=== PATIENT | female | born 1975 | race Caucasian/White ===

== ENCOUNTER → 2022-09-08 | Outpatient (CLI) | payer OTHER, SELFPAY ==
--- NOTE | 2022-09-08 12:37 | US_ITS ---
STUDY: ULTRASOUND BREAST - LEFT REASON FOR EXAM: Female, 47 years old. Abnormal screening mammogram. TECHNIQUE: Axial and longitudinal images of the LEFT breast were performed with a high resolution ultrasound transducer. # OF IMAGES: 41 COMPARISON: None. FINDINGS: LEFT Breast: There is a 9 mm x 6 mm x 8 mm hypoechoic irregular solid nodule at the 3 o''clock position of the breast at 3 cm from the nipple. Biopsy is recommended. There is a 1.9 cm x 0.5 cm benign appearing lymph node in the left axilla. US/Breast Limited Unilateral IMPRESSION: 9 mm x 6 mm x 8 mm hypoechoic irregular solid nodule at the 2 o''clock position of the breast at 3 cm from nipple. Biopsy recommended. ASSESSMENT CATEGORY: BIRADS Category 4: Suspicious - Biopsy Should Be Considered. A letter regarding these results will be sent to the patient by the facility within 30 days. Electronically Signed: Frank Black MD at 13:26 EDT ,
== END | disposition home or self-care (01) ==
LOC: OPUS 12:35
PROVIDERS: PCP Student in an Organized Health Care Education/Training Program; Referring Provider Nurse Practitioner Family; Visit Provider Nurse Practitioner Family
DX: R92.8 Other abnormal and inconclusive findings on diagnostic imaging of breast (principal)
CPT/HCPCS: 76642

== ENCOUNTER → 2022-09-15 | Outpatient (CLI) | payer OTHER, SELFPAY ==
--- NOTE | 2022-09-15 | IMM_PTH ---
PATIENT: NANCY BARNEY LOC: [facility] U#:[id number] AGE/SX: 47/F ROOM: RE09/15/[address]: Dr. Yves Grant MD : 1975 BED: DIS: 09/15/2022 SPEC #: [id number] RECD: 09/19/22 13:07 STATUS: MATTHEW REQ #: [id number] PARKER: 09/15/22 00:[address]: Yves Grant DEPT: IMMUNOHISTOCHEMISTRY RECD BY: Katarina De Leon ENTERED: 09/19/22 13:12 SP TYPE: IMMUNO OTHR DR: Dr. Jake Spangler, DO Tissues: A - Left breast, NOS B - Axillary lymph node, NOS Procedures: BCL-2 (add) CALPONIN-1 (add) CD20 (add) CD3 (add) CD45 (add) CD5 (add) CD79A (add) CK5-6 (add) CK7 (add) CK8 (add) E-CAD (add) ER (add) HER2 VIOLET (add) P53 (add) KS (add) Pankeratin (add) P40 (add) KI-67 (initial) PHYSICIAN & [place] [id number] SPECIMEN INFORMATION: Tissue Source: A - Left breast at 3 o?clock, B - Lymph node tissue Clinical Info: Left breast mass 3 o?clock x3, left lymph nodule Specimen Number: [id number] A & B CPT code: 30874 x2, 85338 x14, 76055 x3 METHODOLOGY: Deparaffinized sections of prefer/formalin-fixed tissue or PAP/DQ stained slides are incubated with monoclonal/polyclonal antibodies/oligonucleotide probes. Localization is made via biotin free immunoperoxidase method. Appropriate controls are performed and reacted as expected. Results on target cell population are indicated in the following table: RESULTS: ANTIBODY / CLONE RESULT Block A P53 (DO-7) positive, 10% Ki-67 (30-9) positive, 5% CK8 (83kdbsH21) positive CK5-6 (D5 & 1684) negative Calponin-1 (EQ522H) negative P40 (BC28) negative E-Cad (ECH-6) negative MORPHOMETRIC ANALYSIS ER (clone 6F11) 78%, moderate intensity KS (clone 16/1E2) 85%, moderate intensity Her-2Neu (clone CB11) 0 Block B AE1-3 (AE1/AE3/PCK26) negative CK7 (OV-TL12/30) negative CD3 (PS1) positive CD5 (SP10) positive CD20 (L26) positive CD45 (RP2/18) positive CD79a (11E3) positive BCL-2 (bcl-2/100/D5) negative Ki-67 (30-9) negative The prognostic test for HER2 is performed on formalin-fixed paraffin embedded tissue. A 3+ (positive) staining pattern is defined as intense, homogeneous, complete, circumferential membranous staining in >10% of contiguous tumor cells. A similar weak (2+) staining pattern is interpreted as equivocal. HONEY follow-up testing is recommended for all equivocal cases. Positivity/negativity for ER/KS is reported if > or < 1% of the tumor cells are immuno- reactive, respectively. The ASCO/CAP criteria is used for scoring. Reference: Journal of Clinical Oncology, 2013; 31:1952-7966 & 2010; 16:9862-9306. Duration of fixation: 57.5 Hrs; Sample Adequate: Yes. These assays have not been validated on decalcified tissues. Results should be interpreted with caution given the likelihood of false negativity on decalcified specimens. These tests were developed and their performance characteristics determined by [facility]. They may not have been cleared or approved by the U.S. Food and Drug Administration. The FDA has determined that such clearance or approval is not necessary. The above immunohistochemical/dualISH markers are ordered and reviewed by the Pathologist. INTERPRETATION: A. Left breast at 3 o?clock, core biopsy: Invasive lobular carcinoma, nuclear grade 2/3. Positive for estrogen receptors (favorable prognostic indicator). Positive for progesterone receptors (favorable prognostic indicator). Negative for overexpression of QIL3ggx. B. Lymph node tissue, biopsy: No evidence of malignancy. AM:marin 09/20/2022
--- NOTE | 2022-09-15 10:00 | BRBX_PTH ---
PATIENT: NANCY BARNEY LOC: [facility] U#:[id number] AGE/SX: 47/F ROOM: RE09/15/[address]: Dr. Yves Grant MD : 1975 BED: DIS: 09/15/2022 SPEC #: [id number] RECD: 09/15/22 13:12 STATUS: MATTHEW MONIK #: [id number] PARKER: 09/15/22 10:[address]: Yves Grant DEPT: SURGICAL PATHOLOGY RECD BY: Genny Negro ENTERED: 09/18/22 08:36 SP TYPE: BREAST BX OTHR DR: Dr. Jake Spangler, DO Tissues: A - Left breast, NOS B - LYMPH NODE BIOPSY Procedures: Surgery Specimen Level IV HEADER OPERATION: Left breast biopsy / Left lymph node PRE-OP DIAGNOSIS: Left breast mass 3 o?clock x3 / Left lymph nodule TISSUE SUBMITTED: A ? Left breast tissue 3 o?clock x3, B ? Left lymph tissue FIXATION TIME: 57.5 hours MICROSCOPIC DIAGNOSIS A. Left breast at 3 o?clock, core biopsy: Invasive lobular carcinoma with the follow characteristics: Nuclear grade ? 2/3 Maximal length ? 8.5 mm See comment. B. Lymph node tissue, biopsy: Benign polytypic lymphoid tissue. No evidence of carcinoma. See comment. AM:marin 09/19/2022 COMMENT A & B. Immunohistochemistry ([id number]) supports the above diagnosis. Case has been reviewed in consultation with Dr. Hill who concurs with the above diagnosis. IDC:SJ MICROSCOPIC DESCRIPTION Slides are reviewed. GROSS DESCRIPTION A - Received in fixative is one container labeled with the patient's name and designated left breast. The specimen consists of multiple elongated fragments of carrillo tissue that in aggregate measure 2 x 0.5 x 0.1 cm. The specimen is totally submitted in one cassette. B - Received in fixative is one container labeled with the patient's name and designated left lymph node. The specimen consists of two irregular fragments of carrillo-yellow tissue that in aggregate measure 1 x 0.2 x 0.1 cm. The specimen is totally submitted in one cassette. / AM:marin 09/18/2022 TC:0 CPT: 40206 x2 ADDENDUM ADDENDUM ADDENDUM ADDENDUM ADDENDUM ADDENDUM ADDENDUM ADDENDUM 11/29/2022 10:25 ADDENDUM 11/29/2022 10:25 ADDENDUM 11/29/2022 10:25 ADDENDUM 11/29/2022 10:25 ADDENDUM 11/29/2022 10:25 An order for Oncotype testing was received from Dr. Leung. This necessitated case review, block and slide selection by pathologist at [facility]. Breast Cancer Recurrence Score = 25 Results of the complete Oncotype testing ([employer] report) are viewable in EMR under: Reports - Pathology - Lab Pathology Report, Scanned.
== END | disposition home or self-care (01) ==
LOC: LABSPEC 13:22
PROVIDERS: PCP Student in an Organized Health Care Education/Training Program; Visit Provider Surgery
DX: N63.20 Unspecified lump in the left breast, unspecified quadrant (principal)
CPT/HCPCS: 88305; 88341; 88342

== ENCOUNTER → 2022-10-02 | Outpatient (CLI) | payer OTHER, SELFPAY ==
--- NOTE | 2022-10-02 14:25 | MRI_ITS ---
STUDY: BILATERAL BREAST MR WITHOUT AND WITH CONTRAST REASON FOR EXAM: Female, 47 years old. Left breast cancer after biopsy 03/01/2022. TECHNIQUE: Multi-sequence multi-echo imaging of both breasts was performed with a dedicated breast coil. T1-weighted and T2-weighted images were performed before the administration of contrast. T1-weighted images were also performed after the intravenous administration of 14ML of CLARISCAN contrast. COMPARISON: Left breast ultrasound dated 09/15/2022, 09/08/2022 and mammograms dated August 18, 2022 and February 16, 2021. FINDINGS: RIGHT BREAST: There are scattered areas of fibroglandular density with mild background enhancement. Multiple small cysts. 2 focal areas of contrast enhancement in the lower outer aspect of the right breast, one measuring 4 mm in diameter and the other 9 mm in diameter. These are located at approximately the 8:00 to 9:00 position of the left breast (axial postcontrast images 163-175). While this may just represent benign enhancement, a second look ultrasound of the right breast is recommended with particular attention to this area. LEFT BREAST: There are scattered areas of fibroglandular density with mild background enhancement. In the upper outer quadrant of the left breast there is an irregular enhancing mass measuring 1 cm x 5 mm x 7 mm corresponding to the mammographic and ultrasonographic findings. This represents the index lesion. Tissue clip artifact within the mass. Multiple small cysts randomly distributed. No enlarged or abnormal lymph nodes. No abnormality in the visualized regions of the chest or liver. MRI/Breast Bilateral W/O and W IMPRESSION: Index lesion in the upper outer quadrant of the left breast measuring 1 cm x 5 mm x 7 mm with tissue clip artifact within it. 2 focal areas of contrast enhancement in the lower outer quadrant of the right breast for which a second look ultrasound is recommended. See discussion above. Multiple cysts in both breasts. CATEGORY: BIRADS Category 0: Incomplete. Need additional imaging evaluation. A letter regarding these results will be sent to the patient by the facility within 30 days. Electronically Signed: Maciel Patton, at 13:13 EST ,
== END | disposition home or self-care (01) ==
PROVIDERS: PCP Student in an Organized Health Care Education/Training Program; Visit Provider Physician Assistant
DX: C50.919 Malignant neoplasm of unspecified site of unspecified female breast (principal)
CPT/HCPCS: 77049; A9575; A4216; C8908

== ENCOUNTER → 2022-10-06 | Outpatient (CLI) | payer OTHER, SELFPAY ==
--- NOTE | 2022-10-06 09:26 | US_ITS ---
STUDY: ULTRASOUND BREAST - RIGHT REASON FOR EXAM: Female, 47 years old. Second look ultrasound from MRI study dated October 02, 2022. TECHNIQUE: Axial and longitudinal images of the RIGHT breast were performed with a high resolution ultrasound transducer. # OF IMAGES: 35 COMPARISON: MRI dated October 02, 2022. Bilateral mammogram dated August 18, 2022. FINDINGS: RIGHT Breast: Targeted examination of the right lower outer breast showed 3 hypoechoic lesions: 8:00 position 4 cm from the nipple measuring 5 mm x 5 mm x 4 mm. This lesion has increased blood flow and is suspicious. Ultrasound-guided biopsy of this lesion would be appropriate. 9:00 position 3 cm from the nipple 4 mm x 5 mm x 4 mm hypoechoic lesion. This has no significant increased blood flow. 9:00 4 cm from the nipple 5 mm x 4 mm x 3 mm lesion which has slightly irregular borders and shows increased blood flow. Ultrasound-guided biopsy of the 8:00 lesion 4 cm from the nipple and at 9:00 lesion 4 cm from the nipple, because of the increased vascularity and the enhancement on MRI, is recommended. US/Breast Limited Unilateral IMPRESSION: Ultrasound-guided biopsy of 2 lesions which correlate with the MRI study, as outlined above. ASSESSMENT CATEGORY: BIRADS Category 4: Suspicious - Biopsy Should Be Considered. A letter regarding these results will be sent to the patient by the facility within 30 days. Electronically Signed: Maciel Patton, at 10:34 EST ,
== END | disposition home or self-care (01) ==
LOC: OPUS 09:25
PROVIDERS: PCP Student in an Organized Health Care Education/Training Program; Referring Provider Surgery; Visit Provider Surgery
DX: R92.8 Other abnormal and inconclusive findings on diagnostic imaging of breast (principal)
CPT/HCPCS: 76642

== ENCOUNTER → 2022-10-09 | Outpatient (CLI) | payer OTHER, SELFPAY ==
--- NOTE | 2022-10-09 | IMM_PTH ---
PATIENT: NANCY BARNEY LOC: [facility] U#:[id number] AGE/SX: 47/F ROOM: RE10/09/[address]: Dr. Yves Grant MD : 1975 BED: DIS: 10/09/2022 SPEC #: [id number] RECD: 10/11/22 12:36 STATUS: MATTHEW REZev #: [id number] PARKER: 10/09/22 00:[address]: Yves Grant DEPT: IMMUNOHISTOCHEMISTRY RECD BY: Katarina De Leon ENTERED: 10/11/22 12:37 SP TYPE: IMMUNO OTHR DR: Dr. Jake Spangler DO Tissues: A - Right breast, NOS B - Right breast, NOS Procedures: SMA (add) CALPONIN-1 (add) CK5-6 (add) CK8 (add) Vimentin (add) Pankeratin (initial) PHYSICIAN & INSTITUTION [place] [id number] SPECIMEN INFORMATION: Tissue Source: A ? Right breast mass 8 o?clock, B - Right breast mass 9 o?clock Clinical Info: Multiple right breast masses Specimen Number: [id number] A & B CPT code: 96636 x2, 83085 x10 METHODOLOGY: Deparaffinized sections of prefer/formalin-fixed tissue or PAP/DQ stained slides are incubated with monoclonal/polyclonal antibodies/oligonucleotide probes. Localization is made via biotin free immunoperoxidase method. Appropriate controls are performed and reacted as expected. Results on target cell population are indicated in the following table: RESULTS: ANTIBODY / CLONE RESULT Block A AE1-3 (AE1/AE3/PCK26) positive CK8 (84zavgM88) positive Vimentin (V9) negative Calponin-1 (SK931N) positive Actin (1A4) positive CK5-6 (D5 & 1684) positive Block B AE1-3 (AE1/AE3/PCK26) positive CK8 (47euuoK67) positive Vimentin (V9) negative Calponin-1 (ND409C) positive Actin (1A4) positive CK5-6 (D5 & 1684) positive These tests were developed and their performance characteristics determined by [facility]. They may not have been cleared or approved by the U.S. Food and Drug Administration. The FDA has determined that such clearance or approval is not necessary. The above immunohistochemical/dualISH markers are ordered and reviewed by the Pathologist. INTERPRETATION: A. Right breast mass at 8 o?clock, biopsy: Consistent with fragments of intraductal papilloma. B. Right breast mass at 9 o?clock, biopsy: Consistent with fragments of intraductal papilloma. AM:marin 10/12/2022
--- NOTE | 2022-10-09 13:00 | BRBX_PTH ---
PATIENT: NANCY BARNEY LOC: [facility] U#:[id number] AGE/SX: 47/F ROOM: RE10/09/[address]: Dr. Yves Grant MD : 1975 BED: DIS: 10/09/2022 SPEC #: [id number] RECD: 10/09/22 15:22 STATUS: MATTHEW MONIK #: [id number] PARKER: 10/09/22 13:[address]: Yves Grant DEPT: SURGICAL PATHOLOGY RECD BY: Genny Negro ENTERED: 10/10/22 07:26 SP TYPE: BREAST BX OT DR: Dr. Jake Spangler DO Tissues: A - Right breast, NOS B - Right breast, NOS Procedures: Surgery Specimen Level IV HEADER OPERATION: Right breast biopsy (x2) PRE-OP DIAGNOSIS: Multiple right breast masses TISSUE SUBMITTED: A ? Right breast mass 8 o?clock +4, B - Right breast mass 9 o?clock +4 MICROSCOPIC DIAGNOSIS A. Right breast at 8 o?clock, needle core biopsy: Fragments of detached intraductal papilloma. Focal intraductal hyperplasia without atypia. See comment. B. Right breast at 9 o?clock, needle core biopsy: Fragments of detached intraductal papilloma. Focal intraductal hyperplasia without atypia. Focal fibrocystic change. See comment. AM:marin 10/11/2022 COMMENT A & B. Immunohistochemistry ([id number]) supports the above diagnosis. Reference is made to the patient's previous left breast, core biopsy from 09/19/22 ([id number]), in which invasive lobular carcinoma was identified. MICROSCOPIC DESCRIPTION Slides are reviewed. GROSS DESCRIPTION A - Received in fixative is one container labeled with the patient's name and designated right breast mass 8 o'clock +4. The specimen consists of multiple irregular fragments of carrillo soft tissue that in aggregate measure 2 x 0.5 x 0.1 cm. The specimen is totally submitted in one cassette. B - Received in fixative is one container labeled with the patient's name and designated right breast mass 9 o?clock +4. The specimen consists of multiple elongated fragments of carrillo-yellow fibroadipose tissue that in aggregate measure 2 x 0.5 x 0.1 cm. The entire specimen is submitted in one cassette. / ANGEL:marin 10/10/2022 TC:1 CPT: 95366 x2
== END | disposition home or self-care (01) ==
LOC: LABSPEC 15:40
PROVIDERS: PCP Student in an Organized Health Care Education/Training Program; Visit Provider Surgery
DX: D24.1 Benign neoplasm of right breast (principal)
CPT/HCPCS: 88305; 88341; 88342

== ENCOUNTER → 2022-10-10 | Outpatient (CLI) | payer OTHER, SELFPAY ==
--- NOTE | 2022-10-10 12:58 | US_ITS ---
STUDY: ULTRASOUND BREAST - RIGHT REASON FOR EXAM: Female, 47 years old. Recent breast biopsy. TECHNIQUE: Axial and longitudinal images of the RIGHT breast were performed with a high resolution ultrasound transducer. # OF IMAGES: 23 COMPARISON: Comparison is made with prior ultrasound of the right breast dated 10/06/2022. FINDINGS: RIGHT Breast: The patient is status post ultrasound-guided biopsy of a 5 mm x 5 mm x 4 mm hypoechoic nodule at the 8 o''clock position of the breast for sometime and some nipple. The patient is also status post biopsy of a 4 mm x 5 mm x 4 mm hypoechoic nodule at the 9 o''clock position breast at 3 cm from the nipple. No other nodule is seen. No suspicious nodule is seen at the 9 o''clock position of the breast at 4 cm from nipple. US/Breast Limited Unilateral IMPRESSION: No suspicious nodule is seen at the 9 o''clock position of the breast at 4 cm from nipple. ASSESSMENT CATEGORY: BIRADS Category 2: Benign. A letter regarding these results will be sent to the patient by the facility within 30 days. Electronically Signed: Frank Black MD at 14:51 EST ,
== END | disposition home or self-care (01) ==
LOC: US 12:57
PROVIDERS: PCP Student in an Organized Health Care Education/Training Program; Visit Provider Surgery
DX: C50.919 Malignant neoplasm of unspecified site of unspecified female breast (principal); N63.10 Unspecified lump in the right breast, unspecified quadrant
CPT/HCPCS: 76642

== ENCOUNTER → 2022-10-23 | Outpatient (CLI) | payer OTHER, SELFPAY ==
--- NOTE | 2022-10-23 09:05 | BI_ITS ---
MAMMOGRAPHY - UNILATERAL DIAGNOSTIC: RIGHT BREAST REASON FOR EXAM: Female, 47 years old. History of prior right ultrasound-guided breast biopsies. PERTINENT HISTORY: Personal history of breast cancer. Mother with breast cancer. Aunt with breast cancer. TECHNIQUE: Digital unilateral breast kay (3D mammographic acquisition) in the CC and MLO projections. 2-D mediolateral oblique (MLO) and craniocaudad (CC) views of both breasts were obtained. CAD: Full Field Digital Mammography with Computer Added Detection was performed. COMPARISON: Comparison is made with prior outside examination of 08/18/2022. FINDINGS: Breast Composition: The breasts are heterogeneously dense, which may obscure small masses. There are no dominant masses or suspicious calcifications. There are 2 adjacent tissue clip marker is in the lateral retroareolar region of the right breast. No other significant abnormalities are identified. BI/DIAG MAMM W/CAD, UNILAT IMPRESSION: There are 2 adjacent tissue markers in the lateral retroareolar region on the right breast. ASSESSMENT CATEGORY: BIRADS Category 2: Benign. A letter regarding these results will be sent to the patient by the facility within 30 days. Approximately 10% of breast cancers are not detected by mammography. A normal mammogram should not delay biopsy of a clinically suspicious abnormality. Electronically Signed: Frank Black MD at 10:20 EST ,
== END | disposition home or self-care (01) ==
LOC: OPBI 09:04
PROVIDERS: PCP Student in an Organized Health Care Education/Training Program; Visit Provider Surgery
DX: Z98.890 Other specified postprocedural states (principal); Z85.3 Personal history of malignant neoplasm of breast; Z80.3 Family history of malignant neoplasm of breast
CPT/HCPCS: 77061; 77065; G0279

== ENCOUNTER 2022-10-25 08:04 | Day surgery (SDC) | payer OTHER, SELFPAY ==
--- NOTE | 2022-10-24 13:14 | EKG12_ITS ---
Test Reason : PRE OP Blood Pressure : / mmHG Vent. Rate : 071 BPM Atrial Rate : 071 BPM P-R Int : 142 ms QRS Dur : 076 ms QT Int : 370 ms P-R-T Axes : 077 083 072 degrees QTc Int : 402 ms Normal sinus rhythm Normal ECG Confirmed by VINCENZO CLINE, MARIANO ([id number]), editor city GEORGE TRUJILLO ([id number]) on 10/25/2022 8:59:51 AM Referred By: Yves Grant Confirmed By:MARIANO LOYA MD
--- NOTE | 2022-10-24 13:14 | RAD_ITS ---
STUDY: X-RAY CHEST REASON FOR EXAM: Female, 47 years old. LEFT BREAST CA TECHNIQUE: Frontal and lateral views of the chest. COMPARISON: None. FINDINGS: Lungs are hyperaerated. Right lower lobe infiltrate. There is no demonstrated pleural abnormality. Normal size heart. Normal mediastinum and alberto. Normal visualized pulmonary arteries. Normal visualized aortic arch and descending thoracic aorta. Mild scoliosis. Normal visualized ribs, clavicles, and shoulders. There is no demonstrated abnormality of the visualized soft tissue structures of the upper abdomen. RAD/Chest PA and Lateral IMPRESSION: Right lower lobe infiltrate. COPD. Electronically Signed: Aston Heredia MD at 19:52 EST ,
[2022-10-24 14:30] LABS: Hematocrit 43.4 % (37-47); Hemoglobin 14.2 g/dL (12.0-15.0); Mean Corp Hgb Conc 32.7 g/dL (32-36); Mean Corpuscular Hgb 32.5 pg (27.0-32.0); Mean Corpuscular Volume 99.3 fL (81-99); Mean Platelet Vol. 12.8 fl (6.2-12.0); Platelet Count 200 K/mm3 (150-450); RBC Distribution Width CV 13.8 % (11.6-14.6); RBC Distribution Width SD 50.5 fl (35.1-43.9); Red Blood Count 4.37 M/mm3 (4.2-5.4); White Blood Count 7.6 K/mm3 (4.4-11.0)
[2022-10-24 15:29] LABS: AST(SGOT) 11 U/L (15-37); Alanine Aminotransfer ALT/SGPT 21 U/L (13-56); Albumin, Serum 3.5 g/dL (3.2-5.0); Alkaline Phosphatase 62 U/L (45-117); Anion Gap 7 (5-15); BUN 16 mg/dL (7-18); BUN/Creat Ratio 16.5 RATIO (10-20); Calcium,Total 9.6 mg/dL (8.5-10.1); Chloride 107 mmol/L (98-107); Creatinine, Serum 0.97 mg/dL (0.55-1.02); EST Glomerular Filtration Rate 65 mL/min (>60); Est Glom Filt Rate - Afr Amer 78 mL/min (>60); Estimated Creatinine Clearance 63.13 ml/min; Globulin 3.5 g/dL (2.2-4.2); Glucose 95 mg/dL (74-106); Potassium 3.7 mmol/L (3.5-5.1); Sodium Level 140 mmol/L (136-145)
[2022-10-25] VITALS (12 sets, daily range): BP systolic 103–125; BP diastolic 63–82; PULSE 74–103; RESP 16–63; TEMP 36.8–37.5; O2SAT 96–100; BMI 24.9
--- NOTE | 2022-10-25 | AXNB_PTH ---
PATIENT: NANCY BARNEY [place] [facility] [id number] AGE/SX: 47/F ROOM: RE10/25/[address]: Dr. Yves Grant MD : 1975 BED: DIS: 10/25/2022 SPEC #: [id number] RECD: 10/25/22 11:05 STATUS: MATTHEW MONIK #: [id number] PARKER: 10/25/22 00:[address]: Yves Grant DEPT: SURGICAL PATHOLOGY RECD BY: Katarina De Leon ENTERED: 10/25/22 11:42 SP TYPE: AX NODE BX OTHR DR: MD Dr. Jake Rodriguez, Tissues: A - Axillary lymph node, NOS B - Left breast, NOS Procedures: Frozen Section (charge) Frozen Section Add'l ([facility]) Surgery Specimen Level V HEADER OPERATION: Left breast stereotactic wire localization, nuclear tracer plus blue dye, sentinel lymph node biopsy PRE-OP DIAGNOSIS: Abnormal breast MRI, breast cancer TISSUE SUBMITTED: A - Left axillary sentinel lymph node, FS, B - Left breast lump, wire - lateral, short stitch - superior, long stitch - anterior FROZEN SECTION DIAGNOSIS A. Left axillary sentinel lymph nodes, biopsy: Five out of five lymph nodes negative for carcinoma. AM:marin 10/25/2022 MICROSCOPIC DIAGNOSIS A. Left axillary sentinel lymph nodes, biopsy: Five out of five lymph nodes negative for carcinoma. B. Left breast, lumpectomy: Invasive lobular carcinoma. See cancer synoptic report below. AM: 10/31/2022 COMMENT B. INVASIVE BREAST CANCER SUMMARY: Procedure - excision with wire guidance Specimen: Type - partial breast Size ? 6 x 6 x 2 cm Laterality ? left breast Tumor: Site ? not specified Size ? 1.3 x 1 x 0.8 cm Histologic type - invasive lobular carcinoma. Focality - single focus of carcinoma. Histologic Grade (Bhargav grade): Glandular/tubular differentiation - score 3 Nuclear pleomorphism - score 3 Mitotic count ? score 2 Overall grade - 3 (score of 8) Ductal carcinoma in situ - not present Lobular carcinoma in situ (LCIS) ? not present Tumor extension: Skin ? not applicable Nipple - not applicable Skeletal muscle - not present Margins: Distance of invasive carcinoma from closest margin ? 0.7 cm from superior margin. Lymph nodes: Number of sentinel lymph nodes examined - 5 Total number of lymph nodes examined (sentinel and nonsentinel) - 5 No evidence of macrometastases, micrometastases or isolated tumor cells. Please see immunohistochemistry [id number]. Treatment effect - Unknown Lymphvascular invasion - unknown Additional pathologic findings ? focal intraductal hyperplasia without atypia. Focal atypical lobular hyperplasia. Fibrocystic change and adenosis. Ancillary studies - previously performed on section of tumor ([id number] / [id number]). ER ? positive (78%, moderate intensity) MS ? positive (85%, moderate intensity) Her2 peter ? negative (0) Microcalcifications ? present, focally in non-neoplastic tissue. Clinical history ? mass of left breast PATHOLOGIC STAGE: T1c N0(sn) Mx The above summary is in compliance with [employer] (CAP) Cancer Protocols Checklist and [place] Joint Committee on Cancer (AJCC), Staging Manual, 8th Ed. Case has been reviewed in consultation with Dr. Hill who concurs with the above diagnosis. IDC:SJ MICROSCOPIC DESCRIPTION Slides are reviewed. GROSS DESCRIPTION A - Received fresh for frozen section consultation labeled with the patient's name is a specimen designated left axillary sentinel lymph nodes. The specimen consists of an irregular fragment of carrillo-yellow fibrofatty tissue measuring 3.5 x 3 x 1 cm. Dissection reveals five nodules ranging in size from 0.6 to 1.5 cm. The nodules are submitted in their entirety for frozen section consultation as follows: 1 - three nodules, 2 - two nodules. / AM:mairn 10/26/2022 B - Received fresh for OR consultation labeled with the patient's name is a specimen designated left breast lump. The specimen consists of a lumpectomy measuring 6 x 6 x 2 cm and weighing 34 gm. The specimen contains a guidewire and has been oriented. Serial sections reveal an irregular, spiculated, carrillo-white lesion measuring 1.3 x 1 x 0.8 cm and located 0.7 cm from its closest (superior) margin of excision. The remainder of the breast parenchyma is grossly unremarkable. The gross impression of lesion and distance from margin is conveyed to the surgeon intraoperatively. [employer] sections are submitted in 12 cassettes as follows: 1 & 2 - perpendicular inked margins, 3-5 - mass, totally submitted, 6-8 - metals sales representative sections of uninvolved breast parenchyma adjacent to lesion, 9-12 - metals sales representative sections of breast parenchyma away from lesion. Note, the sections are submitted after additional fixation. / AM:marin 10/26/2022 TC:0 CPT: 34977 x2, 16563, 20402
--- NOTE | 2022-10-25 | IMM_PTH ---
PATIENT: NANCY BARNEY LOC: [facility] [place] U#:[id number] AGE/SX: 47/F ROOM: RE10/25/[address]: Dr. Yves Grant MD : 1975 BED: DIS: 10/25/2022 SPEC #: [id number] RECD: 10/30/22 13:15 STATUS: MATTHEW REZev #: [id number] PARKER: 10/25/22 00:[address]: Yves Grant DEPT: IMMUNOHISTOCHEMISTRY RECD BY: Katarina De Leon ENTERED: 10/30/22 13:17 SP TYPE: IMMUNO OTHR DR: MD Dr. Jake Rodriguez, Tissues: A - Axillary lymph node, NOS B - Left breast, NOS Procedures: SMA (add) Calponin-1(initial) CK5-6 (add) CK7 (add) E-CAD (add) HER2 VIOLET (add) Pankeratin (add) P40 (add) CK7 (initial) PHYSICIAN & [address] [address] SPECIMEN INFORMATION: Tissue Source: A ? Left axillary sentinel lymph node, B ? Left breast lump Clinical Info: Abnormal breast MRI, breast cancer Specimen Number: [id number] A1, A2, B3, B11 CPT code: 49908 x2, 47708 x8 METHODOLOGY: Deparaffinized sections of prefer/formalin-fixed tissue or PAP/DQ stained slides are incubated with monoclonal/polyclonal antibodies/oligonucleotide probes. Localization is made via biotin free immunoperoxidase method. Appropriate controls are performed and reacted as expected. Results on target cell population are indicated in the following table: RESULTS: ANTIBODY / CLONE RESULT Block A1 CK7 (OV-TL12/30) negative AE1-3 (AE1/AE3/PCK26) negative Block A2 CK7 (OV-TL12/30) negative AE1-3 (AE1/AE3/PCK26) negative Block B3 Her-2neu (CB11) negative (0) E-Cad (ECH-6) negative Block B11 Calponin-1 (AF314Q) positive CK5-6 (D5 & 1684) positive Actin (1A4) positive P40 (BC28) positive These tests were developed and their performance characteristics determined by [facility]. They may not have been cleared or approved by the [place]. Food and Drug Administration. The FDA has determined that such clearance or approval is not necessary. The above immunohistochemical/dualISH markers are ordered and reviewed by the Pathologist. INTERPRETATION: A. Left axillary sentinel lymph nodes, biopsy: Five out of five lymph nodes, negative for carcinoma. B. Left breast lump, stereotactic wire location: Invasive lobular carcinoma. Focal atypical lobular hyperplasia. Adenosis. AM:marin 10/31/2022
--- NOTE | 2022-10-25 08:15 | NM_ITS ---
PROCEDURE: NUCLEAR MEDICINE Injection [place] Node - LEFT breast(s). REASON FOR EXAM: Female, 47 years old. Left breast cancer. TECHNIQUE: [place] node localization using radionuclide methods of the LEFT breast(s) was performed following subcutaneous administration of 1.1 mCi of of sulfur colloid Tc-99m. COMPARISON STUDIES : NM - None. CR - Not available for review at this time. CT - Not available for review at this time. MR - Not available for review at this time. US - Not available for review at this time. FINDINGS: 1.1 mCi of technetium labeled sulfur colloid was injected subcutaneously in the periareolar region. NM/Lymph Node Injection Only IMPRESSION: 1.1 mCi of considerable sulfur colloid was injected subcutaneously in the periareolar region. Electronically Signed: Frank Black MD at 13:37 EST ,
[2022-10-25] MEDS: Lactated Ringers 1,000 ML 15 ML IV (08:56)
--- NOTE | 2022-10-25 09:00 | BI_ITS ---
SURGICAL BREAST SPECIMEN RADIOGRAPH CLINICAL: Document presence of tissue clip marker in biopsy specimen. FINDINGS: Specimen shows presence of tissue clip marker. Electronically Signed: Frank Black MD at 12:04 EST , BI/Breast Biopsy Specimen IMPRESSION: undefined
--- NOTE | 2022-10-25 09:15 | HP.PCM_ITS ---
History and Physical Date of Admission: 10/25/22 Allergies No Known Allergies Allergy (Verified 10/16/22 12:42) Medications ibuprofen 400 mg tablet 600 mg PO Q6H PRN PRN Pain #60 TABLETS 09/20/14 [Rx Confirmed 10/16/22] cholecalciferol (vitamin D3) 25 mcg (1,000 unit) tablet (Vitamin D3) 1,000 unit PO DAILY 06/12/16 [History Confirmed 10/16/22] fexofenadine-pseudoephedrine ER 180 mg-240 mg tablet,ext.release 24 hr (Vickie- D 24 Hour) 1 tab.sr PO DAILY SEASONAL ALLERGIES 06/12/16 [History Confirmed 10/16/22] hydrocodone-acetaminophen 5-325mg 5mg-325mg 1 - 2 tab PO Q4H PRN PRN Pain #30 TABLETS 06/17/16 [Rx Confirmed 10/16/22] citalopram 20 mg tablet 20 mg PO DAILY 09/21/22 [History Confirmed 10/16/22] latanoprost 0.005 % eye drops 1 drp ophthalmic (eye) QPM 09/21/22 [History Confirmed 10/16/22] PFSH Surgical History? Delivery by section History of ear surgery History of partial thyroidectomy Family History? Mother Breast cancer,? Onset Age: 47Grandmother Colon cancer ?? ? paternalUncle Colon cancer ?? ? paternalAunt Pancreatic cancer ?? ? maternalAunt Breast cancer ?? ? maternal >50y.o. at age of diagnosisGrandfather Heart disease ?? ? maternal Social History? household members:? family number of children:? 1 current occupational status:? 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 No Smoking Status:? Never smoker alcohol intake:? never substance use type:? does not use caffeine:? No what type of physical activity do you participate in:? walking frequency:? 3-4 times per week HPI HPI HPI: 47-year-old female returns to discuss ultrasound-guided needle core biopsy right breast..? This was performed for her October 11, 2022.? She had had a bilateral breast MRI.? This demonstrated 2 items lower outer right breast.? Ultrasound suggested possibly 2 items in this area.? Those 2 items were vague.? We did an ultrasound-guided core biopsy.? I then requested a follow-up ultrasound.? F ollow-up ultrasound suggested that one of the items could not be found the other item appeared to have a marking clip in. Chief Complaint: Right Breast Biopsy Allergies No Known Allergies Allergy (Verified 10/09/22 12:58) Medications ibuprofen 400 mg tablet 600 mg PO Q6H PRN PRN Pain #60 TABLETS 09/20/14 [Rx Confirmed 10/09/22] cholecalciferol (vitamin D3) 25 mcg (1,000 unit) tablet (Vitamin D3) 1,000 unit PO DAILY 06/12/16 [History Confirmed 10/09/22] fexofenadine-pseudoephedrine ER 180 mg-240 mg tablet,ext.release 24 hr (Vickie- D 24 Hour) 1 tab.sr PO DAILY SEASONAL ALLERGIES 06/12/16 [History Confirmed 10/09/22] hydrocodone-acetaminophen 5-325mg 5mg-325mg 1 - 2 tab PO Q4H PRN PRN Pain #30 TABLETS 06/17/16 [Rx Confirmed 10/09/22] citalopram 20 mg tablet 20 mg PO DAILY 09/21/22 [History Confirmed 10/09/22] latanoprost 0.005 % eye drops 1 drp ophthalmic (eye) QPM 09/21/22 [History Confirmed 10/09/22] Assessment and Plan Assessment and Plan (1) Abnormal MRI, breast: ?Status:?Acute (2) Breast cancer: ?Status:?Acute ?Plan: October 11, 2022 I now have genetic Chauncey reports from lab draw September 21, 2022.? No known pathogenic or likely pathogenic variants were detected evaluating for 30 genes. Yves Grant M.D., F.A.C.S. ? ? ? Orders: Orders Breast Limited Unilateral 10/10/22? C50.919 - Malignant neoplasm o f unspecified site of unspecified female breast, N63.10 - Unspecified lump in the right breast, unspecified quadrant ? Intake Intake Visit Reasons:?Right Breast Biopsy Chief Complaint: Right Breast Biopsy Procedure Manager Required: No Is patient in pain?: No Allergies No Known Allergies Allergy (Verified 10/09/22 12:58) Medications ibuprofen 400 mg tablet 600 mg PO Q6H PRN PRN Pain #60 TABLETS 09/20/14 [Rx Confirmed 10/09/22] cholecalciferol (vitamin D3) 25 mcg (1,000 unit) tablet (Vitamin D3) 1,000 unit PO DAILY 06/12/16 [History Confirmed 10/09/22] fexofenadine-pseudoephedrine ER 180 mg-240 mg tablet,ext.release 24 hr (Vickie- D 24 Hour) 1 tab.sr PO DAILY SEASONAL ALLERGIES 06/12/16 [History Confirmed 10/09/22] hydrocodone-acetaminophen 5-325mg 5mg-325mg 1 - 2 tab PO Q4H PRN PRN Pain #30 TABLETS 06/17/16 [Rx Confirmed 10/09/22] citalopram 20 mg tablet 20 mg PO DAILY 09/21/22 [History Confirmed 10/09/22] latanoprost 0.005 % eye drops 1 drp ophthalmic (eye) QPM 09/21/22 [History Confirmed 10/09/22] PFSH Surgical History? Delivery by section History of ear surgery History of partial thyroidectomy Family History? Mother Breast cancer,? Onset Age: 47Grandmother Colon cancer ?? ? paternalUncle Colon cancer ?? ? paternalAunt Pancreatic cancer ?? ? maternalAunt Breast cancer ?? ? maternal >50y.o. at age of diagnosisGrandfather Heart disease ?? ? maternal Social History? household members:? family number of children:? 1 current occupational status:? 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 No Smoking Status:? Never smoker alcohol intake:? never substance use type:? does not use caffeine:? No what type of physical activity do you participate in:? walking frequency:? 3-4 times per week HPI HPI HPI: The patient returns to evaluate her regarding her breast MRI of October 02, 2022 suggesting the index lesion upper outer quadrant left breast 10 x 5 x 7 mm.? There is a new finding of 2 focal areas contrast-enhancement lower outer right breast.? Second look ultrasound recommended.? The ultrasound was obtained on October 06, 2022 suggesting right breast 8 o'clock position +4 cm of 5 x 5 x 4 mm lesion felt to have blood flow and suspicious.? Right breast 9:00 +3 cm 4 x 5 x 4 mm hypoechoic lesion with no blood flow and not felt to be suspicious and then a right breast 9:00 +4 cm 5 x 4 x 3 mm lesion with slightly irregular borders with blood flow felt to be of concern.? Biopsy of the 9:00 +4 cm lesion and 8:00 +4 cm and recommended.? I have reviewed the images and these findings are small and somewhat vague. The patient states that she has received the results of her genetic testing which I have as yet not received.? She states that they are negative. ADDENDUM by Dr. Yves Grant MD on 09/20/22 at 1346 Intake Chief Complaint: biopsy results Allergies No Known Allergies Allergy (Verified 09/19/22 12:59) Medications ibuprofen 400 mg tablet 600 mg PO Q6H PRN PRN Pain #60 TABLETS 09/20/14 [Rx Confirmed 09/19/22] bimatoprost 0.01 % eye drops (Lumigan) 1 drp QHS 06/12/16 [History Confirmed 09/19/22] cholecalciferol (vitamin D3) 25 mcg (1,000 unit) tablet (Vitamin D3) 1,000 unit PO DAILY 06/12/16 [History Confirmed 09/19/22] fexofenadine-pseudoephedrine ER 180 mg-240 mg tablet,ext.release 24 hr (Vickie- D 24 Hour) 1 tab.sr PO DAILY SEASONAL ALLERGIES 06/12/16 [History Confirmed 09/19/22] hydrocodone-acetaminophen 5-325mg 5mg-325mg 1 - 2 tab PO Q4H PRN PRN Pain #30 TABLETS 06/17/16 [Rx Confirmed 09/19/22] Assessment and Plan Assessment and Plan (1) Breast cancer: ?Status:?Acute ?Plan: Addendum: September 20, 2022 A.? Left breast at 3 o?clock, core biopsy: ?Invasive lobular carcinoma with the follow characteristics: ? ? ? Nuclear grade ? 2/3 ? ? ? Maximal length ? 8.5 mm ?See comment. B.? Lymph node tissue, biopsy: ?Benign polytypic lymphoid tissue. ?No evidence of carcinoma. ?See comment. Hematology oncology appointment pending Yves Grant M.D., F.A.C.S. ? ? ? Orders: Referrals Oncology? C50.919 - Malignant neoplasm of unspecified site of unspecified female breast ? Intake Intake Visit Reasons:?BIOPSY RESULTS Chief Complaint: biopsy results Accompanied by: Is patient in pain?: No Allergies No Known Allergies Allergy (Verified 09/19/22 12:59) Medications ibuprofen 400 mg tablet 600 mg PO Q6H PRN PRN Pain #60 TABLETS 09/20/14 [Rx Confirmed 09/19/22] bimatoprost 0.01 % eye drops (Lumigan) 1 drp QHS 06/12/16 [History Confirmed 09/19/22] cholecalciferol (vitamin D3) 25 mcg (1,000 unit) tablet (Vitamin D3) 1,000 unit PO DAILY 06/12/16 [History Confirmed 09/19/22] fexofenadine-pseudoephedrine ER 180 mg-240 mg tablet,ext.release 24 hr (Vickie- D 24 Hour) 1 tab.sr PO DAILY SEASONAL ALLERGIES 06/12/16 [History Confirmed 09/19/22] hydrocodone-acetaminophen 5-325mg 5mg-325mg 1 - 2 tab PO Q4H PRN PRN Pain #30 TABLETS 06/17/16 [Rx Confirmed 09/19/22] PFSH Family History? Mother Breast cancer Social History? Smoking Status:? Never smoker HPI HPI HPI: 47-year-old female returns today in follow-up of her ultrasound-guided needle core left breast biopsy 3:00 +3 cm biopsy and left axillary lymph node biopsy.? Final pathology is pending.? The breast finding however is noted to be positive for malignancy.? Further staining still pending on the lymph node. Recent notes reflect the following Visit Reasons:?L BREAST BIRADS 4 Chief Complaint: left breast and axillarymass Accompanied by: Is patient in pain?: No Allergies No Known Allergies Allergy (Verified 09/15/22 10:28) Medications ibuprofen 400 mg tablet 600 mg PO Q6H PRN PRN Pain #60 TABLETS 09/20/14 [Rx Confirmed 09/15/22] bimatoprost 0.01 % eye drops (Lumigan) 1 drp QHS 06/12/16 [History Confirmed 09/15/22] cholecalciferol (vitamin D3) 25 mcg (1,000 unit) tablet (Vitamin D3) 1,000 unit PO DAILY 06/12/16 [History Confirmed 09/15/22] fexofenadine-pseudoephedrine ER 180 mg-240 mg tablet,ext.release 24 hr (Vickie- D 24 Hour) 1 tab.sr PO DAILY SEASONAL ALLERGIES 06/12/16 [History Confirmed 09/15/22] hydrocodone-acetaminophen 5-325mg 5mg-325mg 1 - 2 tab PO Q4H PRN PRN Pain #30 TABLETS 06/17/16 [Rx Confirmed 09/15/22] PFSH Family History?(Updated 09/15/22 @ 10:25 by Sonam Aranda) Mother Breast cancer Social History Smoking Status:? Never smoker HPI HPI HPI: 47-year-old female.She is referred by Dr. Jake Spangler for surgical consultation regarding an abnormal mammogram and a written copy of my surgical consult recommendations will return to her.? On August 18, 2022 at [facility] the patient had screening mammography.? There is a mass in the left breast upper outer aspect middle depth.? BI-RADS Category 0.? The patient subsequently had a left breast ultrasound at the [facility] on September 08, 2022.? This demonstrates a 9 x 6 x 8 mm hypoechoic irregular solid nodule left breast 3 o'clock position +3 cm.? BI-RADS Category 4.? Biopsy recommended. 47-year-old female.? G1, .? First child born when she was 39.? Menarche age age 10.? She did breast-feed.? No previous breast biopsies.? Mother developed breast cancer at age 47 and from it.? The patient's not been on any estrogen medication.? She has not noticed any change in her self breast exam.? No focal tenderness no palpable masses no nipple discharge or bleeding. She otherwise enjoys good health.? She does not use tobacco.? She is physically active. She will only intermittently noted some slight tugging sensation in the left axilla but it is intermittent.? She does do an exercise routine which involves her arms. September 08, 2022 STUDY: ? ULTRASOUND BREAST - LEFT REASON FOR EXAM: ? Female, 47 years old.? Abnormal screening mammogram. TECHNIQUE: ? Axial and longitudinal images of the LEFT breast were performed with a high resolution ultrasound transducer. # OF IMAGES:? 41 COMPARISON: ? None. FINDINGS: LEFT Breast: There is a 9 mm x 6 mm x 8 mm hypoechoic irregular solid nodule at the 3 o''clock position of the breast at 3 cm from the nipple.? Biopsy is recommended. There is a 1.9 cm x 0.5 cm benign appearing lymph node in the left axilla. US/Breast Limited Unilateral IMPRESSION: 9 mm x 6 mm x 8 mm hypoechoic irregular solid nodule at the 2 o''clock position of the breast at 3 cm from nipple.? Biopsy recommended. ? ASSESSMENT CATEGORY: BIRADS Category 4:? Suspicious - Biopsy Should Be Considered.? A letter regarding these results will be sent to the patient by the facility within 30 days. ? Electronically Signed: Frank Black MD at 13:26 EDT , ROS General General: No weight change, appetite, fatigue, colon cancer, breast cancer or weakness HEENT HEENT: No difficulty swallowing, eye injury, eye surgery, swollen glands or hoarseness Endo Endocrine: Yes thyroid disease; No diabetes mellitus, thyroid cancer, Hair loss, heat intolerance or cold intolerance Skin Skin: No rash or changing moles Breast Breast: Yes abnormal mammogram and abnormal US; No left breast lump, right breast lump, nipple discharge, breast pain or breast enlargement Musc Musculoskeletal: No back problems, arthritis, rheumatoid arthritis, gout or joint pain Cardio Cardiovascular: No murmur, pacemaker, heart disease, atrial fibrillation, high blood pressure, heart attack, heart stent, palpitations, shortness of breat with exertion or chest pain Psych Psychiatric: Yes anxiety; No depression or hearing voices Resp Respiratory: No shortness of breath, No sleep apnea, No cough, No COPD, No asthma, No emphysema and No wheezing Gastro Gastrointestinal: No abdominal pain, No nausea or vomiting, No diarrhea, No constipation, No blood in stool, No acid reflux, No hemorrhoids, No ulcers, No gallbladder problem and No black,tarry stools Jaime Hematologic: No blood thinners, No blood disorders, No bleeding, No anemia and No blood clots Neuro Neurologic: No system reviewed and no additional complaints, except as documented, No as per HPI, No abnormal gait, No abnormal hearing, No abnormal movements, No abnormal speech, No behavioral changes, No burning sensations, No confusion, No convulsions, No disequilibrium, No dizziness, No localized weakness, No frequent falls, No headache(s), No lack of coordination, No loss of vision, No memory loss, No numbness, No other visual disturbances, No radicular pain, No restless legs, No sensory deficit, No syncope, No tingling, No tremor(s), No weakness and No other Exam Const General: cooperative and healthy appearing [facility] Head: normal to inspection Eyes General: appearance normal, both eyes and all related structures Neck Neck: normal visual inspection Chest Chest palpation & inspection: normal inspection of the chest Other: Bilateral breasts: No focal mass, no nipple discharge, no axillary clavicular adenopathy Resp Effort & Inspection: normal respiratory effort Auscultation: clear to auscultation bilaterally Cardio Rate: regular rate Rhythm: regular rhythm GI Inspection: normal to inspection Palpation: soft and no hepatosplenomegaly Musc Cervical Spine: normal cervical lordosis Skin General: no rashes or lesions noted Neuro General: patient alert, patient awake and patient oriented x3 Extrem General: normal to inspection and no calf tenderness Psych Appearance: grossly normal Office Procedures Biopsy Provider Documentation Ultrasound-guided needle core biopsy left breast 3 o'clock position +3 cm Ultrasound-guided needle core biopsy left axillary lymph node Timeout informed consent was obtained.? The patient was taken the procedure room placed in a supine position a left shoulder roll was placed the left breast and axilla sterilely prepped and draped ultrasound was performed of the left breast 3 o'clock position +3 cm.? The item in question was rapidly identified.? Under ultrasound guidance 1% lidocaine mixed 50-50 with 0.5% Marcaine was used as a local anesthetic.? A total of 8 cc was used.? A small stab incision was created.? A 14-gauge Monopty needle was advanced to prefire depth.? Pre and post fire films obtained.? 3 cores obtained.? A marking clip was left in position.? Pressure was held for hemostasis.? The cores were immediately transferred to formalin for analysis. I then used a Ad Dynamo probe inspected the left axilla.? Fairly deeply placed there appeared to be a slightly enlarged lymph node that I measured out to be about 1.5 cm.? Because of the suspicion regarding the breast mass I attempted a biopsy of this area.? Again it had been prepped.? Local was instilled under ultrasound guidance tried to raise the lymph node.? Made a small stab incision again a 14-gauge Monopty needle was advanced to prefire depth it then almost appeared that there might of been 2 lymph nodes close proximity I took 2 separate cores and at that point I felt that I would await pathology.? Placed a marking clip but the clip seem to retract several millimeters after its positioning.? I elected not to place and he had an additional clip. Pressure was held for hemostasis.? Steri-Strip Telfa OpSite dressings applied.? The lymph node tissue was immediately submitted in a separate canister for analysis. She has been given activity and wound care instructions My signature Biopsy Breast Biopsy: [id number] US Guidance (Breast and LN) Procedure Time Out Time Out Informed consent given: Yes Consent signed: Yes Time out checklist: patient, procedure, site marked/identified, positioning of patient, supplies available, allergies confirmed and team agrees on procedure Time out staff in room: Yes Time out verified: Yes Time out date: 09/15/22 Time out time: 10:00 Assessment and Plan Assessment and Plan (1) Abnormal mammogram of left breast: ?Status:?Acute (2) Abnormal ultrasound of breast: ?Status:?Acute Plan Successful ultrasound-guided needle core biopsy left breast 3 o'clock position +3 cm.? Technically more challenging left axillary lymph node core biopsy.? Pathology is pending.? The patient is aware that the breast diam is suspicious.? We did discuss medical oncology and radiation oncology involvement. Because of the patient's family history with a mother who from breast cancer the patient appropriately has concerns regarding potential genetic testing.? We will therefore be requesting hematology oncology preoperative consultation.? She is aware of that and would like to stay locally here at the hospital. She has had an opportunity to ask and have questions answered.? Appreciate the opportunity assisting with her surgical care.? She is due back to the office in 4 days hopefully with pathology available. Copy: Dr. Jake Grant M.D., F.A.C.S. ROS General General: No weight change, appetite, fatigue, colon cancer, breast cancer or weakness HEENT HEENT: No difficulty swallowing, eye injury, eye surgery, swollen glands or hoarseness Endo Endocrine: Yes thyroid disease; No diabetes mellitus, thyroid cancer, Hair loss, heat intolerance or cold intolerance Skin Skin: No rash or changing moles Breast Breast: Yes abnormal mammogram and abnormal US; No left breast lump, right breast lump, nipple discharge, breast pain or breast enlargement Musc Musculoskeletal: No back problems, arthritis, rheumatoid arthritis, gout or joint pain Cardio Cardiovascular: No murmur, pacemaker, heart disease, atrial fibrillation, high blood pressure, heart attack, heart stent, palpitations, shortness of breat with exertion or chest pain Psych Psychiatric: Yes anxiety; No depression or hearing voices Resp Respiratory: No shortness of breath, No sleep apnea, No cough, No COPD, No asthma, No emphysema and No wheezing Gastro Gastrointestinal: No abdominal pain, No nausea or vomiting, No diarrhea, No constipation, No blood in stool, No acid reflux, No hemorrhoids, No ulcers, No gallbladder problem and No black,tarry stools Jaime Hematologic: No blood thinners, No blood disorders, No bleeding, No anemia and No blood clots Neuro Neurologic: No system reviewed and no additional complaints, except as documented, No as per HPI, No abnormal gait, No abnormal hearing, No abnormal movements, No abnormal speech, No behavioral changes, No burning sensations, No confusion, No convulsions, No disequilibrium, No dizziness, No localized weakness, No frequent falls, No headache(s), No lack of coordination, No loss of vision, No memory loss, No numbness, No other visual disturbances, No radicular pain, No restless legs, No sensory deficit, No syncope, No tingling, No tremor(s), No weakness and No other Assessment and Plan Assessment and Plan (1) Breast cancer: ?Status:?Acute ?Plan: Biopsy-proven left breast cancer with pathology on left axillary lymph node pending. Because of the patient's family history with her mother having breast cancer at a younger age 47 and succumbing to this process I recommend hematology oncology consultation.? Question of genetic investigation prior to considering breast conservation surgery.? I have described to her technique, benefit, risk, alternatives of a wire localized left breast lumpectomy with nuclear tracer and blue dye sentinel lymph node biopsy followed by radiation treatment.? She would otherwise be a good candidate for this. She and her have had an opportunity ask and have questions answered.? We will expedite her hematology oncology appointment and then make further surgical plans based upon her final pathology and their recommendations. Copy: Dr. Jake Grant M.D., F.A.C.S. ROS General General: No weight change, appetite, fatigue, colon cancer, breast cancer or weakness HEENT HEENT: No difficulty swallowing, eye injury, eye surgery, swollen glands or hoarseness Endo Endocrine: Yes thyroid disease; No diabetes mellitus, thyroid cancer, Hair loss, heat intolerance or cold intolerance Skin Skin: No rash or changing moles Breast Breast: Yes abnormal mammogram and abnormal US; No left breast lump, right breast lump, nipple discharge, breast pain or breast enlargement Musc Musculoskeletal: No back problems, arthritis, rheumatoid arthritis, gout or joint pain Cardio Cardiovascular: No murmur, pacemaker, heart disease, atrial fibrillation, high blood pressure, heart attack, heart stent, palpitations, shortness of breat with exertion or chest pain Psych Psychiatric: Yes anxiety; No depression or hearing voices Resp Respiratory: No shortness of breath, No sleep apnea, No cough, No COPD, No asthma, No emphysema and No wheezing Gastro Gastrointestinal: No abdominal pain, No nausea or vomiting, No diarrhea, No constipation, No blood in stool, No acid reflux, No hemorrhoids, No ulcers, No gallbladder problem and No black,tarry stools Jaime Hematologic: No blood thinners, No blood disorders, No bleeding, No anemia and No blood clots Neuro Neurologic: No system reviewed and no additional complaints, except as docum ented, No as per HPI, No abnormal gait, No abnormal hearing, No abnormal movements, No abnormal speech, No behavioral changes, No burning sensations, No confusion, No convulsions, No disequilibrium, No dizziness, No localized weakness, No frequent falls, No headache(s), No lack of coordination, No loss of vision, No memory loss, No numbness, No other visual disturbances, No radicular pain, No restless legs, No sensory deficit, No syncope, No tingling, No tremor(s), No weakness and No other Office Procedures Biopsy Provider Documentation Ultrasound-guided needle core biopsy right breast 8 o'clock position +4 cm and attempted 9 o'clock position +4 cm Timeout informed consent was obtained the patient was taken the procedure room right shoulder roll was placed the right breast was prepped with Betadine ultrasound was performed and I felt that I identified the right breast 8:00 lesion +4 cm.? 1% lidocaine mixed 50-50 with 0.5% Marcaine was instilled as a local anesthetic.? 5 cc was used.? A small stab incision was created.? A 14- gauge Monopty needle was advanced to depth.? 3 cores were obtained.? The lesion seem to decrease some so I placed a coil clip. Then inspected the right breast 9:00 +4 cm.? This area was more vague and difficult to appreciate but I felt that I found the item that was consistent with the preoperative image.? Again in a similar fashion local was instilled stab incisions created 14-gauge Monopty needle advanced to depth but after the very first core the item in question seem to resolve.? Very difficult to repeat imaging.? Just slightly more medially there was a another area which I also biopsied and placed the specimens in the same container.? A ribbon clip was left in position.? I continue to perform ultrasound not demonstrating any residual areas that I could clearly identify a suspicious. Pressure was held for hemostasis.? Steri-Strip Telfa OpSite dressings applied.? Each of the cores had been placed into formalin for analysis and both the container for 8:00 +4 cm and then they separate container of 9:00 +4 cm. Yves Grant M.D., F.A.C.S. Biopsy Breast Biopsy: [id number] US Guidance Assessment and Plan Assessment and Plan (1) Abnormal MRI, breast: ?Status:?Acute (2) Breast cancer: ?Status:?Acute ?Plan: Challenging ultrasound-guided core biopsy of 2 lesions right breast 8:00 and 9:00 positions.? Pathology pending.? I will request a repeat ultrasound be performed in the department to see if the lesions of concern are still present and whether there are marking clips present.? If the items of concern are still present and do not have marking clips then we will pursue yet an additional attempt in the ultrasound department at core biopsy.? The patient is aware of the technique.? It is very pertinent to pursue investigation of the lower outer right breast area prior to recommending definitive surgery for the known left breast cancer. The patient will have the of repeat ultrasound performed and further office follow-up to discuss additional imaging and pathology Yves Grant M.D., F.A.C.S. ROS General General: No weight change, appetite, fatigue, colon cancer, breast cancer or weakness HEENT HEENT: No difficulty swallowing, eye injury, eye surgery, swollen glands or hoarseness Endo Endocrine: Yes thyroid disease; No diabetes mellitus, thyroid cancer, Hair loss, heat intolerance or cold intolerance Skin Skin: No rash or changing moles Breast Breast: Yes abnormal mammogram and abnormal US; No left breast lump, right breast lump, nipple discharge, breast pain or breast enlargement Musc Musculoskeletal: No back problems, arthritis, rheumatoid arthritis, gout or joint pain Cardio Cardiovascular: No murmur, pacemaker, heart disease, atrial fibrillation, high blood pressure, heart attack, heart stent, palpitations, shortness of breat with exertion or chest pain Psych Psychiatric: Yes anxiety; No depression or hearing voices Resp Respiratory: No shortness of breath, No sleep apnea, No cough, No COPD, No asthma, No emphysema and No wheezing Gastro Gastrointestinal: No abdominal pain, No nausea or vomiting, No diarrhea, No constipation, No blood in stool, No acid reflux, No hemorrhoids, No ulcers, No gallbladder problem and No black,tarry stools Jaime Hematologic: No blood thinners, No blood disorders, No bleeding, No anemia and N o blood clots Neuro Neurologic: No system reviewed and no additional complaints, except as documented, No as per HPI, No abnormal gait, No abnormal hearing, No abnormal movements, No abnormal speech, No behavioral changes, No burning sensations, No confusion, No convulsions, No disequilibrium, No dizziness, No localized weakness, No frequent falls, No headache(s), No lack of coordination, No loss of vision, No memory loss, No numbness, No other visual disturbances, No radicular pain, No restless legs, No sensory deficit, No syncope, No tingling, No tremor(s), No weakness and No other Assessment and Plan Assessment and Plan (1) Abnormal MRI, breast: ?Status:?Acute ?Plan: The patient has biopsy-proven invasive lobular carcinoma upper outer quadrant left breast.? She had an abnormal MRI with 2 lesions lower outer right breast with ultrasound identifying 2 questionable lesions which were sampled and that tissue right breast 8:00 +4 cm a detached intraductal papilloma focal intraductal hyperplasia without atypia.? And at 9:00 +4 cm fragments of detached intraductal papilloma and focal intraductal hyperplasia without atypia.? It may very well be that the papilloma caused the abnormality on MRI. I anticipate likely obtaining follow-up right unilateral mammogram.? Will offer the patient surgical treatment options.? I would anticipate a short-term follow- up breast MRI at 6 months if the patient selects unilateral surgery on the left. To be very clear the issues at hand include the following.? The patient has biopsy-proven invasive lobular carcinoma upper outer quadrant left breast.? The patient had an MRI suggesting trauma questionable areas lower outer right breast.? A diagnostic right breast ultrasound suggested 2 areas of interest in the lower outer right breast and an ultrasound biopsy was performed.? This demonstrates fragments of intraductal papilloma.? There would still be a slight?? As to whether the ultrasound findings and the MRI findings directly correlate.? At this point as there is postbiopsy tissue trauma and immediate follow-up right breast inspection with MRI would likely be nonconclusive.? I have discussed this with Dr. Alesia Leung.? I am proposing breast conservation surgery upper outer quadrant left breast with stereotactic wire localization and nuclear tracer plus blue dye left axillary sentinel lymph node biopsy with wire localized left breast lumpectomy.? Regarding the right breast anticipate follow-up MRI at no greater than 6 months.? I do recommend a diagnostic right mammogram at this time.? The patient is aware that a future right breast MRI guided biopsy could potentially be in the offering however we only have malignancy identified upper outer quadrant left and the biopsies on the right did demonstrate a breast abnormality i.e. intraductal papilloma although be it benign.? In addition the patient's genetic testing is negative.? The patient is aware that she will see radiation oncology in addition to medical oncology subsequent to her breast conservation surgery left breast and that the surgery will assist with her staging on the left.? She and her are in concurrence. Copy: Dr. Alesia Leung and Dr. Jake Grant M.D., F.A.C.S. (2) Breast cancer: ?Status:?Acute The postbiopsy right The mammogram did not demonstrate any acute findings other than the marking clips. As noted anticipate follow-up MRI at 6 months. Yves Grant M.D., F.A.C.S.
--- NOTE | 2022-10-25 09:17 | DCINST_ITS ---
Discharge Instructions Procedure Breast Surgery Diet Discharge Diet: No restrictions Activity Discharge Activity: May Not Drive (for 2-3 days or while taking narcotic pain meds.) May shower in (days): 1 Lifting Restrictions: 10 pounds for 1 week. Dressing / Incision Call your doctor if your incision/area has: Continuous Slow Oozing and Sudden Increased Bleeding Call your doctor if you observe: Fever of 101 or Higher Suture Line Care: Avoid Pulling/Pushing and Avoid Pinching/Bending Remove Dressing in: 1 day Additional Dressing/Incision Instructions:: Remove bulky dressing tomorrow. May leave any opsite dressing for 3-4 days. Keep dressing in place until your follow-up appointment. Follow Up Care Test Results: Test results from this visit will be discussed in further detail at your follow- up appointment, if applicable. Discharge Plan Admission Attending Provider: Yves Grant Primary Care Provider: Jake Spangler Consulting Providers: Jorge Luis Curiel Discharge Orders/Prescriptions Prescriptions: No Action citalopram 20 mg tablet 20 mg PO DAILY latanoprost 0.005 % drops 1 drp ophthalmic (eye) QPM Label Comments: each eye fexofenadine-pseudoephedrine [Vickie-D 24 Hour] 1 TAB.SR tablet extended release 24 hr 1 tab.sr PO DAILY Label Comments: allergies cholecalciferol (vitamin D3) [Vitamin D3] 1,000 UNIT tablet 1,000 unit PO DAILY Label Comments: supplement multivitamin Capsule 1 cap PO DAILY vitamin B complex Capsule 1 cap PO DAILY Referrals / Follow Up: Jake Spangler DO [Primary Care Provider] - Disposition Disposition (needs filled in before D/C Order can be placed): Home, Self Care
[2022-10-25 09:26] LABS: Internal QC Validated? YES +Cl - CLEAR BKGD; Pregnancy, Urine Negative Negative
--- NOTE | 2022-10-25 09:46 | OP.PCM_ITS ---
Report of Operation Date of Procedure: 10/25/22 Pre-Operative Diagnosis: Upper outer quadrant left breast invasive lobular carc inoma Post-Operative Diagnosis: Same Surgery/Procedure Performed:: Stereotactic wire localization upper outer quadrant left breast Description of Surgical Findings:: Timeout and informed consent was obtained. The patient was taken to the stereotactic mammography unit. She was placed prone on the table. The left wrist was placed in a lateral medial view. The marking clip in question was rapidly identified. Stereotactic images were obtained. Target on scalp was selected replacing image 1. The breast was prepped with Betadine. 1/2 cc of 1% lidocaine was used as a local anesthetic. A 20-gauge Kopan's needle was advanced to depth +15 mm. On fast view and mediolateral views demonstrated excellent localization's. Tape and dressings were reapplied. The patient was subsequently taken to the operating for definitive surgical resection. Synoptic Portion: Element Response Options Operation performed with curative intent. Yes Tracer(s) used to identify sentinel nodes in the upfront surgery (non- neoadjuvant) setting (select all that apply). Dye and radioactive tracer Tracer(s) used to identify sentinel nodes in the neoadjuvant setting (select all that apply). Not applicable All nodes (colored or non-colored) present at the end of a dye-filled lymphatic channel were removed. Yes All significantly radioactive nodes were removed. Yes All palpably suspicious nodes were removed. Yes Biopsy-proven positive nodes marked with clips prior to chemotherapy were identified and removed. Not applicable The patient was taken to the operating placed upon the table underwent general anesthesia the left arm was carefully wrapped with soft roll and placed the right angles to the table the left breast was treated with alcohol and then 2- 1/2 cc cc of Isovue so family dye was injected retroareolar deep massage was performed for 4 minutes. The left breast was sterilely prepped and draped and oblique incision was made in the left axilla sharp and blunt dissection performed down through the subcutaneous tissue to lymphatic tracking blue dye channels were identified tissue was rather firm and so this dissection was tedious circumferential was performed around blue lymph nodes hemostasis obtained with 3-0 Vicryl suture and hemoclips lymph node packet was removed a 10-second count was obtained and was quite high. Then visually I inspected the axilla look for any further blue dye I used the neoprobe performed palpation but not see any suspicious remaining nodes. Specimens were sent for analysis. I temporarily placed Surgicel in the axilla with 4 x 4 gauze to assure hemostasis. A curvilinear incision was made in the outer mid left breast electrocautery dissection performed guided by the previous wire localization circumferential dissection was carefully performed trying to keep a wider margin because of the lobular carcinoma felt that had completely around the lesion never got close to the wire localized area a short wire exited laterally short suture was placed superiorly and long suture anteriorly specimen was sent for mammography and it appeared that the marking clip and wire were correctly positioned pathology suggested that the tumor had been removed with the closest margin 0.7cm. Hemostasis obtained both the axilla and the lumpectomy site. At the lumpectomy site 4 hemoclips were placed to tasia the excision site. Tissues at both sites were deeply closed with interrupted 3-0 Vicryl and then skin edges proximal and running subicular 4 Monocryl both wounds were anesthetized with 0.25% Marcaine 30 cc total. Steri-Strips Telfa OpSite bulky dry dressings were applied. Sponge and instrument and needle counts were reported to the surgeon to be correct Specimen left axillary sentinel lymph nodes and left breast lumpectomy. Drains none. Blood loss minimal. The patient was taken to the recovery room in satisfactory addition without a pparent complication Yves Grant M.D., F.A.C.S. Surgeon: Yves Grant Type of Anesthesia: General and Local Anesthesiologist: Cathie Baldwin
[2022-10-25] MEDS: Cefazolin 2 GM in 0.9% Normal Saline 100 ML IV (10:01)
[2022-10-25] MEDS: Isosulfan Blue 1% 5 ML Vial (10:10)
[2022-10-25] MEDS: Bupivacaine 0.25% 30 ML Vial (11:32)
== END 2022-10-25 16:04 | disposition home or self-care (01) ==
LOC: SDC 08:04 → AC 08:06
PROVIDERS: Anesthesiology; PCP Student in an Organized Health Care Education/Training Program; Referring Provider Surgery; Visit Provider Surgery
PROC: (CPT 19301; principal; 2022-10-25 09:45)
DX: C50.412 Malignant neoplasm of upper-outer quadrant of left female breast (principal); Z80.3 Family history of malignant neoplasm of breast
CPT/HCPCS: 19301; 19283; 38500; 38900; 00400; 19281; 36415; 38792; 71046; 76098; 80053; 81025; 85027; 88305; 88307; 88331; 88332; 88341; 88342; 93005; A9541; J7120; J2405; Q9968

== ENCOUNTER 2022-12-14 11:55 | Day surgery (SDC) | payer OTHER, SELFPAY ==
[2022-12-14] MEDS: Lactated Ringers 1,000 ML 15 ML IV (12:05)
--- NOTE | 2022-12-14 12:15 | HP.PCM_ITS ---
History and Physical Date of Admission: 12/14/22 No Known Allergies Allergy (Verified 12/06/22 10:11) Medications cholecalciferol (vitamin D3) 25 mcg (1,000 unit) tablet (Vitamin D3) 1,000 unit PO DAILY 06/12/16 [History Confirmed 12/06/22] fexofenadine-pseudoephedrine ER 180 mg-240 mg tablet,ext.release 24 hr (Vickie- D 24 Hour) 1 tab.sr PO DAILY SEASONAL ALLERGIES 06/12/16 [History Confirmed 12/06/22] citalopram 20 mg tablet 20 mg PO DAILY 09/21/22 [History Confirmed 12/06/22] latanoprost 0.005 % eye drops 1 drp ophthalmic (eye) QPM 09/21/22 [History Confirmed 12/06/22] multivitamin 1 cap PO DAILY 10/24/22 [History Confirmed 12/06/22] vitamin B complex 1 cap PO DAILY 10/24/22 [History Confirmed 12/06/22] PFSH Medical History? Anxiety Cancer History of pain when walking Leg cramps Loss of hearing Non-smoker Wears glasses Surgical History? Delivery by section History of ear surgery History of partial thyroidectomy Hx of colonoscopy Hx of dilation and curettage Family History? Mother Breast cancer,? Onset Age: 47Grandmother Colon cancer ?? ? paternalUncle Colon cancer ?? ? paternalAunt Pancreatic cancer ?? ? maternalAunt Breast cancer ?? ? maternal >50y.o. at age of diagnosisGrandfather Heart disease ?? ? maternal Social History? household members:? family number of children:? 1 current occupational status:? 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 No Smoking Status:? Never smoker alcohol intake:? never substance use type:? does not use caffeine:? No what type of physical activity do you participate in:? walking frequency:? 3-4 times per week HPI HPI Surgical H&P: Yes HPI: Patient is a 47 y/o F s/p left stereotactic wire localization upper outer quadrant lumpectomy with nuclear tracer and left axillary sentinel lymph node biopsy by Dr. Grant on 10/25/22. Patient presents for a port-a-cath placement for chemotherapy treatment. Patient is right hand dominant. She denies any previous central lines or catheters. She was having left axillary discomfort at her last visit with our office. She notes this has completely resolved. Patient denies nausea, vomiting, fever. ROS General General: No weight change, appetite, fatigue, colon cancer, breast cancer or weakness HEENT HEENT: No difficulty swallowing, eye injury, eye surgery, swollen glands or hoarseness Endo Endocrine: Yes thyroid disease; No diabetes mellitus, thyroid cancer, Hair loss, heat intolerance or cold intolerance Skin Skin: No rash or changing moles Breast Breast: Yes abnormal mammogram and abnormal US; No left breast lump, right breast lump, nipple discharge, breast pain or breast enlargement Musc Musculoskeletal: No back problems, arthritis, rheumatoid arthritis, gout or joint pain Cardio Cardiovascular: No murmur, pacemaker, heart disease, atrial fibrillation, high blood pressure, heart attack, heart stent, palpitations, shortness of breat with exertion or chest pain Psych Psychiatric: Yes anxiety; No depression or hearing voices Resp Respiratory: No shortness of breath, No sleep apnea, No cough, No COPD, No asthma, No emphysema and No wheezing Gastro Gastrointestinal: No abdominal pain, No nausea or vomiting, No diarrhea, No constipation, No blood in stool, No acid reflux, No hemorrhoids, No ulcers, No gallbladder problem and No black,tarry stools Jaime Hematologic: No blood thinners, No blood disorders, No bleeding, No anemia and No blood clots Neuro Neurologic: No system reviewed and no additional complaints, except as documented, No as per HPI, No abnormal gait, No abnormal hearing, No abnormal movements, No abnormal speech, No behavioral changes, No burning sensations, No confusion, No convulsions, No disequilibrium, No dizziness, No localized weakness, No frequent falls, No headache(s), No lack of coordination, No loss of vision, No memory loss, No numbness, No other visual disturbances, No radicular pain, No restless legs, No sensory deficit, No syncope, No tingling, No tremor(s), No weakness and No other Exam Const General: cooperative, healthy appearing, comfortable and no acute distress [facility] Head: normal to inspection Eyes General: appearance normal, both eyes and all related structures Neck Neck: normal visual inspection Neck mass: No Chest Other: Left breast- breast and axillary incisions are completely healed. No erythema or infection noted. No tenderness noted. Resp Effort & Inspection: normal respiratory effort Auscultation: clear to auscultation bilaterally Cardio Rate: regular rate Rhythm: regular rhythm GI Inspection: normal to inspection Palpation: soft Auscultation: normal bowel sounds Musc Cervical Spine: normal cervical lordosis Skin General: no rashes or lesions noted Neuro General: no focal motor deficits and CN's II-XI intact bilaterally Extrem General: normal to inspection Psych Appearance: grossly normal Affect: normal affect Assessment and Plan Assessment and Plan (1) Breast cancer: ?Status:?Acute ?Plan: Dr. Grant will plan to perform a right possible left chest port-a-cath placement for chemotherapy. Procedure details, risks and benefits have been explained. Patient and her have had the opportunity to ask and have questions answered. Patient verbally understands and agrees with the plan. Patient is not on any anticoagulants. I have examined the patient and the H&P has been reviewed. There are no clinical changes since date of exam. Yves Grant M.D., F.A.C.S.
[2022-12-14 12:29] LABS: Hematocrit 44.2 % (37-47); Hemoglobin 14.6 g/dL (12.0-15.0); Mean Corpuscular Hgb 32.3 pg (27.0-32.0); Mean Corpuscular Volume 97.8 fL (81-99); Mean Platelet Vol. 12.1 fl (6.2-12.0); Platelet Count 217 K/mm3 (150-450); RBC Distribution Width CV 13.7 % (11.6-14.6); RBC Distribution Width SD 49.7 fl (35.1-43.9); Red Blood Count 4.52 M/mm3 (4.2-5.4); White Blood Count 8.3 K/mm3 (4.4-11.0)
[2022-12-14 12:30] VITALS: BP 126/67; PULSE 80; RESP 16; TEMP 36.3; O2SAT 100; BMI 24.9
[2022-12-14 12:31] LABS: Internal QC Validated? YES +Cl - CLEAR BKGD; Pregnancy, Urine Negative Negative
[2022-12-14 12:45] LABS: Anion Gap 7 (5-15); BUN 18 mg/dL (7-18); Calcium,Total 9.8 mg/dL (8.5-10.1); Chloride 108 mmol/L (98-107); Creatinine, Serum 0.82 mg/dL (0.55-1.02); EST Glomerular Filtration Rate 79 mL/min (>60); Est Glom Filt Rate - Afr Amer 95 mL/min (>60); Estimated Creatinine Clearance 74.68 ml/min; Glucose 97 mg/dL (74-106); Potassium 3.8 mmol/L (3.5-5.1); Sodium Level 141 mmol/L (136-145)
--- NOTE | 2022-12-14 13:14 | EX.PCM.DISCH ---
Discharge Instructions Procedure Port-A-Cath Diet Discharge Diet: No restrictions (Pain medication may cause nausea. You should typically eat light foods as you take your pain medication.) Activity Discharge Activity: Return to Normal Activity and May Shower (Leave the bandage on for 2-3 days. When you remove the bandage, leave the steri-strips intact until they fall off.) Additional Activity Instructions:: May not drive, work with heavy equipment, or sign legal documents for [address]. [address] if you are no longer taking narcotic pain medications. You may drive when you are no longer taking pain medications. Dressing / Incision Additional Dressing/Incision Instructions:: Leave the bandage on for 2-3 days. When you remove the bandage, leave the steri-strips intact for one week Follow Up Care When: Please call [phone] for any concerns Discharge Plan Admission Primary Reason for Your Visit: Left breast cancer Attending Provider: Yves Grant Primary Care Provider: Jake Spangler Discharge Orders/Prescriptions Prescriptions: Continued citalopram 20 mg tablet 20 mg PO DAILY latanoprost 0.005 % drops 1 drp ophthalmic (eye) QPM Label Comments: each eye ondansetron 8 mg tablet,disintegrating 8 mg PO Q8H PRN (Reason: nausea and vomiting) Qty: 30 2RF prochlorperazine maleate 10 mg tablet 10 mg PO Q6H PRN (Reason: nausea and vomiting) Qty: 30 2RF dexamethasone 4 mg tablet 8 mg PO .COMPLEX Qty: 12 3RF Rx Instructions: 8 mg orally Take twice daily ONLY the day before, day of and day after chemotherapy; lidocaine-prilocaine 2.5-2.5 % cream 1 applic topical ONCE PRN (Reason: port access) 30 Days Qty: 30 2RF fexofenadine-pseudoephedrine [Vickie-D 24 Hour] 1 TAB.SR tablet extended release 24 hr 1 tab.sr PO PRN PRN (Reason: Allergy Symptoms) Label Comments: allergies cholecalciferol (vitamin D3) [Vitamin D3] 1,000 UNIT tablet 1,000 unit PO DAILY Label Comments: supplement multivitamin Capsule 1 cap PO DAILY vitamin B complex Capsule 1 cap PO DAILY emvkoupktiyps-mekakkfykpyfl-QA 5-325-200 mg Tablet 2 tab PO Q6H PRN (Reason: SINUS DRAINAGE) Referrals / Follow Up: Jake Spangler DO [Primary Care Provider] - Disposition Disposition (needs filled in before D/C Order can be placed): Home, Self Care
--- NOTE | 2022-12-14 14:08 | PCM.OPRPT ---
Report of Operation Date of Procedure: 12/14/22 Pre-Operative Diagnosis: Left breast cancer Post-Operative Diagnosis: Same Surgery/Procedure Performed:: Right internal jugular 6 [place] PowerPort placement Reference [id number], lot [id number], expiry date 06/11/2023 Description of Surgical Findings:: Timeout informed consent was obtained. 47-year-old female was taken to the operating room placed on the table underwent monitored anesthesia care. Ancef 2 g were given intravenously. The right neck and chest were sterilely prepped and draped. 1% lidocaine mixed 50-50 with 0.5% Marcaine was used as a local anesthetic. A total of 12 cc was used. Under ultrasound guidance the right internal jugular vein was identified local was instilled and a micropuncture needle was inserted micropuncture wire inserted micropuncture sheath inserted 035 J-wire inserted local was instilled down upon the chest wall midclavicular line second intercostal space transverse incision was created electrocautery dissection was performed to create a subcutaneous pocket the tubing was tunneled from the neck to the chest. The fluoroscopy was used to confirm positioning of the wire sheath dilator was placed over the wire the wire and dilator were removed the catheter was Nance through the sheath the sheath was split the catheter was positioned utilizing a small amount 1 cc of contrast to place the catheter tip at the SVC atrial junction the catheter was amputated the length connected to the port secured with a port attachment device port was placed in the pocket secured there with 2-0 silk the port site was closed interrupted 3-0 Vicryl subdermal stitches neck was closed interrupted 5-0 Vicryl Steri-Strips Telfa OpSite dressings applied the port was accessed it aspirated easily it was flushed with saline and then 2 cc of heparinized saline. Sponge and instrument and needle counts were reported to the surgeon to be correct Specimens none. Drains none. Blood loss minimal. The patient was taken to the recovery room in satisfied condition without apparent complication Yves Grant M.D., F.A.C.S. Surgeon: Yves Grant Type of Anesthesia: Local MAC Anesthesiologist: Gracie Arango
--- NOTE | 2022-12-14 14:12 | RAD_ITS ---
STUDY: X-RAY CHEST REASON FOR EXAM: Female, 47 years old. Line placement TECHNIQUE: Single AP portable view of the chest. COMPARISON: Comparison is made with prior study dated 10/24/2022. FINDINGS: A right-sided carson catheter has been placed. The tip is at the junction of the superior vena cava and right atrium. EKG electrodes are seen. Surgical clips are seen in the left axillary region. Azygos lobe. This is a normal finding. The lungs are clear. There is no demonstrated pleural abnormality. Normal size heart. Normal mediastinum and alberto. Normal visualized pulmonary arteries. Normal visualized aortic arch and descending thoracic aorta. Normal visualized thoracic spine. Normal visualized ribs, clavicles, and shoulders. There is no demonstrated abnormality of the visualized soft tissue structures of the upper abdomen. RAD/CXR for Line Placement IMPRESSION: The tip of the right-sided carson catheter is at the junction of the superior vena cava and right atrium. Surgical clips are seen in the left axillary region. Electronically Signed: Frank Black MD at 14:42 EST ,
[2022-12-14 14:13] VITALS: BP 119/73; BP 126/67; PULSE 95; RESP 18; TEMP 36.7; O2SAT 100
[2022-12-14 14:15] VITALS: BP 122/76; BP 126/67; PULSE 78; RESP 16; O2SAT 100
[2022-12-14 14:26] VITALS: BP 126/67; BP 130/86; PULSE 77; RESP 16; O2SAT 100
[2022-12-14 14:31] VITALS: BP 126/67; BP 135/92; PULSE 77; RESP 16; TEMP 36.6; O2SAT 100
[2022-12-14 15:10] VITALS: BP 126/67; BP 132/89; PULSE 78; RESP 18; TEMP 36.2; O2SAT 100
== END 2022-12-14 15:50 | disposition home or self-care (01) ==
LOC: SDC 11:56 → AC 11:57
PROVIDERS: Anesthesiology; PCP Student in an Organized Health Care Education/Training Program; Visit Provider Surgery
PROC: (CPT 36561; principal; 2022-12-14 13:05)
DX: Z45.2 Encounter for adjustment and management of vascular access device (principal); C50.412 Malignant neoplasm of upper-outer quadrant of left female breast
CPT/HCPCS: 36561; 00532; 71045; 77001; 80048; 81025; 85027; J7120; J2405

== ENCOUNTER → 2023-04-24 | Outpatient (CLI) | payer OTHER, SELFPAY ==
--- NOTE | 2023-04-24 10:32 | MRI_ITS ---
STUDY: BILATERAL BREAST MR WITHOUT AND WITH CONTRAST REASON FOR EXAM: Female, 48 years old. History of left breast cancer with prior left Lumpectomy. TECHNIQUE: Multi-sequence multi-echo imaging of both breasts was performed with a dedicated breast coil. T1-weighted and T2-weighted images were performed before the administration of contrast. T1-weighted images were also performed after the intravenous administration of I14ml of Clariscan. COMPARISON: Bilateral mammogram dated January 31, 2021 and August 18, 2022. Prior right mammogram dated October 23, 2022. Prior breast ultrasounds dated October 10, 2022, October 07, 2022 and September 08, 2022. FINDINGS: RIGHT BREAST: Stable heterogeneously dense fibroglandular tissue with minimal background enhancement. No abnormal enhancing masses or areas of non-mass enhancement in the right breast. LEFT BREAST: Stable heterogeneously dense fibroglandular tissue. Multiple small less than 4 mm in diameter areas of background enhancement. Postsurgical changes. No abnormal enhancing masses or areas of non-mass enhancement in the left breast. No enlarged or abnormal lymph nodes. No abnormality in the visualized regions of the chest or liver. MRI/Breast Bilateral W/O and W IMPRESSION: Heterogeneously dense fibroglandular tissue with background enhancement, left slightly greater than right. No abnormally enhancing masses or areas of non-mass enhancement in either breast. Follow-up bilateral mammogram in October 2023 or November 2023. CATEGORY: BIRADS Category 2: Benign. A letter regarding these results will be sent to the patient by the facility within 30 days. Electronically Signed: Maciel Patton MD at 9:49 EDT ,
== END | disposition home or self-care (01) ==
LOC: MRI 10:24
PROVIDERS: PCP Student in an Organized Health Care Education/Training Program; Referring Provider Surgery; Visit Provider Surgery
DX: C50.912 Malignant neoplasm of unspecified site of left female breast (principal)
CPT/HCPCS: 77049; A9575; A4216; C8908

== ENCOUNTER → 2023-05-31 | Outpatient (CLI) | payer OTHER, SELFPAY ==
--- NOTE | 2023-05-31 08:33 | BD_ITS ---
STUDY: DUAL ENERGY X-RAY ABSORPTIOMETRY / DXA REASON FOR EXAM: Female, 48 years old. BREAST CA TECHNIQUE: Bone Mineral Density (BMD) measurements of lumbar spine and bilateral hips were obtained. COMPARISON: None. FINDINGS: Lumbar Spine (L1-L4): g/cm2 (1.074) / T-score (0.2) / Z-score (1.0) Findings are suggestive of normal bone density with a low fracture risk. Left Femur Total: g/cm2 (0.929) / T-score (-0.1) / Z-score (0.4) Left Femoral Neck: g/cm2 (0.803) / T-score (-0.4) / Z-score (0.3) Right Femur Total: g/cm2 (0.953) / T-score (0.1) / Z-score (0.6) Right Femoral Neck: g/cm2 (0.897) / T-score (0.4) / Z-score (1.2) BD/Dexa Bone Density Study IMPRESSION: The patient is considered normal as outlined below according to World [employer]xt[place] Organization (WHO) criteria with a low fracture risk. Reference Information: The T-score is the number of standard deviations above or below the standard which is normal for young adults at their peak bone mineral density. The World Health Organization (WHO) interprets the T-scores as follows: Above -1 Normal bone density Between -1 and -2.5 Osteopenia Equal to / or below -2.5 Osteoporosis As a practical clinical guideline, osteopenia may be graded as follows: Mild -1 through -1.5 Moderate -1.6 through -2.0 Severe -2.1 through -2.4 The Z-score is the number of standard deviations above or below age-matched controls. A Z-score of less than -1.5 would be considered abnormal. References: 1. NIH Osteoporosis and Related Bone Diseases www osteo.org 2. International Society for Clinical Densitometry www iscd.org 3. National Osteoporosis Foundation www nof.org Electronically Signed: Frank Black MD at 10:29 EDT ,
== END | disposition home or self-care (01) ==
LOC: OPBD 08:26
PROVIDERS: PCP Student in an Organized Health Care Education/Training Program; Referring Provider Internal Medicine Hematology & Oncology; Visit Provider Internal Medicine Hematology & Oncology
DX: C50.912 Malignant neoplasm of unspecified site of left female breast (principal); Z13.820 Encounter for screening for osteoporosis; Z79.899 Other long term (current) drug therapy
CPT/HCPCS: 77080

== ENCOUNTER 2023-09-27 07:09 | Day surgery (SDC) | payer OTHER, SELFPAY ==
--- NOTE | 2023-09-25 17:24 | HP.PCM_ITS ---
History and Physical Date of Admission: 09/27/23 HPI: The patient is a 48 year old female presenting for pre-operative visit. She is scheduled for laparoscopic bilateral salpingoophorectomy, for need for surgical menopause, estrogen positive breast cancer on 09/27/23. Procedure discussed along with risks, benefits and complications. Other alternatives discussed for management. Consent form signed? Yes. PAST MEDICAL HISTORY Diagnosis Date ? Bilateral knee pain ? Breast cancer (HCC) 09/2022 ? Cancer (HCC) ? Cyst of right kidney 08/12/2016 ? Dysthymic disorder 11/12/1996 SITUATIONAL Depression (non-psychotic) ? Environmental allergies ? Glaucoma [facility] ? Infertility, female ? Left thyroid nodule ? Multinodular goiter (nontoxic) 05/24/2016 ? Urinary tract infection, site not specified [id number] Recurrent UTI's ? Vitamin D deficiency PAST SURGICAL HISTORY Procedure Laterality Date ? BREAST LUMPECTOMY HX Left 09/2022 ? BREAST SURGERY HX ? DELIVERY ONLY 2013 , low transverse ? COLONOSCOPY N/A 11/09/2016 ? CURETTAGE 07/2015 ? HSG ? INNER EAR SURGERY PROC UNLISTED Right ? SKIN BIOPSY HX ? TOTAL THYROID LOBECTOMY UNI W/WO ISTHMUSECTOMY Left 06/16/2016 Current Outpatient Medications Medication Sig Dispense Refill ? MULTIVITAMIN ORAL 1 capsule. ? cholecalciferol (VITAMIN D3) 50 mcg (2,000 unit) tablet Take 1 tablet by mouth once daily. 90 tablet 3 ? anastrozole (ARIMIDEX) 1 mg tablet Take 1 mg by mouth once daily. ? citalopram (CELEXA) 20 mg tablet Take 1 tablet by mouth once daily. 90 tablet 1 ? latanoprost (XALATAN) 0.005 % ophthalmic solution Use 1 Drop in both eyes daily at bedtime. ? montelukast (SINGULAIR) 10 mg tablet Take 10 mg by mouth daily at bedtime. No current facility-administered medications for this visit. ALLERGIES: Seasonal Allergies PERSONAL HISTORY: Social History Tobacco Use ? Smoking status: Never ? Smokeless tobacco: Never Vaping Use ? Vaping Use: Never used Substance Use Topics ? Alcohol use: Yes Comment: OCCASIONALLY BUT NOT WHILE ? Drug use: No FAMILY HISTORY: FAMILY HISTORY Problem Relation Age of Onset ? Breast Cancer Mother 46 ? Alcohol/Drug Father ETOH ? Hypertension Father ? Stroke Father ? Psychiatry Brother OCD ? Prostate Cancer Brother ? Heart Maternal Grandfather ? Stroke Maternal Grandfather ? Colon Cancer Paternal Grandmother ? Colon Cancer Maternal Aunt ? Anesthesia Maternal Aunt ? Colon Cancer Paternal Uncle REVIEW OF SYMPTOMS: GENERAL: denies fevers or chills ENDOCRINOLOGY: has not been on steroids Cardiology : denies palpitations or chest pain Respiratory: denies SOB or cough Hematology: denies history of prolonged bleeding or easy bruising or VTE Allergy: Denies history of personal or family history of allergy to anesthesia PHYSICAL EXAMINATION: VITALS: Blood pressure 108/62, pulse 71, resp. rate 16, height 5' 5.5 (1.664 m) , weight 152 lb (68.9 kg), last menstrual period 01/02/2022, SpO2 99 %. GENERAL: The patient is well nourished, well hydrated in no acute distress. , The patient is oriented to time, place, and person. NECK: Supple. No lynphadenopathy, normal thyroid, no thyromegaly. LUNGS: Clear to auscultation bilaterally. no wheezes, rhonchi or rales HEART: Regular rate and rhythm, Normal heart sounds, and No murmurs or gallops IMPRESSION: need for surgical menopause, estrogen + breast ca PLAN: The risks/benefits/alternatives and personal involved for the planned laparoscopic bilateral salpingoohorectomy were reviewed with the patient. Her questions were answered to her satisfaction and she desires to proceed. Consent was signed. I reviewed with her postop instructions and expectations. I have reviewed and updated past medical and surgical history, medications and allergies
[2023-09-27] VITALS (9 sets, daily range): BP systolic 114–145; BP diastolic 67–81; PULSE 59–71; RESP 16–18; TEMP 36.2–37.1; O2SAT 97–100; BMI 25.0
[2023-09-27] MEDS: Lactated Ringers 1,000 ML 15 ML IV (07:46)
[2023-09-27] MEDS: Acetaminophen 500 MG Tablet 1000 MG PO (07:47)
[2023-09-27] MEDS: Ketorolac 30 MG/ML Syringe IV (07:48)
[2023-09-27 07:53] LABS: Absolute Lymphocyte Count 1.15 X10^3/uL (0.83-4.51); Absolute Neutrophil Count 2.7 X10^3/uL (2.0-7.7); Basophil# 0.06 X10^3/uL; Basophil% 1.3 % (0-1); Eosinophil# 0.32 X10^3/uL; Eosinophils% 6.9 % (0-5); Hematocrit 42.4 % (37-47); Hemoglobin 13.8 g/dL (12.0-15.0); Lymphocyte # 1.15 X10^3/ul (0.83-4.51); Lymphocyte % 24.7 % (19-41); Mean Corp Hgb Conc 32.5 g/dL (32-36); Mean Corpuscular Hgb 32.6 pg (27.0-32.0); Mean Corpuscular Volume 100.2 fL (81-99); Mean Platelet Vol. 11.5 fl (6.2-12.0); Monocyte# 0.37 X10^3/uL; NRBC Flagged by Analyzer 0 % (0-5); Neutrophil # 2.74 X10^3/uL (2.7-7.7); Neutrophil % 58.9 % (47-70); Platelet Count 176 K/mm3 (150-450); RBC Distribution Width CV 13.3 % (11.6-14.6); RBC Distribution Width SD 49.7 fl (35.1-43.9); Red Blood Count 4.23 M/mm3 (4.2-5.4); White Blood Count 4.7 K/mm3 (4.4-11.0)
[2023-09-27 08:08] LABS: Internal QC Validated? YES +Cl - CLEAR BKGD; Pregnancy, Urine Negative Negative
[2023-09-27 08:10] LABS: ALB/GLOB Ratio 1.1 RATIO (0.9-2.4); AST(SGOT) 15 U/L (15-37); Alanine Aminotransfer ALT/SGPT 23 U/L (13-56); Albumin, Serum 3.6 g/dL (3.2-5.0); Alkaline Phosphatase 95 U/L (45-117); Anion Gap 4 (5-15); BUN 20 mg/dL (7-18); BUN/Creat Ratio 24.8 RATIO (10-20); Chloride 110 mmol/L (98-107); Creatinine, Serum 0.81 mg/dL (0.55-1.02); EST Glomerular Filtration Rate 80 mL/min (>60); Est Glom Filt Rate - Afr Amer 96 mL/min (>60); Estimated Creatinine Clearance 74.77 ml/min; Globulin 3.3 g/dL (2.2-4.2); Glucose 95 mg/dL (74-106); Potassium 3.7 mmol/L (3.5-5.1); Protein, Total 6.9 g/dL (6.4-8.2); Sodium Level 143 mmol/L (136-145)
--- NOTE | 2023-09-27 08:30 | OV_PTH ---
PATIENT: NANCY BARNEY LOC: [facility] [place][id number] AGE/SX: 48/F ROOM: RE09/27/[address]: Dr. Leila Colunga MD : 1975 BED: DIS: 09/27/2023 SPEC #: [id number] RECD: 09/27/23 13:45 STATUS: MATTHEW MONIK #: [id number] PARKER: 09/27/23 08:[address]: Leila Colunga DEPT: SURGICAL PATHOLOGY RECD BY: Genny Negro ENTERED: 09/28/23 09:27 SP TYPE: OVARY OTHR DR: Dr. Jake Spangler, Tissues: Ovary, NOS Procedures: Surgery Specimen Level IV HEADER OPERATION: Laparoscopic salpingo-oophorectomy PRE-OP DIAGNOSIS: Need for surgical menopause, ER positive breast cancer TISSUE SUBMITTED: Bilateral fallopian tubes, bilateral ovaries, suture barajas right tube and ovary MICROSCOPIC DIAGNOSIS Bilateral fallopian tubes and ovaries, salpingo-oophorectomy: Right ovary - corpora albicantia. Right fallopian tube - benign paratubal cysts. Left ovary - corpora albicantia. Left fallopian tube - benign paratubal cyst and hemosalpinx. AM:marin 10/01/2023 MICROSCOPIC DESCRIPTION Slides are reviewed. GROSS DESCRIPTION Received in fixative is one container labeled with the patient's name and designated bilateral fallopian tubes and ovaries. The specimen consists of bilateral fallopian tubes and ovaries. The crinkled right ovary measures 3.5 x 1.5 x 1.0 cm and has a yellow-white appearance. Serial sections do not reveal mass lesions. The adjacent right fallopian tube measures 5.0 cm in length and 0.6 cm in average diameter. No tubo-ovarian adhesions are identified. The left ovary is similar in appearance to the right and measures 3.0 x 2.0 x 1.2 cm. Serial sections do not reveal mass lesions. The left fallopian tube measures 6.0 cm in length and 0.7 cm in average diameter. The fimbrial end contains a smooth, glistening cyst measuring 2.0 cm and containing clear fluid. Manager [employer] sections are submitted in four cassettes as follows: 1 - right ovary, 2 - right fallopian, 3 - left ovary, 4 - left fallopian tube and paratubal cyst. / AM:marin 09/28/2023 TC:5 CPT: 64340 x2
[2023-09-27] MEDS: Bupivacaine Mpf 0.5% 30 ML VIAL (10:37)
--- NOTE | 2023-09-27 11:18 | PCM.DC ---
Discharge Instructions Diet Discharge Diet: No restrictions Activity Return to work on:: 10/02/23 May shower in (days): 1 May resume sexual activity in: 1 week Dressing / Incision Call your doctor if your incision/area has: Sudden Increased Bleeding and Foul Smelling Discharge Call your doctor if you observe: Fever of 101 or Higher Cleanse incision/area with: Soap & Water (Your incisions have skin glue and it can get wet. Leave on until it falls off) Follow Up Care Please Follow Up With: Leila Colunga MD When: In my office or virtual visit in 1-2 weeks or as needed or send a DialMyApp message for nonurgent inquiries Test Results: Test results from this visit will be discussed in further detail at your follow-up appointment, if applicable. Discharge Plan Admission Primary Reason for Your Visit: Laparoscopic bilateral salpingoophorectomy Attending Provider: Leila Colunga Primary Care Provider: Jake Spangler Discharge Orders/Prescriptions Prescriptions: New naproxen 375 mg tablet 375 mg PO TID PRN (Reason: pain) 20 Days Qty: 30 0RF No Action citalopram 20 mg tablet 20 mg PO DAILY latanoprost 0.005 % drops 1 drp ophthalmic (eye) QPM Patient Comments: each eye cholecalciferol (vitamin D3) [Vitamin D3] 1,000 UNIT tablet 2,000 unit PO DAILY Patient Comments: supplement montelukast [Singulair] 10 mg tablet 10 mg PO PRN anastrozole 1 mg tablet See Rx Instructions .ROUTE .COMPLEX Qty: 30 2RF Dose Instruction: TAKE 1 TABLET BY MOUTH EVERY DAY Rx Instructions: TAKE 1 TABLET BY MOUTH EVERY DAY Referrals / Follow Up: Jake Spangler DO [Primary Care Provider] - Disposition Disposition (needs filled in before D/C Order can be placed): Home, Self Care
--- NOTE | 2023-09-27 11:19 | PCM.OPRPT ---
Problems Associated Problem List Diagnoses (1) Carcinoma of breast, estrogen receptor positive: Report of Operation Date of Procedure: 09/27/23 Pre-Operative Diagnosis: estrogen+ breast cancer, need for surgical menopause Post-Operative Diagnosis: same Surgery/Procedure Performed:: laparoscopic bilateral salpingoophorectomy Description of Surgical Findings:: normal uterus, tubes and ovaries. Normal appendix. Otherwise normal peritoneal cavity Surgeon: Leila Colunga supervisor dental laboratory: [facility] Type of Anesthesia: General Anesthesiologist: Blair Wong Special Medications: none Specimen's removed: bilateral tubes and ovaries Drains: none Estimated Blood Loss (mL): 10 Fluids Replaced: 1000 Description of Procedure: The patient was taken to the operating room where she was prepped and draped in the dorsolithotomy position. A weighted speculum was placed in the vagina and the anterior lip of the cervix was grasped with a tenaculum. The [employer] uterine manipulator was placed and the remainder of the instruments were removed from the vagina. Attention was turned to the abdomen. All port sites were infiltrated with 0.5% Marcaine before skin incisions were made. A 5 mm Midline incision was made approximately 3 cm above the umbilicus. The anterior abdominal wall was tented up with 2 towel clamps while a 5 mm blade less trocar and sleeve were directly inserted. Intraperitoneal placement was confirmed with the laparoscope. The pneumoperitoneum was created and the underlying abdominal contents were intact. The patient was placed in Trendelenburg. Right and left lower quadrant ports were placed under direct visualization lateral to the inferior epigastric vessels. The bowel was swept away and the above findings were noted. Both ureters were identified and found peristalsing. The infundibulopelvic ligaments were then clamped, sealed and transected with the LigaSure device. The antimesenteric portion of the broad ligament was clamped, sealed and transected with the LigaSure device. The utero-ovarian ligaments were clamped, sealed and transected with the LigaSure device. The same procedure was performed on the contralateral side. Excellent hemostasis was noted. The umbilical and incision was then extended to 10 mm and a 10 mm bag placed through the site. The ovaries were placed in the bag and brought out through the umbilical incision. The right ovary was and tube were tagged. The pedicles were again found to be hemostatic. The peritoneal cavity was unremarkable. The appendix was noted and was normal. The uterus tubes and ovaries were grossly normal. The fascia in the umbilical site was closed with an 0 Vicryl running suture. The lateral port wrist sites were removed after the pneumoperitoneum was released. The skin incisions were closed with Monocryl suture in a subcuticular fashion and skin glue by me. The vaginal instruments were removed and the vaginal sweep was completed by me. The entire procedure was performed by me with assistance. All sponge and needle counts were correct and the patient was taken to the recovery room in stable condition. Grafts/Implants Used: none Procedure Start Time: 10:33 Procedure Stop Time: 11:14 Complications none Admit VTE Documentation VTE Present on Admission: No VTE Mechan Device Prophylaxis: SCD's VTE Pharm Prophylaxis ordered?: No Reason prophylaxis not ordered:: Procedure Not Indicated
== END 2023-09-27 14:33 | disposition home or self-care (01) ==
LOC: SDC 07:10 → AC 07:11
PROVIDERS: Anesthesiology; Nurse Practitioner Family; PCP Student in an Organized Health Care Education/Training Program; Referring Provider Obstetrics & Gynecology; Visit Provider Obstetrics & Gynecology
PROC: (CPT 58661; principal; 2023-09-27 08:15)
DX: C50.919 Malignant neoplasm of unspecified site of unspecified female breast (principal); N83.8 Other noninflammatory disorders of ovary, fallopian tube and broad ligament; N83.6 Hematosalpinx; N83.291 Other ovarian cyst, right side; N83.292 Other ovarian cyst, left side; Z17.0 Estrogen receptor positive status [ER+]; Z80.3 Family history of malignant neoplasm of breast; Z79.899 Other long term (current) drug therapy; F41.9 Anxiety disorder, unspecified
CPT/HCPCS: 58661; 00840; 80053; 81025; 85025; 88305; J7120; J2405

== ENCOUNTER → 2023-10-17 | Outpatient (CLI) | payer OTHER, SELFPAY ==
--- NOTE | 2023-10-17 09:10 | BI_ITS ---
MAMMOGRAPHY - BILATERAL DIAGNOSTIC REASON FOR EXAM: Female, 48 years old. Prior right lumpectomy. PERTINENT HISTORY: Personal history of breast cancer. Mother with breast cancer. Aunt with breast cancer. TECHNIQUE: Digital bilateral breast kay (3D mammographic acquisition) in the CC and MLO projections. 2-D mediolateral oblique (MLO) and craniocaudad (CC) views of both breasts were obtained. CAD: Full Field Digital Mammography with Computer Added Detection was performed. COMPARISON: Comparison is made with prior study October 23, 2022 and October 25, 2022. FINDINGS: Breast Composition: The breasts are heterogeneously dense, which may obscure small masses. The patient is status post lumpectomy in the deep slightly upper lateral aspect of the left breast. Surgical clips are seen in the left axilla. Once again, 2 tissue markers are seen in the lateral retroareolar region of the right breast. No other significant abnormalities are identified. BI/DIAG MAMM W/CAD, BILAT IMPRESSION: Status post left lumpectomy left axillary node dissection. One year follow-up recommended. (A) ASSESSMENT CATEGORY: BIRADS Category 2: Benign. A letter regarding these results will be sent to the patient by the facility within 30 days. Approximately 10% of breast cancers are not detected by mammography. A normal mammogram should not delay biopsy of a clinically suspicious abnormality. Electronically Signed: Frank Black MD at 10:42 EST ,
== END | disposition home or self-care (01) ==
PROVIDERS: PCP Student in an Organized Health Care Education/Training Program; Referring Provider Nurse Practitioner Family; Visit Provider Nurse Practitioner Family
DX: R92.30 Dense breasts, unspecified (principal); Z85.3 Personal history of malignant neoplasm of breast
CPT/HCPCS: 77062; 77066; G0279

== ENCOUNTER → 2024-12-18 | Outpatient (CLI) | payer OTHER, SELFPAY ==
--- NOTE | 2024-12-18 15:51 | BI_ITS ---
PROCEDURE: SCRN MAMM (CAD)W/JAIRO BILAT REASON FOR EXAM: F, Age 49 y/o, history of left breast cancer. Mother with breast cancer. Aunt with breast cancer. TECHNIQUE: Bilateral screening digital breast tomosynthesis with 2D and 3D images. Computer aided detection. COMPARISON: Prior exam(s) dating back to October 17, 2023.. FINDINGS: There are scattered areas of fibroglandular density. The patient is status post lumpectomy in the deep upper lateral aspect of the left breast. Surgical clips are seen in the left axilla. Stable examination. No suspicious masses, areas of developing architectural distortion, or suspicious calcifications. BI/SCRN MAMM (CAD)W/JAIRO BILAT IMPRESSION: BI-RADS 2: BENIGN. RECOMMEND ANNUAL MAMMOGRAPHIC SCREENING. Follow-up code: Routine Follow-up The patient will be notified of the results by letter. Reading Location: [place] [address]
== END | disposition home or self-care (01) ==
PROVIDERS: PCP Student in an Organized Health Care Education/Training Program; Referring Provider Student in an Organized Health Care Education/Training Program; Visit Provider Student in an Organized Health Care Education/Training Program
DX: Z12.31 Encounter for screening mammogram for malignant neoplasm of breast (principal)
CPT/HCPCS: 77063; 77067

== ENCOUNTER → 2025-05-21 | Outpatient (CLI) | payer OTHER, SELFPAY ==
--- NOTE | 2025-05-21 07:07 | CT_ITS ---
PROCEDURE: LIMITED CHEST CT CARDIAC ONLY 05/21/2025 REASON FOR EXAM: CAD SCREENING, LOW CAD RISK TECHNIQUE: LIMITED CHEST CT CARDIAC ONLY CONTRAST: None One or more dose reduction techniques were used (e.g., Automated exposure control, adjustment of the mA and/or kV according to patient size, use of iterative reconstruction technique). RADIATION DOSE SUMMARY: CTDlvol: 12.19 mGy DLP: 195.04 mGycm COMPARISON: None FINDINGS: The heart is not enlarged. No significant coronary artery calcification is seen. Minimal anterior pericardial thickening. The lungs are clear. CT/Limited Chest CT Cardiac Only IMPRESSION: No coronary artery calcification is seen. Reading Location: [place] [address]
--- OUTSIDE RECORDS SUMMARY | 2025-05-21 07:12 | XMS RPT_ITS | CCD ---
Author Organization [facility] Care Team Providers Care Visual Display Manager Name Role Phone Ila CLINE, Lupillo Anderson Unavailable Heidi Acosta DO Primary Care Provider [phone] Tramaine Dixon MD Unavailable JAKE SPANGLER Primary Care Unavailable TRAMAINE DIXON Referring UnavailTRAMAINE Mathews Admitting Unavailjanny e DESTINY, TRAMAINE Purcellitting Unavailable TRAMAINE DIXON Attending Unavailable JAKE SPANGLER Primary Care Unavailable Jake Spangler DO Primary Care Provider Jake Spangler DO Primary Care Provider Jake Spangler DO Primary Care Provider Jake Spangler DO Primary Care Provider Dr. Jake Spangler Primary Care Provider Dr. Jake Spangler Referring Provider Dr. Yves Grant Attending Provider Dr. Alesia Leung Attending Provider Dr. Yves Grant Referring Provider Dr. Yves Grant Other Provider Dr. Jorge Luis Curiel Other Provider Dr. Wesley Lopez Attending Provider Dr. Yves Grant Referring Provider [phone] Gita AGUDELO, PAAna Luisa Moralez Attending Provider Elizabet INSIDE UPHOLSTERER, INSIDE UPHOLSTERER-C Mary Attending Provider Dr. Jake Spangler Primary Care Provider Dr. Jake Spangler Referring Provider Elizabet INSIDE UPHOLSTERER, INSIDE UPHOLSTERER-C Mary Attending Provider Dr. Alesia Leung Attending Provider Dr. Perez Leonardo Attending Provider Dr. Perez Leonardo Referring Provider Dr. Yves Grant Attending Provider [phone] Peng See Attending Provider Dr. Jake Spangler Primary Care Provider Dr. Jake Spangler Referring Provider Dr. Perez Leonardo Attending Provider Elizabet INSIDE UPHOLSTERER, INSIDE UPHOLSTERER-C Mary Attending Provider Dr. Jake Spangler Primary Care Provider Dr. Jake Spangler Referring Provider Dr. Perez Leonardo Attending Provider Jake Spangler DO Primary Care Provider Len SOD FARMER.Sulma SENIOR Unavailable Blanca SOD FARMER.Silvana SENIOR Unavailable Jake Spangler Primary Care Unavailable Jake Spangler Referring Unavailable Elizabet INSIDE UPHOLSTERER, Mary Attending Unavailable Jake Spangler Primary Care Unavailable Jake Spangler Attending Unavailable Jake Spangler Referring Unavailable Jake Spangler Primary Care Unavailable Alesia Leung Attending Unavailable Alesia Leung Referring Unavailable Kathi SOD FARMER.Charmaine SENIOR Unavailable SULMA HARRINGTON Attending UnavailJAKE Haskins L Primary Care Unavailable SULMA HARRINGTON Referring Unavailjanny e JAKE SPANGLER L Primary Care Unavailable Allergies Allergy Classification Reported Allergen(s) Allergy Type Date of Onset Reaction(s) Facility (20 sources) Seasonal allergy Allergy to substance 1 Other: See Comments [facility] Work Phone: Medications Current Medications Medication Drug Class(es) Dates Sig (Normalized) Sig (Original) acetaminophen 325 mg / HYDROcodone bitartrate 5 mg oral tablet (3 sources) Opioid Agonist Start: 06-17-2016 take 1 tablet by mouth every four hours as needed Hydrocodone-Acetamin ophen Active 1 - 2 TABLET PO EVERY 4 HOURS NEEDED June 16, 2016 11:00pm anastrozole 1 mg oral tablet (20 sources) Aromatase Inhibitor Start: 05-31-2023 End: 10-23-2023 take 1 tablet by mouth once daily Anastrozole Active 0 .ROUTE .COMPLEX 90 October 23, 2023 10:26am TAKE 1 TABLET BY MOUTH EVERY DAY Comment on above: Take 1 mg by mouth o nce daily. cholecalciferol 0.05 mg oral tablet (20 sources) Vitamin D Start: 01-25-2021 End: 08-25-2024 take 1 tablet by mouth once daily cholecalciferol (VITAMIN D3) 50 mcg (2,000 unit) tablet Take 1 tablet by mouth once daily. 90 tablet 3 08/25/2024 Active Start: 10-12-2017 EQL VITAMIN D3 CAPS 2000u daily CHOLECALCIFEROL CAPS [id number] Lupillo Thorpe MD Start: 06-12-2016 take 2 tablets by mo [facility] once daily Cholecalciferol (Vitamin D3) (Vitamin D3) 1,000 UNIT tablet Active 2000 UNIT PO DAILY June 11, 2016 11:00pm Start: 06-12-2016 take 1 tablet by mitch once daily Cholecalciferol (Vitamin D3) (Vitamin D3) 1,000 UNIT tablet Active 1000 UNIT PO DAILY June 12, 2016 12:00am Comment on above: Take 1 tablet by mitch th once daily. citalopram 20 mg oral tablet (20 sources) Serotonin Reuptake Inhibitor Start: 022 End: 025 take 1 tablet by mouth once daily citalopram (CELEXA) 20 mg tablet Indications: FAY (generalized anxiety disorder) Take 1 tablet by mouth once daily. 90 tablet 1 01/02/2025 Active Comment on above: Take 1 tablet by mitch th once daily. TAKE 1 TABLET BY MITCH TH EVERY DAY cyclobenzaprine hydrochloride 10 mg oral tablet (4 sources) Muscle Relaxant Start: 025 End: 025 take 1 tablet by mouth three times daily as needed cyclobenzaprine (FLEXERIL) 10 mg tablet Indications: Upper back pain , Acute bilateral low back pain without sciatica Take 1 tablet by mouth three times a day as needed. 30 tablet 04/23/2025 05/23/2025 Active 24 hr fexofenadine hydrochloride 180 mg / pseudoephedrine hydrochloride 240 mg extended release oral tablet (3 sources) alpha-Adrenergic Agonist, Histamine-1 Receptor Antagonist Start: take 1 tablet by mouth once daily, then take 1 tablet by mouth every twenty-four hours Fexofenadine-Pseudoeph edrine (Vickie-D 24 Hour Tablet) 1 TAB.SR tablet extended release 24 hr Active 1 TAB.SR PO DAILY June 11, 2016 11:00pm ibuprofen 400 mg oral tablet (3 sources) Nonsteroidal Anti-inflammatory Drug Start: 014 take 600 mg by mouth every six hours as needed Ibuprofen Active 600 MG PO EVERY 6 HOURS NEEDED 60 September 20, 2014 8:45am latanoprost 0.05 mg/ml ophthalmic solution (20 sources) Prostaglandin Analog Start: 022 Latanoprost Active 1 DRP OPHTHALMIC EVERY EVENING September 21, 2022 12:00am take 1 drop(s) into the eye(s) once daily at bedtime latanoprost (XALATAN) 0.005 % ophthalmic solution 1 Drop daily at bedtime. 0 Active Comment on above: 1 Drop daily at bedt edson. Use 1 Drop in both e yes daily at bedtime. montelukast 10 mg oral tablet (20 sources) Leukotriene Receptor Antagonist Start: 10-12-2017 Montelukast (Singulair) 10 mg tablet Active 10 MG PO NEEDED July 30, 2023 11:00pm Comment on above: Take 10 mg by mouth daily at bedtime. MULTIVITAMIN ORAL (20 sources) Start: 10-24-2022 MULTIVITAMIN ORAL 1 capsule. 10/24/2022 Active Start: 10-24-2022 MULTIVITAMIN O RAL 1 capsule. 0 10/24/2022 Active Comment on above: 1 capsule. Multivitamin preparation (4 sources) Start: 10-24-2022 take 1 capsule by mouth once daily Multivitamin Active 1 CAP PO DAILY October 24, 2022 1:00am Start: 10-24-2022 take 1 capsule by mo uth once daily Multivitamin Active 1 CAP PO DAILY October 24, 2022 12:00am naproxen 375 mg oral tablet (2 sources) Nonsteroidal Anti-inflammatory Drug Start: 09-27-2023 take 375 mg by mouth three times daily Naproxen Active 375 MG PO THREE TIMES A DAY September 27, 2023 11:17am predniSONE 10 mg oral tablet (1 source) Start: 04-03-2024 End: 04-15-2024 predniSONE (DELTASONE) 10 mg tablet Indications: Poison mic dermatitis Take 4 tabs daily x 3 days, then 3 tabs x 3 days, 2 tabs x 3 days, then 1 tab x3 days with food. 30 tablet 0 04/03/2024 04/15/2024 Active 72 hr scopolamine 0.0139 mg/hr transdermal system (1 source) Anticholinergic Start: 05-14-2023 End: 05-19-2023 scopolamine (TRANSDERM-SCOP) patch 1.5 mg/72 hr (delivers 1 mg over 3 days) Indications: Motion sickness, initial encounter Apply 1 Patch as directed every 72 hours for 5 days. Apply patch to skin behind ear 4hrs prior to travel. 10 Patch 0 05/14/2023 05/19/2023 Active Comment on above: Apply 1 Patch as dir ected every 72 hours for 5 days. Apply patch to skin behind ear 4hrs prior to travel. Vitamin B Complex (4 sources) Start: 10-24-2022 take 1 capsule by mouth once daily Vitamin B Complex Active 1 CAP PO DAILY October 24, 2022 1:00am Start: 10-24-2022 take 1 capsule by mo uth once daily Vitamin B Complex Active 1 CAP PO DAILY October 24, 2022 12:00am Completed/Discontinued Medications Medication Drug Class(es) Dates Sig (Normalized) Sig (Original) acetaminophen 325 mg / guaiFENesin 200 mg / phenylephrine hydrochloride 5 mg oral tablet (4 sources) alpha-1 Adrenergic Agonist Start: 12-07-2022 End: 03-19-2023 take 2 tablets by mouth every six hours Phenylephrine-Acet aminophen-Gg Discontinued 2 TABLET PO EVERY 6 HOURS December 07, 2022 12:00am March 19, 2023 10:43am bimatoprost 0.1 mg/ml ophthalmic solution (9 sources) Prostaglandin Analog Start: 06-12-2016 End: 09-21-2022 take 0.01 drop(s) into the eye(s) at bedtime Bimatoprost (Lumigan) 0.01% drops Discontinued 1 DRP Each Eye AT BEDTIME June 11, 2016 11:00pm September 21, 2022 2:57pm Calcium Carbonate / vitamin D3 (20 sources) End: 08-22-2023 CALCIUM CARBONATE/VITAMIN D3 (VITAMIN D-3 ORAL) Take by mouth once daily. 0 08/22/2023 Discontinued (Other) CALCIUM CARBONAT E/VITAMIN D3 (VITAMIN D-3 ORAL) Take by mouth once daily. 0 Active Comment on above: Take by mouth once d aily. clobetasol propionate 0.0005 mg/mg topical ointment (20 sources) Corticosteroid Start: 03-04-20 End: 08-22-20 clobetasol (TEMOVATE) 0.05 % ointment Apply 1 application to affected area as directed. apply a pea-sized amount to vulvar area tid x 3 weeks, bid x 3 weeks, every other day x 3 weeks, then twice weekly 45 g 0 03/04/2021 08/22/2023 Discontinued (Other) Comment on above: Apply 1 application to affected area as directed. apply a pea-sized amount to vulvar area tid x 3 weeks, bid x 3 weeks, every other day x 3 weeks, then twice weekly dexamethasone 4 mg oral tablet (4 sources) Corticosteroid Start: 12-06-19 End: 03-19-20 take 8 mg by mouth twice daily Dexamethasone Discontinued 8 MG PO .COMPLEX December 06, 2022 12:00am March 19, 2023 10:42am 8 mg orally Take twice daily ONLY the day before, day of and day after chemotherapy; estradiol 0.1 mg/ml vaginal cream (15 sources) Estrogen Start: 09-02-20 End: 08-22-20 estradiol (ESTRACE) 0.01 % (0.1 mg/gram) vaginal cream Indications: Vaginal dryness Apply pea-sized amount to perineum and 1 applicator vaginally Mon, Wed, Sun for atrophic vaginitis. 30 g 3 09/02/2019 08/22/2023 Discontinued (Other) Comment on above: Apply pea-sized amou nt to perineum and 1 applicator vaginally Sun, Sun, Sun for atrophic vaginitis. Fexofenadine-Pseudoep hedrine (Vickie-D 24 Hour) 1 TAB.SR tablet extended release 24 hr (6 sources) Start: 06-12-20 End: 01-01-20 take 1 tablet by mouth once as needed, then take 1 tablet by mouth every twenty-four hours as needed Fexofenadine-Pseudoe phedrine (Vickie-D 24 Hour) 1 TAB.SR tablet extended release 24 hr Discontinued 1 TAB.SR PO NEEDED June 11, 2016 11:00pm January 01, 2023 10:54am Start: 06-12-2016 End: 01-01-2023 take 1 tablet by mouth once as needed, then take 1 tablet by mouth every twenty-four hours as needed Fexofenadine-Pseudoephedrine (Vickie-D 24 Hour) 1 TAB.SR tablet extended release 24 hr Discontinued 1 TAB.SR PO NEEDED June 12, 2016 12:00am January 01, 2023 11:54am Start: 06-12-2016 take 1 tablet by mitch th once as needed, then take 1 tablet by mouth every twenty-four hours as needed Fexofenadine-Pseudoephedrine (Vickie-D 24 Hour) 1 TAB.SR tablet extended release 24 hr Active 1 TAB.SR PO NEEDED June 11, 2016 11:00pm Start: 06-12-2016 take 1 tablet by mitch th once daily, then take 1 tablet by mouth every twenty-four hours Fexofenadine-Pseudoephedrine (Vickie-D 24 Hour) 1 TAB.SR tablet extended release 24 hr Active 1 TAB.SR PO DAILY June 11, 2016 11:00pm FLUoxetine 10 mg oral capsule (2 sources) Serotonin Reuptake Inhibitor Start: 10-12-2017 PROZAC 10 MG CAPS once daily FLUOXETINE HCL [id number] Lupillo Thorpe MD folic acid 1 mg oral tablet (9 sources) Start: 09-18-2014 End: 09-20-2014 take 1 mg by mouth once daily Folic Acid Discontinued 1 MG PO DAILY@0800 September 18, 2014 12:00am September 20, 2014 8:45am lidocaine 25 mg/ml / prilocaine 25 mg/ml topical cream (4 sources) Antiarrhythmic, Amide Local Anesthetic Start: 12-06-2022 End: 07-31-2023 Lidocaine-Prilocaine Discontinued 1 APPLIC TOPICAL ONCE 30 December 06, 2022 12:00am July 31, 2023 12:57pm ondansetron 8 mg disintegrating oral tablet (4 sources) Serotonin-3 Receptor Antagonist Start: 12-06-2022 End: 03-19-2023 take 8 mg by mouth every eight hours Ondansetron Discontinued 8 MG PO Q8H December 06, 2022 12:00am March 19, 2023 10:43am prochlorperazine 10 mg oral tablet (4 sources) Phenothiazine Start: 12-06-2022 End: 03-19-2023 take 10 mg by mouth every six hours Prochlorperazine Maleate Discontinued 10 MG PO EVERY 6 HOURS December 06, 2022 12:00am March 19, 2023 10:43am Problems Active Problems Problem Classification Problem Date Documented Da te Episodic/Chronic Administrative/social admission (1 source) Counseling, unspecified; Translations: [Counseling NOS] 12-06-2022 Episodic Allergic reactions (1 source) Contact dermatitis due to poison mic; Translations: [Allergic contact dermatitis due to plants, except food] 04-03-2024 Episodic Anxiety disorders (20 sources) Generalized anxiety disorder; Translations: [Generalized anxiety disorder] Onset: 1 01-26-2021 Chronic Cancer of breast (20 sources) Malignant tumor of breast ; Translations: [Malignant neoplasm of unspecified site of unspecified female breast] Onset: 3 Chronic Disorders of lipid metabolism (20 sources) Dyslipidemia; Translations: [Hyperlipidemia, unspecified] Onset: 3 08-23-2023 Chronic Esophageal disorders (4 sources) Gastroesophageal reflux disease; Translations: [Gastro-esophageal reflux disease without esophagitis] 01-29-2023 Chronic Maintenance chemotherapy; radiotherapy (4 sources) Patient encounter status; Translations: [Encounter for antineoplastic chemotherapy] 01-29-2023 Chronic Menopausal disorders (20 sources) Perimenopausal state; Translations: [Menopausal and female climacteric states] Onset: 1 Chronic Nonmalignant breast conditions (8 sources) Breast lump; Translations: [Unspecified lump in the right breast, unspecified quadrant] 10-09-2022 Episodic Nonspecific chest pain (4 sources) Chest pain; Translations: [Chest pain, unspecified] Onset: 5 04-23-2025 Episodic Nutritional deficiencies (20 sources) Vitamin D deficiency; Translations: [Vitamin D deficiency, unspecified] Onset: 7 09-28-2017 Chronic Other aftercare (1 source) Surgical follow-up; Translations: [Encounter for follow-up examination after completed treatment for conditions other than malignant neoplasm] 10-11-2023 Episodic Other aftercare (1 source) skilled nursing (current) use of aromatase inhibitors; Translations: [skilled nursing (current) use of aromatase inhibitors] Onset: 5 Episodic Other gastrointestinal disorders (1 source) Acute constipation; Translations: [Constipation, unspecified] Episodic Other gastrointestinal disorders (1 source) Abdominal bloating; Translations: [Abdominal distension (gaseous)] Episodic Other injuries and conditions due to external causes (1 source) Motion sickness; Translations: [Motion sickness, initial encounter] Episodic Other screening for suspected conditions (not mental disorders or infectious disease) (20 sources) Patient encounter status; Translations: [Encounter for screening for osteoporosis] Onset: 1 Episodic Other skin disorders (20 sources) Lichen sclerosus et atrophicus; Translations: [Circumscribed scleroderma] Onset: 3 08-22-2023 Chronic Other skin disorders (2 sources) Eruption; Translations: [Rash and other nonspecific skin eruption] 01-29-2023 Episodic Other skin disorders (1 source) Rash and other nonspecific skin eruption; Translations: [Rash and other nonspecific skin eruption] 01-29-2023 Episodic Residual codes; unclassified (7 sources) Past history of procedure; Translations: [Other specified postprocedural states] 10-16-2022 Episodic Residual codes; unclassified (1 source) Asymptomatic menopausal state; Translations: [Asymptomatic menopausal state] Onset: 5 Episodic Spondylosis; intervertebral disc disorders; other back problems (9 sources) Backache; Translations: [Acute low back pain] Onset: 5 04-23-2025 Episodic Thyroid disorders (20 sources) Non-toxic uninodular goiter; Translations: [Multinodular goiter] Onset: 6 10-12-2017 Chronic Unclassified (1 source) Acute bilateral low back pain without sciatica; Translations: [Acute bilateral low back pain without sciatica] Onset: Past or Other Problems Problem Classification Problem Date Documented Date Episodic/Chronic Cancer of breast (20 sources) History of malignant neoplasm of breast; Translations: [Personal history of malignant neoplasm of breast] Onset: 08-23-2023 08-22-2023 Episodic Cardiac dysrhythmias (20 sources) Palpitations; Translations: [Palpitations] Onset: 08-23-2023 08-23-2023 Episodic Female infertility (12 sources) Female infertility; Translations: [Female infertility, unspecified] Onset: 08-07-2013 Resolved: 10-26-2014 10-26-2014 Chronic Genitourinary symptoms and ill-defined conditions (12 sources) History of recurrent urinary tract infection; Translations: [Personal history of urinary (tract) infections] Onset: 02-17-2014 Resolved: 10-26-2014 11-07-2021 Episodic Immunizations and screening for infectious disease (14 sources) Needs influenza immunization; Translations: [Encounter for immunization] Onset: 02-17-2014 Resolved: 04-17-2014 08-23-2023 Episodic Malaise and fatigue (20 sources) Fatigue; Translations: [Other fatigue] Onset: 08-23-2023 08-23-2023 Episodic Other complications of ; puerperium affecting management of mother (20 sources) Advanced maternal age ; Translations: [Advanced maternal age (AMA), 40 years or greater] Onset: 02-17-2014 Resolved: 09-07-2015 11-07-2021 Episodic Other complications of (12 sources) Elderly primigravida; Translations: [Supervision of elderly primigravida, unspecified trimester] Onset: 01-27-2011 Resolved: 10-26-2014 10-26-2014 Episodic Other complications of (12 sources) H/O: miscarriage; Translations: [ care for patient with recurrent loss, unspecified trimester] Onset: 02-17-2014 Resolved: 04-17-2014 11-07-2021 Episodic Other complications of (12 sources) High risk ; Translations: [Supervision of other high risk pregnancies, unspecified trimester] Onset: 07-21-2015 Resolved: 09-07-2015 09-07-2015 Episodic Other lower respiratory disease (20 sources) Dyspnea on exertion; Translations: [Other forms of dyspnea] Onset: 08-23-2023 08-23-2023 Episodic Other non-traumatic joint disorders (20 sources) Pain in right knee; Translations: [Pain in joint, lower leg] Onset: 07-18-2016 07-18-2016 Episodic Other and delivery including normal (12 sources) Normal ; Translations: [Encounter for supervision of other normal , unspecified trimester] Onset: 04-17-2014 Resolved: 10-26-2014 10-26-2014 Episodic Residual codes; unclassified (20 sources) Family history of cancer of colon; Translations: [Family history of malignant neoplasm of digestive organs] Onset: 11-09-2016 11-09-2016 Episodic Residual codes; unclassified (20 sources) History of antineoplastic chemotherapy; Translations: [Personal history of antineoplastic chemotherapy] Onset: 08-23-2023 08-23-2023 Episodic Residual codes; unclassified (1 source) Personal history of antineoplastic chemotherapy; Translations: [History of chemotherapy] Onset: 08-23-2023 Episodic Screening and history of mental health and substance abuse codes (12 sources) H/O: depression; Translations: [Personal history of other mental and behavioral disorders] Onset: 02-17-2014 Resolved: 09-07-2015 11-07-2021 Episodic Unclassified (1 source) Patient encounter status 04-23-2025 Results Test Name Value Interpretation Reference Range Facility [facility] REGINA BARNEY ([id number]) 1975 F Date Time Provider Department 05/11/25 JAKE SPANGLER [facility] During your visit today, we recorded the following information about you: Artemio Jimenez MA 05/11/2025 10:56 AM Signed Type of letter/form/fax request - bloosd panel Form received from [employer] on 05/05/25 floor and placed on MD desk (Sulma Harrington) for completion. Completed form needs to be faxed to [phone]. Route to [place] when form completed for processing Allergies As of Date: 05/11/2025 (No Known Allergies) Date Reviewed: 04/23/2025 Reviewed by: Sulma Harrington APRN.RN FAMILY PRACTICE - Fully Assessed Prescriptions as of 05/11/2025 - cyclobenzaprine (FLEXERIL) 10 mg tablet Take 1 tablet by mouth three times a day as needed. - citalopram (CELEXA) 20 mg tablet Take 1 tablet by mouth once daily. - cholecalciferol (VITAMIN D3) 50 mcg (2,000 unit) tablet Take 1 tablet by mouth once daily. - MULTIVITAMIN ORAL 1 capsule. - anastrozole (ARIMIDEX) 1 mg tablet Take 1 mg by mouth once daily. - latanoprost (XALATAN) 0.005 % ophthalmic solution Use 1 Drop in both eyes daily at bedtime. - montelukast (SINGULAIR) 10 mg tablet Take 10 mg by mouth daily at bedtime. Problem List As Of Date 05/11/2025 Noted Resolved Advanced maternal age, primigravida [O09.519] 01/27/2011 10/26/2014 Female infertility of unspecified origin [N97.9]08/07/2013 10/26/2014 complicated by previous recurrent mis*02/17/2014 04/17/2014 Advanced maternal age (AMA), 40 years or greate*02/17/2014 10/26/2014 History of recurrent UTI (urinary tract infecti*02/17/2014 10/26/2014 History of depression [Z86.59] 02/17/2014 09/07/2015 Possible exposure to STD [Z20.2] 02/17/2014 04/17/2014 Patient requested diagnostic testing [Z01.89] 02/17/2014 04/17/2014 Supervision of other normal [Z34.80] 04/17/2014 10/26/2014 Previous delivery affecting ,*07/21/2015 09/07/2015 Supervision of other high risk , antep*07/21/2015 09/07/2015 Advanced maternal age (AMA), 40 years or greate*07/21/2015 09/07/2015 Multinodular goiter (nontoxic) [E04.2] 05/24/2016 Chronic pain of both knees [M25.561, M25.562, G*07/18/2016 FHx: colon cancer [Z80.0] 11/09/2016 Vitamin D insufficiency [E55.9] 09/28/2017 Perimenopausal disorder [N95.9] 01/26/2021 FAY (generalized anxiety disorder) [F41.1] 01/26/2021 Screening for colon cancer [Z12.11] 01/26/2021 Lichen sclerosus et atrophicus [L90.0] 08/22/2023 Vitamin D deficiency [E55.9] 08/23/2023 Fatigue [R53.83] 08/23/2023 BOO (dyspnea on exertion) [R06.09] 08/23/2023 Palpitations [R00.2] 08/23/2023 Dyslipidemia [E78.5] 08/23/2023 History of breast cancer in female [Z85.3] 08/23/2023 History of chemotherapy [Z92.21] 08/23/2023 Encounter Status:Closed by ARTEMIO JIMENEZ on 05/11/25 [facility]23[facility]2025 [facility] ([id number]) 1975 F Date Time Provider Department 04/23/25 2:40 PM SULMA HARRINGTON During your visit today, we recorded the following information about you: Pulse Blood pressure Weight 68/minute 104/68 75.3 kg Sulma Harrington, FERNANDO.RN FAMILY PRACTICE 04/23/2025 3:29 PM Signed 04/23/2025 Recording using [employer] software for draft documentation of the visit was discussed with the patient/authorized internet sales representative; all questions welcomed and answered. Patient/authorized internet sales representative agreed to proceed HPI: Regina Barney is a 50-year-old female with a history of breast cancer, hyperlipidemia, and anxiety, presenting for evaluation of upper and lower back pain, with associated nausea and chest pressure. Per triage from today: Patient call in for back pain for about a month in a half. Patient states that she does have tightness in chest but denies other symptoms. Patient thinks this could be related to back pain she is having. Nurse Triage assessment completed with protocol recommending for disposition of see PCP in 3 days. Patient is scheduled to see Sulma today 04/23/2025. Care advice reviewed with patient, patient stated understanding. Patient advised to contact office or seek evaluation in urgent care or ER if symptoms persist or gets worse. Reason for Disposition [1] MODERATE back pain (e.g., interferes with normal activities) AND [2] present > 3 days Answer Assessment - Initial Assessment Questions 1. ONSET: Patient states that it started out lower back, and now it is entire back. Started a month in a half ago 2. LOCATION: Patient feels that entire back is a mess. 3. SEVERITY: Patient rates the pain more moderate pain. Patient is functioning but it is not comfortable doing so. 4. PATTERN: Constant 5. RADIATION: Denies 6. CAUSE: What do you think is causing the back pain? Unsure 7. BACK OVERUSE: Trying to do more weight bearing exercises, push ups. 8. MEDICINES: Patient states that she has taken tylenol. 9. NEUROLOGIC SYMPTOMS: Denies 10. OTHER SYMPTOMS: Denies other symptoms. In office today... Upper and Lower Back Pain: - Onset approximately one month ago. - Initially began as lower back pain, now predominantly in the upper back. - Described as a constant, knotted sensation, rated 3-4/10 in severity. - Aggravated by movement; unable to perform usual workouts or weightlifting. - Denies known trauma or injury. - No radiation of pain down the legs. - Denies urinary symptoms or bowel/bladder incontinence. Nausea: - Intermittent episodes of nausea, unsure if associated with back pain. Chest Pressure: - Occasional mild chest pressure, described as little twitches. - Noticed primarily when lying down at night. Anxiety: - History of anxiety, currently managed with Celexa 20 mg daily. - Reports increased stress due to current symptoms. Breast Cancer: - History of breast cancer, currently on anastrozole (Arimidex). - Experiences joint pain, primarily in knees and ankles, since starting anastrozole. Hyperlipidemia: - Family history of hyperlipidemia; brother has similar condition. - Concerned about hard cholesterol and potential plaque buildup. - Last lipid panel approximately one year ago; brother recommended a more detailed analysis. - Recent blood work in February showed normal kidney function. Weight Gain: - Reports gradual weight gain, attempting to exercise more but limited by back pain and joint discomfort. - Desires to lose weight but feels discouraged by lack of energy and physical limitations. No other concerns or complaints today. Previous Medical History PAST MEDICAL HISTORY Diagnosis Date Bilateral knee pain Breast cancer (HCC) 09/2022 Cancer (HCC) Cyst of right kidney 08/12/2016 Dysthymic disorder 11/12/1996 SITUATIONAL Depression (non-psychotic) Environmental allergies Glaucoma [facility] Infertility, female Left thyroid nodule Multinodular goiter (nontoxic) 05/24/2016 Urinary tract infection, site not specified [id number] Recurrent UTI's Vitamin D deficiency Previous Surgical History PAST SURGICAL HISTORY Procedure Laterality Date BREAST LUMPECTOMY HX Left 09/2022 BREAST SURGERY HX DELIVERY ONLY 2013 , low transverse COLONOSCOPY N/A 11/09/2016 CURETTAGE 07/2015 [facility] INNER EAR SURGERY PROC UNLISTED Right LAPAROSCOPY W/RMVL ADNEXAL STRUCTURES Bilateral 09/27/2023 BSO for surgical menopause due to breast ca SKIN BIOPSY HX TOTAL THYROID LOBECTOMY UNI W/WO ISTHMUSECTOMY Left 06/16/2016 Family History FAMILY HISTORY Problem Relation Age of Onset Breast Cancer Mother 46 Alcohol/Drug Father ETOH Hypertension Father Stroke Father Psychiatry Brother OCD Prostate Cancer Brother Heart Materna (more content not included)... Normal [facility] [id number] 04-23-2025 ECG01 Ventricular Rate : 5 8 BPM Atrial Rate : 58 BPM P-R Interval : 170 ms QRS Duration : 88 ms Q-T Interval : 384 ms QTC Calculation(Bazett) : 376 ms Calculated P Charlotte : 43 degrees Calculated R Charlotte : 58 degrees Calculated T Charlotte : 66 degrees SINUS BRADYCARDIA OTHERWISE NORMAL ECG Confirmed by MD VILLAGOMEZ QARAB ([id number]) on 05/06/2025 1:30:51 PM NAME : REGINA BARNEY PID : [id number] : 1975 Gender : Female Race : ORD : Procedure Date : Apr 23 2025 15:17:23 Edit Date : May 06 2025 13:30:56 Diagnosis: SINUS BRADYCARDIA OTHERWISE NORMAL ECG Confirmed by MD VILLAGOMEZ QARAB ([id number]) on 05/06/2025 1:30:51 PM Test Reason : Location : 185 : [facility] Overread By : MD VILLAGOMEZ QARAB Edited By : MD VILLAGOMEZ QARAB Referred By : SULMA HARRINGTON Acquired by : Chris kraus [facility] XR LUMBAR 3V AP/LAT/L5-S1on 04-23-2025 XR LUMBAR 3V AP/LAT/L5-S1 * * *Final Report* * * DATE OF EXAM: Apr 23 2025 3:41PM WOX [id number] - XR LUMBAR 3V AP/LAT/L5-S1 / PROCEDURE REASON: multiple diagnoses * * * * Physician Interpretation * * * * EXAM TITLE: XR LUMBAR 3V AP/LAT/L5-S1 EXAM DATE/TIME: 04/23/2025 3:41 PM COMPARISON: None. CLINICAL INDICATION/HISTORY: Low back pain TECHNIQUE: AP, lateral and cone down lateral views of the lumbar spine are presented. FINDINGS: There are five qen-pdq-linpckt lumbar vertebrae. No fracture or subluxations are noted. The disc spaces are well preserved. There is no significant osteophyte formation. Kissing spine seen on lateral view. IMPRESSION: Lumbar spine mild degenerative changes. Intermediate Teacher: PSCB Transcribe Date/Time: Apr 29 2025 5:48P Dictated by : DONNA WILLIAM MD This examination was interpreted and the report reviewed and electronically signed by: DONNA WILLIAM MD on Apr 29 2025 5:50PM EST [id number] Normal [facility] XR THORACIC 3V AP/LAT/SWIMME RSon 04-23-2025 XR THORACIC 3V AP/LAT/SWIMMERS * * *Final Report* * * DATE OF EXAM: Apr 23 2025 3:41PM WOX [id number] - XR THORACIC 3V AP/LAT/SWIMMERS / PROCEDURE REASON: multiple diagnoses * * * * Physician Interpretation * * * * EXAM TITLE: XR THORACIC 3V AP/LAT/SWIMMERS EXAM DATE/TIME: 04/23/2025 3:41 PM COMPARISON: None. CLINICAL INDICATION/HISTORY: Back pain. TECHNIQUE: AP, swimmer's and lateral views of the thoracic spine are presented FINDINGS: The thoracic spine shows S shaped deformity. No fractures or subluxations are noted. The disc spaces are grossly preserved. Minimal osteophyte formation is present. There is no paraspinal mass or bony destructive process. IMPRESSION: Findings as described above. Intermediate Teacher: PSCB Transcribe Date/Time: Apr 28 2025 3:00P Dictated by : DONNA WILLIAM MD This examination was interpreted and the report reviewed and electronically signed by: DONNA WILLIAM MD on Apr 28 2025 3:04PM EST [id number] Normal [facility] CBC-Complete Blood Cnt No Di ffon 02-11-2025 Erythrocyte distribution width (RBC) [Ratio] 13.2 % Normal 11.6-14.6 [facility] Comment on above: Performed By: #### L 100.0500, L500.4050 #### [facility] [address] [place], [address] Hematocrit (Bld) [Volume fraction] 42.0 % Normal 37-47 [facility] Comment on above: Performed By: #### L 100.0500, L500.4050 #### [facility] [address] [place], [address] Hemoglobin (Bld) [Mass/Vol] 14.0 g/dL Normal 12.0-15.0 [facility] Comment on above: Performed By: #### L 100.0500, L500.4050 #### [facility] [address] [place], [address] MCH (RBC) [Entitic mass] 32.3 pg High 27.0-32.0 [facility] Comment on above: Performed By: #### L 100.0500, L500.4050 #### [facility] [address] [place], [address] MCHC (RBC) [Mass/Vol] 33.3 g/dL Normal 32-[address] [facility] Comment on above: Performed By: #### L 100.0500, L500.4050 #### [facility] [address] [place], [address] MCV (RBC) [Entitic vol] 97.0 fL Normal 81-99 [facility] Comment on above: Performed By: #### L 100.0500, L500.4050 #### [facility] [address] [place], [address] Platelet mean volume (Bld) [Entitic vol] 11.7 fL Normal 6.2-12.0 [facility] Comment on above: Performed By: #### L 100.0500, L500.4050 #### [facility] [address] [place], [address] Platelets (Bld) [#/Vol] 182 10*3/uL Normal 150-450 [facility] Comment on above: Performed By: #### L 100.0500, L500.4050 #### [facility] [address] [place], [address] RBC (Bld) [#/Vol] 4.33 10*6/uL Normal 4.2-5.4 [facility] Comment on above: Performed By: #### L 100.0500, L500.4050 #### [facility] [address] [place], [address] RDW SD 47.2 fl High 35.1-43.9 [facility] Comment on above: Performed By: #### L 100.0500, L500.4050 #### [facility] [address] [place], [address] WBC (Bld) [#/Vol] 5.5 10*3/uL Normal 4.4-11.0 [facility] Comment on above: Performed By: #### L 100.0500, L500.4050 #### [facility] [address] [place], [address] Comprehensive Metabolic Prof ilon 02-11-2025 Albumin [Mass/Vol] 4.1 g/dL Normal 3.5-5.0 [facility] Comment on above: Performed By: #### L 100.0500, L500.4050 #### [facility] [address] [place], [address] Albumin/Globulin [Mass ratio] 1.5 {ratio} Normal 0.9-2.4 [facility] Comment on above: Performed By: #### L 100.0500, L500.4050 #### [facility] [address] [place], [address] ALK PHOS 101 U/L Normal 35-104 [facility] Comment on above: Performed By: #### L 100.0500, L500.4050 #### [facility] [address] [place], [address] ALT [Catalytic activity/Vol] 19 U/L Normal <=34 [facility] Comment on above: Performed By: #### L 100.0500, L500.4050 #### [facility] [address] [place], [address] AST [Catalytic activity/Vol] 23 U/L Normal <=31 [facility] Comment on above: Performed By: #### L 100.0500, L500.4050 #### [facility] [address] [place], [address] Bilirubin [Mass/Vol] 0.46 mg/dL Normal 0.00-1.30 [facility] Comment on above: Performed By: #### L 100.0500, L500.4050 #### [facility] [address] [place], [address] BUN/CRE 19.8 RATIO Normal 10-20 [facility] Comment on above: Performed By: #### L 100.0500, L500.4050 #### [facility] [address] [place], [address] Calcium [Mass/Vol] 10.2 mg/dL Normal 7.6-11.0 [facility] Comment on above: Performed By: #### L 100.0500, L500.4050 #### [facility] [address] [place], [address] Chloride [Moles/Vol] 107 mmol/L Normal 98-108 [facility] Comment on above: Performed By: #### L 100.0500, L500.4050 #### [facility] [address] [place], [address] CO2 [Moles/Vol] 24.3 mmol/L Normal 21.0-32.0 [facility] Comment on above: Performed By: #### L 100.0500, L500.4050 #### [facility] [address] [place], [address] Creatinine [Mass/Vol] 0.81 mg/dL Normal 0.70-1.[address] [facility] Comment on above: Performed By: #### L 100.0500, L500.4050 #### [facility] [address] [place], [address] ECRCL 79.09 ml/min Normal 50-250 [facility] Comment on above: Performed By: #### L 100.0500, L500.4050 #### [facility] [address] [place], [address] GAP 9 Normal 5-15 [facility] Comment on above: Performed By: #### L 100.0500, L500.4050 #### [facility] [address] [place], [address] GFR/1.73 sq M.predicted among non-blacks MDRD (S/P/Bld) [Vol rate/Area] 88 mL/min/{1.73_m2} Normal >60 [facility] Comment on above: Result Comment: mL/m in/1.73m2 CKD-EPI Creatinine Equation (2020) Performed By: #### L 100.0500, L500.4050 #### [facility] [address] [place], [address] Globulin (S) [Mass/Vol] 2.7 g/dL Normal 2.2-4.2 [facility] Comment on above: Performed By: #### L 100.0500, L500.4050 #### [facility] [address] [place], [address] Glucose [Mass/Vol] 93 mg/dL Normal 70-99 [facility] Comment on above: Performed By: #### L 100.0500, L500.4050 #### [facility] [address] [place], [address] Potassium [Moles/Vol] 4.4 mmol/L Normal 3.3-5.[address] [facility] Comment on above: Performed By: #### L 100.0500, L500.4050 #### [facility] [address] [place], [address] Sodium [Moles/Vol] 140 mmol/L Normal 133-145 [facility] Comment on above: Performed By: #### L 100.0500, L500.4050 #### [facility] [address] [place], [address] T PROT 6.9 g/dL Normal 5.9-8.4 [facility] Comment on above: Performed By: #### L 100.0500, L500.4050 #### [facility] [address] [place], [address] Urea nitrogen [Mass/Vol] 16 mg/dL Normal 4-19 [facility] Comment on above: Performed By: #### L 100.0500, L500.4050 #### [facility] [address] [place], [address] Oncology Visit Reporton Oncology Visit Report [facility] [address] [place], [place] [address] OFFICE VISIT Date of Service: 02/11/25 1104 MR#: [id number] Acct: [id number] Name: REGINA BARNEY Rep #: [id number] : 1975 From: Mary Mcneal NP INSIDE UPHOLSTERER -C Age/Sex: 50/F Location: [facility] [place] Status: Signed HPI Subjective Date of Service 02/11/25 Chief Complaint Breast cancer on treatment History of Present Illness 50-year-old premenopausal at presentation with a family history of breast cancer (mother diagnosed at age 47, of metastatic breast cancer 10 years later, and probably a maternal aunt) who has been compliant with annual screening mammographies. August 18, 2022 screening mammogram ([facility]) a mass in the left breast upper outer. September 08, 2022 breast ultrasound: IMPRESSION: 9 mm x 6 mm x 8 mm hypoechoic irregular solid nodule at the 2 o''clock position of the breast at 3 cm from nipple.??? Biopsy recommended. BIRADS Category 4:??? Suspicious - September 15, 2022 MICROSCOPIC DIAGNOSIS A. Left breast at 3 o???clock, core biopsy: Invasive lobular carcinoma with the follow characteristics: Nuclear grade ??? 2/3 Maximal length ??? 8.5 mm See comment. B. Lymph node tissue, biopsy: Benign polytypic lymphoid tissue. No evidence of carcinoma. ANTIBODY / CLONE RESULT Block A P53 (DO-7) positive, 10% Ki-67 (30-9) positive, 5% CK8 ([id number]) positive CK5-6 (D5 1684) negative Calponin-1 (LQ741H) negative P40 (BC28) negative E-Cad (ECH-6) negative MORPHOMETRIC ANALYSIS ER (clone 6F11) 78%, moderate intensity MA (clone 16/1E2) 85%, moderate intensity Her-2Neu (clone CB11) 0 October 09, 2022: A. Right breast at 8 o???clock, needle core biopsy: Fragments of detached intraductal papilloma. Focal intraductal hyperplasia without atypia. See comment. B. Right breast at 9 o???clock, needle core biopsy: Fragments of detached intraductal papilloma. Focal intraductal hyperplasia without atypia. Focal fibrocystic change Genetic testing September 2022 ([facility], 14 genes panel) was negative Oncotype Dx score of 25 with distant recurrence risk at 9 years with hormonal therapy alone and 6.5% chemotherapy benefit. October 25, 2022 Left breast lumpectomy stereotactic wire localization, nuclear tracer plus blue dye, sentinel lymph node biopsy FROZEN SECTION DIAGNOSIS A. Left axillary sentinel lymph nodes, biopsy: Five out of five lymph nodes negative for carcinoma. MICROSCOPIC DIAGNOSIS A. Left axillary sentinel lymph nodes, biopsy: Five out of five lymph nodes negative for carcinoma. B. Left breast, lumpectomy: Invasive lobular carcinoma. See cancer synoptic report below. COMMENT B. INVASIVE BREAST CANCER SUMMARY: Procedure - excision with wire guidance Specimen: Type - partial breast Size ??? 6 x 6 x 2 cm Laterality ??? left breast Tumor: Site ??? not specified Size ??? 1.3 x 1 x 0.8 cm Histologic type - invasive lobular carcinoma. Focality - single focus of carcinoma. Histologic Grade (Wellton grade): Glandular/tubular differentiation - score 3 Nuclear pleomorphism - score 3 Mitotic count ??? score 2 Overall grade - 3 (score of 8) Ductal carcinoma in situ - not present Lobular carcinoma in situ (LCIS) ??? not present Tumor extension: Skin ??? not applicable Nipple - not applicable Skeletal muscle - not present Margins: Distance of invasive carcinoma from closest margin ??? 0.7 cm from superior margin. Lymph nodes: Number of sentinel lymph nodes examined - 5 Total number of lymph nodes examined (sentinel and nonsentinel) - 5 No evidence of macrometastases, micrometastases or isolated tumor cells. Please see immunohistochemistry [id number]. Treatment effect - Unknown Lymphvascular invasion - unknown Additional pathologic findings ??? focal intraductal hyperplasia without atypia. Focal atypical lobular hyperplasia. Fibrocystic change and adenosis. Ancillary studies - previously performed on section of tumor ([id number] / [id number]). ER ??? positive (78%, moderate intensity) MA ??? positive (85%, moderate intensity) Her2 peter ??? negative (0) Microcalcifications ??? present, focally in non-neoplastic tissue. Clinical history ??? mass of left breast PATHOLOGIC STAGE: T1c N0(sn) Mx Treatment summary and response: * October 25, 2022 Left breast stereotactic wire localization lumpectomy, nuclear tracer plus blue dye, sentinel lymph node biopsy * Adjuvant TC December 18-February (4 cycles) * Anastrozole plus ovarian function suppression with LHRH April 2023-August 28, 2023. * Bilateral salpingoopherectomy September 27, 2023 * Adjuvant radiation therapy to the left breast consisting of 4005 cGy delivered to the whole breast with a simultaneous boost of 4800 cGy delivered to the lumpectomy PTV eval all in 15 fractions. She w (more content not included)... Normal [facility] SCRN MAMM (CAD)W/JAIRO BILATo n 12-18-2024 SCRN MAMM (CAD)W/JAIRO BILAT [facility] Imaging Services [address] [place], [place] [address] SCRN MAMM (CAD)W/JAIRO BILAT MR#: [id number] Acct: [id number] Name: REGINA BARNEY Rep #: [id number] : 1975 F 49 From: Frank rocha MD PCP: Dr. Jake Spangler, Status: [facility] Study: SCRN MAMM (CAD)W/JAIRO BILAT Date of Exam: 05/06 Exam# [id number] Ordering Dr: Jake Spangler DO PROCEDURE: SCRN MAMM (CAD)W/JAIRO BILAT REASON FOR EXAM: F, Age 49 y/o, history of left breast cancer. Mother with breast cancer. Aunt with breast cancer. TECHNIQUE: Bilateral screening digital breast tomosynthesis with 2D and 3D images. Computer aided detection. COMPARISON: Prior exam(s) dating back to October 17, 2023.. FINDINGS: There are scattered areas of fibroglandular density. The patient is status post lumpectomy in the deep upper lateral aspect of the left breast. Surgical clips are seen in the left axilla. Stable examination. No suspicious masses, areas of developing architectural distortion, or suspicious calcifications. BI/SCRN MAMM (CAD)W/JAIRO BILAT IMPRESSION: BI-RADS 2: BENIGN. RECOMMEND ANNUAL MAMMOGRAPHIC SCREENING. Follow-up code: Routine Follow-up The patient will be notified of the results by letter. Reading Location: [place] [address] CC: Dr. Jake Spangler DO Intermediate Teacher: Signed [facility]GIN[facility] ([id number]) 1975 F Date Time Provider Department 12/16/24 JAKE SPANGLER [facility] During your visit today, we recorded the following information about you: Mark Leiva LPN 12/16/2024 10:18 AM Signed Pt called to have mammogram orders faxed to [facility]. Faxed orders to [phone]. Done. Mark Leiva LPN Allergies As of Date: 12/16/2024 (No Known Allergies) Date Reviewed: 04/03/2024 Reviewed by: Yenni Martinez MA - Fully Assessed Reason for Visit: fax mammo gram orders to [facility] [Other] Prescriptions as of 12/16/2024 - cholecalciferol (VITAMIN D3) 50 mcg (2,000 unit) tablet Take 1 tablet by mouth once daily. - citalopram (CELEXA) 20 mg tablet Take 1 tablet by mouth once daily. - MULTIVITAMIN ORAL 1 capsule. - anastrozole (ARIMIDEX) 1 mg tablet Take 1 mg by mouth once daily. - latanoprost (XALATAN) 0.005 % ophthalmic solution Use 1 Drop in both eyes daily at bedtime. - montelukast (SINGULAIR) 10 mg tablet Take 10 mg by mouth daily at bedtime. Problem List As Of Date 12/16/2024 Noted Resolved Advanced maternal age, primigravida [O09.519] 01/27/2011 10/26/2014 Female infertility of unspecified origin [N97.9]08/07/2013 10/26/2014 complicated by previous recurrent mis*02/17/2014 04/17/2014 Advanced maternal age (AMA), 40 years or greate*02/17/2014 10/26/2014 History of recurrent UTI (urinary tract infecti*02/17/2014 10/26/2014 History of depression [Z86.59] 02/17/2014 09/07/2015 Possible exposure to STD [Z20.2] 02/17/2014 04/17/2014 Patient requested diagnostic testing [Z01.89] 02/17/2014 04/17/2014 Supervision of other normal [Z34.80] 04/17/2014 10/26/2014 Previous delivery affecting ,*07/21/2015 09/07/2015 Supervision of other high risk , antep*07/21/2015 09/07/2015 Advanced maternal age (AMA), 40 years or greate*07/21/2015 09/07/2015 Multinodular goiter (nontoxic) [E04.2] 05/24/2016 Chronic pain of both knees [M25.561, M25.562, G*07/18/2016 FHx: colon cancer [Z80.0] 11/09/2016 Vitamin D insufficiency [E55.9] 09/28/2017 Perimenopausal disorder [N95.9] 01/26/2021 FAY (generalized anxiety disorder) [F41.1] 01/26/2021 Screening for colon cancer [Z12.11] 01/26/2021 Lichen sclerosus et atrophicus [L90.0] 08/22/2023 Vitamin D deficiency [E55.9] 08/23/2023 Fatigue [R53.83] 08/23/2023 BOO (dyspnea on exertion) [R06.09] 08/23/2023 Palpitations [R00.2] 08/23/2023 Dyslipidemia [E78.5] 08/23/2023 History of breast cancer in female [Z85.3] 08/23/2023 History of chemotherapy [Z92.21] 08/23/2023 Encounter Status:Closed by MARK LEIVA on 12/16/24 Normal [facility] Absolute lymphocyte countOrd ered By: Mary Mcneal on 09-27-2023 Lymphocytes Auto (Unsp spec) [#/Vol] 1.15 10*3/uL 0.83-4.51 [facility] Basophil percentageOrdered B y: Mary Mcneal on 09-27-2023 Basophils/100 WBC (Bld) 1.3 % 0-1 [facility] Bilirubin [Mass/Vol] 0.40 mg/dL 0.20-1.00 [facility] Comment on above: For patients on eltr ombopag therapy, use of Dimension Wilcox TBIL is not recommended. Chloride [Moles/Vol] 110 mmol/L 98-107 [facility] Eosinophils/100 WBC (Bld) 6.9 % 0-5 [facility] Glucose [Mass/Vol] 95 mg/dL 74-106 [facility] Neutrophils (Bld) [#/Vol] 2.7 10*3/uL 2.0-7.7 [facility] Neutrophils/100 WBC (Bld) 58.9 % 47-70 [facility] Potassium [Moles/Vol] 3.7 mmol/L 3.5-5.[address] [facility] Protein [Mass/Vol] 6.9 g/dL 6.4-8.2 [facility] Sodium [Moles/Vol] 143 mmol/L 136-145 [facility] WBC (Bld) [#/Vol] 4.7 10*3/uL 4.4-11.0 [facility] Blood erythrocytes count (nu mber/volume)Ordered By: Mary Mcneal on 09-27-2023 RBC (Bld) [#/Vol] 4.23 10*6/uL 4.2-5.4 [facility] Blood hemoglobin measurement (mass/volume)Ordered By: Mary Mcneal on 09-27-2023 Hemoglobin (Bld) [Mass/Vol] 13.8 g/dL 12.0-15.0 [facility] Blood lymphocytes/100 leukoc ytesOrdered By: [facility] on 09-27-2023 Lymphocytes/100 WBC (Bld) 24.7 % 19-41 [facility] Blood monocytes/100 leukocyt esOrdered By: [facility] on 09-27-2023 Monocytes/100 WBC (Bld) 8.0 % 0-10 [facility] Blood platelet mean volumeOr dered By: [facility] on 09-27-2023 Platelet mean volume (Bld) [Entitic vol] 11.5 fL 6.2-12.0 [facility] Determination of erythrocyte mean corpuscular volume (MCV)Ordered By: [facility] on 09-27-2023 MCV (RBC) [Entitic vol] 100.2 fL 81-99 [facility] Hematocrit Auto (Bld) [Volum e fraction]Ordered By: [facility] on 09-27-2023 Hematocrit (Bld) [Volume fraction] 42.4 % 37-47 [facility] - Chemistry and C hemistry - challengeOrdered By: [facility] on 09-27-2023 ALP [Catalytic activity/Vol] 95 U/L 45-117 [facility] [facility] ALT [Catalytic activity/Vol] 23 U/L 13-56 [facility] CO2 [Moles/Vol] 29.0 mmol/L 21.0-32.0 [facility] Globulin (S) [Mass/Vol] 3.3 g/dL 2.2-4.2 [facility] Urea nitrogen/Creatinine [Mass ratio] 24.8 mg/mg 10-20 [facility] Laboratory - Chemistry and C hemistry - challengeOrdered By: Jorge Luis Curiel on 09-27-2023 HCG ( test) Ql (U) Negative [facility] Comment on above: Very dilute urine sp ecimens, as indicated by a low specificgravity, may not contain internet sales representative levels of hCG. If is still suspected, a first morning urinespecimen should be collected 48 hours later and tested. Laboratory - Hematology and Cell countsOrdered By: Mary Mcneal on 09-27-2023 Erythrocyte distribution width (RBC) [Entitic vol] 49.7 fL 35.1-43.9 [facility] Erythrocyte distribution width (RBC) [Ratio] 13.3 % 11.6-14.6 [facility] Immature granulocytes/100 WBC (Bld) 0.200 % 0.0-0.9 [facility] Comment on above: IG% - Immature Granu locytes (promyelocytes, myelocytes and metamyelocytes) > 1% indicates that a LEFT SHIFT is Present. MCH (RBC) [Entitic mass] 32.6 pg 27.0-32.0 [facility] Nucleated RBC/100 WBC (Bld) [Ratio] 0 % 0-5 [facility] MCHC Auto (RBC) [Mass/Vol]Or dered By: Mary Mcneal on 09-27-2023 MCHC (RBC) [Mass/Vol] 32.5 g/dL 32-[address] [facility] No Panel InformationOrdered By: Mary Mcneal on 09-27-2023 Estimated Creatinine Clearance Calc 74.77 ml/min [facility] Estimated GFR (MDRD) Amer 96 mL/min >60 [facility] Comment on above: GFR Calc Estimated GFR (MDRD) Non-Af Amer 80 mL/min >60 [facility] Comment on above: Non- GFR Calc Platelets bldOrdered By: Abby Mcneal on 09-27-2023 Platelets (Bld) [#/Vol] 176 10*3/uL 150-450 [facility] Serum or plasma albumin chadd urement (mass/volume)Ordered By: Mary Mcneal on 09-27-2023 Albumin [Mass/Vol] 3.6 g/dL 3.2-5.0 [facility] Serum or plasma albumin/glob ulin mass ratioOrdered By: Mary Mcneal on 09-27-2023 Albumin/Globulin [Mass ratio] 1.1 {ratio} 0.9-2.4 [facility] Serum or plasma calcium chadd urement (mass/volume)Ordered By: Mary Mcneal on 09-27-2023 Calcium [Mass/Vol] 10.0 mg/dL 8.5-10.1 [facility] Serum or plasma creatinine m easurement (mass/volume)Ordered By: Mary Mcneal on 09-27-2023 Creatinine [Mass/Vol] 0.81 mg/dL 0.55-1.[address] [facility] Comment on above: The validity of the calculated GFR & GFRAA in patients over 70 years has not been determined. Clinical correlation is essential. Serum or plasma urea nitroge n measurement (mass/volume)Ordered By: Mary Mcneal on 09-27-2023 Urea nitrogen [Mass/Vol] 20 mg/dL 7-18 [facility] Thin prep Papanicolaou smear with manual screeningOrdered By: Mary Mcneal on 09-27-2023 Thin prep Papanicolaou smear with manual screening 15 U/L 15-37 [facility] Thin prep Papanicolaou smear with manual screening 4 5-15 [facility] CBC W Auto Differential pane l (Bld)on 08-23-2023 Basophils (Bld) [#/Vol] 0.03 10*3/uL <0.11 k/uL [facility] Basophils/100 WBC (Bld) 0.8 % [facility] Differential cell count method Nom (Bld) Auto [facility] Eosinophils (Bld) [#/Vol] 0.22 10*3/uL <0.46 k/uL [facility] Eosinophils/100 WBC (Bld) 5.6 % [facility] Erythrocyte distribution width (RBC) [Ratio] 14.0 % 11.5 - 15.0 % [facility] Hematocrit (Bld) [Volume fraction] 41.6 % 36.0 - 46.0 % [facility] Hemoglobin (Bld) [Mass/Vol] 14.0 g/dL 11.5 - 15.5 g/dL [facility] Immature granulocytes (Bld) [#/Vol] <0.10 k/uL [facility] Immature granulocytes/100 WBC (Bld) 0.3 % [facility] Lymphocytes (Bld) [#/Vol] 1.14 10*3/uL 1.00 - 4.00 k/uL [facility] Lymphocytes/100 WBC (Bld) 28.9 % [facility] MCH (RBC) [Entitic mass] 32.7 pg 26.0 - 34.0 pg [facility] MCHC (RBC) [Mass/Vol] 33.7 g/dL 30.5 - 36.0 g/dL [facility] MCV (RBC) [Entitic vol] 97.2 fL 80.0 - 100.0 fL [facility] Monocytes (Bld) [#/Vol] 0.25 10*3/uL <0.87 k/uL [facility] Monocytes/100 WBC (Bld) 6.3 % [facility] Neutrophils (Bld) [#/Vol] 2.30 10*3/uL 1.45 - 7.50 k/uL [facility] Neutrophils/100 WBC (Bld) 58.1 % [facility] Nucleated RBC (Bld) [#/Vol] <0.01 k/uL [facility] Nucleated RBC/100 WBC (Bld) [Ratio] 0.0 /100 WBC [facility] Platelet mean volume (Bld) [Entitic vol] 11.5 fL 9.0 - 12.7 fL [facility] Platelets (Bld) [#/Vol] 187 10*3/uL 150 - 400 k/uL [facility] RBC (Bld) [#/Vol] 4.28 10*6/uL 3.90 - 5.2 0 m/uL [facility] WBC (Bld) [#/Vol] 3.95 10*3/uL 3.70 - 11. 00 k/uL [facility] HBV surface Ab Ql (S)on 08-12 HBV surface Ab Qn (S) [facility] HEP B SURF ABon 08-23-2023 HBV surface Ab Ql (S) Negative [facility] HbA1c (Bld)on 08-23-2023 Average glucose Estimated from glycated hemoglobin (Bld) [Mass/Vol] 103 mg/dL [facility] HbA1c (Bld) [Mass fraction] 5.2 % 4.3 - 5.6 % [facility] No Panel Informationon 08-23 LLE42-50% POST (L/S) 2.71 L/S [facility] KAC71-39% PRE (L/S) 2.36 L/S [facility] FEV1 PRE (L) 2.95 L [facility] FEV1/FVC POST (%) 83 % [facility] FEV1/FVC PRE (%) 76 % [facility] FEV1_POST (L) 3.01 L [facility] FVC POST (L) 3.63 L [facility] FVC PRE (L) 3.88 L [facility] PEF POST (L/S) 9.42 L/S [facility] PEF PRE (L/S) 9.14 L/S [facility] VITAMIN D 25 HYDROXYon 08-23 25-hydroxyvitamin D3 [Mass/Vol] 30.7 ng/mL Low 31.0 - 80.0 ng/mL [facility] ECG COMPLETEon 08-20-2023 Atrial Rate 59 BPM [facility] Calculated P [place] 53 degrees [facility] Calculated R [place] 56 degrees [facility] Calculated T [place] 63 degrees [facility] P-R Interval 156 ms [facility] QRS Duration 90 ms [facility] QT Interval 392 ms [facility] QTC Calculation (Bazett) 388 ms [facility] Ventricular Rate 59 BPM [facility] Absolute lymphocyte countOrd ered By: Alesia Leung on 06-11-2023 Lymphocytes Auto (Unsp spec) [#/Vol] 1.02 10*3/uL 0.83-4.51 [facility] Basophil percentageOrdered B y: Alesia Leung on 06-11-2023 Basophils/100 WBC (Bld) 1.3 % 0-1 [facility] Bilirubin [Mass/Vol] 0.40 mg/dL 0.20-1.00 [facility] Comment on above: For patients on eltr ombopag therapy, use of Dimension Wilcox TBIL is not recommended. Chloride [Moles/Vol] 111 mmol/L 98-107 [facility] Eosinophils/100 WBC (Bld) 6.4 % 0-5 [facility] Glucose [Mass/Vol] 77 mg/dL 74-106 [facility] Neutrophils (Bld) [#/Vol] 2.3 10*3/uL 2.0-7.7 [facility] Neutrophils/100 WBC (Bld) 58.1 % 47-70 [facility] Potassium [Moles/Vol] 3.9 mmol/L 3.5-5.[address] [facility] Protein [Mass/Vol] 6.7 g/dL 6.4-8.2 [facility] Sodium [Moles/Vol] 144 mmol/L 136-145 [facility] WBC (Bld) [#/Vol] 3.9 10*3/uL 4.4-11.0 [facility] Blood erythrocytes count (nu mber/volume)Ordered By: Alesia Leung on 06-11-2023 RBC (Bld) [#/Vol] 4.39 10*6/uL 4.2-5.4 [facility] Blood hemoglobin measurement (mass/volume)Ordered By: Alesia Leung on 06-11-2023 Hemoglobin (Bld) [Mass/Vol] 14.1 g/dL 12.0-15.0 [facility] Blood lymphocytes/100 leukoc ytesOrdered By: [facility] 06-11-[facility]23 Lymphocytes/100 WBC (Bld) 26.0 % 19-41 [facility] Blood monocytes/100 leukocyt esOrdered By: [facility] on 06-11-2023 Monocytes/100 WBC (Bld) 7.9 % 0-10 [facility] Blood platelet mean volumeOr dered By: [facility] on 06-11-2023 Platelet mean volume (Bld) [Entitic vol] 11.5 fL 6.2-12.0 [facility] Determination of erythrocyte mean corpuscular volume (MCV)Ordered By: [facility] 06-11-2023 MCV (RBC) [Entitic vol] 98.9 fL 81-99 [facility] Hematocrit Auto (Bld) [Volum e fraction]Ordered By: Alesia Leung on 06-11-2023 Hematocrit (Bld) [Volume fraction] 43.4 % 37-47 [facility] Laboratory - Chemistry and C hemistry - challengeOrdered By: [facility] on 06-11-2023 ALP [Catalytic activity/Vol] 94 U/L 45-117 [facility] ALT [Catalytic activity/Vol] 30 U/L 13-56 [facility] CO2 [Moles/Vol] 32.0 mmol/L 21.0-32.0 [facility] Globulin (S) [Mass/Vol] 3.4 g/dL 2.2-4.2 [facility] Urea nitrogen/Creatinine [Mass ratio] 23.6 mg/mg 10-20 [facility] Laboratory - Hematology and Cell countsOrdered By: Alesia Leung on 06-11-2023 Erythrocyte distribution width (RBC) [Entitic vol] 46.6 fL 35.1-43.9 [facility] Erythrocyte distribution width (RBC) [Ratio] 12.8 % 11.6-14.6 [facility] Immature granulocytes/100 WBC (Bld) 0.300 % 0.0-0.9 [facility] Comment on above: IG% - Immature Granu locytes (promyelocytes, myelocytes and metamyelocytes) > 1% indicates that a LEFT SHIFT is Present. MCH (RBC) [Entitic mass] 32.1 pg 27.0-32.0 [facility] Nucleated RBC/100 WBC (Bld) [Ratio] 0 % 0-5 [facility] MCHC Auto (RBC) [Mass/Vol]Or dered By: Alesia Leung on 06-11-2023 MCHC (RBC) [Mass/Vol] 32.5 g/dL 32-[address] [facility] No Panel InformationOrdered By: Alesia Leung on 06-11-2023 Estimated Creatinine Clearance Calc 84.11 ml/min [facility] Estimated GFR (MDRD) Amer 110 mL/min >60 [facility] Comment on above: GFR Calc Estimated GFR (MDRD) Non-Af Amer 91 mL/min >60 [facility] Comment on above: Non- GFR Calc Platelets bldOrdered By: Ashwin Leung on 06-11-2023 Platelets (Bld) [#/Vol] 160 10*3/uL 150-450 [facility] Serum or plasma albumin chadd urement (mass/volume)Ordered By: Alesia Leung on 06-11-2023 Albumin [Mass/Vol] 3.3 g/dL 3.2-5.0 [facility] Serum or plasma albumin/glob ulin mass ratioOrdered By: Alesia Leung on 06-11-2023 Albumin/Globulin [Mass ratio] 1.0 {ratio} 0.9-2.4 [facility] Serum or plasma calcium chadd urement (mass/volume)Ordered By: Alesia Leung on 06-11-2023 Calcium [Mass/Vol] 9.8 mg/dL 8.5-10.1 [facility] Serum or plasma creatinine m easurement (mass/volume)Ordered By: Alesia Leung on 06-11-2023 Creatinine [Mass/Vol] 0.72 mg/dL 0.55-1.[address] [facility] Comment on above: The validity of the calculated GFR & GFRAA in patients over 70 years has not been determined. Clinical correlation is essential. Serum or plasma urea nitroge n measurement (mass/volume)Ordered By: Alesia Leung on 06-11-2023 Urea nitrogen [Mass/Vol] 17 mg/dL 7-18 [facility] Thin prep Papanicolaou smear with manual screeningOrdered By: Alesia Leung on 06-11-2023 Thin prep Papanicolaou smear with manual screening 19 U/L 15-37 [facility] Thin prep Papanicolaou smear with manual screening 1 5-15 [facility] COLONOSCOPY SCREENINGon 05-13 [facility] Absolute lymphocyte countOrd ered By: Dr. Leung on 03-19-2023 Lymphocytes Auto (Unsp spec) [#/Vol] 0.84 10*3/uL 0.83-4.51 [facility] Basophil percentageOrdered B y: Dr. Leung on 03-19-2023 Basophils/100 WBC (Bld) 1.6 % 0-1 [facility] Bilirubin [Mass/Vol] 0.30 mg/dL 0.20-1.00 [facility] Comment on above: For patients on eltr ombopag therapy, use of Dimension [place] TBIL is not recommended. Chloride [Moles/Vol] 111 mmol/L 98-107 [facility] Eosinophils/100 WBC (Bld) 3.1 % 0-5 [facility] Glucose [Mass/Vol] 100 mg/dL 74-106 [facility] Comment on above: Fasting Glucose resu lt from 100 to 125 mg/dL suggests IMPAIRED HOMEOSTASIS per A.D.A. criteria. Neutrophils (Bld) [#/Vol] 2.9 10*3/uL 2.0-7.7 [facility] Neutrophils/100 WBC (Bld) 64.2 % 47-70 [facility] Potassium [Moles/Vol] 4.1 mmol/L 3.5-5.[address] [facility] Protein [Mass/Vol] 5.9 g/dL 6.4-8.2 [facility] Sodium [Moles/Vol] 142 mmol/L 136-145 [facility] WBC (Bld) [#/Vol] 4.5 10*3/uL 4.4-11.0 [facility] Blood erythrocytes count (nu mber/volume)Ordered By: Dr. Leung on 03-19-2023 RBC (Bld) [#/Vol] 3.49 10*6/uL 4.2-5.4 [facility] Blood hemoglobin measurement (mass/volume)Ordered By: Dr. Leung on 03-19-2023 Hemoglobin (Bld) [Mass/Vol] 11.7 g/dL 12.0-15.0 [facility] Blood lymphocytes/100 leukoc ytesOrdered By: Dr. Leung on 03-19-2023 Lymphocytes/100 WBC (Bld) 18.7 % 19-41 [facility] Blood monocytes/100 leukocyt esOrdered By: Dr. Leung on 03-19-2023 Monocytes/100 WBC (Bld) 12.2 % 0-10 [facility] Blood platelet mean volumeOr dered By: Dr. Leung on 03-19-2023 Platelet mean volume (Bld) [Entitic vol] 11.0 fL 6.2-12.0 [facility] Determination of erythrocyte mean corpuscular volume (MCV)Ordered By: Dr. Leung on 03-19-2023 MCV (RBC) [Entitic vol] 100.9 fL 81-99 [facility] Hematocrit Auto (Bld) [Volum e fraction]Ordered By: Dr. Leung on 03-19-2023 Hematocrit (Bld) [Volume fraction] 35.2 % 37-47 [facility] Laboratory - Chemistry and C hemistry - challengeOrdered By: Dr. Leung on 03-19-2023 ALP [Catalytic activity/Vol] 68 U/L 45-117 [facility] ALT [Catalytic activity/Vol] 32 U/L 13-56 [facility] CO2 [Moles/Vol] 26.0 mmol/L 21.0-32.0 [facility] Globulin (S) [Mass/Vol] 3.0 g/dL 2.2-4.2 [facility] Urea nitrogen/Creatinine [Mass ratio] 26.8 mg/mg 10-20 [facility] Laboratory - Hematology and Cell countsOrdered By: Dr. Leung on 03-19-2023 Erythrocyte distribution width (RBC) [Entitic vol] 59.3 fL 35.1-43.9 [facility] Erythrocyte distribution width (RBC) [Ratio] 15.9 % 11.6-14.6 [facility] Immature granulocytes/100 WBC (Bld) 0.200 % 0.0-0.9 [facility] Comment on above: IG% - Immature Granu locytes (promyelocytes, myelocytes and metamyelocytes) > 1% indicates that a LEFT SHIFT is Present. MCH (RBC) [Entitic mass] 33.5 pg 27.0-32.0 [facility] Nucleated RBC/100 WBC (Bld) [Ratio] 0 % 0-5 [facility] MCHC Auto (RBC) [Mass/Vol]Or dered By: Dr. Leung on 03-19-2023 MCHC (RBC) [Mass/Vol] 33.2 g/dL 32-[address] [facility] No Panel InformationOrdered By: Dr. Leung on 03-19-2023 Estimated Creatinine Clearance Calc 96.13 ml/min [facility] Estimated GFR (MDRD) Amer 128 mL/min >60 [facility] Comment on above: GFR Calc Estimated GFR (MDRD) Non-Af Amer 106 mL/min >60 [facility] Comment on above: Non- GFR Calc Follicle Stimulating Hormone 106.1 mIU/mL [facility] Comment on above: NORMAL REFERENCE RAN GES FEMALE FOLLICULAR 2.3 - 12.6 mIU/mL MID-CYCLE PEAK 5.2 - 17.5 mIU/mL LUTEAL 1.7 - 12.9 mIU/mL POST-MENOPAUSAL ON MHT 5.9 - 72.8 mIU/mL NOT ON MHT 12.7 - 132.2 mlU/mL MALE 0.7 - 10.8 mIU/mL Luteinizing Hormone 50.4 mIU/mL [facility] Comment on above: NORMAL REFERENCE RAN GES FEMALE FOLLICULAR 1.9 - 26.2 mIU/mL MID-CYCLE PEAK 22.8 - 76.1 mIU/mL LUTEAL 0.6 - 16.6 mIU/mL POST-MENOPAUSAL ON MHT 1.1 - 52.4 mIU/mL NOT ON MHT 8.6 - 61.8 mIU/mL MALE 1.2 - 10.6 mIU/mL Platelets bldOrdered By: Dr. Leung on 03-19-2023 Platelets (Bld) [#/Vol] 228 10*3/uL 150-450 [facility] Serum or plasma albumin chadd urement (mass/volume)Ordered By: Dr. Leung on 03-19-2023 Albumin [Mass/Vol] 2.9 g/dL 3.2-5.0 [facility] Serum or plasma albumin/glob ulin mass ratioOrdered By: Dr. Leung on 03-19-2023 Albumin/Globulin [Mass ratio] 1.0 {ratio} 0.9-2.4 [facility] Serum or plasma calcium chadd urement (mass/volume)Ordered By: Dr. Leung on 03-19-2023 Calcium [Mass/Vol] 9.5 mg/dL 8.5-10.1 [facility] Serum or plasma creatinine m easurement (mass/volume)Ordered By: Dr. Leung on 03-19-2023 Creatinine [Mass/Vol] 0.63 mg/dL 0.55-1.[address] [facility] Comment on above: The validity of the calculated GFR & GFRAA in patients over 70 years has not been determined. Clinical correlation is essential. Serum or plasma urea nitroge n measurement (mass/volume)Ordered By: Dr. Leung on 03-19-2023 Urea nitrogen [Mass/Vol] 17 mg/dL 7-18 [facility] Thin prep Papanicolaou smear with manual screeningOrdered By: Dr. Leung on 03-19-2023 Thin prep Papanicolaou smear with manual screening 28 U/L 15-37 [facility] Thin prep Papanicolaou smear with manual screening 5 5-15 [facility] Blood manual differential co mment interpretation (narrative result)Ordered By: Dr. Leung on 02-19-2023 Manual differential comment Oneil (Bld) [Interp] SCANNED [facility] Basophil percentageOrdered B y: Dr. Grant on 12-14-2022 Chloride [Moles/Vol] 108 mmol/L 98-107 [facility] Glucose [Mass/Vol] 97 mg/dL 74-106 [facility] Potassium [Moles/Vol] 3.8 mmol/L 3.5-5.[address] [facility] Sodium [Moles/Vol] 141 mmol/L 136-145 [facility] WBC (Bld) [#/Vol] 8.3 10*3/uL 4.4-11.0 [facility] Blood erythrocytes count (nu mber/volume)Ordered By: Dr. Grant on 12-14-2022 RBC (Bld) [#/Vol] 4.52 10*6/uL 4.2-5.4 [facility] Blood hemoglobin measurement (mass/volume)Ordered By: Dr. Grant on 12-14-2022 Hemoglobin (Bld) [Mass/Vol] 14.6 g/dL 12.0-15.0 [facility] Blood platelet mean volumeOr dered By: Dr. Grant on 12-14-2022 Platelet mean volume (Bld) [Entitic vol] 12.1 fL 6.2-12.0 [facility] Determination of erythrocyte mean corpuscular volume (MCV)Ordered By: Dr. Grant on 12-14-2022 MCV (RBC) [Entitic vol] 97.8 fL 81-99 [facility] Hematocrit Auto (Bld) [Volum e fraction]Ordered By: Dr. Grant on 12-14-2022 Hematocrit (Bld) [Volume fraction] 44.2 % 37-47 [facility] Laboratory - Chemistry and C hemistry - challengeOrdered By: Dr. Grant on 12-14-2022 CO2 [Moles/Vol] 26.0 mmol/L 21.0-32.0 [facility] Urea nitrogen/Creatinine [Mass ratio] 22.0 mg/mg 10-20 [facility] Laboratory - Chemistry and C hemistry - challengeOrdered By: Dr. Hernandez on 12-14-2022 HCG ( test) Ql (U) Negative [facility] Comment on above: Very dilute urine sp ecimens, as indicated by a low specificgravity, may not contain internet sales representative levels of hCG. If is still suspected, a first morning urinespecimen should be collected 48 hours later and tested. Laboratory - Hematology and Cell countsOrdered By: Dr. Grant on 12-14-2022 Erythrocyte distribution width (RBC) [Entitic vol] 49.7 fL 35.1-43.9 [facility] Erythrocyte distribution width (RBC) [Ratio] 13.7 % 11.6-14.6 [facility] MCH (RBC) [Entitic mass] 32.3 pg 27.0-32.0 [facility] MCHC Auto (RBC) [Mass/Vol]Or dered By: Dr. Grant on 12-14-2022 MCHC (RBC) [Mass/Vol] 33.0 g/dL 32-[address] [facility] No Panel InformationOrdered By: Dr. Grant on 12-14-2022 Estimated Creatinine Clearance Calc 74.68 ml/min [facility] Estimated GFR (MDRD) Amer 95 mL/min >60 [facility] Comment on above: GFR Calc Estimated GFR (MDRD) Non-Af Amer 79 mL/min >60 [facility] Comment on above: Non- GFR Calc Platelets bldOrdered By: Dr. Grant on 12-14-2022 Platelets (Bld) [#/Vol] 217 10*3/uL 150-450 [facility] Serum or plasma calcium chadd urement (mass/volume)Ordered By: Dr. Grant on 12-14-2022 Calcium [Mass/Vol] 9.8 mg/dL 8.5-10.1 [facility] Serum or plasma creatinine m easurement (mass/volume)Ordered By: Dr. Grant on 12-14-2022 Creatinine [Mass/Vol] 0.82 mg/dL 0.55-1.[address] [facility] Comment on above: The validity of the calculated GFR & GFRAA in patients over 70 years has not been determined. Clinical correlation is essential. Serum or plasma urea nitroge n measurement (mass/volume)Ordered By: Dr. Grant on 12-14-2022 Urea nitrogen [Mass/Vol] 18 mg/dL 7-18 [facility] Thin prep Papanicolaou smear with manual screeningOrdered By: Dr. Grant on 12-14-2022 Thin prep Papanicolaou smear with manual screening 7 5-15 [facility] Laboratory - Chemistry and C hemistry - challengeOrdered By: Dr. Curiel on 10-25-2022 HCG ( test) Ql (U) Negative [facility] Comment on above: Very dilute urine sp ecimens, as indicated by a low specificgravity, may not contain internet sales representative levels of hCG. If is still suspected, a first morning urinespecimen should be collected 48 hours later and tested. Basophil percentageOrdered B y: Dr. Grant on 10-24-2022 Bilirubin [Mass/Vol] 0.30 mg/dL 0.20-1.00 [facility] Comment on above: For patients on eltr ombopag therapy, use of Dimension [employer] TBIL is not recommended. Chloride [Moles/Vol] 107 mmol/L 98-107 [facility] Glucose [Mass/Vol] 95 mg/dL 74-106 [facility] Potassium [Moles/Vol] 3.7 mmol/L 3.5-5.[address] [facility] Protein [Mass/Vol] 7.0 g/dL 6.4-8.2 [facility] Sodium [Moles/Vol] 140 mmol/L 136-145 [facility] WBC (Bld) [#/Vol] 7.6 10*3/uL 4.4-11.0 [facility] Blood erythrocytes count (nu mber/volume)Ordered By: Dr. Grant on 10-24-2022 RBC (Bld) [#/Vol] 4.37 10*6/uL 4.2-5.4 [facility] Blood hemoglobin measurement (mass/volume)Ordered By: Dr. Grant on 10-24-2022 Hemoglobin (Bld) [Mass/Vol] 14.2 g/dL 12.0-15.0 [facility] Blood platelet mean volumeOr dered By: Dr. Grant on 10-24-2022 Platelet mean volume (Bld) [Entitic vol] 12.8 fL 6.2-12.0 [facility] Determination of erythrocyte mean corpuscular volume (MCV)Ordered By: Dr. Grant on 10-24-2022 MCV (RBC) [Entitic vol] 99.3 fL 81-99 [facility] Hematocrit Auto (Bld) [Volum e fraction]Ordered By: Dr. Grant on 10-24-2022 Hematocrit (Bld) [Volume fraction] 43.4 % 37-47 [facility] Laboratory - Chemistry and C hemistry - challengeOrdered By: Dr. Grant on 10-24-2022 ALP [Catalytic activity/Vol] 62 U/L 45-117 [facility] ALT [Catalytic activity/Vol] 21 U/L 13-56 [facility] CO2 [Moles/Vol] 26.0 mmol/L 21.0-32.0 [facility] Globulin (S) [Mass/Vol] 3.5 g/dL 2.2-4.2 [facility] Urea nitrogen/Creatinine [Mass ratio] 16.5 mg/mg 10-20 [facility] Laboratory - Hematology and Cell countsOrdered By: Dr. Grant on 10-24-2022 Erythrocyte distribution width (RBC) [Entitic vol] 50.5 fL 35.1-43.9 [facility] Erythrocyte distribution width (RBC) [Ratio] 13.8 % 11.6-14.6 [facility] MCH (RBC) [Entitic mass] 32.5 pg 27.0-32.0 [facility] MCHC Auto (RBC) [Mass/Vol]Or dered By: Dr. Grant on 10-24-2022 MCHC (RBC) [Mass/Vol] 32.7 g/dL 32-[address] [facility] No Panel InformationOrdered By: Dr. Grant on 10-24-2022 Estimated Creatinine Clearance Calc 63.13 ml/min [facility] Estimated GFR (MDRD) Amer 78 mL/min >60 [facility] Comment on above: GFR Calc Estimated GFR (MDRD) Non-Af Amer 65 mL/min >60 [facility] Comment on above: Non- GFR Calc Platelets bldOrdered By: Dr. Grant on 10-24-2022 Platelets (Bld) [#/Vol] 200 10*3/uL 150-450 [facility] Serum or plasma albumin chadd urement (mass/volume)Ordered By: Dr. Grant on 10-24-2022 Albumin [Mass/Vol] 3.5 g/dL 3.2-5.0 [facility] Serum or plasma albumin/glob ulin mass ratioOrdered By: Dr. Grant on 10-24-2022 Albumin/Globulin [Mass ratio] 1.0 {ratio} 0.9-2.4 [facility] Serum or plasma calcium chadd urement (mass/volume)Ordered By: Dr. Grant on 10-24-2022 Calcium [Mass/Vol] 9.6 mg/dL 8.5-10.1 [facility] Serum or plasma creatinine m easurement (mass/volume)Ordered By: Dr. Grant on 10-24-2022 Creatinine [Mass/Vol] 0.97 mg/dL 0.55-1.[address] [facility] Comment on above: The validity of the calculated GFR & GFRAA in patients over 70 years has not been determined. Clinical correlation is essential. Serum or plasma urea nitroge n measurement (mass/volume)Ordered By: Dr. Grant on 10-24-2022 Urea nitrogen [Mass/Vol] 16 mg/dL 7-18 [facility] Thin prep Papanicolaou smear with manual screeningOrdered By: Dr. Grant on 10-24-2022 Thin prep Papanicolaou smear with manual screening 11 U/L 15-37 [facility] Thin prep Papanicolaou smear with manual screening 7 5-15 [facility] No Panel InformationOrdered By: Dr. Leung on 09-21-2022 Miscellaneous Test Comment MAILED SPECIMEN [facility] CONG SCREENING W TOMOon 08-18 [facility] TESTOST,FREE AND TOTALon TESTOSTERONE TOT.LC/MS/MS 19 ng/dL Normal 2-45 [facility] Comment on above: Result Comment: For additional information, please refer to [email or web address].Word[employer].com/faq/ [email or web address] (This link is being provided for informational/ educational purposes only.) This test was developed and its analytical performance characteristics have been determined by [facility] [place], [place]. It has not been cleared or approved by the U.S. Food and Drug Administration. This assay has been validated pursuant to the CLIA regulations and is used for clinical purposes. Performed By: #### T ESFT #### [facility] [address] [place], [place] TESTOSTERONE,FREE 2.1 pg/mL Normal 0.1-6.4 [facility] Comment on above: Result Comment: This test was developed and its analytical performance characteristics have been determined by [facility] [place], [place]. It has not been cleared or approved by the U.S. Food and Drug Administration. This assay has been validated pursuant to the CLIA regulations and is used for clinical purposes. Performed By: #### T ESFT #### [facility] [address] [place], [place] CBC AND DIFFERENTIALon 02-01 Basophils (Bld) [#/Vol] 0.10 10*3/uL Normal 0.00 - 0.10 [facility] Comment on above: Performed By: #### C BCDF #### [address] [address] Basophils/100 WBC (Bld) 1.1 % Normal 0.0 - 2.0 [facility] Comment on above: Performed By: #### C BCDF #### [address] [address] Eosinophils (Bld) [#/Vol] 0.10 10*3/uL Normal 0.00 - 0.70 [facility] Comment on above: Performed By: #### C BCDF #### [address] [address] Eosinophils/100 WBC (Bld) 1.9 % Normal 0.0 - 6.0 [facility] Comment on above: Performed By: #### C BCDF #### [address] [address] Erythrocyte distribution width (RBC) [Ratio] 13.5 % Normal 11.5 - 14.5 [facility] Comment on above: Performed By: #### C BCDF #### [address] [address] Hematocrit (Bld) [Volume fraction] 41.6 % Normal 36.0 - 46.0 [facility] Comment on above: Performed By: #### C BCDF #### [address] [address] Hemoglobin (Bld) [Mass/Vol] 13.8 g/dL Normal 12.0 - 16.0 [facility] Comment on above: Performed By: #### C BCDF #### [address] [address] Lymphocytes (Bld) [#/Vol] 1.70 10*3/uL Normal 1.20 - 4.80 [facility] Comment on above: Performed By: #### C BCDF #### [address] [address] Lymphocytes/100 WBC (Bld) 29.5 % Normal 13.0 - 44.0 [facility] Comment on above: Performed By: #### C BCDF #### [address] [address] MCHC (RBC) [Mass/Vol] 33.0 g/dL Normal 32.0 - 36.0 [facility] Comment on above: Performed By: #### C BCDF #### [address] [address] MCV (RBC) [Entitic vol] 97 fL Normal 80 - 100 [facility] Comment on above: Performed By: #### C BCDF #### [address] [address] Monocytes (Bld) [#/Vol] 0.30 10*3/uL Normal 0.10 - 1.00 [facility] Comment on above: Performed By: #### C BCDF #### [address] [address] Monocytes/100 WBC (Bld) 6.1 % Normal 2.0 - 10.0 [facility] Comment on above: Performed By: #### C BCDF #### [address] [address] Neutrophils (Bld) [#/Vol] 3.50 10*3/uL Normal 1.20 - 7.70 [facility] Comment on above: Result Comment: Perc ent differential counts (%) should be interpreted in the context of the absolute cell counts (cells/L). Performed By: #### C BCDF #### [address] [address] Neutrophils/100 WBC (Bld) 61.4 % Normal 40.0 - 80.0 [facility] Comment on above: Performed By: #### C BCDF #### [address] [address] Nucleated RBC/100 WBC (Bld) [Ratio] 0.1 /100 WBC Normal [facility] Comment on above: Performed By: #### C BCDF #### [address] [address] Platelets (Bld) [#/Vol] 182 10*3/uL Normal 150 - 450 [facility] Comment on above: Performed By: #### C BCDF #### [address] [address] RBC (Bld) [#/Vol] 4.28 x10E12/L Normal 4.00 - 5.20 [facility] Comment on above: Performed By: #### C BCDF #### [address] [address] WBC (Bld) [#/Vol] 5.6 10*3/uL Normal 4.4 - 11.3 [facility] Comment on above: Performed By: #### C BCDF #### [address] [address] COMPREHENSIVE PANELon 2020 Albumin [Mass/Vol] 4.0 g/dL Normal 3.4 - 5.0 [facility] Comment on above: Performed By: #### C MP #### [address] [address] ALP [Catalytic activity/Vol] 60 U/L Normal 33 - 110 [facility] Comment on above: Performed By: #### C MP #### [address] [address] ALT [Catalytic activity/Vol] 12 U/L Normal 7 - 45 [facility] Comment on above: Result Comment: Marlyn ents treated with Sulfasalazine may generate falsely decreased results for ALT. Performed By: #### C MP #### [place] [id number] Anion gap [Moles/Vol] 9 mmol/L Low 10 - 20 [facility] Comment on above: Performed By: #### C MP #### [place] [id number] AST [Catalytic activity/Vol] 16 U/L Normal 9 - 39 [facility] Comment on above: Performed By: #### C MP #### [place] [address] Bilirubin [Mass/Vol] 0.5 mg/dL Normal 0.0 - 1.2 [facility] Comment on above: Performed By: #### C MP #### [place] [address] Calcium [Mass/Vol] 9.8 mg/dL Normal 8.6 - 10.3 [facility] Comment on above: Performed By: #### C MP #### [place] [id number] Chloride [Moles/Vol] 108 mmol/L High 98 - 107 [facility] Comment on above: Performed By: #### C MP #### [address] [address] Creatinine [Mass/Vol] 0.63 mg/dL Normal 0.50 - 1.05 [facility] Comment on above: Performed By: #### C MP #### [place] [id number] GFR- AM. >60 Normal >60 [facility] Comment on above: Result Comment: CALC ULATIONS OF ESTIMATED GFR ARE PERFORMED USING THE MDRD STUDY EQUATION FOR THE IDMS-TRACEABLE CREATININE METHODS. CLIN CHEM 2007;53:766-72 Performed By: #### C MP #### [address] [address] GFR-NON AM. >60 Normal >[address] [facility] Comment on above: Performed By: #### C MP #### [address] [address] Glucose [Mass/Vol] 85 mg/dL Normal 74 - 99 [facility] Comment on above: Performed By: #### C MP #### [address] [address] HCO3 (Bld) [Moles/Vol] 27 mmol/L Normal 21 - 32 [facility] Comment on above: Performed By: #### C MP #### [address] [address] Potassium [Moles/Vol] 4.1 mmol/L Normal 3.5 - 5.3 [facility] Comment on above: Performed By: #### C MP #### [address] [address] Protein [Mass/Vol] 6.7 g/dL Normal 6.4 - 8.2 [facility] Comment on above: Performed By: #### C MP #### [address] [address] Sodium [Moles/Vol] 140 mmol/L Normal 136 - 145 [facility] Comment on above: Performed By: #### C MP #### [address] [address] Urea nitrogen [Mass/Vol] 17 mg/dL Normal 6 - 23 [facility] Comment on above: Performed By: #### C MP #### [address] [address] FOLLICLE STIM. HORMONEon FOLLICLE STIM. HORMONE 14.2 IU/L Normal [facility] Comment on above: Result Comment: REF VALUES FOLLICULAR 2-12 MID-CYCLE 12-25 LUTEAL PHASE 2-12 MENOPAUSE 30-150 PREPUBERTY 50% ADULT ADULT MALE 2-10 INFANTS 0-1 Performed By: #### F #### [facility] [address] [place] [address] HEMOGLOBIN A1Con 02-01-2021 HbA1c (Bld) [Mass fraction] 5.5 % Normal [facility] Comment on above: Result Comment: Diag nosis of Diabetes-Adults Non-Diabetic: < or = 5.6% Increased risk for developing diabetes: 5.7-6.4% Diagnostic of diabetes: > or = 6.5% . Monitoring of Diabetes Age (y) Therapeutic Goal (%) Adults: >18 <7.0 Pediatrics: 13-18 <7.5 7-12 <8.0 0- 6 7.5-8.5 [employer] [employer]. Diabetes Care 33(S1), Nov 2009. Performed By: #### H BA1E #### [address] [address] HbA1c (Bld) [Mass fraction] 111 MG/DL Normal [facility] Comment on above: Performed By: #### H BA1E #### [address] [address] LIPID PANEL (CORONARY RISK 2 )on 02-01-2021 Cholesterol [Mass/Vol] 164 mg/dL Normal 0 - 199 [facility] Comment on above: Result Comment: . AGE DESIRABLE BORDERLINE HIGH HIGH 0-19 Y 0 - 169 170 - 199 >/= 200 20-24 Y 0 - 189 190 - 224 >/= 225 >24 Y 0 - 199 200 - 239 >/= 240 All ranges are based on fasting samples. Specific therapeutic targets will vary based on patient-specific cardiac risk. . Pediatric guidelines reference:Pediatrics 2011, 128(S5). Adult guidelines reference: NCEP ATPIII Guidelines, GEOVANNA 2001, 258:2486-97 . Venipuncture immediately after or during the administration of Metamizole may lead to falsely low results. Testing should be performed immediately prior to Metamizole dosing. Performed By: #### L IPID #### [address] [address] Cholesterol in HDL [Mass/Vol] 63.0 mg/dL Normal [facility] Comment on above: Result Comment: . AGE VERY LOW LOW NORMAL HIGH 0-19 Y < 35 < 40 40-45 ---- 20-24 Y ---- < 40 >45 ---- >24 Y ---- < 40 40-60 >60 . Performed By: #### L IPID #### [address] [address] Cholesterol in LDL [Mass/Vol] 83 mg/dL Normal 0 - 99 [facility] Comment on above: Result Comment: . NEAR BORD AGE DESIRABLE OPTIMAL HIGH HIGH VERY HIGH 0-19 Y 0 - 109 --- 110-129 >/= 130 ---- 20-24 Y 0 - 119 --- 120-159 >/= 160 ---- >24 Y 0 - 99 100-129 130-159 160-189 >/=190 . Performed By: #### L IPID #### [address] [address] Cholesterol in VLDL [Mass/Vol] 18 mg/dL Normal 0 - 40 [facility] Comment on above: Performed By: #### L IPID #### [address] [address] Cholesterol.total/Cho lesterol in HDL [Mass ratio] 2.6 {ratio} Normal [facility] Comment on above: Result Comment: REF VALUES DESIRABLE < 3.4 HIGH RISK > 5.0 Performed By: #### L IPID #### [address] [address] Triglyceride [Mass/Vol] 91 mg/dL Normal 0 - 149 [facility] Comment on above: Result Comment: . AGE DESIRABLE BORDERLINE HIGH HIGH VERY HIGH 0 D-90 D 19 - 174 ---- ---- ---- 91 D- 9 Y 0 - 74 75 - 99 >/= 100 ---- 10-19 Y 0 - 89 90 - 129 >/= 130 ---- 20-24 Y 0 - 114 115 - 149 >/= 150 ---- >24 Y 0 - 149 150 - 199 200- 499 >/= 500 . Venipuncture immediately after or during the administration of Metamizole may lead to falsely low results. Testing should be performed immediately prior to Metamizole dosing. Performed By: #### L IPID #### [address] [address] PROGESTERONEon 02-01-2021 PROGESTERONE 0.3 ng/mL Normal [facility] Comment on above: Result Comment: REF VALUES MALE <0.3- 1.2 FOLLICULAR PHASE <0.3- 1.4 LUTEAL PHASE 3.3-25.6 MID-LUTEAL PHASE 4.4-28.0 POSTMENOPAUSAL <0.3- 0.7 FEMALES: 1ST TRIMESTER 11.2- 90.0 2ND TRIMESTER 25.6- 89.4 3RD TRIMESTER 48.4-422.5 . Patients receiving DHEA-S supplements may show false elevation of progesterone for results near 1.0 ng/mL. Contact laboratory at [phone] if alternative testing is needed. Performed By: #### V TB12 #### [address] [address] THYROXINE,FREEon 02-01-2021 THYROXINE,FREE 0.75 ng/dL Normal 0.61 - 1.12 [facility] Comment on above: Result Comment: Thyr oxine Free testing is performed using different testing methodology at [facility] than at other [facility]. Direct result comparisons should only be made within the same method. . Biotin can cause falsely elevated free T4 results. Patients taking a Biotin dose of up to 10 mg/day should refrain from taking Biotin for 24 hours before sample collection. Patient taking a Biotin dose of >10 mg/day should consult with their physician or the laboratory before the blood draw. Performed By: #### T 4FRE #### [address] [address] TRIIODOTHYRONINE,FREEon 01-11 TRIIODOTHYRONINE,FREE 3.7 pg/mL Normal 2.3 - 4.2 [facility] Comment on above: Performed By: #### T 3FRE #### [facility] [address] [place] [address] TSHon 02-01-2021 TSH Qn 1.14 m[IU]/L Normal 0.44 - 3.98 [facility] Comment on above: Result Comment: TSH testing is performed using different testing methodology at [facility] than at other system hospitals. Direct result comparisons should only be made within the same method. Performed By: #### T SH2 #### [address] [address] VITAMIN B12on 02-01-2021 Cobalamin (Vitamin B12) [Mass/Vol] 488 pg/mL Normal 211 - 911 [facility] Comment on above: Performed By: #### V TB12 #### [address] [address] Office Visit: Thyroid nodule son 10-12-2017 Alcoholism counseling (procedure) no Invalid Interpretation Code [facility] [employer] Work Phone: Documentation of current medications (procedure) Done Invalid Interpretation Code [facility] [employer] Work Phone: Fall risk assessment No Invalid Interpretation Code [facility] [employer] Work Phone: Tobacco smoking status NHIS Never Invalid Interpretation Code [facility] [employer] Work Phone: Tobacco smoking status NHIS Tobacco smoking status NHIS Invalid Interpretation Code [facility] [employer] Work Phone: Office Visit: Thyroid nodule son 10-20-2016 Colonoscopy (procedure) Colonoscopy (procedure) Invalid Interpretation Code [facility] [employer] Work Phone: Office Visit: Thyroid nodule son 08-18-2016 Breast Mammogram screening Normal Bilateral Invalid Interpretation Code [facility] [employer] Work Phone: Vital Signs Date Time Vital Sign Value Performing Clinician Facility 04-23-2025 14:45-0400 Body mass index (BMI) [Ratio] 27.2 kg/m2 Sulma Harrington APRN.RN FAMILY PRACTICE Work Phone: [facility] 04-23-2025 14:45-0400 Body weight 75.3 kg Sulma Harrington SOD FARMER.RN FAMILY PRACTICE Work Phone: [facility] 04-23-2025 14:45-0400 Diastolic blood pressure 68 mm[Hg] Sulma Harrington SOD FARMER.RN FAMILY PRACTICE Work Phone: [facility] 04-23-2025 14:45-0400 Heart rate 68 /min Sulma Harrington APRN.RN FAMILY PRACTICE Work Phone: [facility] 04-23-2025 14:45-0400 SaO2% (BldA) [Mass fraction] 98 % Sulma Harringotn APRN.RN FAMILY PRACTICE Work Phone: [facility] 04-23-2025 14:45-0400 Systolic blood pressure 104 mm[Hg] Sulma Harrington SOD FARMER.RN FAMILY PRACTICE Work Phone: [facility] 04-03-2024 11:07-0400 Body mass index (BMI) [Ratio] 24.58 kg/m2 Danitza Petersen SOD FARMER.RN FAMILY PRACTICE Work Phone: [facility] 04-03-2024 11:07-0400 Body weight 68.04 kg Danitza Petersen APRN.RN FAMILY PRACTICE Work Phone: [facility] 04-03-2024 11:07-0400 Diastolic blood pressure 73 mm[Hg] Danitza Petersen APRN.RN FAMILY PRACTICE Work Phone: [facility] 04-03-2024 11:07-0400 Heart rate 101 /min Danitza Petersen APRN.RN FAMILY PRACTICE Work Phone: [facility] 04-03-2024 11:07-0400 Respiratory rate 14 /min Danitza Petersen APRN.RN FAMILY PRACTICE Work Phone: [facility] 04-03-2024 11:07-0400 Systolic blood pressure 138 mm[Hg] Danitza Petersen APRN.RN FAMILY PRACTICE Work Phone: [facility] 10-23-2023 09:42-0500 Body height 165.[address] Jake Spangler Work Phone: [facility] 10-23-2023 09:42-0500 Body mass index (BMI) [Ratio] 24.7 kg/m2 Dr. Jake Spangler Work Phone: [facility] 10-23-2023 09:42-0500 Body temperature 97 [degF] Dr. Jake Spangler Work Phone: [facility] 10-23-2023 09:42-0500 Body weight 67.[address] Jake Spangler Work Phone: [facility] 10-23-2023 09:42-0500 Diastolic blood pressure 75 mm[Hg] Dr. Jake Spangler Work Phone: [facility] 10-23-2023 09:42-0500 Heart rate 85 /min Dr. Jake Spangler Work Phone: [facility] 10-23-2023 09:42-0500 Respiratory rate 18 /min Dr. Jake Spangler Work Phone: [facility] 10-23-2023 09:42-0500 SaO2% (BldA) [Mass fraction] 97 % Dr. Jake Spangler Work Phone: [facility] 10-23-2023 09:42-0500 Systolic blood pressure 111 mm[Hg] Dr. Jake Spangler Work Phone: 5(311)183-420441 [place] [address] 10-11-2023 11:30-0500 Body weight 68.49 kg Leila Colunga MD Work Phone: [facility] 10-11-2023 11:30-0500 Diastolic blood pressure 66 mm[Hg] Leila Colunga MD Work Phone: [facility] 10-11-2023 11:30-0500 Systolic blood pressure 118 mm[Hg] Leila Colunga MD Work Phone: [facility] 09-27-2023 14:28-0500 Body temperature 98.2 [degF] Dr. Jake Spangler Work Phone: [facility] 09-27-2023 14:28-0500 Diastolic blood pressure 74 mm[Hg] Dr. Jake Spangler Work Phone: 8(921)634-837441 [place] [address] 09-27-2023 14:28-0500 Heart rate 64 /min Dr. Jake Spangler Work Phone: [facility] 09-27-2023 14:28-0500 Respiratory rate 16 /min Dr. Jake Spangler Work Phone: [facility] 09-27-2023 14:28-0500 SaO2% (BldA) [Mass fraction] 97 % Dr. Jake Spangler Work Phone: 7(137)209-696241 [place] [address] 09-27-2023 14:28-0500 Systolic blood pressure 117 mm[Hg] Dr. Jake Spangler Work Phone: 7(104)086-284592 [place] [address] 09-27-2023 11:31-0500 Inhaled oxygen flow rate 6 L/min Dr. Jake Spangler Work Phone: 8(340)250-437241 [place] [address] 09-27-2023 07:52-0500 Body height 165.[address] Jake Spangler Work Phone: 4(632)519-438892 [place] [address] 09-27-2023 07:52-0500 Body mass index (BMI) [Ratio] 25 kg/m2 Dr. Jake Spangler Work Phone: 3(724)214-081592 [place] [address] 09-27-2023 07:52-0500 Body weight 68.[address] Jake Spangler Work Phone: 1(321)507-989892 [place] [address] 09-25-2023 16:24-0500 Body height 166.4 cm Leila Colunga MD Work Phone: [facility] 09-25-2023 16:24-0500 Body weight 68.95 kg Leila Colunga MD Work Phone: [facility] 09-25-2023 16:24-0500 Diastolic blood pressure 62 mm[Hg] Leila Colunga MD Work Phone: [facility] 09-25-2023 16:24-0500 Heart rate 71 /min Leila Colunga MD Work Phone: [facility] 09-25-2023 16:24-0500 Respiratory rate 16 /min Leila Colunga MD Work Phone: [facility] 09-25-2023 16:24-0500 SaO2% (BldA) [Mass fraction] 99 % Leila Colunga MD Work Phone: [facility] 09-25-2023 16:24-0500 Systolic blood pressure 108 mm[Hg] Leila Colunga MD Work Phone: [facility] 09-25-2023 11:10-0500 Body mass index (BMI) [Ratio] 25 kg/m2 Dr. Jake Spangler Work Phone: [facility] 09-25-2023 11:10-0500 Body temperature 96.9 [degF] Dr. Jake Spangler Work Phone: [facility] 09-25-2023 11:10-0500 Body weight 69.[address] Jake Spangler Work Phone: [facility] 09-25-2023 11:10-0500 Diastolic blood pressure 79 mm[Hg] Dr. Jake Spangler Work Phone: [facility] 09-25-2023 11:10-0500 Heart rate 92 /min Dr. Jake Spangler Work Phone: 2(592)257-313941 [place] [address] 09-25-2023 11:10-0500 Respiratory rate 16 /min Dr. Jake Spangler Work Phone: [facility] 09-25-2023 11:10-0500 SaO2% (BldA) [Mass fraction] 98 % Dr. Jake Spangler Work Phone: [facility] 09-25-2023 11:10-0500 Systolic blood pressure 110 mm[Hg] Dr. Jake Spangler Work Phone: [facility] 08-28-2023 14:11-0400 Body temperature 96.6 [degF] Dr. Jake Spangler Work Phone: [facility] 08-28-2023 14:11-0400 Diastolic blood pressure 63 mm[Hg] Dr. Jake Spangler Work Phone: [facility] 08-28-2023 14:11-0400 Heart rate 63 /min Dr. Jake Spangler Work Phone: [facility] 08-28-2023 14:11-0400 Respiratory rate 16 /min Dr. Jake Spangler Work Phone: [facility] 08-28-2023 14:11-0400 SaO2% (BldA) [Mass fraction] 100 % Dr. Jake Spangler Work Phone: [facility] 08-28-2023 14:11-0400 Systolic blood pressure 100 mm[Hg] Dr. Jake Spangler Work Phone: [facility] 08-23-2023 08:35-0400 Body height 167 cm Pulm Wstr Work Phone: [facility] 08-23-2023 08:35-0400 Body weight 68.04 kg Pulm Wstr Work Phone: [facility] 08-23-2023 08:35-0400 Heart rate 84 /min Pulm Wstr Work Phone: [facility] 08-23-2023 08:35-0400 Respiratory rate 14 /min Pulm Wstr Work Phone: [facility] 08-23-2023 08:35-0400 SaO2% (BldA) [Mass fraction] 100 % Pulm Wstr Work Phone: [facility] 08-22-2023 08:47-0400 Body height 167.6 cm Leila Colunga MD Work Phone: [facility] 08-22-2023 08:47-0400 Body weight 68.95 kg Leila Colunga MD Work Phone: [facility] 08-22-2023 08:47-0400 Diastolic blood pressure 62 mm[Hg] Leila Colunga MD Work Phone: [facility] 08-22-2023 08:47-0400 Systolic blood pressure 106 mm[Hg] Leila Colunga MD Work Phone: [facility] 08-17-2023 12:09-0400 Body height 170.5 cm Jake Spangler DO Work Phone: [facility] 08-17-2023 12:09-0400 Body temperature 97.59 [degF] Jake Spangler DO Work Phone: [facility] 08-17-2023 12:09-0400 Body weight 69.45 kg Jake Spangler DO Work Phone: [facility] 08-17-2023 12:09-0400 Diastolic blood pressure 66 mm[Hg] Jake Spangler DO Work Phone: [facility] 08-17-2023 12:09-0400 Heart rate 75 /min Jake Spangler DO Work Phone: [facility] 08-17-2023 12:09-0400 Respiratory rate 16 /min Jake Spangler DO Work Phone: [facility] 08-17-2023 12:09-0400 SaO2% (BldA) [Mass fraction] 99 % Jake Arredondorison DO Work Phone: [facility] 08-17-2023 12:09-0400 Systolic blood pressure 120 mm[Hg] Jake Spangler DO Work Phone: [facility] 06-11-2023 11:30-0400 Body weight 67.[address] Jake Spangler Work Phone: 2(416)575-322441 [place] [address] 06-11-2023 11:29-0400 Body mass index (BMI) [Ratio] 24.7 kg/m2 Dr. Jake Spangler Work Phone: 2(554)794-829441 [place] [address] 06-11-2023 11:29-0400 Body temperature 98.3 [degF] Dr. Jake Spangler Work Phone: 5(022)118-884641 [place] [address] 06-11-2023 11:29-0400 Diastolic blood pressure 79 mm[Hg] Dr. Jake Spangler Work Phone: 8(974)070-004041 [place] [address] 06-11-2023 11:29-0400 Heart rate 69 /min Dr. Jake Spangler Work Phone: 7(523)802-982841 [place] [address] 06-11-2023 11:29-0400 Respiratory rate 16 /min Dr. Jake Spangler Work Phone: 8(837)448-188141 [place] [address] 06-11-2023 11:29-0400 SaO2% (BldA) [Mass fraction] 100 % Dr. Jake Spangler Work Phone: [facility] 06-11-2023 11:29-0400 Systolic blood pressure 114 mm[Hg] Dr. Jake Spangler Work Phone: [facility] 06-04-2023 12:33-0400 Diastolic blood pressure 60 mm[Hg] Lupillo Thorpe MD Work Phone: [facility] 06-04-2023 12:33-0400 Heart rate 66 /min Lupillo Thorpe MD Work Phone: [facility] 06-04-2023 12:33-0400 Respiratory rate 16 /min Lupillo Thorpe MD Work Phone: [facility] 06-04-2023 12:33-0400 SaO2% (BldA) [Mass fraction] 100 % Lupillo Thorpe MD Work Phone: [facility] 06-04-2023 12:33-0400 Systolic blood pressure 111 mm[Hg] Lupillo Thorpe MD Work Phone: [facility] 06-04-2023 11:03-0400 Body weight 67.6 kg Lupillo Thorpe MD Work Phone: [facility] 05-14-2023 08:27-0400 Body weight 67.59 kg Tashia Tannhof SOD FARMER.RN FAMILY PRACTICE Work Phone: [facility] 05-14-2023 08:27-0400 Diastolic blood pressure 70 mm[Hg] Tashia Tannhof SOD FARMER.RN FAMILY PRACTICE Work Phone: [facility] 05-14-2023 08:27-0400 Heart rate 71 /min Tashia Tannhof SOD FARMER.RN FAMILY PRACTICE Work Phone: [facility] 05-14-2023 08:27-0400 Respiratory rate 16 /min Tashia Tannhof SOD FARMER.RN FAMILY PRACTICE Work Phone: [facility] 05-14-2023 08:27-0400 SaO2% (BldA) [Mass fraction] 97 % Tashia Tannhof SOD FARMER.RN FAMILY PRACTICE Work Phone: [facility] 05-14-2023 08:27-0400 Systolic blood pressure 98 mm[Hg] Tashia Rosales APRN.CNP Work Phone: [facility] 04-25-2023 09:27-0400 Body height 165.[address] Jake Spangler Work Phone: [facility] 04-25-2023 09:27-0400 Body mass index (BMI) [Ratio] 25.7 kg/m2 Dr. Jake Spangler Work Phone: [facility] 04-25-2023 09:27-0400 Body temperature 97.2 [degF] Dr. Jake Spangler Work Phone: 8(956)344-331941 [place] [address] 04-25-2023 09:27-0400 Body weight 69.[address] Jake Spangler Work Phone: 7(553)618-798892 [place] [address] 04-25-2023 09:27-0400 Diastolic blood pressure 72 mm[Hg] Dr. Jake Spangler Work Phone: 8(995)372-937841 [place] [address] 04-25-2023 09:27-0400 Heart rate 64 /min Dr. Jake Spangler Work Phone: 7(731)173-206941 [place] [address] 04-25-2023 09:27-0400 Respiratory rate 16 /min Dr. Jake Spangler Work Phone: [facility] 04-25-2023 09:27-0400 SaO2% (BldA) [Mass fraction] 94 % Dr. Jake Spangler Work Phone: [facility] 04-25-2023 09:27-0400 Systolic blood pressure 104 mm[Hg] Dr. Jake Spangler Work Phone: [facility] 04-18-2023 09:28-0400 Body mass index (BMI) [Ratio] 25.1 kg/m2 Dr. Jake Spangler Work Phone: [facility] 04-18-2023 09:28-0400 Body temperature 97.7 [degF] Dr. Jake Spangler Work Phone: 8(015)386-563492 [place] [address] 04-18-2023 09:28-0400 Body weight 68.[address] Jake Spangler Work Phone: 7(087)478-037792 [place] [address] 04-18-2023 09:28-0400 Diastolic blood pressure 66 mm[Hg] Dr. Jake Spangler Work Phone: 6(655)453-348692 [place] [address] 04-18-2023 09:28-0400 Heart rate 84 /min Dr. Jake Spangler Work Phone: 7(997)940-820492 [place] [address] 04-18-2023 09:28-0400 Respiratory rate 16 /min Dr. Jake Spangler Work Phone: 5(988)906-626192 [place] [address] 04-18-2023 09:28-0400 SaO2% (BldA) [Mass fraction] 97 % Dr. Jake Spangler Work Phone: 5(483)741-957692 [place] [address] 04-18-2023 09:28-0400 Systolic blood pressure 100 mm[Hg] Dr. Jake Spangler Work Phone: 2(105)818-164092 [place] [address] 04-11-2023 10:18-0400 Body mass index (BMI) [Ratio] 25.7 kg/m2 Dr. Jake Spangler Work Phone: 5(263)648-442192 [place] [address] 04-11-2023 10:18-0400 Body temperature 96 [degF] Dr. Jake Spangler Work Phone: 5(056)887-865692 [place] [address] 04-11-2023 10:18-0400 Body weight 70.[address] Jake Spangler Work Phone: 8(787)722-013492 [place] [address] 04-11-2023 10:18-0400 Diastolic blood pressure 77 mm[Hg] Dr. Jake Spangler Work Phone: 2(995)515-906092 [place] [address] 04-11-2023 10:18-0400 Heart rate 69 /min Dr. Jake Spangler Work Phone: 5(094)560-767092 [place] [address] 04-11-2023 10:18-0400 Respiratory rate 16 /min Dr. Jake Spangler Work Phone: 5(312)585-707692 [place] [address] 04-11-2023 10:18-0400 SaO2% (BldA) [Mass fraction] 98 % Dr. Jake Spangler Work Phone: 9(230)642-997392 [place] [address] 04-11-2023 10:18-0400 Systolic blood pressure 113 mm[Hg] Dr. Jake Spangler Work Phone: 9(343)488-796492 [place] [address] 03-19-2023 11:45-0400 Body mass index (BMI) [Ratio] 26.1 kg/m2 Dr. Jake Spangler Work Phone: 0(950)021-139292 [place] [address] 03-19-2023 11:45-0400 Body temperature 97.2 [degF] Dr. Jake Spangler Work Phone: 3(931)324-152192 [place] [address] 03-19-2023 11:45-0400 Body weight 71.[address] Jake Spangler Work Phone: 3(991)132-342792 [place] [address] 03-19-2023 11:45-0400 Diastolic blood pressure 70 mm[Hg] Dr. Jake Spangler Work Phone: 1(367)500-535392 [place] [address] 03-19-2023 11:45-0400 Heart rate 66 /min Dr. Jake Spangler Work Phone: 5(063)798-699592 [place] [address] 03-19-2023 11:45-0400 Respiratory rate 15 /min Dr. Jake Spangler Work Phone: 7(002)738-037992 [place] [address] 03-19-2023 11:45-0400 SaO2% (BldA) [Mass fraction] 100 % Dr. Jake Spangler Work Phone: 1(559)532-997192 [place] [address] 03-19-2023 11:45-0400 Systolic blood pressure 100 mm[Hg] Dr. Jake Spangler Work Phone: 8(511)474-883392 [place] [address] 03-19-2023 10:38-0400 Body mass index (BMI) [Ratio] 26.2 kg/m2 Dr. Jake Spangler Work Phone: 0(013)731-186592 [place] [address] 03-19-2023 10:38-0400 Body temperature 97.8 [degF] Dr. Jake Spangler Work Phone: 7(073)155-778341 [place] [address] 03-19-2023 10:38-0400 Body weight 71.[address] Jake Spangler Work Phone: 4(076)027-318192 [place] [address] 03-19-2023 10:38-0400 Diastolic blood pressure 75 mm[Hg] Dr. Jake Spangler Work Phone: 9(202)973-214292 [place] [address] 03-19-2023 10:38-0400 Heart rate 73 /min Dr. Jake Spangler Work Phone: 9(887)072-378892 [place] [address] 03-19-2023 10:38-0400 Respiratory rate 16 /min Dr. Jake Spangler Work Phone: 8(821)580-899292 [place] [address] 03-19-2023 10:38-0400 SaO2% (BldA) [Mass fraction] 98 % Dr. Jake Spangler Work Phone: 7(696)516-210792 [place] [address] 03-19-2023 10:38-0400 Systolic blood pressure 112 mm[Hg] Dr. Jake Spangler Work Phone: 7(091)591-930892 [place] [address] 02-19-2023 10:08-0400 Body mass index (BMI) [Ratio] 26.2 kg/m2 Dr. Jake Spangler Work Phone: 2(268)745-539892 [place] [address] 02-19-2023 10:08-0400 Body weight 71.[address] Jake Spangler Work Phone: 8(444)852-163592 [place] [address] 02-19-2023 09:38-0400 Body mass index (BMI) [Ratio] 26.2 kg/m2 Dr. Jake Spangler Work Phone: 9(680)069-603792 [place] [address] 02-19-2023 09:38-0400 Body temperature 97.9 [degF] Dr. Jake Spangler Work Phone: 2(652)837-949592 [place] [address] 02-19-2023 09:38-0400 Body weight 71.[address] Jake Spangler Work Phone: 7(153)039-850392 [place] [address] 02-19-2023 09:38-0400 Diastolic blood pressure 73 mm[Hg] Dr. Jake Spangler Work Phone: 9(219)736-287592 [place] [address] 02-19-2023 09:38-0400 Heart rate 67 /min Dr. Jake Spangler Work Phone: 1(775)538-197792 [place] [address] 02-19-2023 09:38-0400 Respiratory rate 16 /min Dr. Jake Spangler Work Phone: 6(428)791-558192 [place] [address] 02-19-2023 09:38-0400 SaO2% (BldA) [Mass fraction] 100 % Dr. Jake Spangler Work Phone: 8(937)900-749092 [place] [address] 02-19-2023 09:38-0400 Systolic blood pressure 115 mm[Hg] Dr. Jake Spangler Work Phone: 2(639)883-822992 [place] [address] 01-29-2023 09:20-0400 Body mass index (BMI) [Ratio] 25.9 kg/m2 Dr. Jake Spangler Work Phone: 8(327)698-609692 [place] [address] 01-29-2023 09:20-0400 Body temperature 97.9 [degF] Dr. Jake Spangler Work Phone: 5(069)017-885492 [place] [address] 01-29-2023 09:20-0400 Body weight 70.[address] Jake Spangler Work Phone: 7(695)265-351492 [place] [address] 01-29-2023 09:20-0400 Diastolic blood pressure 68 mm[Hg] Dr. Jake Spangler Work Phone: 9(176)127-756592 [place] [address] 01-29-2023 09:20-0400 Heart rate 75 /min Dr. Jake Spangler Work Phone: 4(296)799-275792 [place] [address] 01-29-2023 09:20-0400 Respiratory rate 16 /min Dr. Jake Spangler Work Phone: 2(793)367-502792 [place] [address] 01-29-2023 09:20-0400 SaO2% (BldA) [Mass fraction] 99 % Dr. Jake Spangler Work Phone: 0(037)625-905592 [place] [address] 01-29-2023 09:20-0400 Systolic blood pressure 110 mm[Hg] Dr. Jake Spangler Work Phone: 9(723)079-353492 [place] [address] 2023 10:09-0500 Body mass index (BMI) [Ratio] 25.4 kg/m2 Dr. Jake Spangler Work Phone: 3(596)059-055992 [place] [address] 2023 10:09-0500 Body temperature 97.7 [degF] Dr. Jake Spangler Work Phone: 6(563)058-760092 [place] [address] 2023 10:09-0500 Body weight 69.[address] Jake Spangler Work Phone: 8(823)454-755892 [place] [address] 2023 10:09-0500 Diastolic blood pressure 82 mm[Hg] Dr. Jake Spangler Work Phone: 0(929)122-224592 [place] [address] 2023 10:09-0500 Heart rate 72 /min Dr. Jake Spangler Work Phone: 2(894)255-980292 [place] [address] 2023 10:09-0500 Respiratory rate 16 /min Dr. Jake Spangler Work Phone: 6(775)751-415992 [place] [address] 2023 10:09-0500 SaO2% (BldA) [Mass fraction] 100 % Dr. Jake Spangler Work Phone: 3(474)983-731192 [place] [address] 2023 10:09-0500 Systolic blood pressure 121 mm[Hg] Dr. Jake Spangler Work Phone: 5(822)129-717692 [place] [address] 01-01-2023 10:31-0500 Body mass index (BMI) [Ratio] 25.2 kg/m2 Dr. Jake Spangler Work Phone: 5(558)239-864492 [place] [address] 01-01-2023 10:31-0500 Body temperature 97.8 [degF] Dr. Jake Spangler Work Phone: 4(716)175-976392 [place] [address] 01-01-2023 10:31-0500 Body weight 68.[address] Jake Spangler Work Phone: 8(875)442-288292 [place] [address] 01-01-2023 10:31-0500 Diastolic blood pressure 69 mm[Hg] Dr. Jake Spangler Work Phone: 5(768)385-952841 [place] [address] 01-01-2023 10:31-0500 Heart rate 81 /min Dr. Jake Spangler Work Phone: 3(271)082-985192 [place] [address] 01-01-2023 10:31-0500 Respiratory rate 16 /min Dr. Jake Spangler Work Phone: 7(932)651-707492 [place] [address] 01-01-2023 10:31-0500 SaO2% (BldA) [Mass fraction] 100 % Dr. Jake Spangler Work Phone: 0(144)309-371892 [place] [address] 01-01-2023 10:31-0500 Systolic blood pressure 105 mm[Hg] Dr. Jake Spangler Work Phone: 5(775)429-529692 [place] [address] 12-14-2022 15:10-0500 Body temperature 97.2 [degF] Dr. Jake Spangler Work Phone: 2(077)348-384992 [place] [address] 12-14-2022 15:10-0500 Diastolic blood pressure 89 mm[Hg] Dr. Jake Spangler Work Phone: 9(776)515-506792 [place] [address] 12-14-2022 15:10-0500 Heart rate 78 /min Dr. Jake Spangler Work Phone: 7(401)317-737492 [place] [address] 12-14-2022 15:10-0500 Respiratory rate 18 /min Dr. Jake Spangler Work Phone: 1(967)862-791692 [place] [address] 12-14-2022 15:10-0500 SaO2% (BldA) [Mass fraction] 100 % Dr. Jake Spangler Work Phone: 0(469)119-115292 [place] [address] 12-14-2022 15:10-0500 Systolic blood pressure 132 mm[Hg] Dr. Jake Spangler Work Phone: 7(200)676-701092 [place] [address] 12-14-2022 12:30-0500 Body height 165.[address] Jake Spangler Work Phone: 6(147)332-590992 [place] [address] 12-14-2022 12:30-0500 Body mass index (BMI) [Ratio] 24.9 kg/m2 Dr. Jake Spangler Work Phone: 2(762)964-463992 [place] [address] 12-14-2022 12:30-0500 Body weight [address] Jake Spangler Work Phone: 9(502)542-602092 [place] [address] 12-06-2022 10:11-0500 Body mass index (BMI) [Ratio] 25.1 kg/m2 Dr. Jake Spangler Work Phone: 3(945)404-404392 [place] [address] 12-06-2022 10:11-0500 Body temperature 98.2 [degF] Dr. Jake Spangler Work Phone: 2(731)020-470192 [place] [address] 12-06-2022 10:11-0500 Body weight 68.[address] Jake Spangler Work Phone: 8(081)015-498392 [place] [address] 12-06-2022 10:11-0500 Diastolic blood pressure 74 mm[Hg] Dr. Jake Spangler Work Phone: 5(317)849-025992 [place] [address] 12-06-2022 10:11-0500 Heart rate 75 /min Dr. Jake Spangler Work Phone: 5(973)586-117592 [place] [address] 12-06-2022 10:11-0500 Respiratory rate 16 /min Dr. Jake Spangler Work Phone: 9(153)256-934592 [place] [address] 12-06-2022 10:11-0500 SaO2% (BldA) [Mass fraction] 100 % Dr. Jake Spangler Work Phone: 5(350)905-467692 [place] [address] 12-06-2022 10:11-0500 Systolic blood pressure 110 mm[Hg] Dr. Jake Spangler Work Phone: 2(199)862-511192 [place] [address] 12-04-2022 15:32-0500 Body mass index (BMI) [Ratio] 25.4 kg/m2 Dr. Jake Spangler Work Phone: 5(209)478-893492 [place] [address] 12-04-2022 15:32-0500 Body temperature 98.4 [degF] Dr. Jake Spangler Work Phone: 2(837)366-492792 [place] [address] 12-04-2022 15:32-0500 Body weight 69.[address] Jake Spangler Work Phone: 2(823)356-648792 [place] [address] 12-04-2022 15:32-0500 Diastolic blood pressure 81 mm[Hg] Dr. Jake Spangler Work Phone: 6(933)619-493792 [place] [address] 12-04-2022 15:32-0500 Heart rate 68 /min Dr. Jake Spangler Work Phone: 9(207)230-683992 [place] [address] 12-04-2022 15:32-0500 Respiratory rate 16 /min Dr. Jake Spangler Work Phone: 0(782)622-037692 [place] [address] 12-04-2022 15:32-0500 SaO2% (BldA) [Mass fraction] 95 % Dr. Jake Spangler Work Phone: 0(044)741-908492 [place] [address] 12-04-2022 15:32-0500 Systolic blood pressure 123 mm[Hg] Dr. Jake Spangler Work Phone: 7(001)947-848692 [place] [address] 11-15-2022 10:19-0500 Body mass index (BMI) [Ratio] 25.1 kg/m2 Dr. Jake Spangler Work Phone: 5(906)890-411192 [place] [address] 11-15-2022 10:19-0500 Body temperature 99.2 [degF] Dr. Jake Spangler Work Phone: 5(563)134-934092 [place] [address] 11-15-2022 10:19-0500 Body weight 68.[address] Jake Spangler Work Phone: 8(953)820-601192 [place] [address] 11-15-2022 10:19-0500 Diastolic blood pressure 64 mm[Hg] Dr. Jake Spangler Work Phone: 0(132)234-485492 [place] [address] 11-15-2022 10:19-0500 Heart rate 82 /min Dr. Jake Spangler Work Phone: 5(464)131-592892 [place] [address] 11-15-2022 10:19-0500 Respiratory rate 18 /min Dr. Jake Spangler Work Phone: 9(100)791-146592 [place] [address] 11-15-2022 10:19-0500 SaO2% (BldA) [Mass fraction] 100 % Dr. Jake Spangler Work Phone: 5(329)306-941492 [place] [address] 11-15-2022 10:19-0500 Systolic blood pressure 105 mm[Hg] Dr. Jake Spangler Work Phone: 4(581)022-996292 [place] [address] 10-25-2022 15:57-0500 Body temperature 98.2 [degF] Dr. Jake Spangler Work Phone: 3(849)217-677592 [place] [address] 10-25-2022 15:57-0500 Diastolic blood pressure 82 mm[Hg] Dr. Jake Spangler Work Phone: 1(038)293-876292 [place] [address] 10-25-2022 15:57-0500 Heart rate 103 /min Dr. Jake Spangler Work Phone: 8(763)961-777192 [place] [address] 10-25-2022 15:57-0500 Respiratory rate 63 /min Dr. Jake Spangler Work Phone: 5(291)090-885992 [place] [address] 10-25-2022 15:57-0500 SaO2% (BldA) [Mass fraction] 100 % Dr. Jake Spangler Work Phone: 5(253)488-987492 [place] [address] 10-25-2022 15:57-0500 Systolic blood pressure 118 mm[Hg] Dr. Jake Spangler Work Phone: 2(347)641-509992 [place] [address] 10-25-2022 08:49-0500 Body height 165.[address] Jake Spangler Work Phone: 5(517)220-684492 [place] [address] Work Phone: 10-25-2022 08:49-0500 Body mass index (BMI) [Ratio] 24.9 kg/m2 Dr. Jake Spangler Work Phone: 6(781)730-357192 [place] [address] 10-25-2022 08:49-0500 Body weight [address] Jake Spangler Work Phone: 6(108)355-880492 [place] [address] 09-21-2022 14:55-0500 Body height 166.[address] Jake Spangler Work Phone: 6(698)004-811741 [place] [address] Work Phone: 09-21-2022 14:55-0500 Body mass index (BMI) [Ratio] 24.9 kg/m2 Dr. Jake Spangler Work Phone: 7(258)499-036041 [place] [address] 09-21-2022 14:55-0500 Body temperature 99.1 [degF] Dr. Jake Spangler Work Phone: 5(001)215-467192 [place] [address] 09-21-2022 14:55-0500 Body weight 69.[address] Jake Spangler Work Phone: 2(013)332-513392 [place] [address] 09-21-2022 14:55-0500 Diastolic blood pressure 77 mm[Hg] Dr. Jake Spangler Work Phone: 7(595)914-684592 [place] [address] 09-21-2022 14:55-0500 Heart rate 81 /min Dr. Jake Spangler Work Phone: 2(015)013-999992 [place] [address] 09-21-2022 14:55-0500 Respiratory rate 16 /min Dr. Jake Spangler Work Phone: 1(769)867-993992 [place] [address] 09-21-2022 14:55-0500 SaO2% (BldA) [Mass fraction] 100 % Dr. Jake Spangler Work Phone: 8(021)814-674892 [place] [address] 09-21-2022 14:55-0500 Systolic blood pressure 124 mm[Hg] Dr. Jake Spangler Work Phone: 3(724)389-792492 [place] [address] 09-15-2022 10:25-0400 Body temperature 97.4 [degF] Dr. Jake Spangler Work Phone: 5(166)529-762292 [place] [address] 09-15-2022 10:25-0400 Body weight 70.[address] Jake Spangler Work Phone: 3(113)667-321292 [place] [address] 09-15-2022 10:25-0400 Diastolic blood pressure 79 mm[Hg] Dr. Jake Spangler Work Phone: 1(650)422-234192 [place] [address] 09-15-2022 10:25-0400 Heart rate 94 /min Dr. Jake Spangler Work Phone: 9(884)226-798192 [place] [address] 09-15-2022 10:25-0400 Respiratory rate 17 /min Dr. Jake Spangler Work Phone: 3(975)564-319692 [place] [address] 09-15-2022 10:25-0400 SaO2% (BldA) [Mass fraction] 100 % Dr. Jake Spangler Work Phone: [facility] 09-15-2022 10:25-0400 Systolic blood pressure 119 mm[Hg] Dr. Jake Spangler Work Phone: [facility] 01-30-2022 12:03-0400 Body height 168 cm Jake Spangler DO Work Phone: [facility] 01-30-2022 12:03-0400 Body temperature 97.2 [degF] Jake Spangler DO Work Phone: [facility] 01-30-2022 12:03-0400 Body weight 69.85 kg Jake Spangler DO Work Phone: [facility] 01-30-2022 12:03-0400 Diastolic blood pressure 60 mm[Hg] Jake Spangler DO Work Phone: [facility] 01-30-2022 12:03-0400 Heart rate 60 /min Jake Spangler DO Work Phone: [facility] 01-30-2022 12:03-0400 Respiratory rate 12 /min Jake Spangler DO Work Phone: [facility] 01-30-2022 12:03-0400 Systolic blood pressure 110 mm[Hg] Jake Spangler DO Work Phone: [facility] 10-12-2017 08:30-0500 BMI (Body Mass Index) 22.05 kg/m2 Lupillo Thorpe MD [facility] Work Phone: 10-12-2017 08:30-0500 Body Temperature 98.1 [degF] Lupillo Thorpe MD [facility] Work Phone: 10-12-2017 08:30-0500 BP Diastolic 74 mm[Hg] Lupillo Thorpe MD [facility] Work Phone: 10-12-2017 08:30-0500 BP Systolic 109 mm[Hg] Lupillo Thorpe MD [facility] Work Phone: 10-12-2017 08:30-0500 Height 167.64 cm Lupillo Thorpe MD [facility] Work Phone: 10-12-2017 08:30-0500 Pulse (Heart Rate) 67 /min Lupillo Thorpe MD [facility] Work Phone: 10-12-2017 08:30-0500 Respiratory Rate 20 /min Lupillo Thorpe MD [facility] Work Phone: 10-12-2017 08:30-0500 Weight 61.96 kg Lupillo Thorpe MD [facility] Work Phone: Encounters Encounter Date Encounter Type Care Provider Facility Start: 05-11-2025 End: 05-11-2025 Telephone encounter Jake Beckeron DO Work Phone: [facility] Start: 05-06-2025 End: 05-06-2025 Follow-up encounter Sulma Harrington APRN.RN FAMILY PRACTICE Work Phone: [facility] Comment on above: Results Start: 04-23-2025 End: 04-23-2025 Subsequent hospital visit by physician Timoteo [facility] Work Phone: Radiology Comment on above: Upper back pain [M54 .9] Start: 04-23-2025 End: 04-23-2025 Office outpatient visit 25 minutes Sulma Harrington APRN.RN FAMILY PRACTICE Work Phone: [facility] Comment on above: Encounter for screen ing for cardiovascular disorders (Primary Dx); Upper back pain; Acute bilateral low back pain without sciatica; Chest pain, unspecified type; Fatigue, unspecified type; FAY (generalized anxiety disorder); History of breast cancer in female; History of chemotherapy Start: 04-23-2025 End: 04-23-2025 ambulatory Jake Beckeron DO Work Phone: [facility] Comment on above: Back Pain Start: 02-11-2025 End: 02-11-2025 ambulatory Jake Spangler Facility:[facility] Start: 01-01-2025 End: 01-02-2025 Refill Jake Spangler DO Work Phone: [facility] Comment on above: Refill Request Start: 12-18-2024 End: 12-18-2024 ambulatory Jake Beckeron Facility:[facility] Start: 12-16-2024 End: 12-16-2024 Telephone encounter Jake Spangler DO Work Phone: [facility] Comment on above: fax mammo gram order s to [facility] Start: 08-27-2024 End: 09-01-2024 ambulatory Jake Spangler DO Work Phone: Internal Medicine [place] [id number] Start: 08-25-2024 End: 08-25-2024 Refill Jake Spangler DO Work Phone: [facility] Comment on above: Refill Request Start: 06-25-2024 Refill Jake Cuenca son DO Work Phone: [facility] Comment on above: Refill Request Start: 04-03-2024 ambulatory Jake eastman DO Work Phone: [facility] Comment on above: Derm Problem Start: 04-03-2024 End: 04-03-2024 Patient encounter procedure Danitza Petersen APRN.RN FAMILY PRACTICE Work Phone: [facility] Comment on above: Poison mic dermatiti s (Primary Dx) Start: 12-14-2023 Refill Jake eastman DO Work Phone: [facility] Comment on above: Refill Request Start: 10-23-2023 End: 10-23-[address] Jake Spangler Work Phone: [facility] Work Phone: Start: 10-17-2023 End: 10-17-[address] Jake Spangler Work Phone: [facility] Work Phone: Start: 10-17-2023 End: 10-17-[address] Jake Spangler Work Phone: [facility] Work Phone: Start: 10-11-2023 End: 10-11-2023 Patient encounter procedure Leila Colunga MD Work Phone: OB/Gynecology Comment on above: Postop check (Primar y Dx) Start: 10-03-2023 ambulatory Leila hwang MD Work Phone: OB/Gynecology Comment on above: Pathology Start: 10-03-2023 E-mail encounter fro m caregiver Leila Colunga MD Work Phone: [facility] Start: 10-01-2023 Telephone encounter Jake nolan DO Work Phone: [facility] Comment on above: questions on Zio and schedule apt Start: 09-27-2023 End: 09-27-2023 Admission to same day surgery center Dr. Jake Spangler Work Phone: [facility] Start: 09-27-2023 End: 09-27-[address] Jake Spangler Work Phone: [facility] Work Phone: Start: 09-26-2023 Telephone encounter Jake nolan DO Work Phone: [facility] Start: 09-25-2023 End: 09-25-2023 Patient encounter procedure Leila Colunga MD Work Phone: OB/Gynecology Comment on above: Preoperative examina tion (Primary Dx) Start: 09-25-2023 End: 09-25-2023 Preprocedural examination done Leila Colunga MD Work Phone: [facility] Work Phone: Start: 09-25-2023 End: 09-25-[address] Jake Spangler Work Phone: [facility] Work Phone: Start: 09-19-2023 ambulatory Jake eastman DO Work Phone: Internal [facility] [place] Start: 09-06-2023 Admission to [facility] Leila Colunga MD Work Phone: OB/Gynecology Comment on above: surgery confirmation Start: 09-06-2023 E-mail encounter fro m caregiver Leila Colunga MD Work Phone: [facility] Start: 08-28-[address] Tong Spangler Work Phone: [facility] Oncology Start: 08-23-2023 End: 08-23-2023 Subsequent hospital visit by physician [facility] 1 Work Phone: Radiology Comment on above: Multinodular goiter (nontoxic) [E04.2] Start: 08-23-2023 End: 08-23-2023 ambulatory Pulm Lab [facility] Work Phone: PULM LAB [facility] Comment on above: Spirometry Start: 08-23-2023 End: 08-23-2023 Patient encounter procedure Pulm Lab [facility] Work Phone: [facility] Start: 08-22-2023 Admission to [facility] Leila Colunga MD Work Phone: OB/Gynecology Comment on above: Surgery Date Start: 08-22-2023 ambulatory Leila hwang MD Work Phone: [facility] Start: 08-22-2023 End: 08-22-2023 Patient encounter procedure Leila Colunga MD Work Phone: OB/Gynecology Comment on above: Encounter for gyneco logical examination (general) (routine) without abnormal findings (Primary Dx); History of left breast cancer; Lichen sclerosus et atrophicus Start: 08-22-2023 End: 08-22-2023 Patient encounter status Leila Colunga MD Work Phone: [facility] Start: 08-17-2023 End: 08-17-2023 Patient encounter procedure Jake Spangler DO Work Phone: [facility] Comment on above: Well adult exam (Beth juwan Dx); Need for influenza vaccination; Vitamin D deficiency; Fatigue, unspecified type; Multinodular goiter (nontoxic); BOO (dyspnea on exertion); Palpitations; Dyslipidemia; Need for hepatitis B screening test; History of chemotherapy; History of breast cancer in female Start: 08-17-2023 End: 08-17-2023 Patient encounter status Jake Spangler DO Work Phone: [facility] Work Phone: Start: 06-11-2023 End: 06-11-[address] Jake Spangler Work Phone: [facility] Work Phone: Start: 06-04-2023 End: 06-04-2023 Subsequent hospital visit by physician Lupillo Thorpe MD Work Phone: Ambulatory Surgery Comment on above: Screening for colon cancer [Z12.11] Start: 05-31-2023 End: 05-31-[address] Jake Spangler Work Phone: [facility] Work Phone: Start: 05-14-2023 End: 05-14-2023 Patient encounter procedure Tashia Rosales APRN.CNP Work Phone: [facility] Comment on above: Acute constipation ( Primary Dx); Abdominal bloating; FAY (generalized anxiety disorder); Motion sickness, initial encounter Start: 04-27-[address] Tong Spangler Work Phone: [facility] Start: 04-25-2023 End: 04-25-[address] Jake Spangler Work Phone: [facility] Start: 04-24-2023 End: 04-24-[address] Jake Spangler Work Phone: [facility] Work Phone: Start: 04-24-2023 End: 04-24-[address] Jake Spangler Work Phone: [facility] Start: 04-18-2023 End: 04-18-[address] Jake Spangler Work Phone: [facility] Start: 04-16-2023 End: 04-16-[address] Jake Spangler Work Phone: [facility] Start: 04-11-2023 End: 04-11-[address] Jake Spangler Work Phone: [facility] Start: 04-06-2023 Non-patient / Non-visit Dr. Rosa Spangler Work Phone: [phone] [place] [address] Start: 04-04-2023 Non-patient / Non-visit Dr. Rosa Spangler Work Phone: [phone] [place] [address] Start: 03-27-2023 Non-patient / Non-visit Dr. Rosa Spangler Work Phone: [phone] [place] [address] Start: 03-19-2023 End: 03-19-[address] Jake Spangler Work Phone: [phone] [place] [address] Cancer Care Start: 02-19-2023 End: 02-19-[address] Jake Spangler Work Phone: [phone] [place] [address] Cancer Care Start: 01-29-2023 End: 01-29-[address] Jake Spangler Work Phone: [facility] Start: 2023 End: [address] Jake Spangler Work Phone: [phone] [place] [address] Cancer Care Start: 01-01-2023 End: 01-01-[address] Jake Spangler Work Phone: [facility] Start: 12-14-2022 Non-patient / Non-visit Dr. Rosa Spangler Work Phone: [facility] Start: 12-14-2022 End: 12-14-2022 Admission to same day surgery center Dr. Jake Spangler Work Phone: [phone] [address] [place], [place] [address] Day Care Start: 12-14-2022 End: 12-14-[address] Jake Spangler Work Phone: [phone] [place] [address] Work Phone: Start: 12-06-2022 End: 12-06-[address] Jake Spangler Work Phone: [facility] Start: 12-04-2022 End: 12-04-[address] Jake Spangler Work Phone: [phone] [place] [address] Cancer Care Start: 11-15-2022 End: 11-15-[address] Jake Spangler Work Phone: [facility] Start: 11-01-2022 End: 11-01-[address] Jake Spangler Work Phone: [facility] Start: 10-25-2022 Non-patient / Non-visit Dr. Rosa Spangler Work Phone: [facility] Start: 10-25-2022 End: 10-25-2022 Admission to same day surgery center Dr[facility] Jake [facility] Start: 10-25-2022 End: 10-25-[address] Jake Spangler Work Phone: [facility] Work Phone: Start: 10-24-2022 End: 10-24-2022 Non-patient / Non-visit Dr. Jake Spangler Work Phone: [facility] Start: 10-23-2022 End: 10-23-[address] Jake Spangler Work Phone: [facility] Work Phone: Start: 10-23-2022 End: 10-23-[address] Jake Spangler Work Phone: [facility] Start: 10-16-2022 Refill Sulma Juan Pabloc k SOD FARMER.RN FAMILY PRACTICE Work Phone: [facility] Comment on above: Refill Request Start: 10-16-2022 End: 10-16-[address] Jake Spangler Work Phone: [facility] Start: 10-10-2022 End: 10-10-[address] Jake Spangler Work Phone: [facility], [facility] Start: 10-09-2022 End: 10-09-[address] Jake Spangler Work Phone: [facility] Work Phone: Start: 10-09-2022 End: 10-09-[address] Jake Spangler Work Phone: [facility]Laboratory, Specimen Start: 10-09-2022 End: 10-09-[address] Jake Spangler Work Phone: [facility] Start: 10-06-2022 End: 10-06-[address] Jake Spangler Work Phone: [facility] Work Phone: Start: 10-06-2022 End: 10-06-[address] Jake Spangler Work Phone: [facility] Ultrasound Start: 10-03-2022 Telephone encounter Jake nolan DO Work Phone: [facility] Comment on above: Faxed to [facility] MRI Start: 10-02-2022 End: 10-02-[address] Jake Spangler Work Phone: [facility] Work Phone: Start: 10-02-2022 End: 10-02-[address] Jake Spangler Work Phone: [facility] - [facility] Start: 09-21-[address] Tong Spangler Work Phone: [facility] Oncology Start: 09-21-2022 End: 09-21-[address] Jake Spangler Work Phone: [facility] Start: 09-20-2022 ambulatory Jake eastman DO Work Phone: Ambulatory Surgery Start: 09-19-2022 End: 09-19-[address] Jake Spangler Work Phone: [facility] Start: 09-15-2022 End: 09-15-[address] Jake Spangler Work Phone: [facility], Specimen Start: 09-15-2022 End: 09-15-[address] Jake Spangler Work Phone: [facility] Start: 09-12-2022 Telephone encounter Jake nolan DO Work Phone: [facility] Comment on above: patient needs mamm p ut on disc Start: 09-11-2022 Telephone encounter Sulma gray APRN.CNP Work Phone: [facility] Comment on above: Results Start: 09-08-2022 End: 09-08-[address] Jake Spangler Work Phone: [facility] Ul[facility] Start: 08-21-2022 Telephone encounter Sulma gray APRNCaronRN FAMILY PRACTICE Work Phone: [facility] Comment on above: Results Start: 08-18-2022 Documentation procedure Mammog miguel Coordinator [facility] Start: 08-18-2022 Letter encounter Mammography Coordinator [facility] Department Start: 08-18-2022 Telephone encounter Jake nolan DO Work Phone: [facility] Comment on above: Faxed lab order to [facility] Start: 08-18-2022 End: 08-18-2022 Subsequent hospital visit by physician Screen Mammo [facility] Mammogram Comment on above: Encounter for screen ing mammogram for breast cancer [Z12.31] Start: 08-04-2022 Refill Jake Cuenca son DO Work Phone: [facility] Comment on above: Refill Request Results, Lab Start: 06-23-2022 Patient encounter status Tong Spangler DO Work Phone: [facility] Start: 06-23-2022 Telephone encounter Jake mathiasison DO Work Phone: [facility] Comment on above: Lab Orders Start: 04-04-2022 Refill Jake Cuenca son DO Work Phone: [facility] Comment on above: Refill Request Start: 03-22-2022 ambulatory Jake Cuenca son DO Work Phone: [facility] [place] Start: 01-30-2022 End: 01-30-2022 Patient encounter procedure Jake Beckeron DO Work Phone: [facility] Comment on above: Well adult exam (Beth juwan Dx); Perimenopausal; Encounter for screening for osteoporosis Start: 01-30-2022 End: 01-30-2022 Patient encounter status Jake Beckeron DO Work Phone: [facility] Start: 10-10-2021 End: 10-10-2021 [facility] Start: 10-07-2021 End: 10-07-[address] [facility] Start: 09-08-2021 Patient encounter status Jens spaulding LPN [facility] Start: 09-08-2021 Transcribe Orders Jens Mireles LPN [facility] Clinical Contact Center Comment on above: Encounter for prepro cedure screening laboratory testing for COVID-19 (Primary Dx) Start: 01-26-2021 Patient encounter status Tong Spangler DO Work Phone: [facility] Work Phone: Start: 02-17-2014 End: 04-17-2014 Patient requested procedure Jake Spangler DO Work Phone: [facility] Procedures Date Procedure Procedure Detail Performing Clinician Start: 04-27-2025 Lipid 1996 panel - Serum or Plasma Sulma Harrington APRN.CNP Work Phone: Start: 10-17-[address] Jake correa Work Phone: Start: 09-27-2023 Laparoscopic, Salpingo-oopherectomy (Bilateral) Dr. Jake Spangler Work Phone: Start: 08-23-2023 Us soft tissue head & neck real time imge docm Jake Spangler DO Work Phone: Start: 08-23-2023 Brncdilat rspse spmtry pre&post-brncdilat admn Jake Spangler DO Work Phone: Start: 08-23-2023 Lipid 1996 panel - Serum or Plasma Leila Colunga MD Work Phone: Start: 08-17-2023 INFLUENZA VACCINE, AGE 6 MO - 64 YR, QUADRIVALENT (AFLURIA, FLULAVAL, FLUZONE) Jake Spangler DO Work Phone: Start: 08-17-2023 Ecg routine ecg w/least 12 lds i&r only [facility] Provider Start: 06-04-2023 Colonoscopy flx dx w/collj spec when pfrmd Jake pSangler DO Work Phone: Start: 06-04-2023 Colonoscopy Leila Colunga MD Work Phone: Start: 05-31-2023 Dual energy X-ray absorptiometry Dr. Jake Spangler Work Phone: Start: 04-24-2023 MRI of bilateral breasts with contrast Dr. Jake Spangler Work Phone: Start: 12-14-2022 Radiographic procedure of chest Dr. Jake Spangler Work Phone: Start: 12-14-[address] Jake correa Work Phone: Start: 12-14-2022 Implantation to cardiovascular system Dr. Jake Spangler Work Phone: Start: 10-25-2022 Breast, Lumpectomy,SN w/ Neoprobe (Left) Dr. Jake Spangler Work Phone: Start: 10-25-[address] Jake Spangler Work Phone: Start: 10-25-[address] Jake Spangler Work Phone: Start: 10-25-2022 Radionuclide sentinel lymph node study Dr. Jake Spangler Work Phone: Start: 10-24-2022 Plain chest X-ray Dr. Jake Spangler Work Phone: Start: 10-23-[address] Jake Spangler Work Phone: Start: 10-10-[address] Jake miller Work Phone: Start: 10-06-[address] Jake miller Work Phone: Start: 10-02-2022 MRI of bilateral breasts with contrast Dr. Jake Spangler Work Phone: Start: 09-08-[address] Jake miller Work Phone: Start: 08-18-2022 CONG SCREENING W JAIRO Bulk Order Provider Start: 08-18-2022 Mammography Jake Spangler DO Work Phone: Start: 01-30-2022 Adult depression screening assessment Jake Spangler DO Work Phone: Start: 01-31-2021 Mammography Jake Spangler DO Work Phone: Start: 11-09-2016 Colonoscopy Jake Spangler DO Work Phone: Start: 07-21-2015 End: 09-07-2015 H/O: section Previous delivery affecting , antepartum Jake Spangler DO Work Phone: Start: 02-28-2013 Lipid 1996 panel - Serum or Plasma Leila Colunga MD Work Phone: Plan of Treatment Date Care Activity Detail Author Start: 04-27-2030 Lipid panel Lipid Screening [facility] Start: 08-23-2028 Lipid 1996 panel - S rajesh or Plasma Lipid Screening [facility] Start: 08-23-2028 Lipid panel Lipid Screening [facility] Start: 06-04-2028 Colonoscopy Colonoscopy [facility] Start: 06-04-2028 Colorectal Cancer Screening Colorectal Cancer Screening [facility] Start: 06-04-2028 Screening for malign ant neoplasm of colon [facility] Start: 08-23-2026 Diabetes Screening Diabetes Screenin g [facility] Start: 03-04-2026 HPV TESTING HPV TESTING [facility] Start: 03-04-2026 PAP TESTING PAP TESTING [facility] Start: 03-04-2026 Screening for malign ant neoplasm of cervix [facility] Start: 08-05-2025 End: 08-05-2025 Patient encounter procedure 08/05/2025 12:00 PM EDT Office Visit [facility] [address] [place] [id number] Jake Spangler DO [address] [place] [id number] Follow up [facility] Comment on above: Follow up Start: 07-13-2025 Influenza vaccination Influenz a Vaccine (Season Ended) [facility] Start: 04-23-2025 End: 07-23-2025 Lipid 1996 panel - Serum or Plasma LIPID PANEL, FASTING Lab Routine Chest pain, unspecified type Expected: 04/23/2025, Expires: 07/23/2025 [facility] Comment on above: Expected: 04/23/2025 , Expires: 07/23/2025 Start: 04-23-2025 End: 07-23-2025 Thyrotropin [Units/volume] in Serum or Plasma THYROID STIMULATING HORMONE Lab Routine Chest pain, unspecified type Fatigue, unspecified type Expected: 04/23/2025, Expires: 07/23/2025 [facility] Comment on above: Expected: 04/23/2025 , Expires: 07/23/2025 Start: 08-26-2024 End: 08-26-2024 Patient encounter procedure 08/26/2024 9:00 AM EDT Office Visit OB/Gynecology [address] [place], [place] [id number] Leila Colunga MD [address] [place], [place] [address] Annual Exam OB/Gynecology Comment on above: Annual Exam Start: 07-15-2024 Tetanus vaccination Tetanus: Every 1 0yrs [facility] Start: 07-15-2024 Urine microalbumin profile [facility] Start: 07-13-2024 Covid-19 Vaccine ( season) Covid-19 Vaccine ( season) [facility] Start: 07-13-2024 Influenza vaccination Influenza Vacc ine (#1) [facility] Start: 11-12-2023 Behavioral Health Screening Behavioral Health Screening [facility] Start: 11-12-2023 Depression Assessment Depression Ass essment [facility] Start: 09-27-2023 Anesthesia intraperi toneal lower abd w/laps nos ANESTH SURG LOWER ABDOMEN [facility] Start: 09-27-2023 Laparoscopy w/rmvl a dnexal structures LAPAROSCOPY REMOVE ADNEXA [facility] Start: 09-27-2023 End: 09-27-2023 Patient discharge [facility] Start: 09-27-2023 Ambulation without limitation [facility] Start: 09-27-2023 Medical regimen orde rs management [facility] Start: 09-27-2023 Medication education [facility] Start: 09-27-2023 Taking patient vital signs [facility] Start: 09-27-2023 Vital signs measurements [facility] Start: 09-27-2023 [facility] Start: 09-25-2023 Patient referral [facility] Work Phone: Start: 08-18-2023 Mammography [facility] Start: 08-18-2023 Screening for malign ant neoplasm of breast Mammogram Screening [facility] Start: 08-17-2023 End: 10-17-2023 Cobalamin (Vitamin B12) [Mass/volume] in Serum or Plasma VITAMIN B12 BLOOD Lab Routine Well adult exam Fatigue, unspecified type Expected: 08/17/2023, Expires: 10/17/2023 [facility] Work Phone: Comment on above: Expected: 08/17/2023 , Expires: 10/17/2023 Start: 08-17-2023 End: 10-17-2023 Comprehensive metabolic 2000 panel - Serum or Plasma COMP METABOLIC PANEL Lab Routine Well adult exam Fatigue, unspecified type Expected: 08/17/2023, Expires: 10/17/2023 [facility] Work Phone: Comment on above: Expected: 08/17/2023 , Expires: 10/17/2023 Start: 08-17-2023 End: 10-17-2023 Lipid 1996 panel - Serum or Plasma LIPID PANEL BASIC Lab Routine Well adult exam Expected: 08/17/2023, Expires: 10/17/2023 [facility] Work Phone: Comment on above: Expected: 08/17/2023 , Expires: 10/17/2023 Start: 08-17-2023 End: 10-17-2023 NMR LIPOPROTEIN PROFILE NMR LIPOPROTEIN PROFILE Lab Routine Well adult exam Dyslipidemia Expected: 08/17/2023, Expires: 10/17/2023 [facility] Work Phone: Comment on above: Expected: 08/17/2023 , Expires: 10/17/2023 Start: 08-17-2023 End: 10-17-2023 Thyrotropin [Units/volume] in Serum or Plasma TSH BLD Lab Routine Multinodular goiter (nontoxic) Expected: 08/17/2023, Expires: 10/17/2023 [facility] Work Phone: Comment on above: Expected: 08/17/2023 , Expires: 10/17/2023 Start: 08-17-2023 End: 10-17-2023 Thyroxine (T4) free [Mass/volume] in Serum or Plasma T4 FREE/FREE THYROX Lab Routine Multinodular goiter (nontoxic) Expected: 08/17/2023, Expires: 10/17/2023 [facility] Work Phone: Comment on above: Expected: 08/17/2023 , Expires: 10/17/2023 Start: 08-17-2023 End: 10-17-2023 Triiodothyronine (T3) Free [Mass/volume] in Serum or Plasma T3 FREE BLD Lab Routine Multinodular goiter (nontoxic) Expected: 08/17/2023, Expires: 10/17/2023 [facility] Work Phone: Comment on above: Expected: 08/17/2023 , Expires: 10/17/2023 Start: 07-13-2023 Covid-19 Vaccine (2022- season) Covid-19 Vaccine ( season) [facility] Start: 07-13-2023 Influenza vaccination INFLUENZA (#1) [facility] Start: 03-19-2023 Patient referral [facility] Work Phone: Start: 02-19-2023 Patient referral [facility] Work Phone: Start: 01-30-2023 [facility] Start: 2023 Pneumococcal Vaccine : 50+ (1 of 1 - PCV) Pneumococcal Vaccine: 50+ (1 of 1 - PCV) [facility] Start: 2023 SHINGRIX VACCINE (1 of 2) GEORGES GRIX VACCINE (1 of 2) [facility] Start: 01-01-2023 Venous catheter care management [facility] Start: 12-14-2022 Patient discharge [facility] Start: 12-04-2022 Patient referral [facility] Work Phone: Start: 11-12-2022 DEPRESSION ASSESSMENT [facility]ION [facility] Start: 10-25-2022 Anes integ extremiti es ant trunk & perineum nos ANESTH SKIN EXT/PER/ATRUNK [facility] Start: 10-25-2022 Bx/exc lymph node op en superficial BIOPSY/REMOVAL LYMPH NODES [facility] Start: 10-25-2022 Intraop sentinel lym ph node id w/dye injection IO MAP OF SENT LYMPH NODE [facility] Start: 10-25-2022 Mastectomy partial PARTIAL MASTECTOM Y [facility] Start: 10-25-2022 Perq breast loc aleta ce [facility] PERQ DEV BREAST [facility]ST [facility] Start: 10-25-2022 Patient discharge [facility] Start: 09-19-2022 Patient referral [facility] Work Phone: Start: 08-04-2022 End: 10-04-2022 Thyrotropin [Units/volume] in Serum or Plasma TSH BLD Lab Routine Multinodular goiter (nontoxic) Expected: 08/04/2022, Expires: 10/04/2022 [facility] Work Phone: Comment on above: Expected: 08/04/2022 , Expires: 10/04/2022 Start: 08-04-2022 End: 10-04-2022 Thyroxine (T4) free [Mass/volume] in Serum or Plasma T4 FREE/FREE THYROX Lab Routine Multinodular goiter (nontoxic) Expected: 08/04/2022, Expires: 10/04/2022 [facility] Work Phone: Comment on above: Expected: 08/04/2022 , Expires: 10/04/2022 Start: 08-04-2022 End: 10-04-2022 Triiodothyronine (T3) [Mass/volume] in Serum or Plasma T3 BLD Lab Routine Multinodular goiter (nontoxic) Expected: 08/04/2022, Expires: 10/04/2022 [facility] Work Phone: Comment on above: Expected: 08/04/2022 , Expires: 10/04/2022 Start: 07-13-2022 Influenza vaccination [facility] Start: 06-23-2022 End: 08-23-2022 25-hydroxyvitamin D3 [Mass/volume] in Serum or Plasma VITAMIN D 25 HYDROXY Lab Routine Vitamin D deficiency Expected: 06/23/2022, Expires: 08/23/2022 [facility] Work Phone: Comment on above: Expected: 06/23/2022 , Expires: 08/23/2022 Start: 06-23-2022 End: 08-23-2022 CBC W Auto Differential panel - Blood CBC + DIFF Lab Routine Well adult exam Expected: 06/23/2022, Expires: 08/23/2022 [facility] Work Phone: Comment on above: Expected: 06/23/2022 , Expires: 08/23/2022 Start: 06-23-2022 End: 08-23-2022 Comprehensive metabolic 2000 panel - Serum or Plasma COMP METABOLIC PANEL Lab Routine Well adult exam Expected: 06/23/2022, Expires: 08/23/2022 [facility] Work Phone: Comment on above: Expected: 06/23/2022 , Expires: 08/23/2022 Start: 06-23-2022 End: 08-23-2022 Hemoglobin A1c in Blood HGB A1C Lab Routine Well adult exam Expected: 06/23/2022, Expires: 08/23/2022 [facility] Work Phone: Comment on above: Expected: 06/23/2022 , Expires: 08/23/2022 Start: 06-23-2022 End: 08-23-2022 Lipid 1996 panel - Serum or Plasma LIPID PANEL BASIC Lab Routine Well adult exam Expected: 06/23/2022, Expires: 08/23/2022 [facility] Work Phone: Comment on above: Expected: 06/23/2022 , Expires: 08/23/2022 Start: 06-23-2022 End: 08-23-2022 Thyrotropin [Units/volume] in Serum or Plasma TSH BLD Lab Routine Well adult exam Expected: 06/23/2022, Expires: 08/23/2022 [facility] Work Phone: Comment on above: Expected: 06/23/2022 , Expires: 08/23/2022 Start: 05-11-2022 Influenza vaccination INFLUENZA (#1) [facility] Comment on above: Postponed from 07/13 (Declined at this time) Start: 05-02-2022 End: 07-02-2022 Hemoglobin A1c/Hemoglobin.total in Blood HGB A1C Lab Routine Well adult exam Expected: 05/02/2022 (Approximate), Expires: 07/02/2022 [facility] Work Phone: Comment on above: Expected: 05/02/2022 (Approximate), Expires: 07/02/2022 Start: 01-31-2022 Mammography MAMMOGRAM [facility] Start: 01-30-2022 End: 04-01-2022 CBC W Auto Differential panel - Blood CBC + DIFF Lab Routine Well adult exam Expected: 01/30/2022, Expires: 04/01/2022 [facility] Work Phone: Comment on above: Expected: 01/30/2022 , Expires: 04/01/2022 Start: 01-30-2022 End: 04-01-2022 Comprehensive metabolic 2000 panel - Serum or Plasma COMP METABOLIC PANEL Lab Routine Well adult exam Expected: 01/30/2022, Expires: 04/01/2022 [facility] Work Phone: Comment on above: Expected: 01/30/2022 , Expires: 04/01/2022 Start: 01-30-2022 End: 04-01-2022 Follitropin [Units/volume] in Serum or Plasma FSH BLD Lab Routine Well adult exam Perimenopausal Expected: 01/30/2022, Expires: 04/01/2022 [facility] Work Phone: Comment on above: Expected: 01/30/2022 , Expires: 04/01/2022 Start: 01-30-2022 End: 04-01-2022 LIPID PANEL BASIC LIPID PANEL BASIC Lab Routine Well adult exam Expected: 01/30/2022, Expires: 04/01/2022 [facility] Work Phone: Comment on above: Expected: 01/30/2022 , Expires: 04/01/2022 Start: 01-30-2022 End: 04-01-2022 Thyrotropin [Units/volume] in Serum or Plasma TSH BLD Lab Routine Well adult exam Expected: 01/30/2022, Expires: 04/01/2022 [facility] Work Phone: Comment on above: Expected: 01/30/2022 , Expires: 04/01/2022 Start: 01-30-2022 End: 04-01-2022 VITAMIN D 25 HYDROXY VITAMIN D 25 HYDROXY Lab Routine Well adult exam Expected: 01/30/2022, Expires: 04/01/2022 [facility] Work Phone: Comment on above: Expected: 01/30/2022 , Expires: 04/01/2022 Start: 11-12-2021 DEPRESSION ASSESSMENT DEPRESSION ASS ESSMENT [facility] Start: 11-09-2021 Colonoscopy COLONOSCOPY [facility] Start: 11-09-2021 COLORECTAL CANCER SCREENING COLORECTAL CANCER SCREENING [facility] Start: 10-07-2021 End: 10-07-2021 Patient encounter procedure 10/07/2021 Office Visit Lab Tramaine Dixon MD [address] [place] [address] [facility] [address] [id number] [facility] Start: 07-13-2021 Influenza vaccination Sequenti al Influenza Vaccine (#1) [facility] Start: 04-14-2021 COVID-19 VACCINE (2 - Booster for Rohan series) COVID-19 VACCINE (2 - Booster for Rohan series) [facility] Start: 09-27-2020 DIABETES SCREEN DIABETES SCREEN [facility] Start: 09-27-2020 Diabetes Screening Diabetes Screenin g [facility] Start: 02-28-2018 Lipid 1996 panel - S rajesh or Plasma Lipid Screening [facility] Start: 02-28-2018 LIPID SCREEN LIPID SCREEN [facility] Start: 2018 COLOGUARD (FIT-DNA) COLOGUARD (FIT-D NA) [facility] Start: [address] COLONOGRAPHY [facility] Start: 2018 FECAL OCCULT BLOOD FECAL OCCULT BLOO D [facility] Start: 2018 Screening for malign ant neoplasm of colon [facility] Start: 2018 SIGMOIDOSCOPY SIGMOIDOSCOPY Courtney madrigal [facility] Start: 10-12-2017 End: 10-12-2017 Appointment Appointment [facility] Work Phone: Start: 1992 Hepatitis B Vaccine (1 of 3 - 19+ 3-dose series) Hepatitis B Vaccine (1 of 3 - 19+ 3-dose series) [facility] Start: 1991 Depression Screening Depression Scre ening [facility] Start: 1991 Hepatitis C screening Hepatitis C Sc reening [facility] Start: 1988 HIV screening HIV Screening [facility] Start: 1985 Depression screening using PHQ-9 (Patient Health Questionnaire 9) score Depression Screening (PHQ-2/9) [facility] Start: 1976 History and physical examination, annual for health maintenance Wellness Visit [facility] Start: 1973 HEPATITIS B (1 of 3 - 3-dose series) HEPATITIS B (1 of 3 - 3-dose series) [facility] Start: 1973 Hepatitis B Vaccine (1 of 3 - 3-dose series) Hepatitis B Vaccine (1 of 3 - 3-dose series) [facility] Start: 1973 Screening for malign ant neoplasm of cervix Pap Smear [facility] CBC W Auto Different ial panel - Blood [facility] Cobalamin (Vitamin B 12) [Mass/volume] in Serum or Plasma VITAMIN B12 BLOOD Lab Routine Well adult exam Fatigue, unspecified type 08/23/2023 9:23 AM EDT [facility] Work Phone: Comprehensive metabo lic 2000 panel - Serum or Plasma COMP METABOLIC PANEL Lab Routine Well adult exam Fatigue, unspecified type 08/23/2023 9:23 AM EDT [facility] Work Phone: End: 05-23-2026 CT Heart and Coronary arteries for calcium scoring WO contrast CT CALCIUM SCORING (CARDIAC) WO IVCON Radiology Routine Encounter for screening for cardiovascular disorders Chest pain, unspecified type 1 Occurrences starting 04/23/2025 until 05/23/2026 [facility] Work Phone: Comment on above: 1 Occurrences starti ng 04/23/2025 until 05/23/2026 End: 09-26-2025 DBT Breast - bilateral screening CONG SCREENING W JAIRO Radiology Routine Encounter for screening mammogram for breast cancer 1 Occurrences starting 08/27/2024 until 09/26/2025 [facility] Work Phone: Comment on above: 1 Occurrences starti ng 08/27/2024 until 09/26/2025 DXA Bone [Mass/Area] Bone density [facility] End: 03-01-2023 Dxa bone density study 1/ sites axial skel DXA-AXIAL SKELETON Radiology Routine Well adult exam Perimenopausal Encounter for screening for osteoporosis 1 Occurrences starting 01/30/2022 until 03/01/2023 [facility] Work Phone: Comment on above: 1 Occurrences starti ng 01/30/2022 until 03/01/2023 End: 08-17-2024 ECG COMPLETE ECG COMPLETE ECG Routine BOO (dyspnea on exertion) Palpitations 1 Occurrences starting 08/17/2023 until 08/17/2024 [facility] Work Phone: Comment on above: 1 Occurrences starti ng 08/17/2023 until 08/17/2024 ECG COMPLETE ECG COMPLETE ECG Routine Chest pain, unspecified type Ordered: 04/23/2025 [facility] Comment on above: Ordered: 04/23/2025 End: 08-17-2024 Echocardiography ECHO Cardiology Routine BOO (dyspnea on exertion) Palpitations 1 Occurrences starting 08/17/2023 until 08/17/2024 [facility] Work Phone: Comment on above: 1 Occurrences starti ng 08/17/2023 until 08/17/2024 End: 08-17-2024 EXERCISE STRESS ECG (WITHOUT IMAGING) EXERCISE STRESS ECG (WITHOUT IMAGING) Cardiology Routine BOO (dyspnea on exertion) Palpitations 1 Occurrences starting 08/17/2023 until 08/17/2024 [facility] Work Phone: Comment on above: 1 Occurrences starti ng 08/17/2023 until 08/17/2024 Lipid 1996 panel - S rajesh or Plasma LIPID PANEL BASIC Lab Routine Well adult exam 08/23/2023 9:23 AM EDT [facility] Work Phone: End: 04-21-2023 CONG SCREENING W JAIRO CONG SCREENING W JAIRO Radiology Routine Encounter for screening mammogram for breast cancer 1 Occurrences starting 03/22/2022 until 04/21/2023 [facility] Work Phone: Comment on above: 1 Occurrences starti ng 03/22/2022 until 04/21/2023 End: 10-18-2024 CONG SCREENING W JAIRO CONG SCREENING W JAIRO Radiology Routine Encounter for screening mammogram for breast cancer 1 Occurrences starting 09/19/2023 until 10/18/2024 [facility] Work Phone: Comment on above: 1 Occurrences starti ng 09/19/2023 until 10/18/2024 MG Breast - bilatera l Diagnostic [facility] MG Breast Diagnostic [facility] Work Phone: MR Breast - bilatera l [facility] NMR LIPOPROTEIN PROFILE NMR LIPO PROTEIN PROFILE Lab Routine Well adult exam Dyslipidemia 08/23/2023 9:23 AM EDT [facility] Work Phone: OUTSIDE VENDOR CARDI AC OUTPATIENT EXTENDED RHYTHM RECORDING (WITHOUT TELEMETRY) OUTSIDE VENDOR CARDIAC OUTPATIENT EXTENDED RHYTHM RECORDING (WITHOUT TELEMETRY) Holter Routine Palpitations BOO (dyspnea on exertion) Ordered: 09/26/2023 [facility] Work Phone: Comment on above: Ordered: 09/26/2023 Patient referral [facility] Work Phone: End: 09-08-2022 SARS-CoV-2 (COVID-19) RdRp gene [Presence] in Respiratory specimen by FERNANDO with probe detection COVID-19, Molecular Microbiology Routine Encounter For Preprocedure Screening Laboratory Testing For Covid-19 1 Occurrences starting 09/08/2021 until 09/08/2022 [facility] Work Phone: Comment on above: 1 Occurrences starti ng 09/08/2021 until 09/08/2022 End: 09-20-2023 Screening colonoscopy COLONOSCOPY SCREENING Endoscopy Routine Screening for colon cancer 1 Occurrences starting 09/20/2022 until 09/20/2023 [facility] Work Phone: Comment on above: 1 Occurrences starti ng 09/20/2022 until 09/20/2023 Thyrotropin [Units/v olume] in Serum or Plasma TSH BLD Lab Routine Multinodular goiter (nontoxic) 08/23/2023 9:23 AM EDT [facility] Work Phone: Thyroxine (T4) free [Mass/volume] in Serum or Plasma T4 FREE/FREE THYROX Lab Routine Multinodular goiter (nontoxic) 08/23/2023 9:23 AM EDT [facility] Work Phone: Triiodothyronine (T3 ) Free [Mass/volume] in Serum or Plasma T3 FREE BLD Lab Routine Multinodular goiter (nontoxic) 08/23/2023 9:23 AM EDT [facility] Work Phone: End: 05-23-2026 XR Lumbar spine 3 Views XR LUMBAR GENERAL 3V AP/LAT/L5-S1 Radiology Routine Upper back pain Acute bilateral low back pain without sciatica 1 Occurrences starting 04/23/2025 until 05/23/2026 [facility] Comment on above: 1 Occurrences starti ng 04/23/2025 until 05/23/2026 XR Lumbar spine 3 Views XR LUMBA R GENERAL 3V AP/LAT/L5-S1 Radiology Routine Upper back pain Acute bilateral low back pain without sciatica 04/23/2025 3:41 PM EDT [facility] End: 05-23-2026 XR Thoracic spine AP and Lateral and Swimmers XR THORACIC GENERAL 3V AP/LAT/SWIMMERS Radiology Routine Upper back pain Acute bilateral low back pain without sciatica 1 Occurrences starting 04/23/2025 until 05/23/2026 [facility] Comment on above: 1 Occurrences starti ng 04/23/2025 until 05/23/2026 XR Thoracic spine AP and Lateral and Swimmers XR THORACIC GENERAL 3V AP/LAT/SWIMMERS Radiology Routine Upper back pain Acute bilateral low back pain without sciatica 04/23/2025 3:41 PM EDT [facility] Work Phone: [facility] Immunizations Immunization Date Immunization Notes Care Provider Livan londonoanahi 08-17-2023 influenza, injectabl e, quadrivalent, contains preservative Leila Colunga MD Work Phone: [facility] 08-17-2023 influenza virus vacc ine, unspecified formulation Jake Spangler DO Work Phone: [facility] 02-17-2021 Rohan SARS-CoV-2 Vaccination Jens Mireles [facility] 08-19-2019 influenza virus vacc ine, unspecified formulation Leila Colunga MD Work Phone: [facility] 08-28-2017 influenza, seasonal, injectable Jens Mireles [facility] 07-15-2014 tetanus toxoid, redu ale diphtheria toxoid, and acellular pertussis vaccine, adsorbed [facility] Payers Date Payer Category Payer Private Health Insurance MMO SUP ERMED PPO [id number] 2022 Self-pay 2022 Unknown [id number] 2019 Unknown MMO MMO [employer] PLUS [id number] 2019-Present [phone] [address] [place] [address] PPO [id number] 2019 Unknown [id number] 2014 Unknown [id number] 2004 Unknown [employer] [id number] 1973 Unknown [id number] 1973 Unknown [id number] Unknown [facility] PACKAGE PLAN . [id number] Unknown [facility] PACKAGE PLAN [id number] Unknown [id number] Unknown [id number] Unknown [id number] Social History Date Type Detail Facility Start: 09-21-2022 End: 09-18-2023 Tobacco smoking status TNIS Tobacco smoking consumption unknown [facility] Start: 1975 Sex Assigned At Not on file O [facility] Start: 01-17-2011 End: 05-13-2013 Tobacco smoking status TNIS Never smoked tobacco [facility] Work Phone: Start: 01-17-2011 End: 05-13-2013 Tobacco use and exposure Smokeless tobacco non-user [facility] Work Phone: Start: 01-30-2022 End: 04-23-2025 Alcohol intake Current drinker of alcohol (finding) [facility] Start: 01-25-2021 History SDOH Alcohol Frequency 2 [facility] Start: 01-25-2021 History SDOH Alcohol Std Drinks 1 [facility] Start: 01-17-2011 History SDOH Alcohol Comment OCCASIONALLY BUT NOT WHILE [facility] Start: 01-25-2021 History SDOH Social Connections Scientologist 3 [facility] Start: 01-25-2021 History SDOH Financial 5 [facility] Start: 01-25-2021 Education 18 [facility] Start: 1975 Sex Assigned At Female C [facility] Start: 01-20-2022 End: 01-30-2022 Exposure to SARS-CoV-2 (event) Not sure [facility] Work Phone: Start: 05-14-2023 End: 08-16-2023 History of Social function [facility] Start: 05-14-2023 End: 08-16-2023 [facility] [employer] [facility] Has the [employer], [employer], or water [employer] threatened to shut off services in your home in past 12Mo No [facility] Do you belong to any clubs or organizations such as oriental orthodox groups, unions, fraternal or athletic groups, or school groups? Yes [facility] Are you now , , , , never or living with a partner? [facility] How often to you hav e a drink containing alcohol? Monthly or less [facility] How many standard drinks containing alcohol do you have on a typical day? 1 or 2 [facility] How often do you hav e 6 or more drinks on 1 occasion? Never [facility] How hard is it for y ou to pay for the very basics like food, housing, medical care, and heating Not hard at all [facility] Do you feel stress - tense, restless, nervous, or anxious, or unable to sleep at night because your mind is troubled all the time - these days [OSQ] To some extent [facility] (I/We) worried ruthy er (my/our) food would run out before (I/we) got money to buy more. Never true [facility] Start: 08-28-2019 Gender identity Identifies as female gender (fly) [facility] Start: 08-28-2019 Sexual orientation Heterosexual (edy vu) [facility] How hard is it for y ou to pay for the very basics like food, housing, medical care, and heating Not very hard [facility] Do you feel stress - tense, restless, nervous, or anxious, or unable to sleep at night because your mind is troubled all the time - these days [OSQ] Only a little [facility] NEGATED: Highlighted row [facility] Medical Equipment Procedure Code Equipment Code Equipment Origin al Text Equipment Identifier Dates Insertion, vascular access port ([id number]) Vascular port/catheter [id number] FDA Start: 12-14-2022 Lippy modified b ucket handle titanium prothesis FDA Start: 10-10-2021 Lippy modified b ucket handle titanium prothesis FDA Start: 10-10-2021 Lippy modified b ucket handle titanium prothesis FDA Start: 10-10-2021 Lippy modified b ucket handle titanium prothesis FDA Start: 10-10-2021 Lippy modified b ucket handle titanium prothesis FDA Start: 10-10-2021 Plant polysaccha ride haemostatic agent, bioabsorbable [id number] FDA Start: 10-25-2022 Ligation clip, metallic [id number] FDA Start: 10-25-2022 Ligation clip, metallic [id number] FDA Start: 10-25-2022 Ligation clip, metallic [id number] FDA Start: 10-25-2022 Ligation clip, metallic ()[id number] FDA Start: 10-25-2022 Lippy modified b ucket handle titanium prothesis FDA Start: 10-10-2021 Lippy modified b ucket handle titanium prothesis FDA Start: 10-10-2021 Lippy modified b ucket handle titanium prothesis FDA Start: 10-10-2021 Lippy modified b ucket handle titanium prothesis FDA Start: 10-10-2021 Goals Date Patient Goal Desired Activity /State Functional Status Date Assessment Result Facility 04-23-2025 Total score [AUDIT-C] 1 04/23/20 25 1:10 PM EDT User, Constanza [facility] 04-23-2025 How often to you hav e a drink containing alcohol? Monthly or less 04/23/2025 1:10 PM EDT User, Mikehart Monthly or less [facility] 04-23-[address] inks containing alcohol do you have on a typical day? 1 or 2 04/23/2025 1:10 PM EDT User, Mikehart 1 or 2 [facility] 04-23-2025 How often do you hav e 6 or more drinks on 1 occasion? Never 04/23/2025 1:10 PM EDT User, Mychart Never [facility] 09-27-2023 Functional status [facility] Work Phone: 10-25-2022 Functional status Ambulates;Bath room Privilege [facility] Work Phone: 10-26-2014 Are you deaf, or do you have serious difficulty hearing No 10/26/2014 11:37 AM Ilene Ellison Ma [facility] 10-26-2014 Are you blind, or do you have serious difficulty seeing, even when wearing glasses No 10/26/2014 11:37 AM Ilene Ellison Ma [facility] 10-26-2014 Do you have serious difficulty walking or climbing stairs No 10/26/2014 11:37 AM Ilene Ellison Ma [facility] 10-26-2014 Do you have difficul ty dressing or bathing No 10/26/2014 11:37 AM Ilene Ellison Ma [facility] 10-26-2014 Because of a physica l, mental, or emotional condition, do you have difficulty doing errands alone such as visiting a physician's office or shopping No 10/26/2014 11:37 AM Ilene Ellison Ma [facility] Mental Status Date Assessment Result Facility 09-27-2023 Cognitive function Voice/Name;Touch/Zakki ng [facility] Work Phone: 12-14-2022 Cognitive function Level Of Cons ciousness Awake;Appropriate [facility] Work Phone: 12-14-2022 Cognitive function Voice/Name [facility] Work Phone: 10-25-2022 Cognitive function Voice/Name [facility] Work Phone: 10-26-2014 Because of a physica l, mental, or emotional condition, do you have serious difficulty concentrating, remembering, or making decisions No 10/26/2014 11:37 AM EST Masters Ilene Sanders [facility] Clinical Notes 07-21-2015 to 05-11-2025 Telephone Encounter - Artemio Jimenez MA - 05/11/2025 10:54 AM EDTTelephone Encounter - Artemio Jimenez MA - 05/11/2025 10:54 AM EDTDaAracelis escobedo, RT(R) - 04/23/2025 3:30 PM EDT Note Date & Type Note Facility 05-11-2025 Telephone encounter Note Type of letter/form/fax request - bloosd panel Form received from [employer] on 05/05/25 floor and placed on MD desk ([employer]) for completion. Completed form needs to be faxed to [phone]. Route to MA when form completed for processing [facility] 05-11-2025 Miscellaneous Notes Type of letter/form/fax request - bloosd panel Form received from [employer] on 05/05/25 floor and placed on MD desk ([employer]) for completion. Completed form needs to be faxed to [phone]. Route to MA when form completed for processing documented in this encounter [facility] 05-06-2025 Telephone encounter Note Patient notified of results and provider's instructions. Patient verbalizes understanding. Tiara De La O RN [facility] 05-06-2025 Miscellaneous Notes Patient notified of results and provider's instructions. Patient verbalizes understanding. Tiara De La O RN ----- Message from Sulma Harrington APRN.RN FAMILY PRACTICE sent at 05/06/2025 9:38 AM EDT ----- Please call patient and let her know that lab work results look good. Xrays of back are insignificant and not concerning. Continue as discussed. Thank you, Sulma Harrington APRN.RN FAMILY PRACTICE documented in this encounter [facility] 05-06-2025 Telephone encounter Note ----- Message from Sulma Harrington APRN.RN FAMILY PRACTICE sent at 05/06/2025 9:38 AM EDT ----- Please call patient and let her know that lab work results look good. Xrays of back are insignificant and not concerning. Continue as discussed. Thank you, Sulma Harrington APRN.RN FAMILY PRACTICE [facility] 04-23-2025 History of Presen t illness Narrative Radiology Service Progress Note PATIENT NAME: Regina Barney DATE OF SERVICE: April 23, 2025 TIME: 3:31 PM PATIENT IDENTITY VERIFICATION COMPLETED USING TWO (2) IDENTIFIERS: Name and Date of confirmed by patient verbally. FALL SCREENING: Has the patient had 2 falls in the last year or 1 fall with injury or currently using an Ambulatory Assistive Device (Walker, Cane, Wheelchair, Crutches, etc.)? No PATIENT GENDER DATA: Assigned female at . status: : No status: NO. PATIENT RELEVANT IMPLANT DATA REVIEWED: Not Applicable PATIENT PRESENTS WITH AN IMPLANTABLE OR ATTACHED BEHAVIORAL SERVICES TECH: No RADIOLOGY DEPARTMENT: General X-ray: Exam(s) Completed: Spine X-Ray(s): Thoracic and Lumbar AP / LAT / L5-S1 PERIPHERAL IV DATA: Not applicable SIGNED BY: RT Dillan(R) April 23, 2025 3:31 PM documented in this encounter [facility] 04-23-2025 Note HNO ID: [id number] Author: ARACELIS MIRANDA RT(R) Service: Radiology Author Type: Technologist Type: Progress Notes Filed: 04/23/2025 15:42 Note Text: Radiology Service Progress Note PATIENT NAME: Regina Barney DATE OF SERVICE: April 23, 2025 TIME: 3:31 PM PATIENT IDENTITY VERIFICATION COMPLETED USING TWO (2) IDENTIFIERS: Name and Date of confirmed by patient verbally. FALL SCREENING: Has the patient had 2 falls in the last year or 1 fall with injury or currently using an Ambulatory Assistive Device (Walker, Cane, Wheelchair, Crutches, etc.)? No PATIENT GENDER DATA: Assigned female at . status: : No status: NO. PATIENT RELEVANT IMPLANT DATA REVIEWED: Not Applicable PATIENT PRESENTS WITH AN IMPLANTABLE OR ATTACHED BEHAVIORAL SERVICES TECH: No RADIOLOGY DEPARTMENT: General X-ray: Exam(s) Completed: Spine X-Ray(s): Thoracic and Lumbar AP / LAT / L5-S1 PERIPHERAL IV DATA: Not applicable SIGNED BY: RT Dillan(Devan) April 23, 2025 3:31 PM [facility] 04-23-2025 History of Presen t illness Narrative 04/23/2025 Recording using [employer] software for draft documentation of the visit was discussed with the patient/authorized internet sales representative; all questions welcomed and answered. Patient/authorized internet sales representative agreed to proceed HPI: Regina Barney is a 50-year-old female with a history of breast cancer, hyperlipidemia, and anxiety, presenting for evaluation of upper and lower back pain, with associated nausea and chest pressure. Per triage from today: Patient call in for back pain for about a month in a half. Patient states that she does have tightness in chest but denies other symptoms. Patient thinks this could be related to back pain she is having. Nurse Triage assessment completed with protocol recommending for disposition of see PCP in 3 days. Patient is scheduled to see Sulma today 04/23/2025. Care advice reviewed with patient, patient stated understanding. Patient advised to contact office or seek evaluation in urgent care or ER if symptoms persist or gets worse. Reason for Disposition [1] MODERATE back pain (e.g., interferes with normal activities) AND [2] present > 3 days Answer Assessment - Initial Assessment Questions 1. ONSET: Patient states that it started out lower back, and now it is entire back. Started a month in a half ago 2. LOCATION: Patient feels that entire back is a mess. 3. SEVERITY: Patient rates the pain more moderate pain. Patient is functioning but it is not comfortable doing so. 4. PATTERN: Constant 5. RADIATION: Denies 6. CAUSE: What do you think is causing the back pain? Unsure 7. BACK OVERUSE: Trying to do more weight bearing exercises, push ups. 8. MEDICINES: Patient states that she has taken tylenol. 9. NEUROLOGIC SYMPTOMS: Denies 10. OTHER SYMPTOMS: Denies other symptoms. In office today... Upper and Lower Back Pain: - Onset approximately one month ago. - Initially began as lower back pain, now predominantly in the upper back. - Described as a constant, knotted sensation, rated 3-4/10 in severity. - Aggravated by movement; unable to perform usual workouts or weightlifting. - Denies known trauma or injury. - No radiation of pain down the legs. - Denies urinary symptoms or bowel/bladder incontinence. Nausea: - Intermittent episodes of nausea, unsure if associated with back pain. Chest Pressure: - Occasional mild chest pressure, described as little twitches. - Noticed primarily when lying down at night. Anxiety: - History of anxiety, currently managed with Celexa 20 mg daily. - Reports increased stress due to current symptoms. Breast Cancer: - History of breast cancer, currently on anastrozole (Arimidex). - Experiences joint pain, primarily in knees and ankles, since starting anastrozole. Hyperlipidemia: - Family history of hyperlipidemia; brother has similar condition. - Concerned about hard cholesterol and potential plaque buildup. - Last lipid panel approximately one year ago; brother recommended a more detailed analysis. - Recent blood work in February showed normal kidney function. Weight Gain: - Reports gradual weight gain, attempting to exercise more but limited by back pain and joint discomfort. - Desires to lose weight but feels discouraged by lack of energy and physical limitations. No other concerns or complaints today. Previous Medical History PAST MEDICAL HISTORY Diagnosis Date Bilateral knee pain Breast cancer (HCC) 09/2022 Cancer (HCC) Cyst of right kidney 08/12/2016 Dysthymic disorder 11/12/1996 SITUATIONAL Depression (non-psychotic) Environmental allergies Glaucoma [facility] Infertility, female Left thyroid nodule Multinodular goiter (nontoxic) 05/24/2016 Urinary tract infection, site not specified [id number] Recurrent UTI's Vitamin D deficiency Previous Surgical History PAST SURGICAL HISTORY Procedure Laterality Date BREAST LUMPECTOMY HX Left 09/2022 BREAST SURGERY HX DELIVERY ONLY 2013 , low transverse COLONOSCOPY N/A 11/09/2016 CURETTAGE 07/2015 [facility] INNER EAR SURGERY PROC UNLISTED Right LAPAROSCOPY W/RMVL ADNEXAL STRUCTURES Bilateral 09/27/2023 BSO for surgical menopause due to breast ca SKIN BIOPSY HX TOTAL THYROID LOBECTOMY UNI W/WO ISTHMUSECTOMY Left 06/16/2016 Family History FAMILY HISTORY Problem Relation Age of Onset Breast Cancer Mother 46 Alcohol/Drug Father ETOH Hypertension Father Stroke Father Psychiatry Brother OCD Prostate Cancer Brother Heart Maternal Grandfather Stroke Maternal Grandfather Colon Cancer Paternal Grandmother Colon Cancer Maternal Aunt Anesthesia Maternal Aunt Colon Cancer Paternal Uncle Patient Allergies ALLERGIES No Known Allergies Current Medications Current Outpatient Medications on File Prior to Visit Medication Sig citalopram (CELEXA) 20 mg tablet Take 1 tablet by mouth once daily. cholecalciferol (VITAMIN D3) 50 mcg (2,000 unit) tablet Take 1 tablet by mouth once daily. MULTIVITAMIN ORAL 1 capsule. anastrozole (ARIMIDEX) 1 mg tablet Take 1 mg by mouth once daily. latanoprost (XALATAN) 0.005 % ophthalmic solution Use 1 Drop in both eyes daily at bedtime. montelukast (SINGULAIR) 10 mg tablet Take 10 mg by mouth daily at bedtime. No current facility-administered medications on file prior to visit. Social History Social History Tobacco Use Smoking status: Never Smokeless tobacco: Never Vaping Use Vaping status: Never Used Substance Use Topics Alcohol use: Yes Comment: OCCASIONALLY BUT NOT WHILE Drug use: No Review of Systems: Constitutional: (+) weight gain, (+) fatigue Neck: (+) neck stiffness Cardiovascular: (+) chest pressure Respiratory: (+) dyspnea Gastrointestinal: (+) nausea, (-) bowel incontinence Genitourinary: (-) urinary symptoms, (-) urinary incontinence Musculoskeletal: (+) lower back pain, (+) upper back pain, (+) knee joint pain, (+) ankle joint pain, (-) radicular leg pain Psychiatric: (+) anxiety, (+) stress Physical Exam: BP 104/68 (BP Site: Left Arm, BP Position: Sitting, BP Cuff Size: Regular Adult) Pulse 68 Wt 75.3 kg (166 lb) LMP 01/02/2022 (Approximate) SpO2 98% BMI 27.20 kg/m GENERAL: NAD, alert and oriented. SKIN: Unremarkable, no rash or skin lesions. HEAD: Normocephalic. NECK: Supple, no lymphadenopathy, normal thyroid, no carotid bruits. LUNGS: Clear to auscultation bilaterally, no wheezes/rhonchi/rales. HEART: Regular rate and rhythm, no murmurs. No ectopy. EXTREMITIES: Normal, no deformities, no skin discoloration, no edema. BACK: Bilateral lower MSK tenderness, no midline pain. Full ROM. no flank pain/tenderness. NEURO: Awake, alert and oriented x3, cranial nerves II-XII grossly intact, normal gait, no involuntary motions. Diagnostics reviewed: Labs: (02/2025) - CBC: Normal - CMP: Normal - Kidney function: Normal Imaging: (08/2023) Thyroid Ultrasound: Normal, hx of L sided surgical removed Assessment/Plan: 1. Encounter for screening for cardiovascular disorders (Z13.6) 2. Chest pain, unspecified type (R07.9) - Ordered EKG to evaluate cardiac rhythm and provide reassurance. EKG sinus bradycardia rate of 58. - Discussed CT calcium scoring test to assess for coronary artery disease; patient willing to self-pay if needed. - Ordered lipid panel; patient instructed to return for fasting blood draw. - Scheduled follow-up with Dr. Spangler for routine physical examination. 3. Upper back pain (M54.9) 4. Acute bilateral low back pain without sciatica (M54.50) - Pain rated 3-4/10, constant, with no radiation to legs. - Ordered X-rays of upper and lower back. - Prescribed Flexeril, up to 3 times daily as needed; advised to start with nighttime dosing due to potential drowsiness. - Discussed potential musculoskeletal etiology; no recent trauma or injury reported. 5. Fatigue, unspecified type (R53.83) - Ordered thyroid function tests. - Reviewed recent CBC and CMP from February; results normal. 6. FAY (generalized anxiety disorder) (F41.1) - Currently managed with Celexa 20 mg daily; patient reports stability on current regimen. - Discussed potential contribution of anxiety to somatic symptoms. 7. History of breast cancer in female (Z85.3) 8. History of chemotherapy (Z92.21) - On anastrozole therapy; experiencing joint pain, particularly in knees and ankles. - Discussed previous left thyroid lobe removal; recent ultrasound in August 2023 was normal. - Advised next thyroid ultrasound in fall, approximately two years post previous scan. Follow-up in 3 months , sooner if needed. Prescription instructions reviewed with patient as applicable. Potential red flag symptoms discussed with the patient. Reviewed appropriate action plan to take if red flag symptoms occur. Patient agreeable to treatment plan. Orders placed in this encounter: Office Visit on 04/23/25 CT CALCIUM SCORING (CARDIAC) WO IVCON XR THORACIC GENERAL 3V AP/LAT/SWIMMERS XR LUMBAR GENERAL 3V AP/LAT/L5-S1 LIPID PANEL, FASTING THYROID STIMULATING HORMONE cyclobenzaprine (FLEXERIL) 10 mg tablet ECG COMPLETE Sulma Harrington APRN.RN FAMILY PRACTICE documented in this encounter [facility] 04-23-2025 Note HNO ID: [id number] Author: SULMA HARRINGTON APRN.RN FAMILY PRACTICE Service: ? Author Type: Nurse Practitioner Type: Progress Notes Filed: 04/23/2025 15:29 Note Text: 04/23/2025 Recording using [employer] software for draft documentation of the visit was discussed with the patient/authorized internet sales representative; all questions welcomed and answered. Patient/authorized internet sales representative agreed to proceed HPI: Regina Barney is a 50-year-old female with a history of breast cancer, hyperlipidemia, and anxiety, presenting for evaluation of upper and lower back pain, with associated nausea and chest pressure. Per triage from today: Patient call in for back pain for about a month in a half. Patient states that she does have tightness in chest but denies other symptoms. Patient thinks this could be related to back pain she is having. Nurse Triage assessment completed with protocol recommending for disposition of see PCP in 3 days. Patient is scheduled to see Sulma today 04/23/2025. Care advice reviewed with patient, patient stated understanding. Patient advised to contact office or seek evaluation in urgent care or ER if symptoms persist or gets worse. Reason for Disposition [1] MODERATE back pain (e.g., interferes with normal activities) AND [2] present > 3 days Answer Assessment - Initial Assessment Questions 1. ONSET: Patient states that it started out lower back, and now it is entire back. Started a month in a half ago 2. LOCATION: Patient feels that entire back is a mess. 3. SEVERITY: Patient rates the pain more moderate pain. Patient is functioning but it is not comfortable doing so. 4. PATTERN: Constant 5. RADIATION: Denies 6. CAUSE: What do you think is causing the back pain? Unsure 7. BACK OVERUSE: Trying to do more weight bearing exercises, push ups. 8. MEDICINES: Patient states that she has taken tylenol. 9. NEUROLOGIC SYMPTOMS: Denies 10. OTHER SYMPTOMS: Denies other symptoms. In office today... Upper and Lower Back Pain: - Onset approximately one month ago. - Initially began as lower back pain, now predominantly in the upper back. - Described as a constant, knotted sensation, rated 3-4/10 in severity. - Aggravated by movement; unable to perform usual workouts or weightlifting. - Denies known trauma or injury. - No radiation of pain down the legs. - Denies urinary symptoms or bowel/bladder incontinence. Nausea: - Intermittent episodes of nausea, unsure if associated with back pain. Chest Pressure: - Occasional mild chest pressure, described as little twitches. - Noticed primarily when lying down at night. Anxiety: - History of anxiety, currently managed with Celexa 20 mg daily. - Reports increased stress due to current symptoms. Breast Cancer: - History of breast cancer, currently on anastrozole (Arimidex). - Experiences joint pain, primarily in knees and ankles, since starting anastrozole. Hyperlipidemia: - Family history of hyperlipidemia; brother has similar condition. - Concerned about hard cholesterol and potential plaque buildup. - Last lipid panel approximately one year ago; brother recommended a more detailed analysis. - Recent blood work in February showed normal kidney function. Weight Gain: - Reports gradual weight gain, attempting to exercise more but limited by back pain and joint discomfort. - Desires to lose weight but feels discouraged by lack of energy and physical limitations. No other concerns or complaints today. Previous Medical History PAST MEDICAL HISTORY Diagnosis Date Bilateral knee pain Breast cancer (HCC) 09/2022 Cancer (HCC) Cyst of right kidney 08/12/2016 Dysthymic disorder 11/12/1996 SITUATIONAL Depression (non-psychotic) Environmental allergies Glaucoma [facility] Infertility, female Left thyroid nodule Multinodular goiter (nontoxic) 05/24/2016 Urinary tract infection, site not specified [id number] Recurrent UTI's Vitamin D deficiency Previous Surgical History PAST SURGICAL HISTORY Procedure Laterality Date BREAST LUMPECTOMY HX Left 09/2022 BREAST SURGERY HX DELIVERY ONLY 2013 , low transverse COLONOSCOPY N/A 11/09/2016 CURETTAGE 07/2015 [facility] INNER EAR SURGERY PROC UNLISTED Right LAPAROSCOPY W/RMVL ADNEXAL STRUCTURES Bilateral 09/27/2023 BSO for surgical menopause due to breast ca SKIN BIOPSY HX TOTAL THYROID LOBECTOMY UNI W/WO ISTHMUSECTOMY Left 06/16/2016 Family History FAMILY HISTORY Problem Relation Age of Onset Breast Cancer Mother 46 Alcohol/Drug Father ETOH Hypertension Father Stroke Father Psychiatry Brother OCD Prostate Cancer Brother Heart Maternal Grandfather Stroke Maternal Grandfather Colon Cancer Paternal Grandmother Colon Cancer Maternal Aunt Anesthesia Maternal Aunt Colon Cancer Paternal Uncle Patient Allergies ALLERGIES No Known Allergies Current Medications Current Out (more content not included)... [facility] 04-23-2025 Telephone encounter Note Patient call in for back pain for about a month in a half. Patient states that she does have tightness in chest but denies other symptoms. Patient thinks this could be related to back pain she is having. Nurse Triage assessment completed with protocol recommending for disposition of see PCP in 3 days. Patient is scheduled to see Uslma today 04/23/2025. Care advice reviewed with patient, patient stated understanding. Patient advised to contact office or seek evaluation in urgent care or ER if symptoms persist or gets worse. Reason for Disposition [1] MODERATE back pain (e.g., interferes with normal activities) AND [2] present > 3 days Answer Assessment - Initial Assessment Questions 1. ONSET: Patient states that it started out lower back, and now it is entire back. Started a month in a half ago 2. LOCATION: Patient feels that entire back is a mess. 3. SEVERITY: Patient rates the pain more moderate pain. Patient is functioning but it is not comfortable doing so. 4. PATTERN: Constant 5. RADIATION: Denies 6. CAUSE: What do you think is causing the back pain? Unsure 7. BACK OVERUSE: Trying to do more weight bearing exercises, push ups. 8. MEDICINES: Patient states that she has taken tylenol. 9. NEUROLOGIC SYMPTOMS: Denies 10. OTHER SYMPTOMS: Denies other symptoms. Protocols used: Back [id number] [facility] 04-23-2025 Miscellaneous Notes Patient call in for back pain for about a month in a half. Patient states that she does have tightness in chest but denies other symptoms. Patient thinks this could be related to back pain she is having. Nurse Triage assessment completed with protocol recommending for disposition of see PCP in 3 days. Patient is scheduled to see Sulma today 04/23/2025. Care advice reviewed with patient, patient stated understanding. Patient advised to contact office or seek evaluation in urgent care or ER if symptoms persist or gets worse. Reason for Disposition [1] MODERATE back pain (e.g., interferes with normal activities) AND [2] present > 3 days Answer Assessment - Initial Assessment Questions 1. ONSET: Patient states that it started out lower back, and now it is entire back. Started a month in a half ago 2. LOCATION: Patient feels that entire back is a mess. 3. SEVERITY: Patient rates the pain more moderate pain. Patient is functioning but it is not comfortable doing so. 4. PATTERN: Constant 5. RADIATION: Denies 6. CAUSE: What do you think is causing the back pain? Unsure 7. BACK OVERUSE: Trying to do more weight bearing exercises, push ups. 8. MEDICINES: Patient states that she has taken tylenol. 9. NEUROLOGIC SYMPTOMS: Denies 10. OTHER SYMPTOMS: Denies other symptoms. Protocols used: Back [id number] documented in this encounter [facility] 01-02-2025 Telephone encounter Note Prescription Refill Information The patient has been identified by name and date of : Yes Caregiver verified no other encounters exist for this prescription request: Yes Caregiver confirmed with patient/requestor that no other refills are due, in the near future, with this provider at this time: Yes The last office visit in the department: 04/03/24 Does the patient have a future office visit with this provider/department: No Requested Prescriptions Pending Prescriptions Disp Refills citalopram (CELEXA) 20 mg tablet 90 tablet 1 Sig: Take 1 tablet by mouth once daily. Onesimo Leo LPN January 02, 2025 10:40 AM [facility] 01-02-2025 Miscellaneous Notes Prescription Refill Information The patient has been identified by name and date of : Yes Caregiver verified no other encounters exist for this prescription request: Yes Caregiver confirmed with patient/requestor that no other refills are due, in the near future, with this provider at this time: Yes The last office visit in the department: 04/03/24 Does the patient have a future office visit with this provider/department: No Requested Prescriptions Pending Prescriptions Disp Refills citalopram (CELEXA) 20 mg tablet 90 tablet 1 Sig: Take 1 tablet by mouth once daily. Onesimo Leo LPN January 02, 2025 10:40 AM documented in this encounter [facility] 12-16-2024 Telephone encounter Note Pt called to have mammogram orders faxed to [facility]. Faxed orders to [phone]. Done. Mark Leiva LPN [facility] 12-16-2024 Miscellaneous Notes Pt called to have mammogram orders faxed to [facility]. Faxed orders to [phone]. Done. Mark Leiva LPN documented in this encounter [facility] 08-27-2024 Note Patient Outreach (IN [facility]) REGINA BARNEY ([id number]) 1975 F Date Time Provider Department 08/27/24 JAKE SPANGLER During your visit today, we recorded the following information about you: Allergies As of Date: 08/27/2024 (No Known Allergies) Date Reviewed: 04/03/2024 Reviewed by: Yenni Martinez MA - Fully Assessed Visit Diagnosis:Encounter for screening mammogram for breast cancer [Z12.31] Order(s):[facility] [[id number]] Order #: [id number] FUTURE Prescriptions as of 09/01/2024 - cholecalciferol (VITAMIN D3) 50 mcg (2,000 unit) tablet Take 1 tablet by mouth once daily. - citalopram (CELEXA) 20 mg tablet Take 1 tablet by mouth once daily. - MULTIVITAMIN ORAL 1 capsule. - anastrozole (ARIMIDEX) 1 mg tablet Take 1 mg by mouth once daily. - latanoprost (XALATAN) 0.005 % ophthalmic solution Use 1 Drop in both eyes daily at bedtime. - montelukast (SINGULAIR) 10 mg tablet Take 10 mg by mouth daily at bedtime. Problem List As Of Date 08/27/2024 Noted Resolved Advanced maternal age, primigravida [O09.519] 01/27/2011 10/26/2014 Female infertility of unspecified origin [N97.9]08/07/2013 10/26/2014 complicated by previous recurrent mis*02/17/2014 04/17/2014 Advanced maternal age (AMA), 40 years or greate*02/17/2014 10/26/2014 History of recurrent UTI (urinary tract infecti*02/17/2014 10/26/2014 History of depression [Z86.59] 02/17/2014 09/07/2015 Possible exposure to STD [Z20.2] 02/17/2014 04/17/2014 Patient requested diagnostic testing [Z01.89] 02/17/2014 04/17/2014 Supervision of other normal [Z34.80] 04/17/2014 10/26/2014 Previous delivery affecting ,*07/21/2015 09/07/2015 Supervision of other high risk , antep*07/21/2015 09/07/2015 Advanced maternal age (AMA), 40 years or greate*07/21/2015 09/07/2015 Multinodular goiter (nontoxic) [E04.2] 05/24/2016 Chronic pain of both knees [M25.561, M25.562, G*07/18/2016 FHx: colon cancer [Z80.0] 11/09/2016 Vitamin D insufficiency [E55.9] 09/28/2017 Perimenopausal disorder [N95.9] 01/26/2021 FAY (generalized anxiety disorder) [F41.1] 01/26/2021 Screening for colon cancer [Z12.11] 01/26/2021 Lichen sclerosus et atrophicus [L90.0] 08/22/2023 Vitamin D deficiency [E55.9] 08/23/2023 Fatigue [R53.83] 08/23/2023 BOO (dyspnea on exertion) [R06.09] 08/23/2023 Palpitations [R00.2] 08/23/2023 Dyslipidemia [E78.5] 08/23/2023 History of breast cancer in female [Z85.3] 08/23/2023 History of chemotherapy [Z92.21] 08/23/2023 Encounter Status:Closed by YUNG JANG on 09/01/24 [facility] 08-25-2024 Telephone encounter Note Prescription Refill Information The patient has been identified by name and date of : Yes Caregiver verified no other encounters exist for this prescription request: Yes Caregiver confirmed with patient/requestor that no other refills are due, in the near future, with this provider at this time: Yes The last office visit in the department: 04/03/24 Does the patient have a future office visit with this provider/department: No Requested Prescriptions Pending Prescriptions Disp Refills cholecalciferol (VITAMIN D3) 50 mcg (2,000 unit) tablet 90 tablet 3 Sig: Take 1 tablet by mouth once daily. Paula Laurent LPN August 25, 2024 9:12 AM [facility] 08-25-2024 Miscellaneous Notes Prescription Refill Information The patient has been identified by name and date of : Yes Caregiver verified no other encounters exist for this prescription request: Yes Caregiver confirmed with patient/requestor that no other refills are due, in the near future, with this provider at this time: Yes The last office visit in the department: 04/03/24 Does the patient have a future office visit with this provider/department: No Requested Prescriptions Pending Prescriptions Disp Refills cholecalciferol (VITAMIN D3) 50 mcg (2,000 unit) tablet 90 tablet 3 Sig: Take 1 tablet by mouth once daily. Paula Laurent LPN August 25, 2024 9:12 AM documented in this encounter [facility] 06-25-2024 Telephone encounter Note Prescription Refill Information The patient has been identified by name and date of : Yes Caregiver verified no other encounters exist for this prescription request: Yes Caregiver confirmed with patient/requestor that no other refills are due, in the near future, with this provider at this time: Yes The last office visit in the department: 04/03/24 Does the patient have a future office visit with this provider/department: Yes Requested Prescriptions Pending Prescriptions Disp Refills citalopram (CELEXA) 20 mg tablet 90 tablet 1 Sig: Take 1 tablet by mouth once daily. Linda Knapp June 25, 2024 10:16 AM [facility] 06-25-2024 Miscellaneous Notes Prescription Refill Information The patient has been identified by name and date of : Yes Caregiver verified no other encounters exist for this prescription request: Yes Caregiver confirmed with patient/requestor that no other refills are due, in the near future, with this provider at this time: Yes The last office visit in the department: 04/03/24 Does the patient have a future office visit with this provider/department: Yes Requested Prescriptions Pending Prescriptions Disp Refills citalopram (CELEXA) 20 mg tablet 90 tablet 1 Sig: Take 1 tablet by mouth once daily. Linda Knapp June 25, 2024 10:16 AM documented in this encounter [facility] 04-03-2024 History of Presen t illness Narrative Chief Complaint No chief complaint on file. HPI Regina Barney is a 49 year old female who presents here today for Above Complaints.. Patient presents for poison mic rash. Patient reports she got it 2 weeks ago on her thighs and it resolved. She reports she then worked outside again and noticed a rash developing on her arms, face, and legs. Past medical history, appointments, medications, allergies reviewed. Previous Medical History PAST MEDICAL HISTORY Diagnosis Date Bilateral knee pain Breast cancer (HCC) 09/2022 Cancer (HCC) Cyst of right kidney 08/12/2016 Dysthymic disorder 11/12/1996 SITUATIONAL Depression (non-psychotic) Environmental allergies Glaucoma [facility] Infertility, female Left thyroid nodule Multinodular goiter (nontoxic) 05/24/2016 Urinary tract infection, site not specified 2094-0109 Recurrent UTI's Vitamin D deficiency Previous Surgical History PAST SURGICAL HISTORY Procedure Laterality Date BREAST LUMPECTOMY HX Left 09/2022 BREAST SURGERY HX DELIVERY ONLY 2013 , low transverse COLONOSCOPY N/A 11/09/2016 CURETTAGE 07/2015 [facility] INNER EAR SURGERY PROC UNLISTED Right LAPAROSCOPY W/RMVL ADNEXAL STRUCTURES Bilateral 09/27/2023 BSO for surgical menopause due to breast ca SKIN BIOPSY HX TOTAL THYROID LOBECTOMY UNI W/WO ISTHMUSECTOMY Left 06/16/2016 Family History FAMILY HISTORY Problem Relation Age of Onset Breast Cancer Mother 46 Alcohol/Drug Father ETOH Hypertension Father Stroke Father Psychiatry Brother OCD Prostate Cancer Brother Heart Maternal Grandfather Stroke Maternal Grandfather Colon Cancer Paternal Grandmother Colon Cancer Maternal Aunt Anesthesia Maternal Aunt Colon Cancer Paternal Uncle Patient Allergies ALLERGIES No Known Allergies Current Medications Current Outpatient Medications on File Prior to Visit Medication Sig citalopram (CELEXA) 20 mg tablet Take 1 tablet by mouth once daily. MULTIVITAMIN ORAL 1 capsule. cholecalciferol (VITAMIN D3) 50 mcg (2,000 unit) tablet Take 1 tablet by mouth once daily. anastrozole (ARIMIDEX) 1 mg tablet Take 1 mg by mouth once daily. latanoprost (XALATAN) 0.005 % ophthalmic solution Use 1 Drop in both eyes daily at bedtime. montelukast (SINGULAIR) 10 mg tablet Take 10 mg by mouth daily at bedtime. No current facility-administered medications on file prior to visit. Social History Social History Tobacco Use Smoking status: Never Smokeless tobacco: Never Vaping Use Vaping Use: Never used Substance Use Topics Alcohol use: Yes Comment: OCCASIONALLY BUT NOT WHILE Drug use: No Review of Symptoms REVIEW OF SYSTEMS SEE HPI EXAM: BP 138/73 Pulse 101 Resp 14 Wt 68 kg (150 lb) LMP 01/02/2022 (Approximate) BMI 24.58 kg/m General Appearance: Well appearing, alert, in no acute distress, well-hydrated, well nourished.. Skin: Positives: Rash: raised red blistery rash to face above left eye, bilateral forearms, abdomen. Health Maintenance List Hepatitis B Vaccine(1 of 3 - 19+ 3-dose series) Never done Shingrix Vaccine(1 of 2) Never done Covid-19 Vaccine(2 - 2022- season) due on 07/13/2023 Mammogram Screening due on 08/18/2023 Behavioral Health Screening Never done DTaP,Tdap,Td Vaccine(2 - Td or Tdap) due on 07/15/2024 Pap Testing due on 03/04/2026 HPV Testing due on 03/04/2026 Diabetes Screening due on 08/23/2026 Colorectal Cancer Screening due on 06/04/2028 Lipid Screening due on 08/23/2028 Influenza Vaccine Completed Hepatitis C Screening Completed HIV Screening Completed ASSESSMENT/PLAN: 1. Poison mic dermatitis - ICD9: 692.6, ICD10: L23.7 - Oral Steriod tx -Prednisone taper - discussed skin care of rash - follow up if symptoms persist or worsen. - PREDNISONE 10 MG TABLET Danitza Petersen APRN.RN FAMILY PRACTICE documented in this encounter [facility] 04-03-2024 Telephone encounter Note Patient calls for rash believed to be poison mic. Started on legs and started to go away, now on arms, stomach, neck, chin/face. Requests appointment today. Scheduled. Care advice reviewed. Patient verbalizes understanding. Reason for Disposition Mild widespread rash (Exception: Heat rash lasting 3 days or less.) Answer Assessment - Initial Assessment Questions 1. APPEARANCE of RASH: Red slightly raised areas to neck, chin, stomach, legs. Spreading. Over a week ago. Started going away now spreading. Itchy. Patient believes it to be poison mic. 2. SIZE: Pencil eraser to Dime. 3. LOCATION: Started on Legs, now arms, stomach, neck, chin/face. 4. COLOR: Red 5. ONSET: Week ago 6. FEVER:No 7. ITCHING: Moderate 8. CAUSE: Patient believes it is poison mic. 9. MEDICINE FACTORS: no 10. OTHER SYMPTOMS: No dizziness, headache, sore throat, joint pain Protocols used: Rash or Redness - [id number]-NO [facility] 04-03-2024 Miscellaneous Notes Patient calls for rash believed to be poison mic. Started on legs and started to go away, now on arms, stomach, neck, chin/face. Requests appointment today. Scheduled. Care advice reviewed. Patient verbalizes understanding. Reason for Disposition Mild widespread rash (Exception: Heat rash lasting 3 days or less.) Answer Assessment - Initial Assessment Questions 1. APPEARANCE of RASH: Red slightly raised areas to neck, chin, stomach, legs. Spreading. Over a week ago. Started going away now spreading. Itchy. Patient believes it to be poison mic. 2. SIZE: Pencil eraser to Dime. 3. LOCATION: Started on Legs, now arms, stomach, neck, chin/face. 4. COLOR: Red 5. ONSET: Week ago 6. FEVER:No 7. ITCHING: Moderate 8. CAUSE: Patient believes it is poison mic. 9. MEDICINE FACTORS: no 10. OTHER SYMPTOMS: No dizziness, headache, sore throat, joint pain Protocols used: Rash or Redness - [id number]-YS documented in this encounter [facility] 12-14-2023 Miscellaneous Notes Patient has been identified by name and date of : Yes, Provider Dr. Spangler Date 12/14/23 Time 8:53 Patient phones for refill(s): Requested Prescriptions Pending Prescriptions Disp Refills citalopram (CELEXA) 20 mg tablet 90 tablet 1 Sig: Take 1 tablet by mouth once daily. Date of last office visit in primary care: 08/17/2023 Date of next office visit in primary care: Visit date not found Please advise. Thank you. Paula Laurent LPN. Patient has been identified by name and date of : Yes Requested Prescriptions Pending Prescriptions Disp Refills citalopram (CELEXA) 20 mg tablet 90 tablet 1 Sig: Take 1 tablet by mouth once daily. RX INSTRUCTIONS: Patient aware RX will be sent to pharmacy. No need to notify patient. Linda Singh Pss documented in this encounter [facility] 10-11-2023 History of Presen t illness Narrative DATE OF SERVICE: 10/11/2023 PROBLEM: Regina Barney presents for postop visit. SURGERY & DATE: 09/27/23 BSO PATHOLOGY: benign SUBJECTIVE/INTERVAL HISTORY: Regina Barney reports that she feels well. No fever or chills. No shortness of breath, cough, or chest pain. No incisional redness, swelling, or drainage. Patient reports that her appetite is good. No pain now. Still some spotting. OBJECTIVE: ABDOMEN: Incisions healing well. . ASSESSMENT: Postop check PLAN: 1. Discussed results of pathology and implications with patient. 2. Postop restrictions reviewed. Leila Colunga MD documented in this encounter [facility] 10-02-2023 Miscellaneous Notes Pt reports she received the Zio yesterday in the mail and put it on last night. Pt reports she will have enough time before mammogram to complete the Zio. Alexa Adkins LPN Left a message for pt to call the office and ask to speak to a nurse. Mark Leiva LPN Yes, recommend nurse visit for ZIO to be done AFTER the mammogram please Jake Spangler DO Pt called to let you know she checked with her insurance regarding the Zio Monitor and was told her estimated cost would be $200.00.Pt is okay with this. Pt wants to schedule but has a mammogram and US scheduled for 10/17/23. Please call her and schedule on the nurse visit and instruct if okay to be after mammo and US. Makr Leiva LPN documented in this encounter [facility] 10-01-2023 Miscellaneous Notes Closed before routing back to pcp. Please see message below from pt. Mark Leiva LPN Spoke with pt and information listed below given. Pt verbalizes understanding. Pt also has not received results from lab work of 08-23-23 she could see the labs on my chart had had question regarding the NMR being abnormal and the rest of the labs. Please advise pt. Mark Leiva LPN Left message for patient to call office back. Please give info below to patient, Regarding zio monitor patient will need to call to verify insurance accepted. If insurance accepted will need to call office back and we can 1) make nurse visit to come in for placement or 2) fax order which zio will be mailed to home Kristi Miramontes Ma Please inform patient that her stress testing is overall normal with exception due to ventricular couplets /PVCs with exercise. Would recommend that she considers wearing a 2 week ZIO awake overnight monitor to make sure no electrical/rhythm concerns. Jake Spangler DO documented in this encounter [facility] 09-27-2023 Discharge summary Note Date/Time September 27, 2023 11:19am [facility] Medical Records Department [address] [place] [address] Instructions for Home/Discharge Instructions 09/27/23 1118 MR#: [id number] Acct: [id number] Name: REGINA BARNEY Rep #:[id number] : 1975 48 From: Leila Colunga MD PCP: Dr. Jake Spangler DO Status:[facility] Discharge Instructions Diet Discharge Diet: No restrictions Activity Return to work on:: 10/02/23 May shower in (days): 1 May resume sexual activity in: 1 week Dressing / Incision Call your doctor if your incision/area has: Sudden Increased Bleeding and Foul Smelling Discharge Call your doctor if you observe: Fever of 101 or Higher Cleanse incision/area with: Soap & Water (Your incisions have skin glue and it can get wet. Leave on until it falls off) Follow Up Care Please Follow Up With: Leila Colunga MD When: In my office or virtual visit in 1-2 weeks or as needed or send a [employer]it[employer] message for nonurgent inquiries Test Results: Test results from this visit will be discussed in further detail at your follow-up appointment, if applicable. Discharge Plan Admission Primary Reason for Your Visit: Laparoscopic bilateral salpingoophorectomy Attending Provider: Leila Colunga Primary Care Provider: Jake Spangler Discharge Orders/Prescriptions Prescriptions: New naproxen 375 mg tablet 375 mg PO TID PRN (Reason: pain) 20 Days Qty: 30 0RF No Action citalopram 20 mg tablet 20 mg PO DAILY latanoprost 0.005 % drops 1 drp ophthalmic (eye) QPM Patient Comments: each eye cholecalciferol (vitamin D3) [Vitamin D3] 1,000 UNIT tablet 2,000 unit PO DAILY Patient Comments: supplement montelukast [Singulair] 10 mg tablet 10 mg PO PRN anastrozole 1 mg tablet See Rx Instructions .ROUTE .COMPLEX Qty: 30 2RF Dose Instruction: TAKE 1 TABLET BY MOUTH EVERY DAY Rx Instructions: TAKE 1 TABLET BY MOUTH EVERY DAY Referrals / Follow Up: Jake Spangler DO [Primary Care Provider] - Disposition Disposition (needs filled in before D/C Order can be placed): Home, Self Care 09/27/23 1119<Electronically signed by Leila Colunga MD>Leila Colunga MD CC: Dr. Jake Spangler DO ~ Signed [facility] Work Phone: 1(771) 543-588211-16-2023 Procedure [facility] 09-27-2023 History and physical note Author Leila Colunga [facility] September 27, 2023 7:37am Note Date/Time September 25, 2023 5:25pm [facility] Medical Records Department [address] [place] [address] History & Physical Exam 09/25/23 1724 MR#: [id number] Acct: [id number] Name: ECTORREGINA M Rep #:[id number] : 1975 48 From: Leila Colunga MD PCP: Dr. Jake Spangler, DO Status: [facility] [place] Location: [place] [address] History and Physical Date of Admission: 09/27/23 HPI: The patient is a 48 year old female presenting for pre-operative visit. She is scheduled for laparoscopic bilateral salpingoophorectomy, for need for surgical menopause, estrogen positive breast cancer on 09/27/23. Procedure discussed along with risks, benefits and complications. Other alternatives discussed for management. Consent form signed? Yes. PAST MEDICAL HISTORY Diagnosis Date ? Bilateral knee pain ? Breast cancer (HCC) 09/2022 ? Cancer (HCC) ? Cyst of right kidney 08/12/2016 ? Dysthymic disorder 11/12/1996 SITUATIONAL Depression (non-psychotic) ? Environmental allergies ? Glaucoma [facility] ? Infertility, female ? Left thyroid nodule ? Multinodular goiter (nontoxic) 05/24/2016 ? Urinary tract infection, site not specified 2725-1806 Recurrent UTI's ? Vitamin D deficiency PAST SURGICAL HISTORY Procedure Laterality Date ? BREAST LUMPECTOMY HX Left 09/2022 ? BREAST SURGERY HX ? DELIVERY ONLY 2013 , low transverse ? COLONOSCOPY N/A 11/09/2016 ? CURETTAGE 07/2015 ? [facility] ? INNER EAR SURGERY PROC UNLISTED Right ? SKIN BIOPSY HX ? TOTAL THYROID LOBECTOMY UNI W/WO ISTHMUSECTOMY Left 06/16/2016 Current Outpatient Medications Medication Sig Dispense Refill ? MULTIVITAMIN ORAL 1 capsule. ? cholecalciferol (VITAMIN D3) 50 mcg (2,000 unit) tablet Take 1 tablet by mouth once daily. 90 tablet 3 ? anastrozole (ARIMIDEX) 1 mg tablet Take 1 mg by mouth once daily. ? citalopram (CELEXA) 20 mg tablet Take 1 tablet by mouth once daily. 90 tablet 1 ? latanoprost (XALATAN) 0.005 % ophthalmic solution Use 1 Drop in both eyes daily at bedtime. ? montelukast (SINGULAIR) 10 mg tablet Take 10 mg by mouth daily at bedtime. No current facility-administered medications for this visit. ALLERGIES: Seasonal Allergies PERSONAL HISTORY: Social History Tobacco Use ? Smoking status: Never ? Smokeless tobacco: Never Vaping Use ? Vaping Use: Never used Substance Use Topics ? Alcohol use: Yes Comment: OCCASIONALLY BUT NOT WHILE ? Drug use: No FAMILY HISTORY: FAMILY HISTORY Problem Relation Age of Onset ? Breast Cancer Mother 46 ? Alcohol/Drug Father ETOH ? Hypertension Father ? Stroke Father ? Psychiatry Brother OCD ? Prostate Cancer Brother ? Heart Maternal Grandfather ? Stroke Maternal Grandfather ? Colon Cancer Paternal Grandmother ? Colon Cancer Maternal Aunt ? Anesthesia Maternal Aunt ? Colon Cancer Paternal Uncle REVIEW OF SYMPTOMS: GENERAL: denies fevers or chills ENDOCRINOLOGY: has not been on steroids Cardiology : denies palpitations or chest pain Respiratory: denies SOB or cough Hematology: denies history of prolonged bleeding or easy bruising or VTE Allergy: Denies history of personal or family history of allergy to anesthesia PHYSICAL EXAMINATION: VITALS: Blood pressure 108/62, pulse 71, resp. rate 16, height 5' 5.5 (1.664 m), weight 152 lb (68.9 kg), last menstrual period 01/02/2022, SpO2 99 %. GENERAL: The patient is well nourished, well hydrated in no acute distress. , The patient is oriented to time, place, and person. NECK: Supple. No lynphadenopathy, normal thyroid, no thyromegaly. LUNGS: Clear to auscultation bilaterally. no wheezes, rhonchi or rales HEART: Regular rate and rhythm, Normal heart sounds, and No murmurs or gallops IMPRESSION: need for surgical menopause, estrogen + breast ca PLAN: The risks/benefits/alternatives and personal involved for the planned laparoscopic bilateral salpingoohorectomy were reviewed with the patient. Her questions were answered to her satisfaction and she desires to proceed. Consentwas signed. I reviewed with her postop instructions and expectations. I have reviewed and updated past medical and surgical history, medications and allergies 09/25/23 1724 <Electronically signed by Leila Colunga MD> Cosigner Signature (if applicable): CC: Dr. Jake Spangler DO; Dr. Leila Colunga MD~ Signed ADDENDUM by Dr. Leila Colunga MD on 09/27/23 at 0737 Addendum I have examined the patient and the H&P has been reviewed. There are no clinicalchanges since date of exam. 09/27/23 0737<Electronically signed by Leila Colunga MD> Cosigner Signature (if applicable): cc: Dr. Jake Spangler, DO; Dr. Leila Colunga MD ~* Signed [facility] Work Phone: 1(585) [phone] History and physical note* Leila Colunga MD - 09/25/2023 4:23 PM EST Pre-Op History and Physical HPI: The patient is a 48 year old female presenting for pre-operative visit. She is scheduled for laparoscopic bilateral salpingoophorectomy, for need for surgical menopause, estrogen positive breast cancer on 09/27/23. Procedure discussed along with risks, benefits and complications. Other alternatives discussed for management. Consent form signed? Yes. PAST MEDICAL HISTORY Diagnosis Date Bilateral knee pain Breast cancer (HCC) 09/2022 Cancer (HCC) Cyst of right kidney 08/12/2016 Dysthymic disorder 11/12/1996 SITUATIONAL Depression (non-psychotic) Environmental allergies Glaucoma [facility] Infertility, female Left thyroid nodule Multinodular goiter (nontoxic) 05/24/2016 Urinary tract infection, site not specified 1506-5201 Recurrent UTI's Vitamin D deficiency PAST SURGICAL HISTORY Procedure Laterality Date BREAST LUMPECTOMY HX Left 09/2022 BREAST SURGERY HX DELIVERY ONLY 2013 , low transverse COLONOSCOPY N/A 11/09/2016 CURETTAGE 07/2015 [facility] INNER EAR SURGERY PROC UNLISTED Right SKIN BIOPSY HX TOTAL THYROID LOBECTOMY UNI W/WO ISTHMUSECTOMY Left 06/16/2016 Current Outpatient Medications Medication Sig Dispense Refill MULTIVITAMIN ORAL 1 capsule. cholecalciferol (VITAMIN D3) 50 mcg (2,000 unit) tablet Take 1 tablet by mouth once daily. 90 tablet 3 anastrozole (ARIMIDEX) 1 mg tablet Take 1 mg by mouth once daily. citalopram (CELEXA) 20 mg tablet Take 1 tablet by mouth once daily. 90 tablet 1 latanoprost (XALATAN) 0.005 % ophthalmic solution Use 1 Drop in both eyes daily at bedtime. montelukast (SINGULAIR) 10 mg tablet Take 10 mg by mouth daily at bedtime. No current facility-administered medications for this visit. ALLERGIES: Seasonal Allergies PERSONAL HISTORY: Social History Tobacco Use Smoking status: Never Smokeless tobacco: Never Vaping Use Vaping Use: Never used Substance Use Topics Alcohol use: Yes Comment: OCCASIONALLY BUT NOT WHILE Drug use: No FAMILY HISTORY: FAMILY HISTORY Problem Relation Age of Onset Breast Cancer Mother 46 Alcohol/Drug Father ETOH Hypertension Father Stroke Father Psychiatry Brother OCD Prostate Cancer Brother Heart Maternal Grandfather Stroke Maternal Grandfather Colon Cancer Paternal Grandmother Colon Cancer Maternal Aunt Anesthesia Maternal Aunt Colon Cancer Paternal Uncle REVIEW OF SYMPTOMS: GENERAL: denies fevers or chills ENDOCRINOLOGY: has not been on steroids Cardiology : denies palpitations or chest pain Respiratory: denies SOB or cough Hematology: denies history of prolonged bleeding or easy bruising or VTE Allergy: Denies history of personal or family history of allergy to anesthesia PHYSICAL EXAMINATION: VITALS: Blood pressure 108/62, pulse 71, resp. rate 16, height 5' 5.5 (1.664 m), weight 152 lb (68.9 kg), last menstrual period 01/02/2022, SpO2 99 %. GENERAL: The patient is well nourished, well hydrated in no acute distress. , The patient is oriented to time, place, and person. NECK: Supple. No lynphadenopathy, normal thyroid, no thyromegaly. LUNGS: Clear to auscultation bilaterally. no wheezes, rhonchi or rales HEART: Regular rate and rhythm, Normal heart sounds, and No murmurs or gallops IMPRESSION: need for surgical menopause, estrogen + breast ca PLAN: The risks/benefits/alternatives and personal involved for the planned laparoscopic bilateral salpingoohorectomy were reviewed with the patient. Her questions were answered to her satisfaction and she desires to proceed. Consent was signed. I reviewed with her postop instructions and expectations. I have reviewed and updated past medical and surgical history, medications and allergies Leila Colunga M.D. [facility] of Present illness Narrative* Jake Spangler, - 08/23/2023 11:07 AM EDT CC: Regina Barney is a 48 year old female who presents to the office for physical HPI: Overall she feels she is doing well. She was diagnosed with breast cancer in the past 1 year. She has been managed by the surgeon Dr. Grant as well as the Oncologist locally. She feels that she has had good care. Only needed 3-4 chemotherapy treatments. Was found at likely stage 1, chemo given for precaution due to the type of breast cancer isolated with surgery. She is also done with radiation therapy. Feels she still has some fatigue and joint and muscle aches in pains. Is taking Arimidex as prescribed. Thyroid nodule hx, hasn't had recent US thyroid, no recent changes in symptoms. Mood, stable, taking Celexa as prescribed, no concerns Does get some shortness of breath with exertion and heart palpitations/flutters. No known hx of CADor heart failure. Hasn't had recent cardiac testing. No syncope symptoms or dizziness/Lh or headaches that are new. PAST MEDICAL HISTORY Diagnosis Date Bilateral knee pain Breast cancer (HCC) 09/2022 Cancer (HCC) Cyst of right kidney 08/12/2016 Dysthymic disorder 11/12/1996 SITUATIONAL Depression (non-psychotic) Environmental allergies Glaucoma [facility] Infertility, female Left thyroid nodule Multinodular goiter (nontoxic) 05/24/2016 Urinary tract infection, site not specified 1409-4617 Recurrent UTI's Vitamin D deficiency PAST SURGICAL HISTORY Procedure Laterality Date BREAST LUMPECTOMY HX Left 09/2022 BREAST SURGERY HX DELIVERY ONLY 2013 , low transverse COLONOSCOPY N/A 11/09/2016 CURETTAGE 07/2015 [facility]GERY PROC UNLISTED Right SKIN BIOPSY HX TOTAL THYROID LOBECTOMY UNI W/WO ISTHMUSECTOMY Left 06/16/2016 Social History: Social History Tobacco Use Smoking status: Never Smokeless tobacco: Never Vaping Use Vaping Use: Never used Substance Use Topics Alcohol use: Yes Comment: OCCASIONALLY BUT NOT WHILE Drug use: No FAMILY HISTORY Problem Relation Age of Onset Breast Cancer Mother 46 Alcohol/Drug Father ETOH Hypertension Father Stroke Father Psychiatry Brother OCD Prostate Cancer Brother Heart Maternal Grandfather Stroke Maternal Grandfather Colon Cancer Paternal Grandmother Colon Cancer Maternal Aunt Anesthesia Maternal Aunt Colon Cancer Paternal Uncle Current Outpatient prescriptions: anastrozole (ARIMIDEX) 1 mg tablet Take 1 mg by mouth once daily. cholecalciferol (VITAMIN D3) 50 mcg (2,000 unit) tablet Take 1 tablet by mouth once daily. citalopram (CELEXA) 20 mg tablet Take 1 tablet by mouth once daily. latanoprost (XALATAN) 0.005 % ophthalmic solution Use 1 Drop in both eyes daily at bedtime. montelukast (SINGULAIR) 10 mg tablet Take 10 mg by mouth daily at bedtime. MULTIVITAMIN ORAL 1 capsule. Allergies: ALLERGIES Allergen Reactions Seasonal Allergies Other: See Comments SNEEZING, RUNNY NOSE ROS: See HPI PE: 08/17/23 1209 BP: 120/66 Pulse: 75 Resp: 16 Temp: 36.4 C (97.6 F) TempSrc: Temporal SpO2: 99% Weight: 69.5 kg (153 lb 1.9 oz) Height: 170.5 cm (5' 7.13) Gen: A&O, NAD, non-toxic appearing, Pleasant, cooperative HEENT: NT/AC, PERRLA, EOMs intact b/l, nares clear and patent b/l, pharynx without erythema, exudate or lesions. Uvula midline. EACs without erythema or debris. TMs pearly galindo with intact landmarks b/l. Neck: supple, No cervical LAD, no thyromegaly, no carotid bruits CV: RRR, normal S1 and S2, no murmurs, no gallops, no rubs, Pulses 2+ and symmetric in UE and LE b/l Lungs: normal respiratory effort, CTA b/l, no wheezing or rhonchi or rales Abd: soft, NT, ND, +BS, no hepatosplenomegaly MS: FROM all 4 extremities Neuro: CN II-XII intact b/l, strength 5/5 b/l UE and LE, DTRs 2/4 UE and LE, sensation intact. Skin: warm, dry, intact, No rashes or lesions on exposed skin. No edema, normal pulses ASSESSMENT/PLAN: 1. Need for influenza vaccination - ICD9: V04.81, ICD10: Z23 (primary diagnosis) - INFLUENZA VACCINE, AGE 6 MO - 64 YR, QUADRIVALENT (AFLURIA, FLULAVAL, FLUZONE) 2. Well adult exam - ICD9: V70.0, ICD10: Z00.00 - Counseled on healthy diet and regular exercise - Calcium intake with supplements or by diet of 1000 mg/day for under 50, 1200- 1500 mg/day for 50+ - Discussed need and benefit for weight loss. BMI 23.89 kg/(m^2) - VITAMIN B12 BLOOD - VITAMIN D 25 HYDROXY - CBC + DIFF - COMP METABOLIC PANEL - LIPID PANEL BASIC - HGB A1C - NMR LIPOPROTEIN PROFILE 3. Vitamin D deficiency - ICD9: 268.9, ICD10: E55.9 Continue supplement, recheck labs - VITAMIN D 25 HYDROXY 4. Fatigue, unspecified type - ICD9: 780.79, ICD10: R53.83 Recheck labs. - VITAMIN B12 BLOOD - VITAMIN D 25 HYDROXY - CBC + DIFF - COMP METABOLIC PANEL 5. Multinodular goiter (nontoxic) - ICD9: 241.1, ICD10: E04.2 Check thyroid US and labs as ordered. - US THYROID/PARATHYROID - TSH BLD - T4 FREE/FREE THYROX - T3 FREE BLD 6. BOO (dyspnea on exertion) - ICD9: 786.09, ICD10: R06.09 Need for cardiac testing. Is menopausal now and has had cardiac equivalent symptoms and has risk with fam hx of CAD. She has also had CHEMO for breast Cancer - ECHO - PERFLUTREN LIPID MICROSPHERES 1.1 MG/ML INJECTION IN NS 10 ML - SODIUM CHLORIDE 0.9 % (FLUSH) INJECTION SYRINGE - EXERCISE STRESS ECG (WITHOUT IMAGING) - ECG COMPLETE - SPIROMETRY - BASELINE AND POST DILATOR 7. Palpitations - ICD9: 785.1, ICD10: R00.2 Need for cardiac testing. Is menopausal now and has had cardiac equivalent symptoms and has risk with fam hx of CAD. She has also had CHEMO for breast Cancer - ECHO - PERFLUTREN LIPID MICROSPHERES 1.1 MG/ML INJECTION IN NS 10 ML - SODIUM CHLORIDE 0.9 % (FLUSH) INJECTION SYRINGE - EXERCISE STRESS ECG (WITHOUT IMAGING) - ECG COMPLETE 8. Dyslipidemia - ICD9: 272.4, ICD10: E78.5 - Control undetermined, due for labs - Counseled on healthy diet and regular exercise - Discussed need for and benefit of weight loss. BMI 23.89 kg/(m^2) - Need for cardiac testing. Is menopausal now and has had cardiac equivalent symptoms and has risk with fam hx of CAD. She has also had CHEMO for breast Cancer - NMR LIPOPROTEIN PROFILE 9. Need for hepatitis B screening test - ICD9: V73.89, ICD10: Z11.59 - HEP B SURF AB 10. History of chemotherapy - ICD9: V87.41, ICD10: Z92.21 11. History of breast cancer in female - ICD9: V10.3, ICD10: Z85.3 Jake Spangler DO To ER if develops chest pain, shortness of breath, or severe worsening of symptoms. Discussed risks, benefits, alternatives, and potential side effects of medications. Patient expressed understanding and agreed with the plan. Jake Spangler DO [address] [place] [address] documented in this encounterOhio [facility]10-12-2023 Miscellaneous Notes* Telephone Encounter - Leila Colunga MD - 08/23/2023 11:03 AM EDT yes documented in this encounterOhio State [facility] Hospital10-12-2023 History of Present illness Narrative* Gisel Sharma RDMS - 08/23/2023 9:15 AM EDT Radiology Service Progress Note PATIENT NAME: Regina Barney DATE OF SERVICE: August 23, 2023 TIME: 9:04 AM PATIENT IDENTITY VERIFICATION COMPLETED USING TWO (2) IDENTIFIERS: Name and Date of confirmedby patient verbally. FALL SCREENING: Has the patient had 2 falls in the last year or 1 fall with injury or currently using an Ambulatory Assistive Device (Walker, Cane, Wheelchair, Crutches, etc.)? No PATIENT GENDER DATA: Female. status: : No status: NO. PATIENT RELEVANT IMPLANT DATA REVIEWED: Not Applicable RADIOLOGY DEPARTMENT: Ultrasound PERIPHERAL IV DATA: Not applicable SIGNED BY: Gisel Sharma RDMS August 23, 2023 9:04 AM documented in this encounterOhio State East Hospital10-12-2023 History of Present illness Narrative* Florecita Paulino RPFT - 08/23/2023 8:23 AM EDT PULM FUNCTION SMARTBLOCK: Provider: Jake Spangler DO Assisting Tech: Florecita Paulino RPFT Spirometry w/BD: 1 documented in this encounterOhio State [facility] Hospital10-11-2023 History of Present illness Narrative* Leila Colunga MD - 08/22/2023 8:40 AM EDT Regina is a 48 year old who presents for an annual gynecologic exam without complaints. Has had breast cancer and completed treatment but now on lupron and arimidex. No hot flashes or vaginal dryness Menses: n/a. Contraception: none HPV vaccine: No Last Pap: 03/09/2021 normal HPV: 03/08/2021 negative History of abnormal pap: No Last mammogram: never Sexually active: Yes OB History T1 L1 SAB4 IAB0 Ectopic0 Multiple0 Live Births1 Comment: #4 RR, WC, Jaquelin [employer] History LMP: 01/02/2022 (Approximate), Premenopausal Age at Menarche: Age at First : Age at Menopause: Condomin[employer] History Comments: Sexual Activity: Yes; Male Contraception: No contraception data on record PAST MEDICAL HISTORY Diagnosis Date Bilateral knee pain Breast cancer (HCC) 09/2022 Cancer (HCC) Cyst of right kidney 08/12/2016 Dysthymic disorder 11/12/1996 SITUATIONAL Depression (non-psychotic) Environmental allergies Glaucoma [facility] Infertility, female Left thyroid nodule Multinodular goiter (nontoxic) 05/24/2016 Urinary tract infection, site not specified [id number] Recurrent UTI's Vitamin D deficiency PAST SURGICAL HISTORY Procedure Laterality Date ABDOMINAL SURGERY HX BREAST LUMPECTOMY HX Left 09/2022 BREAST SURGERY HX DELIVERY ONLY 2013 , low transverse COLONOSCOPY N/A 11/09/2016 CURETTAGE 07/2015 [facility] INNER EAR SURGERY PROC UNLISTED Right SKIN BIOPSY HX TOTAL THYROID LOBECTOMY UNI W/WO ISTHMUSECTOMY Left 06/16/2016 FAMILY HISTORY Problem Relation Age of Onset Breast Cancer Mother 46 Alcohol/Drug Father ETOH Hypertension Father Stroke Father Psychiatry Brother OCD Prostate Cancer Brother Heart Maternal Grandfather Stroke Maternal Grandfather Colon Cancer Paternal Grandmother Colon Cancer Maternal Aunt Anesthesia Maternal Aunt Colon Cancer Paternal Uncle SOCIAL HISTORY Social History Tobacco Use Smoking status: Never Smokeless tobacco: Never Vaping Use Vaping Use: Never used Substance Use Topics Alcohol use: Yes Comment: OCCASIONALLY BUT NOT WHILE Drug use: No REVIEW OF SYSTEMS Abdomen: No abdominal pain, nausea, vomiting, diarrhea, or constipation. No bloating, early satiety, indigestion, or increased flatulence. Bladder: No dysuria, gross hematuria, urinary frequency, urinary urgency, or incontinence. Breast: No breast lumps, nipple d/c, overlying skin changes, redness or skin retraction. Allergies and current medication updated:Yes EXAM: BP 106/62 Ht 5' 6 (1.68m) Wt 152 lb (68.9kg) LMP 01/02/2022 BMI 24.55 kg/(m^2). GENERAL: pleasant, female in no apparent distress HEENT: Normocephalic, atraumatic, mucus membranes moist, and no lesions NECK: Supple, full range of motion, no adenopathy, and thyroid normal DERMATOLOGY: Normal, without lesions, non-icteric, and non-hirsute BREAST: soft, non-tender, no dominant mass, normal nipple-areolar complex, no lymphadenopathy, and no nipple discharge, scarring on left breast noted CHEST: Normal inspiratory effort ABDOMEN: soft, non-tender, and no masses PELVIC: external genitalia normal, normal Bartholin's glands, urethra, Dunstan's glands, no vulvar lesions, no cervical lesions, good vaginal support, physiologic discharge present, normal appearing perineal body and perianal region BIMANUAL: uterus normal size, shape and consistency, no adnexal masses, and non-tender RECTOVAGINAL: deferred. NEURO: alert and oriented x3,exam grossly non-focal EXTREMITIES: normal ASSESSMENT/PLAN: 1) Health maintenance: Pap/HPV up to date. Mammogram up to date . dW her symptomatic measures for atrophic vaginitis, [place] 2) Contraception: none. Contraceptive options reviewed and information provided. 3) STD screening: Declined STD check. 4) Follow up one year or sooner as needed r/b/a to laparoscopic BSO reviewed due to breast ca and need for surgical menopause. Leila Colunga MD documented in this encounterOhio State East Hospital07-24-2023 Nurse Note* Lizzy Holder RN - 06/04/2023 12:43 PM EDT Patient arrived laying on left side. Patient does not appear to be in any pain at this time and denies pain when asked. Abdomen appears to be nondistended and soft to palpation. Patient encouraged tobelch and pass gas as needed. documented in this encounterOhio State East Hospital07-24-2023 History and physical note * Lupillo Thorpe MD - 06/04/2023 11:30 AM EDT This is a 48 year old female who presents today with: Patient presents with: Acute Visit: abdominal issues HISTORY OF PRESENT ILLNESS: Regina Barney is a 48 year old female. Patient presents with: Acute Visit: abdominal issues Patient of Dr. Spangler, here in the office for abdominal bloating/gas. Started 1 month ago. Refersshe was having some constipation, was only having small Bm's. Trying to drink more water. Started metamucil. Refers that when she doesn't eat she will feel okay. No N/V/D. Colonoscopy: Due at this time, scheduled later this month. PAST MEDICAL HISTORY: PAST MEDICAL HISTORY PAST MEDICAL HISTORY Diagnosis Date Bilateral knee pain Cyst of right kidney 08/2016 Dysthymic disorder 1996 SITUATIONAL Depression (non-psychotic) Environmental allergies Glaucoma [facility] Infertility, female Left thyroid nodule Multinodular goiter (nontoxic) 05/24/2016 Urinary tract infection, site not specified [id number] Recurrent UTI's Vitamin D deficiency PAST SURGICAL HISTORY PAST SURGICAL HISTORY Procedure Laterality Date DELIVERY ONLY 2013 , low transverse COLONOSCOPY N/A 11/09/2016 CURETTAGE 07/2015 [facility] [facility] PROC UNLISTED Right TOTAL THYROID LOBECTOMY UNI W/WO ISTHMUSECTOMY Left 06/16/2016 ALLERGIES Seasonal Allergies MEDICATIONS CURRENT MEDICATIONS Current Outpatient Medications Medication Sig citalopram (CELEXA) 20 mg tablet TAKE 1 TABLET BY MOUTH EVERY DAY cholecalciferol (VITAMIN D3) 50 mcg (2,000 unit) tablet Take 1 tablet by mouth once daily. clobetasol (TEMOVATE) 0.05 % ointment Apply 1 application to affected area as directed. apply a pea-sized amount to vulvar area tid x 3 weeks, bid x 3 weeks, every other day x 3 weeks, then twice weekly latanoprost (XALATAN) 0.005 % ophthalmic solution 1 Drop daily at bedtime. estradiol (ESTRACE) 0.01 % (0.1 mg/gram) vaginal cream Apply pea-sized amount to perineum and 1 applicator vaginally Mon, Wed, Fri for atrophic vaginitis. montelukast (SINGULAIR) 10 mg tablet Take 10 mg by mouth daily at bedtime. CALCIUM CARBONATE/VITAMIN D3 (VITAMIN D-3 ORAL) Take by mouth once daily. No current facility-administered medications for this visit. FAMILY HISTORY FAMILY HISTORY Problem Relation Age of Onset Breast Cancer Mother 46 Alcohol/Drug Father ETOH Hypertension Father Stroke Father Psychiatry Brother OCD Prostate Cancer Brother Heart Maternal Grandfather Stroke Maternal Grandfather Colon Cancer Paternal Grandmother Colon Cancer Maternal Aunt Anesthesia Maternal Aunt Colon Cancer Paternal Uncle SOCIAL HISTORY Social History Tobacco Use Smoking status: Never Smokeless tobacco: Never Vaping Use Vaping Use: Never used Substance Use Topics Alcohol use: Yes Comment: OCCASIONALLY BUT NOT WHILE Drug use: No REVIEW OF SYSTEMS GENERAL: No weight loss, malaise or fevers/chills HEENT: Negative for frequent or significant headaches, No changes in hearing or vision. NECK: Negative for lumps, goiter, pain and significant neck swelling RESPIRATORY: Negative for cough, hemoptysis, wheezing, dyspnea or shortness of breath CARDIOVASCULAR: Negative for chest pain, leg swelling, orthopnea, or palpitations GI: + Bloating/Constipation : No history of dysuria, frequency or incontinence MUSCULOSKELETAL: Negative for joint pain or swelling. SKIN: Negative for lesions, rash, and itching ENDOCRINE: Negative for cold or heat intolerance, polyuria, polydipsia and goiter NEURO: No history of headaches, syncope, paralysis, seizures or tremors MOOD: Negative for depression, anxiety, or suicidal ideation. EXAM: BP 98/70 Pulse 71 Resp 16 Wt 67.6 kg (149 lb) LMP 01/02/2022 (Approximate) SpO2 97% BMI23.95 kg/m PHYSICAL EXAM: General Appearance: Well appearing, alert, in no acute distress, well-hydrated, well nourished. Skin: Skin color, texture, turgor normal, no suspicious rashes or lesions. Head: Normocephalic, no masses, lesions, tenderness or abnormalities. Eyes: Anicteric sclera. Extraocular movements are intact. Lungs: Lungs clear to auscultation. No wheezing, rhonchi, rales. Heart: RRR without murmur, gallop, or rubs. No ectopy. Abdomen: Normal abdominal exam, Abdomen soft, non-tender. Bowel sounds normal. No masses, organomegaly, Negative CVA tenderness. Extremities: No deformities, edema, skin discoloration, clubbing or cyanosis. Good capillary refill. Peripheral Pulses: Normal, Capillary refill <2secs, strong peripheral pulses, Pulses palpable. Neurologic: Gait normal. Sensation grossly intact. ASSESSMENT/PLAN: 1. Acute constipation - ICD9: 564.00, ICD10: K59.00 (primary diagnosis) - Based off history and exam symptoms consistent with constipation. - Instructed to increase fiber and water in the diet. - May use MiraLAX 1-2 times per day as needed. - Keep scheduled appt for Colonoscopy. - Recommend keeping a food log with any associated symptoms. 2. Abdominal bloating - ICD9: 787.3, ICD10: R14.0 - Same plan as #1. 3. FAY (generalized anxiety disorder) - ICD9: 300.02, ICD10: F41.1 - Refill provided. - CITALOPRAM 20 MG TABLET 4. Motion sickness, initial encounter - ICD9: 994.6, ICD10: T75.3XXA - RX provided per request, will be traveling this weekend. - SCOPOLAMINE 1 MG OVER 3 DAYS TRANSDERMAL PATCH Follow-up as needed or sooner if symptoms do not improve. Discussed treatment plan and patient voices understanding. Patient's questions answered appropriately. Medications and potential side effects were discussed and patient voices understanding. Tashia Rosales APRN.RN FAMILY PRACTICE UPDATED HISTORY AND PHYSICAL EXAMINATION SERVICE DATE: 06/04/2023 SERVICE TIME: 11:32 AM PHYSICAL EXAM MUST BE COMPLETED ON ADMISSION The History and Physical (completed in the past 30 days) has been reviewed and the patient has beenexamined. The contents accurately reflect the patient's condition with the following additions or revisions since the H&P was completed. Examination indicates no changes. This H&P can be found in the attached. SIGNATURE: Lupillo Thorpe III, MD PATIENT NAME: Regina Barney DATE: June 04, 2023 TIME: 11:32 AM documented in this encounterOhio State [facility] Hospital07-03-2023 Instructions* Patient Instructions* Tashia Rosales APRN.CNP - 05/14/2023 8:44 AM EDT Increase water and fiber in the diet. May use Miralax 1-2 times per day as needed for constipation. Recommend keeping a food log with any associated symptoms. Keep scheduled appointment for colonoscopy Follow up if no improvement. documented in this encounterOhio [facility]07-03-2023 History of Present illness Narrative* Tashia Rosales APRN.CNP - 05/14/2023 8:20 AM EDT This is a 48 year old female who presents today with: Patient presents with: Acute Visit: abdominal issues HISTORY OF PRESENT ILLNESS: Regina Barney is a 48 year old female. Patient presents with: Acute Visit: abdominal issues Patient of Dr. Spangler, here in the office for abdominal bloating/gas. Started 1 month ago. Refersshe was having some constipation, was only having small Bm's. Trying to drink more water. Started metamucil. Refers that when she doesn't eat she will feel okay. No N/V/D. Colonoscopy: Due at this time, scheduled later this month. PAST MEDICAL HISTORY: PAST MEDICAL HISTORY Diagnosis Date Bilateral knee pain Cyst of right kidney 08/2016 Dysthymic disorder 1996 SITUATIONAL Depression (non-psychotic) Environmental allergies Glaucoma [facility] Infertility, female Left thyroid nodule Multinodular goiter (nontoxic) 05/24/2016 Urinary tract infection, site not specified [id number] Recurrent UTI's Vitamin D deficiency PAST SURGICAL HISTORY Procedure Laterality Date DELIVERY ONLY 2013 , low transverse COLONOSCOPY N/A 11/09/2016 CURETTAGE 07/2015 [facility] INNER EAR SURGERY PROC UNLISTED Right TOTAL THYROID LOBECTOMY UNI W/WO ISTHMUSECTOMY Left 06/16/2016 ALLERGIES Seasonal Allergies MEDICATIONS Current Outpatient Medications Medication Sig citalopram (CELEXA) 20 mg tablet TAKE 1 TABLET BY MOUTH EVERY DAY cholecalciferol (VITAMIN D3) 50 mcg (2,000 unit) tablet Take 1 tablet by mouth once daily. clobetasol (TEMOVATE) 0.05 % ointment Apply 1 application to affected area as directed. apply a pea-sized amount to vulvar area tid x 3 weeks, bid x 3 weeks, every other day x 3 weeks, then twice weekly latanoprost (XALATAN) 0.005 % ophthalmic solution 1 Drop daily at bedtime. estradiol (ESTRACE) 0.01 % (0.1 mg/gram) vaginal cream Apply pea-sized amount to perineum and 1 applicator vaginally Mon, Wed, Fri for atrophic vaginitis. montelukast (SINGULAIR) 10 mg tablet Take 10 mg by mouth daily at bedtime. CALCIUM CARBONATE/VITAMIN D3 (VITAMIN D-3 ORAL) Take by mouth once daily. No current facility-administered medications for this visit. FAMILY HISTORY Problem Relation Age of Onset Breast Cancer Mother 46 Alcohol/Drug Father ETOH Hypertension Father Stroke Father Psychiatry Brother OCD Prostate Cancer Brother Heart Maternal Grandfather Stroke Maternal Grandfather Colon Cancer Paternal Grandmother Colon Cancer Maternal Aunt Anesthesia Maternal Aunt Colon Cancer Paternal Uncle Social History Tobacco Use Smoking status: Never Smokeless tobacco: Never Vaping Use Vaping Use: Never used Substance Use Topics Alcohol use: Yes Comment: OCCASIONALLY BUT NOT WHILE Drug use: No REVIEW OF SYSTEMS GENERAL: No weight loss, malaise or fevers/chills HEENT: Negative for frequent or significant headaches, No changes in hearing or vision. NECK: Negative for lumps, goiter, pain and significant neck swelling RESPIRATORY: Negative for cough, hemoptysis, wheezing, dyspnea or shortness of breath CARDIOVASCULAR: Negative for chest pain, leg swelling, orthopnea, or palpitations GI: + Bloating/Constipation : No history of dysuria, frequency or incontinence MUSCULOSKELETAL: Negative for joint pain or swelling. SKIN: Negative for lesions, rash, and itching ENDOCRINE: Negative for cold or heat intolerance, polyuria, polydipsia and goiter NEURO: No history of headaches, syncope, paralysis, seizures or tremors MOOD: Negative for depression, anxiety, or suicidal ideation. EXAM: BP 98/70 Pulse 71 Resp 16 Wt 67.6 kg (149 lb) LMP 01/02/2022 (Approximate) SpO2 97% BMI23.95 kg/m PHYSICAL EXAM: General Appearance: Well appearing, alert, in no acute distress, well-hydrated, well nourished. Skin: Skin color, texture, turgor normal, no suspicious rashes or lesions. Head: Normocephalic, no masses, lesions, tenderness or abnormalities. Eyes: Anicteric sclera. Extraocular movements are intact. Lungs: Lungs clear to auscultation. No wheezing, rhonchi, rales. Heart: RRR without murmur, gallop, or rubs. No ectopy. Abdomen: Normal abdominal exam, Abdomen soft, non-tender. Bowel sounds normal. No masses, organomegaly, Negative CVA tenderness. Extremities: No deformities, edema, skin discoloration, clubbing or cyanosis. Good capillary refill. Peripheral Pulses: Normal, Capillary refill <2secs, strong peripheral pulses, Pulses palpable. Neurologic: Gait normal. Sensation grossly intact. ASSESSMENT/PLAN: 1. Acute constipation - ICD9: 564.00, ICD10: K59.00 (primary diagnosis) - Based off history and exam symptoms consistent with constipation. - Instructed to increase fiber and water in the diet. - May use MiraLAX 1-2 times per day as needed. - Keep scheduled appt for Colonoscopy. - Recommend keeping a food log with any associated symptoms. 2. Abdominal bloating - ICD9: 787.3, ICD10: R14.0 - Same plan as #1. 3. FAY (generalized anxiety disorder) - ICD9: 300.02, ICD10: F41.1 - Refill provided. - CITALOPRAM 20 MG TABLET 4. Motion sickness, initial encounter - ICD9: 994.6, ICD10: T75.3XXA - RX provided per request, will be traveling this weekend. - SCOPOLAMINE 1 MG OVER 3 DAYS TRANSDERMAL PATCH Follow-up as needed or sooner if symptoms do not improve. Discussed treatment plan and patient voices understanding. Patient's questions answered appropriately. Medications and potential side effects were discussed and patient voices understanding. Tashia Rosales APRN.CNP This note was partially generated using [employer] voice recognition system. Note was reviewed for accuracy. There may be minor misspellings or grammar miscues with [employer] voice recognition. documented in this encounterOhio State East Hospital02-02-[address] Grant [facility] December 14, 2022 2:35pm Note Date/Time December 14, 2022 1 :15pm [facility] Medical Records Department [address] [place] [address] Instructions for Home/Discharge Instructions 12/14/22 1314 MR#: [id number] Acct: [id number] Name: REGINA BARNEY Rep #:[id number] : 1975 47 From: Yves Grant MD PCP: Dr. Jake Spangler, DO Status:RE G [facility] Discharge Instructions Procedure Port-A-Cath Diet Discharge Diet: No restrictions (Pain medication may cause nausea. You should typically eat light foods as you take your pain medication.) Activity Discharge Activity: Return to Normal Activity and May Shower (Leave the bandage on for 2-3 days. When you remove the bandage, leave the steri-strips intact until they fall off.) Additional Activity Instructions:: May not drive, work with heavy equipment, or sign legal documents for [address]. [address] if you are no longer taking narcotic pain medications. You may drive when you are no longer taking pain medications. Dressing / Incision Additional Dressing/Incision Instructions:: Leave the bandage on for 2-3 days. When you remove the bandage, leave the steri-strips intact for one week Follow Up Care When: Please call [phone] for any concerns Discharge Plan Admission Primary Reason for Your Visit: Left breast cancer Attending Provider: Yves Grant Primary Care Provider: Jake Spangler Discharge Orders/Prescriptions Prescriptions: Continued citalopram 20 mg tablet 20 mg PO DAILY latanoprost 0.005 % drops 1 drp ophthalmic (eye) QPM Label Comments: each eye ondansetron 8 mg tablet,disintegrating 8 mg PO Q8H PRN (Reason: nausea and vomiting) Qty: 30 2RF prochlorperazine maleate 10 mg tablet 10 mg PO Q6H PRN (Reason: nausea and vomiting) Qty: 30 2RF dexamethasone 4 mg tablet 8 mg PO .COMPLEX Qty: 12 3RF Rx Instructions: 8 mg orally Take twice daily ONLY the day before, day of and day after chemotherapy; lidocaine-prilocaine 2.5-2.5 % cream 1 applic topical ONCE PRN (Reason: port access) 30 Days Qty: 30 2RF fexofenadine-pseudoephedrine [Vickie-D 24 Hour] 1 TAB.SR tablet extended release 24 hr 1 tab.sr PO PRN PRN (Reason: Allergy Symptoms) Label Comments: allergies cholecalciferol (vitamin D3) [Vitamin D3] 1,000 UNIT tablet 1,000 unit PO DAILY Label Comments: supplement multivitamin Capsule 1 cap PO DAILY vitamin B complex Capsule 1 cap PO DAILY angydcekrolps-wjccscxhjrcjx-YA 5-325-200 mg Tablet 2 tab PO Q6H PRN (Reason: SINUS DRAINAGE) Referrals / Follow Up: Jake Spangler DO [Primary Care Provider] - Disposition Disposition (needs filled in before D/C Order can be placed): Home, Self Care 12/14/22 1435<Electronically signed by Yves Grant MD>Yves Grant MD CC: Dr. Jake Spangler DO ~ Signed [facility] Work Phone: 1(790) 994-955102-02-2023 History and physical note Author Dr. Grant [facility] December 14, 2022 1:11pm Note Date/Time December 14, 2022 1 2:16pm [facility] Medical Records Department [address] [place] [address] History & Physical Exam 12/14/22 1215 MR#: [id number] Acct: [id number] Name: REGINA BARNEY Rep #:[id number] : 1975 47 From: Yves Grant MD PCP: Dr. Jake Spangler DO Status:[facility] Location: [place] [address] History and Physical Date of Admission: 12/14/22 No Known Allergies Allergy (Verified 12/06/22 10:11) Medications cholecalciferol (vitamin D3) 25 mcg (1,000 unit) tablet (Vitamin D3) 1,000 unit PO DAILY 06/12/16 [History Confirmed 12/06/22] fexofenadine-pseudoephedrine ER 180 mg-240 mg tablet,ext.release 24 hr (Vickie- D 24 Hour) 1 tab.sr PO DAILY SEASONAL ALLERGIES 06/12/16 [History Confirmed 12/06/22] citalopram 20 mg tablet 20 mg PO DAILY 09/21/22 [History Confirmed 12/06/22] latanoprost 0.005 % eye drops 1 drp ophthalmic (eye) QPM 09/21/22 [History Confirmed 12/06/22] multivitamin 1 cap PO DAILY 10/24/22 [History Confirmed 12/06/22] vitamin B complex 1 cap PO DAILY 10/24/22 [History Confirmed 12/06/22] PFSH Medical History? Anxiety Cancer History of pain when walking Leg cramps Loss of hearing Non-smoker Wears glasses Surgical History? Delivery by section History of ear surgery History of partial thyroidectomy Hx of colonoscopy Hx of dilation and curettage Family History? Mother Breast cancer,? Onset Age: 45Grandmother Colon cancer ?? ? paternalUncle Colon cancer ?? ? paternalAunt Pancreatic cancer ?? ? maternalAunt Breast cancer ?? ? maternal >50y.o. at age of diagnosisGrandfather Heart disease ?? ? maternal Social History? household members:? family number of children:? 1 current occupational status:? employed current occupation:? works for [employer] current occupational exposures/hazards:? No Smoking Status:? Never smoker alcohol intake:? never substance use type:? does not use caffeine:? No what type of physical activity do you participate in:? walking frequency:? 3-4 times per week HPI HPI Surgical H&P: Yes HPI: Patient is a 47 y/o F s/p left stereotactic wire localization upper outer quadrant lumpectomy with nuclear tracer and left axillary sentinel lymph node biopsy by Dr. Grant on 10/25/22. Patient presents for a port-a-cath placement for chemotherapy treatment. Patient is right hand dominant. She denies any previous central lines or catheters. She was having left axillary discomfort at her last visit with our office. She notes this has completely resolved. Patient denies nausea, vomiting, fever. ROS General General: No weight change, appetite, fatigue, colon cancer, breast cancer or weakness HEENT HEENT: No difficulty swallowing, eye injury, eye surgery, swollen glands or hoarseness Endo Endocrine: Yes thyroid disease; No diabetes mellitus, thyroid cancer, Hair loss, heat intolerance or cold intolerance Skin Skin: No rash or changing moles Breast Breast: Yes abnormal mammogram and abnormal US; No left breast lump, right breast lump, nipple discharge, breast pain or breast enlargement Musc Musculoskeletal: No back problems, arthritis, rheumatoid arthritis, gout or joint pain Cardio Cardiovascular: No murmur, pacemaker, heart disease, atrial fibrillation, high blood pressure, heart attack, heart stent, palpitations, shortness of breat withexertion or chest pain Psych Psychiatric: Yes anxiety; No depression or hearing voices Resp Respiratory: No shortness of breath, No sleep apnea, No cough, No COPD, No asthma, No emphysema and No wheezing Gastro Gastrointestinal: No abdominal pain, No nausea or vomiting, No diarrhea, No constipation, No blood in stool, No acid reflux, No hemorrhoids, No ulcers, No gallbladder problem and No black,tarry stools Jaime Hematologic: No blood thinners, No blood disorders, No bleeding, No anemia and No blood clots Neuro Neurologic: No system reviewed and no additional complaints, except as documented, No as per HPI, No abnormal gait, No abnormal hearing, No abnormal movements, No abnormal speech, No behavioral changes, No burning sensations, No confusion, No convulsions, No disequilibrium, No dizziness, No localized weakness, No frequent falls, No headache(s), No lack of coordination, No loss ofvision, No memory loss, No numbness, No other visual disturbances, No radicular pain, No restless legs, No sensory deficit, No syncope, No tingling, No tremor(s), No weakness and No other Exam Const General: cooperative, healthy appearing, comfortable and no acute distress [facility] Head: normal to inspection Eyes General: appearance normal, both eyes and all related structures Neck Neck: normal visual inspection Neck mass: No Chest Other: Left breast- breast and axillary incisions are completely healed. No erythema orinfection noted. No tenderness noted. Resp Effort & Inspection: normal respiratory effort Auscultation: clear to auscultation bilaterally Cardio Rate: regular rate Rhythm: regular rhythm GI Inspection: normal to inspection Palpation: soft Auscultation: normal bowel sounds Musc Cervical Spine: normal cervical lordosis Skin General: no rashes or lesions noted Neuro General: no focal motor deficits and CN's II-XI intact bilaterally Extrem General: normal to inspection Psych Appearance: grossly normal Affect: normal affect Assessment and Plan Assessment and Plan (1) Breast cancer: ?Status:?Acute ?Plan: Dr. Grant will plan to perform a right possible left chest port-a-cath placementfor chemotherapy. Procedure details, risks and benefits have been explained. Patient and her have had the opportunity to ask and have questions answered. Patient verbally understands and agrees with the plan. Patient is not on any anticoagulants. I have examined the patient and the H&P has been reviewed. There are no clinicalchanges since date of exam. Yves Grant M.D., F.A.C.S. 12/14/22 1311 <Electronically signed by Yves Grant MD> Cosigner Signature (if applicable): CC: Dr. Jake Spangler, DO; Dr. Yves Grant MD~ Signed [facility] Work Phone: [phone]) 111-898502-02-2023 Procedure [facility] 10-17-2022 Miscellaneous Notes* Telephone Encounter - Sabra Cortes CHEY - 10/17/2022 12:33 PM EST Patient has been identified by name and date of : Yes Patient phones for refill(s): Requested Prescriptions Pending Prescriptions Disp Refills citalopram (CELEXA) 20 mg tablet [Pharmacy Med Name: CITALOPRAM HBR 20 MG TABLET] 90 tablet Sig: TAKE 1 TABLET BY MOUTH EVERY DAY Date of last office visit in primary care: 01/30/22 Last 2 Encounter Wt Readings: Date: Wt: 01/30/2022 69.9 kg (154 lb) 10/18/2021 67.6 kg (149 lb) Previous labs/tests for medication: Not applicable Please advise. Thank you. Sabra Cortes LPN documented [facility]-2022 Miscellaneous Notes* Telephone Encounter - Suly Reed RN - 10/03/2022 12:18 PM EST Faxed previous mammogram results and previous US breast results to [facility] MRI dept per Cherelle request. 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 Patient has appt on 09/15/[address] Devan Grant at [facility]. 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 documented in this encounterOhio [facility] Hospital11-01-2022 Miscellaneous Notes* Telephone Encounter - Suzie Mccartney LPN - 09/12/2022 8:55 AM EDT Tashia from Dr Grant's office called to request pt's mammogram report. Pt will have bx done there 09/15/22. Report faxed to [phone] via [employer]. Suzie Mccartney LPN * Telephone Encounter - Halle Hernandez Ma - 09/11/2022 5:03 PM EDT Pt informed, verbalized understanding. Pt reports she would like to get testing completed at [facility]. Form faxed 09/11/22 CHRIS SANDERS. Will pull report from [employer] on 09/13. [place] per [place]. Halle Hernandez Ma * Telephone Encounter - Sulma Garcia APRN.PARRISH - 09/11/2022 4:38 PM EDT Please let patient know that I have not received the impression/read of ultrasound yet, however I did just receive a fax from [facility] suggesting biopsy of area based on results. I would recommend biopsy. We can schedule this through [facility] or [facility]. I have filled out [facility] paperwork and order to have done at [facility] as I assum that is where she would like it done. Please see outbox in office. Please find ultrasound report from [facility]. Thank you, Sulma Garcia APRN.PARRISH * Telephone Encounter - Alexa Adkins LPN - 09/11/2022 3:43 PM EDT Pt is calling for results of mammogram done at [facility] for L breast. Call pt with results. Alexa Adkins LPN documented in this encounterOhio [facility] Hospital10-11-2022 Miscellaneous Notes* Telephone Encounter - Yenni Martinez Cma - 08/22/2022 8:19 AM EDT Patient notified and verbalized understanding Yenni Martinez Cma * Telephone Encounter - Sulma Garcia APRN.CNP - 08/21/2022 4:15 PM EDT Please let patient know that thyroid blood work done at is back and all within normal limits. Thank you, Sulma Garcia APRN.PARRISH documented in this encounterOhio State [facility] Hospital10-07-2022 Miscellaneous Notes* Letter - Mammography Coordinator - 08/18/2022 2:33 PM EDT August 18, 2022 PID: [id number] Regina Barney [address] [place], [place] [id number] Dear Ms. Barney, Your recent breast imaging exam on 08/18/2022 showed a possible finding that requires additional imaging studies for a complete evaluation. Most such findings are probably benign (not cancer). Your mammogram demonstrates that you have dense breast tissue, which could hide abnormalities. Dense breast tissue, in and of itself, is a relatively common condition. Therefore, this information is not provided to cause undue concern; rather, it is to raise your awareness and promote discussion with your health care provider regarding the presence of dense breast tissue in addition to other riskfactors. If you have a healthcare provider who ordered/prescribed your screening mammogram: Please call [phone] or EXT: [phone] to schedule an appointment for your additional imaging (if youhave not already done so). If you DO NOT have a healthcare provider (ie you did not have an order/prescription for your screening mammogram): Please call to schedule an appointment for your additional imaging (if you have not already done so). You must have an order/prescription from your physician when calling to schedule your appointment. If your order/prescription is not electronic, you must bring the hard copy with you on the day of your exam to avoid delays. Your imaging studies and reports are kept on file at [facility] as part of your permanent medical record, and are available for your continuing care. Thank you for allowing us to help in meeting your health care needs. Sincerely, Dr. Mcguire Interpreting Radiologist [facility] (Additional imaging) documented in this encounterOhio State East Hospital10-07-2022 Miscellaneous Notes* Telephone Encounter - Mark Leiva LPN - 08/18/2022 10:59 AM EDT Verónica with [facility] called requesting thyroid labs pt has on order. Identified pt with nameand date of . Faxed thru [facility] to [phone]. Done Mark Leiva LPN documented in this encounterOhio State East Hospital10-07-2022 History of Present illness Narrative* RT Pollo(R) - 08/18/2022 9:30 AM EDT Radiology Service Progress Note PATIENT NAME: Regina Barney DATE OF SERVICE: August 18, 2022 TIME: 9:28 AM PATIENT IDENTITY VERIFICATION COMPLETED USING TWO (2) IDENTIFIERS: Name and Date of confirmedby patient verbally. FALL SCREENING: Has the patient had 2 falls in the last year or 1 fall with injury or currently using an Ambulatory Assistive Device (Walker, Cane, Wheelchair, Crutches, etc.)? No PATIENT GENDER DATA: Female. status: : No status: NO. PATIENT RELEVANT IMPLANT DATA REVIEWED: Not Applicable RADIOLOGY DEPARTMENT: Mammography PERIPHERAL IV DATA: Not applicable SIGNED BY: RT Pollo(R) August 18, 2022 9:28 AM documented in this encounterOhio State East Hospital09-23-2022 Miscellaneous Notes* Telephone Encounter - Denise Grimaldo Ma - 08/04/2022 3:33 PM EDT Pt called and notified that labs have been ordered and faxed to [facility] at [phone]. Faxed within [facility]. Denise Grimaldo Ma * Telephone Encounter - Sulma Garcia APRN.CNP - 08/04/2022 3:28 PM EDT Thyroid labs placed. Sulma Garcia APRN.RN FAMILY PRACTICE * Telephone Encounter - Halle Hernandez Ma - 08/04/2022 1:56 PM EDT Pt informed, verbalized understanding. Please place lab orders for thyroid. Halle Hernandez Ma * Telephone Encounter - Jake Spangler DO - 08/04/2022 1:18 PM EDT Please inform patient that overall her labs are all good. Her vitamin D is just a little low at 35.Would recommend increasing vitamin D3 supplement by an extra 1000 international unit(s) a day with a meal. Jake Spangler DO * Telephone Encounter - Sabra Cortes LPN - 08/04/2022 1:03 PM EDT Pt. would like results of lab work in scanned documents. Sabra Cortes LPN * Telephone Encounter - Ni Tsai - 08/04/2022 9:01 AM EDT Patient would like a return call to discuss her lab results. Please return call. documented in this encounterOhio State East Hospital09-23-2022 Miscellaneous Notes* Telephone Encounter - Ni Tsai - 08/04/2022 8:58 AM EDT Patient has been identified by name and date of : Yes Requested Prescriptions Pending Prescriptions Disp Refills citalopram (CELEXA) 20 mg tablet 30 tablet 2 Sig: Take 1 tablet by mouth once daily. DEEPA-01/30/22 Labs-06/23/22 NOV-none med filled 04/05/22 RX INSTRUCTIONS: Patient aware RX will be sent to pharmacy. No need to notify patient. Ni Tsai documented in this encounterOhio State East Hospital08-12-2022 Miscellaneous Notes* Telephone Encounter - Sabra Cortes LPN - 06/23/2022 4:53 PM EDT Orders faxed as below. Sabra Cortes LPN * Telephone Encounter - Silvana Rios APRN.CNP - 06/23/2022 3:10 PM EDT Lab orders placed, please fax per request. Silvana Rios APRN.PARRISH * Telephone Encounter - Tiara De La O RN - 06/23/2022 8:44 AM EDT Patient calls and is asking for lab orders to be ordered and faxed to [facility]. Orders pended if agreeable. Patient states that previous orders have . Please review and advise, Tiara De La O RN documented in this encounterOhio State East Hospital05-24-2022 Miscellaneous Notes* Telephone Encounter - Onesimo Leo LPN - 04/04/2022 11:25 AM EDT Patient phones requesting refills as follows: Pending Prescriptions Disp Refills CITALOPRAM 20 MG TABLET 30 tablet 2 Sig: Take 1 tablet by mouth once daily. MITCH: No DEEPA 01/30/22 NOV no upcoming appt Please review and advise. Onesimo Leo LPN documented in this encounterOhio State East Hospital05-24-2022 Miscellaneous Notes* Telephone Encounter - Onesimo Felipa GUERRIER - 04/04/2022 11:24 AM EDT Patient phones requesting refills as follows: Pending Prescriptions Disp Refills CHOLECALCIFEROL (VITAMIN D3) 50 MCG (2,000 UNIT) TABLET 90 tablet 3 Sig: Take 1 tablet by mouth once daily. MITCH: No DEEPA 01/30/22 NOV no upcoming appt Please review and advise. Onesimo Leo LPN documented in this encounterOhio State East Hospital03-21-2022 Instructions* Patient Instructions* Jake Spangler DO - 01/30/2022 12:33 PM EDT BONE MINERAL DENSITY PATIENT INSTRUCTIONS Bone mineral density testing measures the amount of calcium in certain parts of your bones. This information determines how strong your bones are. The test is used to detect osteoporosis, a disease in which the bone's mineral content and density are low, increasing a person's risk of fractures. Thelumbar spine (lower back) and the hip are the skeletal sites usually examined. For the test, remember that: 1. You cannot take this test if you are . 2. Eat a normal diet on the day of the test. 3. Take your medications as you normally would. 4. DO NOT take calcium supplements (such as Tums) for 24 hours before the test. 5. On the day of the test, leave valuables (jewelry or credit cards) at home. 6. The test should be performed prior to oral, rectal or IV contrast studies, or at least 7 days after any of these studies. For the test, you may be asked to wear a hospital gown. You will lie on your back, on a padded table, in a comfortable position. Generally, you can resume your usual activities immediately. documented in this encounterOhio State East Hospital03-21-2022 History of Present illness Narrative* Jake Spangler, DO - 01/30/2022 12:14 PM EDT CC: Regina Barney is a 47 year old female who presents to the office for physical HPI: Overall doing well Perimenopausal changes, depressive disorder/anxiety symptoms, seems to be improved with the Celexa.She is taking as prescribed. No concerns. Feels her dose is in a good place. Still occasional pain in her knees, seems to be stable, mostly with prolonged walking or running. Doing her stationary rowing machine for exercise and walking. PAST MEDICAL HISTORY Diagnosis Date Bilateral knee pain Cyst of right kidney 08/2016 Dysthymic disorder 1996 SITUATIONAL Depression (non-psychotic) Environmental allergies Glaucoma [facility] Infertility, female Left thyroid nodule Multinodular goiter (nontoxic) 05/24/2016 Urinary tract infection, site not specified 2511-5043 Recurrent UTI's Vitamin D deficiency PAST SURGICAL HISTORY Procedure Laterality Date DELIVERY ONLY 2013 , low transverse COLONOSCOPY N/A 11/09/2016 CURETTAGE 07/2015 [facility] PROC UNLISTED Right TOTAL THYROID LOBECTOMY UNI W/WO ISTHMUSECTOMY Left 06/16/2016 Social History: Social History Tobacco Use Smoking status: Never Smoker Smokeless tobacco: Never Used Vaping Use Vaping Use: Never used Substance Use Topics Alcohol use: Yes Comment: OCCASIONALLY BUT NOT WHILE Drug use: No FAMILY HISTORY Problem Relation Age of Onset Breast Cancer Mother 46 Alcohol/Drug Father ETOH Hypertension Father Stroke Father Psychiatry Brother OCD Prostate Cancer Brother Heart Maternal Grandfather Stroke Maternal Grandfather Colon Cancer Paternal Grandmother Colon Cancer Maternal Aunt Anesthesia Maternal Aunt Colon Cancer Paternal Uncle Current Outpatient prescriptions: citalopram (CELEXA) 20 mg tablet Take 1 tablet by mouth once daily. cholecalciferol (VITAMIN D3) 50 mcg (2,000 unit) tablet Take 1 tablet by mouth once daily. latanoprost (XALATAN) 0.005 % ophthalmic solution 1 Drop daily at bedtime. montelukast (SINGULAIR) 10 mg tablet Take 10 mg by mouth daily at bedtime. CALCIUM CARBONATE/VITAMIN D3 (VITAMIN D-3 ORAL) Take by mouth once daily. clobetasol (TEMOVATE) 0.05 % ointment Apply 1 application to affected area as directed. apply a pea-sized amount to vulvar area tid x 3 weeks, bid x 3 weeks, every other day x 3 weeks, then twice weekly estradiol (ESTRACE) 0.01 % (0.1 mg/gram) vaginal cream Apply pea-sized amount to perineum and 1 applicator vaginally Mon, Wed, Fri for atrophic vaginitis. Allergies: ALLERGIES Allergen Reactions Seasonal Allergies Other: See Comments SNEEZING, RUNNY NOSE ROS: See HPI PE: 01/30/22 1203 BP: 110/60 Pulse: 60 Resp: 12 Temp: 36.2 C (97.2 F) TempSrc: Right Tympanic Weight: 69.9 kg (154 lb) Height: 168 cm (5' 6.14) Gen: A&O, NAD, non-toxic appearing, Pleasant, cooperative HEENT: NT/AC, PERRLA, EOMs intact b/l, nares clear and patent b/l, pharynx without erythema, exudate or lesions. Uvula midline. EACs without erythema or debris. TMs pearly galindo with intact landmarks b/l. Neck: supple, No cervical LAD, no thyromegaly, no carotid bruits CV: RRR, normal S1 and S2, no murmurs, no gallops, no rubs, Pulses 2+ and symmetric in UE and LE b/l Lungs: normal respiratory effort, CTA b/l, no wheezing or rhonchi or rales Abd: soft, NT, ND, +BS, no hepatosplenomegaly MS: FROM all 4 extremities Neuro: CN II-XII intact b/l, strength 5/5 b/l UE and LE, DTRs 2/4 UE and LE, sensation intact. Skin: warm, dry, intact, No rashes or lesions on exposed skin. No edema, normal pulses ASSESSMENT/PLAN: 1. Well adult exam - ICD9: V70.0, ICD10: Z00.00 (primary diagnosis) - Counseled on healthy diet and regular exercise - Calcium intake with supplements or by diet of 1000 mg/day for under 50, 1200- 1500 mg/day for 50+ - Colorectal cancer screening recommended - screening declined- she wants to consider this in the summer. She will call when ready - TSH BLD - LIPID PANEL BASIC - VITAMIN D 25 HYDROXY - FSH BLD - HGB A1C - CBC + DIFF - COMP METABOLIC PANEL - DXA-AXIAL SKELETON 2. Perimenopausal - ICD9: 627.2, ICD10: N95.1 - orders as below - FSH BLD - DXA-AXIAL SKELETON 3. Encounter for screening for osteoporosis - ICD9: V82.81, ICD10: Z13.820 - DXA-AXIAL SKELETON Jake Spangler DO To ER if develops chest pain, shortness of breath, or severe worsening of symptoms. Discussed risks, benefits, alternatives, and potential side effects of medications. Patient expressed understanding and agreed with the plan. Jake Spangler DO [address] [place] [address] * Sabra Cortes LPN - 01/30/2022 12:05 PM EDT THE LAST 2 WEEKS, HAVE YOU BEEN BOTHERED BY ANY OF THE FOLLOWING? - Little interest or pleasure in doing things 0 NOT AT ALL Feeling down, depressed, or hopeless 0 Trouble falling or staying asleep, or sleeping too much 0 Feeling tired or having little energy 1 Poor appetite or overeating 0 Feeling bad yourself-you are a failure or have let yourself or others 0 Trouble concentrating, like reading the paper or watching TV 0 Moving/speaking slowly (others notice) OR being more fidgety/restless 0 Thoughts that you would be better off or of hurting yourself 0 PHQ TOTAL SCORE = 1 PHQ problems effect on difficulty of work, home, and social activity: 1 - NOT DIFFICULT AT ALL documented in this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 Visit Abnormal mammogram o f left breast Abnormal ultrasound of breast Breast cancer Breast cancer Abnormal MRI, breast Breast cancer Abnormal MRI, breast Breast cancer Chief Complaint ABNORMAL MAMMOGRAM L BREAST BIRADS 4 LEFT BREAST MASS/ LEFT LYMPH NODULE BIOPSY RESULTS NEW-BREAST CA 2WKS LABS NEW START LEFT BREAST CANCER ABNORMAL BREAST MRI Right Breast Biopsy MULTIPLE RIGHT BREAST MASS BREAST MASS U/S RESULTS , PATH & DISCUSS SURGERY Other specified postprocedural states PREOP BREAST CA BREAST CA Stereo F/U left breast 12/14 3WKS AFTER SURGERY -NO LABS- REVIEW ONCOTYPE (MAKE SURE RESULTS) NO LABS DISCUSS PORT CHEMO ED INS VASC PORT RT POSS LEFT INS VASC PORT RT POSS LEFT Reason for Visit Abnormal mammogram o f left breast Abnormal ultrasound of breast Breast cancer Breast cancer Abnormal MRI, breast Breast cancer Abnormal MRI, breast Breast cancer Breast cancer Breast cancer Breast cancer Breast cancer Breast cancer Encounter for education Chief Complaint TOX CHECK - LABS 3 WKS - LABS - TC 3 WKS - LABS - TC 3 WKS - LABS - TC CONSULT - BREAST 4 WKS - LABS OTV PORT REMOVAL OTV LUMPECTOMY OTV PRATHER Reason for Visit Breast cancer Breast cancer Acid reflux Breast cancer Encounter for antineoplastic chemotherapy Rash Breast cancer Breast cancer, left breast Breast cancer Breast cancer, left breast Breast cancer, left breast Breast cancer, left breast Breast cancer, left breast Chief Complaint Malignant neoplasm o f unspecified site of left fem 1 month f/u post RT breast PRATHER 3 MO - NO LABS - LUPRON Laparoscopic, Salpingo-oopherectomy Reason for Visit Breast cancer Breast cancer, left breast Breast cancer Carcinoma of breast, estrogen receptor positive Chief Complaint PRATHER 3 MO - NO LABS - LUPRON Laparoscopic, Salpingo-oopherectomy HX OF BREAST 4 MONTH BREAST Reason for Visit Breast cancer Carcinoma of breast, estrogen receptor positive Breast cancer, left breast Medications Administered Section Inactive Administered Medications - up to 3 most recent administrations Medication Order MAR Action Action Date Dose Rate Site diphenhydrAMINE 12.5-50 mg injection (BENADRYL) 12.5-50 mg, INTRAVENOUS, DIRECTED, Starting on Sun06/04/23 at 1200, Until Sun06/04/23 at 1559, DOSING DIRECTED BY PHYSICIAN FOR PROCEDURAL SEDATION ONLY, Intraprocedure Given 06/04/2023 11:42 AM EDT 50 mg fentaNYL 50 mcg/mL 25-100 mcg injection (SUBLIMAZE) 25-100 mcg, INTRAVENOUS, DIRECTED, Starting on Sun06/04/23 at 1200, Until Sun06/04/23 at 1559, DOSING DIRECTED BY PHYSICIAN FOR PROCEDURAL SEDATION ONLY, Intraprocedure Given 06/04/2023 11:50 AM EDT 50 mcg Given 06/04/2023 11:40 AM EDT 50 mcg lactated ringers iv infusion 30 mL/hr, INTRAVENOUS, CONTINUOUS, Starting on Sun06/04/23 at 1100, Until Sun06/04/23 at 1204, Preprocedure New Bag/Syringe/Bottle 06/04/2023 11:04 AM EDT 30 mL/hr 30 mL/hr Hand, Right midazolam 1-5 mg injection (VERSED) 1-5 mg, INTRAVENOUS, DIRECTED, Starting on Sun06/04/23 at 1200, Until Sun06/04/23 at 1559, DOSING DIRECTED BY PHYSICIAN FOR PROCEDURAL SEDATION ONLY, Intraprocedure Given 06/04/2023 11:46 AM EDT 2 mg Given 06/04/2023 11:44 AM EDT 2 mg Given 06/04/2023 11:40 AM EDT 3 mg Additional Source Comments INFORMATION SOURCE (unrecogn ized section and content) DATE CREATED AUTHOR 02/06/2021 [facility] DATE CREATED AUTHOR AUTHOR'S ORGANIZ ATION 10/07/2021 [facility] DATE CREATED AUTHOR AUTHOR'S ORGANIZ ATION 12/15/2021 [facility] DATE CREATED AUTHOR AUTHOR'S ORGANIZ ATION 02/12/2025 [facility] DATE CREATED AUTHOR AUTHOR'S ORGANIZ ATION 05/12/2025 [facility] Care Teams (unrecognized sec tion and content) Visual Display Manager Relationship Specialty Start Date End Date Heidi Acosta, DO [address] [place] [address] PCP - General 02/09/12 Tramaine Dixon MD [address] [place] [address] [facility] [address] [place] [address] Consulting Physician Neurotology 09/08/21 Visual Display Manager Relationship Specialty Start Date End Date Jake Spangler DO [address] [place] [address] PCP - General Family Practice 04/24/16 Visual Display Manager Relationship Specialty Start Date End Date Jake Spangler DO [address] [place] [address] PCP - General Family Practice 04/24/16 Visual Display Manager Relationship Specialty Start Date End Date Jake Spangler DO [address] [place] [address] PCP - General Family Practice 04/24/16 Visual Display Manager Relationship Specialty Start Date End Date Jake Spangler, DO [address] [place] [address] PCP - General Family Practice 04/24/16 Visual Display Manager Relationship Specialty Start Date End Date Jake Spangler, DO [address] [place] [address] PCP - General Family Practice 04/24/16 Visual Display Manager Relationship Specialty Start Date End Date Jake Spangler, DO [address] [place] [address] PCP - General Family Medicine 04/24/16 Visual Display Manager Relationship Specialty Start Date End Date Jake Spangler, DO [address] [place] [address] PCP - General Family Medicine 04/24/16 Visual Display Manager Relationship Specialty Start Date End Date Jake Spangler, DO [address] [place] [address] PCP - General Family Medicine 04/24/16 Visual Display Manager Relationship Specialty Start Date End Date Jake Spangler, DO [address] [place] [address] PCP - General Family Medicine 04/24/16 Visual Display Manager Relationship Specialty Start Date End Date Jake Spangler, DO [address] [place] [address] PCP - General Family Medicine 04/24/16 Visual Display Manager Relationship Specialty Start Date End Date Jake Spangler, DO [address] [place] [address] PCP - General Family Medicine 04/24/16 Visual Display Manager Relationship Specialty Start Date End Date Jake Spangler, DO [address] [place] [address] PCP - General Family Medicine 04/24/16 Visual Display Manager Relationship Specialty Start Date End Date Jake Spangler [address] [place] [address] PCP - General Family Medicine 04/24/16 Team Status: Active Member Role Status Dates Dr. Jake Spangler DO Family Provider Active Dr. Jake Spangler DO Primary Care Provider Active Team Status: Inactive Member Role Status Dates Dr. Jake Spangler DO Primary Care Provider, Referr ing Provider Active Dr. Yves Grant MD Attending Provider Active Team Status: Inactive Member Role Status Dates Dr. Jake Spangler DO Primary Care Provider, Referr ing Provider Active Dr. Alesia Leung MD Attending Provider Active Team Status: Active Member Role Status Dates Dr. Jake Spangler DO Primary Care Provider Active Dr. Yves Grant MD Attending Provid er, Referring Provider, Other Provider Active Dr. Jorge Luis Curiel MD Other Provider Active Team Status: Inactive Member Role Status Dates Dr. Jake Spangler DO Primary Care Provider, Referr ing Provider Active Naomy Pelayo PA, PA-C Attending Provider Active Team Status: Inactive Member Role Status Dates Dr. Jake Spangler DO Primary Care Provider, Referr ing Provider Active Mary Mcneal INSIDE UPHOLSTERER, INSIDE UPHOLSTERER-C Attending Provider Active Team Status: Active Member Role Status Dates Dr. Jake Spangler DO Primary Care Provider Active Dr. Wesley Lopez MD Attending Provider Active Dr. Yves Grant MD Referring Provider Active Team Status: Active Member Role Status Dates Dr. Jake Spangler DO Primary Care Provider Active Dr. Yves Grant MD Attending Provider, Other Prov ider Active Team Status: Inactive Member Role Status Dates Dr. Jake Spangler DO Primary Care Provider Active TONIE SAINI Attending Provider, Referring P giovanni Active Team Status: Inactive Member Role Status Dates Dr. Jake Spangler DO Primary Care Provider Active Dr. Yves Grant MD Attending Provider Active Team Status: Active Member Role Status Dates Dr. Jake Spangler DO Primary Care Provider Active Dr. Alesia Leung MD Attending Provider, Referrin g Provider Active Team Status: Inactive Member Role Status Dates Dr. Jake Spangler DO Primary Care Provider Active Naomy AGUDELO PA-C Attending Provider Active Team Status: Inactive Member Role Status Dates Dr. Jake Spangler , DO Primary Care Provider Active Dr. Yves Grant MD Attending Provider, Referring Provider Active Team Status: Inactive Member Role Status Dates Dr. Jake Spangler DO Primary Care Provider Active Dr. Yves Grant MD Attending Provider, Referring Provider Active Dr. Jorge Luis Curiel MD Other Provider Active Team Status: Inactive Member Role Status Dates Dr. Jake Spangler DO Primary Care Provider, Referr ing Provider Active Dr. Perez Leonardo , DO Attending Provider Active Team Status: Active Member Role Status Dates Dr. Jake Spangler DO Primary Care Provider Active Dr. Perez Leonardo DO Attending Provider, Referring P rovider Active Team Status: Inactive Member Role Status Dates Dr. Jake Spangler DO Primary Care Provider Active Dr. Perez Leonardo , Attending Provider, Referring P rovider Active Team Status: Inactive Member Role Status Dates Dr. Jake Spangler DO Primary Care Provider, Referr ing Provider Active Dr. Peng See MD Attending Provider Active Team Status: Active Member Role Status Dates Dr. Jake Spangler DO Primary Care Provider Active Dr. Alesia Leung MD Attending Provider, Referrin g Provider Active Dr. Perez Leonardo DO Active Visual Display Manager Relationship Specialty Start Date End Date Jake Spangler DO [address] [place] [address] PCP - General Family Medicine 04/24/16 Visual Display Manager Relationship Specialty Start Date End Date Jake Spangler DO [address] [place], [place] [address] PCP - General Family Medicine 04/24/16 Visual Display Manager Relationship Specialty Start Date End Date Jake Spangler DO [address] [place] [address] PCP - General Family Medicine 04/24/16 Visual Display Manager Relationship Specialty Start Date End Date Jake Spangler DO [address] [place] [address] PCP - General Family Medicine 04/24/16 Visual Display Manager Relationship Specialty Start Date End Date Jake Spangler DO [address] [place] [address] PCP - General Family Medicine 04/24/16 Visual Display Manager Relationship Specialty Start Date End Date Jake Spangler DO [address] [place] [address] PCP - General Family Medicine 04/24/16 Visual Display Manager Relationship Specialty Start Date End Date Jake Spangler DO [address] [place] [address] PCP - General Family Medicine 04/24/16 Visual Display Manager Relationship Specialty Start Date End Date Jake Spangler DO [address] [place] [address] PCP - General Family Medicine 04/24/16 Team Status: Inactive Member Role Status Dates Dr. Jake Spangler DO Primary Care Provider Active Dr. Alesia Leung MD Attending Provider, Referrin g Provider Active Team Status: Inactive Member Role Status Dates Dr. Jake Spangler DO Primary Care Provider Active Dr. Leila Colunga MD Attending Provider, Referring Provider Active Visual Display Manager Relationship Specialty Start Date End Date Jake Spangler DO [address] [place] [address] PCP - General Family Medicine 04/24/16 Visual Display Manager Relationship Specialty Start Date End Date Jake Spangler DO [address] [place] [address] PCP - General Family Medicine 04/24/16 Visual Display Manager Relationship Specialty Start Date End Date Jake Spangler DO [address] [facility] [place] [address] PCP - General Family Medicine 04/24/16 Team Status: Inactive Member Role Status Dates Dr. Jake Spangler , Primary Care Provider Active Mary Mcneal INSIDE UPHOLSTERER, INSIDE UPHOLSTERER-C Attending Provider, Referring Provider Active Visual Display Manager Relationship Specialty Start Date End Date Jake Spangler DO [address] [facility] [place] [address] PCP - General Family Medicine 04/24/16 Visual Display Manager Relationship Specialty Start Date End Date Jake Spangler DO [address] [facility] [place] [address] PCP - General Family Medicine 04/24/16 Visual Display Manager Relationship Specialty Start Date End Date Jake Spangler DO [address] [place] [address] PCP - General Family Medicine 04/24/16 Sulma Harrington, SOD FARMER.RN FAMILY PRACTICE [address] [place] [address] [facility] 10/19/24 Silvana Rios, SOD FARMER.RN FAMILY PRACTICE [address] [place] [address] [facility] 10/19/24 Visual Display Manager Relationship Specialty Start Date End Date Jake Spangler DO [address] [place] [address] PCP - General Family Medicine 04/24/16 Silvana Rios, SOD FARMER.RN FAMILY PRACTICE [address] [facility] [place] [address] [facility] 10/19/24 Visual Display Manager Relationship Specialty Start Date End Date Jake Spangler DO [address] [facility] [place] [address] PCP - General Family Medicine 04/24/16 [facility], SOD FARMER.RN FAMILY PRACTICE [address] [place] [address] Le[facility] Family [facility] 10/19/24 Visual Display Manager Relationship Specialty Start Date End Date Jake Spangler DO [address] [place] [address] PCP - General Family Medicine 04/24/16 [facility], SOD FARMER.RN FAMILY PRACTICE [address] [place] [address] [facility] Family [facility] 10/19/24 Visual Display Manager Relationship Specialty Start Date End Date Jake Spangler DO [address] [place] [address] PCP - General Family Medicine 04/24/16 [facility], SOD FARMER.RN FAMILY PRACTICE [address] [place] [address] [facility] 10/19/24 Charmaine Armenta, SOD FARMER.RN FAMILY PRACTICE [address] [place] [address] [facility] 04/27/25 Visual Display Manager Relationship Specialty Start Date End Date Jake Spangler DO [address] [place] [address] PCP - General Family Medicine 04/24/16 Silvana Rios APRN.RN FAMILY PRACTICE [address] [place], [place] [address] [facility] 10/19/24 Charmaine Armenta APRN.RN FAMILY PRACTICE [address] [place], [place] [address] [facility] Family [facility] 04/27/25 Source Comments (unrecognize d section and content) In the event this informatio n is protected by the Federal Confidentiality of Alcohol and Drug Abuse Patient Records regulations: The Federal rules restrict any use of the information to criminally investigate or prosecute any alcohol or drug abuse patient.[facility] the event this information is protected by the Federal Confidentiality of Alcohol and Drug Abuse Patient Records regulations: The Federal rules restrict any use of the information to criminally investigate or prosecute any alcohol or drug abuse patient.[facility] HospitalIn the event this information is protected by the Federal Confidentiality of Alcohol and Drug Abuse Patient Records regulations: The Federal rules restrict any use of the information to criminally investigate or prosecute any alcohol or drug abuse patient.[facility] the event this information is protected by the Federal Confidentiality of Alcohol and Drug Abuse Patient Records regulations: The Federal rules restrict any use of the information to criminally investigate or prosecute any alcohol or drug abuse patient.[facility] Hospital[facility] the event this information is protected by the Federal Confidentiality of Alcohol and Drug Abuse Patient Records regulations: The Federal rules restrict any use of the information to criminally investigate or prosecute any alcohol or drug abuse patient.[facility] Hospital[facility] the event this information is protected by the Federal Confidentiality of Alcohol and Drug Abuse Patient Records regulations: The Federal rules restrict any use of the information to criminally investigate or prosecute any alcohol or drug abuse patient.[facility] HospitalIn the event this information is protected by the Federal Confidentiality of Alcohol and Drug Abuse Patient Records regulations: The Federal rules restrict any use of the information to criminally investigate or prosecute any alcohol or drug abuse patient.[facility] HospitalIn the event this information is protected by the Federal Confidentiality of Alcohol and Drug Abuse Patient Records regulations: The Federal rules restrict any use of the information to criminally investigate or prosecute any alcohol or drug abuse patient.[facility] HospitalIn the event this information is protected by the Federal Confidentiality of Alcohol and Drug Abuse Patient Records regulations: The Federal rules restrict any use of the information to criminally investigate or prosecute any alcohol or drug abuse patient.[facility] HospitalIn the event this information is protected by the Federal Confidentiality of Alcohol and Drug Abuse Patient Records regulations: The Federal rules restrict any use of the information to criminally investigate or prosecute any alcohol or drug abuse patient.[facility] HospitalIn the event this information is protected by the Federal Confidentiality of Alcohol and Drug Abuse Patient Records regulations: The Federal rules restrict any use of the information to criminally investigate or prosecute any alcohol or drug abuse patient.[facility] HospitalIn the event this information is protected by the Federal Confidentiality of Alcohol and Drug Abuse Patient Records regulations: The Federal rules restrict any use of the information to criminally investigate or prosecute any alcohol or drug abuse patient.[facility] HospitalIn the event this information is protected by the Federal Confidentiality of Alcohol and Drug Abuse Patient Records regulations: The Federal rules restrict any use of the information to criminally investigate or prosecute any alcohol or drug abuse patient.[facility] HospitalIn the event this information is protected by the Federal Confidentiality of Alcohol and Drug Abuse Patient Records regulations: The Federal rules restrict any use of the information to criminally investigate or prosecute any alcohol or drug abuse patient.[facility] HospitalIn the event this information is protected by the Federal Confidentiality of Alcohol and Drug Abuse Patient Records regulations: The Federal rules restrict any use of the information to criminally investigate or prosecute any alcohol or drug abuse patient.[facility] HospitalIn the event this information is protected by the Federal Confidentiality of Alcohol and Drug Abuse Patient Records regulations: The Federal rules restrict any use of the information to criminally investigate or prosecute any alcohol or drug abuse patient.[facility] HospitalIn the event this information is protected by the Federal Confidentiality of Alcohol and Drug Abuse Patient Records regulations: The Federal rules restrict any use of the information to criminally investigate or prosecute any alcohol or drug abuse patient.[facility] HospitalIn the event this information is protected by the Federal Confidentiality of Alcohol and Drug Abuse Patient Records regulations: The Federal rules restrict any use of the information to criminally investigate or prosecute any alcohol or drug abuse patient.[facility] HospitalIn the event this information is protected by the Federal Confidentiality of Alcohol and Drug Abuse Patient Records regulations: The Federal rules restrict any use of the information to criminally investigate or prosecute any alcohol or drug abuse patient.[facility] HospitalIn the event this information is protected by the Federal Confidentiality of Alcohol and Drug Abuse Patient Records regulations: The Federal rules restrict any use of the information to criminally investigate or prosecute any alcohol or drug abuse patient.[facility] HospitalIn the event this information is protected by the Federal Confidentiality of Alcohol and Drug Abuse Patient Records regulations: The Federal rules restrict any use of the information to criminally investigate or prosecute any alcohol or drug abuse patient.[facility] HospitalIn the event this information is protected by the Federal Confidentiality of Alcohol and Drug Abuse Patient Records regulations: The Federal rules restrict any use of the information to criminally investigate or prosecute any alcohol or drug abuse patient.[facility] HospitalIn the event this information is protected by the Federal Confidentiality of Alcohol and Drug Abuse Patient Records regulations: The Federal rules restrict any use of the information to criminally investigate or prosecute any alcohol or drug abuse patient.[facility] HospitalIn the event this information is protected by the Federal Confidentiality of Alcohol and Drug Abuse Patient Records regulations: The Federal rules restrict any use of the information to criminally investigate or prosecute any alcohol or drug abuse patient.[facility] HospitalIn the event this information is protected by the Federal Confidentiality of Alcohol and Drug Abuse Patient Records regulations: The Federal rules restrict any use of the information to criminally investigate or prosecute any alcohol or drug abuse patient.[facility] HospitalIn the event this information is protected by the Federal Confidentiality of Alcohol and Drug Abuse Patient Records regulations: The Federal rules restrict any use of the information to criminally investigate or prosecute any alcohol or drug abuse patient.[facility] HospitalIn the event this information is protected by the Federal Confidentiality of Alcohol and Drug Abuse Patient Records regulations: The Federal rules restrict any use of the information to criminally investigate or prosecute any alcohol or drug abuse patient.[facility] HospitalIn the event this information is protected by the Federal Confidentiality of Alcohol and Drug Abuse Patient Records regulations: The Federal rules restrict any use of the information to criminally investigate or prosecute any alcohol or drug abuse patient.[facility] HospitalIn the event this information is protected by the Federal Confidentiality of Alcohol and Drug Abuse Patient Records regulations: The Federal rules restrict any use of the information to criminally investigate or prosecute any alcohol or drug abuse patient.[facility] HospitalIn the event this information is protected by the Federal Confidentiality of Alcohol and Drug Abuse Patient Records regulations: The Federal rules restrict any use of the information to criminally investigate or prosecute any alcohol or drug abuse patient.[facility] HospitalIn the event this information is protected by the Federal Confidentiality of Alcohol and Drug Abuse Patient Records regulations: The Federal rules restrict any use of the information to criminally investigate or prosecute any alcohol or drug abuse patient.[facility] HospitalIn the event this information is protected by the Federal Confidentiality of Alcohol and Drug Abuse Patient Records regulations: The Federal rules restrict any use of the information to criminally investigate or prosecute any alcohol or drug abuse patient.[facility] HospitalIn the event this information is protected by the Federal Confidentiality of Alcohol and Drug Abuse Patient Records regulations: The Federal rules restrict any use of the information to criminally investigate or prosecute any alcohol or drug abuse patient.[facility] HospitalIn the event this information is protected by the Federal Confidentiality of Alcohol and Drug Abuse Patient Records regulations: The Federal rules restrict any use of the information to criminally investigate or prosecute any alcohol or drug abuse patient.[facility] HospitalIn the event this information is protected by the Federal Confidentiality of Alcohol and Drug Abuse Patient Records regulations: The Federal rules restrict any use of the information to criminally investigate or prosecute any alcohol or drug abuse patient.[facility] HospitalIn the event this information is protected by the Federal Confidentiality of Alcohol and Drug Abuse Patient Records regulations: The Federal rules restrict any use of the information to criminally investigate or prosecute any alcohol or drug abuse patient.[facility] HospitalIn the event this information is protected by the Federal Confidentiality of Alcohol and Drug Abuse Patient Records regulations: The Federal rules restrict any use of the information to criminally investigate or prosecute any alcohol or drug abuse patient.[facility] HospitalIn the event this information is protected by the Federal Confidentiality of Alcohol and Drug Abuse Patient Records regulations: The Federal rules restrict any use of the information to criminally investigate or prosecute any alcohol or drug abuse patient.[facility] HospitalIn the event this information is protected by the Federal Confidentiality of Alcohol and Drug Abuse Patient Records regulations: The Federal rules restrict any use of the information to criminally investigate or prosecute any alcohol or drug abuse patient.[facility] HospitalIn the event this information is protected by the Federal Confidentiality of Alcohol and Drug Abuse Patient Records regulations: The Federal rules restrict any use of the information to criminally investigate or prosecute any alcohol or drug abuse patient.[facility] HospitalIn the event this information is protected by the Federal Confidentiality of Alcohol and Drug Abuse Patient Records regulations: The Federal rules restrict any use of the information to criminally investigate or prosecute any alcohol or drug abuse patient.[facility] HospitalIn the event this information is protected by the Federal Confidentiality of Alcohol and Drug Abuse Patient Records regulations: The Federal rules restrict any use of the information to criminally investigate or prosecute any alcohol or drug abuse patient.[facility] HospitalIn the event this information is protected by the Federal Confidentiality of Alcohol and Drug Abuse Patient Records regulations: The Federal rules restrict any use of the information to criminally investigate or prosecute any alcohol or drug abuse patient.[facility] Reason for Visit (unrecogniz ed section and content) Reason Comments Physical Reason Onset Date Comments Refill Request 04/04/2022 Reason Comments Lab Orders Reason Onset Date Comments Refill Request 08/04/2022 Reason Comments Results, Lab Reason Comments Faxed lab order to outside Reason Comments Results Reason Comments Faxed to [facility] MRI Reason Comments Refill Request Reason Comments patient needs mamm put on disc Reason Comments Acute Visit abdominal issues Reason Comments Yearly Exam Reason Comments Spirometry Specialty Diagnoses / Procedures Referred By Contac t Referred To Contact [facility] Diagnoses BOO (dyspnea on exertion) Procedures SPIROMETRY - BASELINE AND POST DILATOR BRNCDILAT RSPSE SPMTRY PRE&POST-BRNCDILAT ADMN Jake Spangler, [address] [place] [address] [facility] [place] [address] [place] [address] Referral ID Status Reason Start Date Expiration Date V isits Requested Visits Authorized [id number] Closed Auto-Generate d Referral 08/17/2023 09/15/2024 1 1 Reason Onset Date Comments Yearly Exam Immunizations 08/17/2023 Flu vaccination Reason Comments Radiology US Specialty Diagnoses / Procedures Referred By Contac t Referred To Contact [facility] Diagnoses Multinodular goiter (nontoxic) Procedures US THYROID/PARATHYROID US SOFT TISSUE HEAD & NECK REAL TIME IMGE Jake Diamond, DO [address] [place] [address] [place] [id number] Referral ID Status Reason Start Date Expiration Date V isits Requested Visits Authorized [id number] Closed Auto-Generate d Referral 08/17/2023 09/15/2024 1 1 Reason Comments Pre-Op Visit Reason Comments questions on Zio and schedule apt Reason Comments Post-Op Visit Reason Onset Date Comments Refill Request 12/14/2023 Reason Comments Derm Problem Reason Onset Date Comments Refill Request 06/25/2024 Reason Onset Date Comments Refill Request 08/25/2024 Reason Comments fax mammo gram orders to [facility] Reason Onset Date Comments Refill Request 01/01/2025 Reason Comments Back Pain Reason Comments Back Pain Discomfort in [place] x 1 month, last couple days shoulder blades, occasionally nauseous, no urinary sx Reason Onset Date Comments Results 05/06/2025 Goals (unrecognized section and content) Goals may be documented in a n alternate sectionGoals may be documented in an alternate sectionGoals may be documented in an alternate sectionGoals may be documented in an alternate section FOR RECORDS PERTAINING TO PATIENTS WHO ARE OR HAVE BEEN ENROLLED IN A CHEMICAL DEPENDENCY/SUBSTANCEABUSE PROGRAM, SOME INFORMATION MAY BE OMITTED. This clinical summary was aggregated from multiple sources. Caution should be exercised in using it in the provision of clinical care. This summary normalizes information from multiple sources, and as a consequence, information in this document may materially change the coding, format and clinical context of patient data. In addition, data may be omitted in some cases. CLINICAL DECISIONS SHOULD BE BASED ON THE PRIMARY CLINICAL RECORDS. [employer] provides no warranty or guarantee of the accuracy or completeness of information in this document.
--- NOTE | 2025-05-24 17:11 | CA.SCORE ---
Calcium Scoring Date of Study:: 05/21/25 Indications Indications: Family history Coronary Calcium Scoring: High-resolution Computed Tomographic imaging of the chest was performed on [05/21/2025], with particular attention paid to the coronary arteries. Images from the examination were analyzed for the presence and extent of coronary artery calcification , using coronary calcium quantification software. The patient tolerated the procedure well and there were no complications. The results of the coronary calcification analysis are provided below. Findings Coronary Artery Left Main (LM): 0 Left Anterior Descending (LAD): 0 Left Circumflex (LCX): 0 Right Coronary Artery (RCA): 0 Total Agatston Score: 0 Percentile Rankin% Calcium Scoring Interpretation: Different methods to categorize the overall amount of coronary plaque. Overall amount CAC SIS Visual of coronary plaque P1 Mild -100 <2 1-2 vessels with mild amount of plaque P2 Moderate 101-300 3-4 1-2 vessels with moderate amount, 3 vessels with mild amount of plaque P3 Severe 301-999 5-7 3 vessels with moderate amount, 1 vessel with severe amount of plaque P4 Extensive >1000 >8 2-3 vessels with severe amount of plaque Conclusion: No atherosclerotic plaquing noted.
== END | disposition home or self-care (01) ==
LOC: CT 07:06
PROVIDERS: PCP Student in an Organized Health Care Education/Training Program; Referring Provider Nurse Practitioner Family; Visit Provider Nurse Practitioner Family
DX: R07.9 Chest pain, unspecified (principal); Z13.6 Encounter for screening for cardiovascular disorders
CPT/HCPCS: 75571; 76380

== ENCOUNTER → 2025-06-11 | Outpatient (CLI) | payer OTHER, SELFPAY ==
--- NOTE | 2025-06-11 09:00 | BD_ITS ---
PROCEDURE: DEXA BONE DENSITY STUDY 06/11/2025 REASON FOR EXAM: SCREENING FOR OSTEOPOROSIS; USE OF AI F, age 50 y/o . Postmenopausal. TECHNIQUE: DEXA BONE DENSITY STUDY COMPARISON: Prior study dated May 31, 2023. FINDINGS: BMD and T-SCORES Lumbar spine: 0.938 g/cm2, T-score -1.0 Levels: L1 through L4 Change from prior: Loss of 12.6%. Left femoral neck: 0.759 g/cm2, T-score -0.8 Femoral neck comparison data not recommended for monitoring change. Left total hip: 0.853 g/cm2, T-score -0.7 Change from prior: Loss of 8.2%. Right femoral neck: 0.793 g/cm2, T-score -0.5 Femoral neck comparison data not recommended for monitoring change. Right total hip: 0.867 g/cm2, T-score -0.6 Change from prior: Loss of 9%. The patient does meet the pharmacological treatment recommendations for prevention of osteoporosis. BD/Dexa Bone Density Study IMPRESSION: NORMAL T-SCORES. Recommend follow-up as clinically warranted. Reading Location: [facility]
== END | disposition home or self-care (01) ==
LOC: OPBD 09:02
PROVIDERS: PCP Student in an Organized Health Care Education/Training Program; Referring Provider Nurse Practitioner Family; Visit Provider Nurse Practitioner Family
DX: Z78.0 Asymptomatic menopausal state (principal); Z13.820 Encounter for screening for osteoporosis; Z79.811 Long term (current) use of aromatase inhibitors
CPT/HCPCS: 77080